=== PATIENT | male | born 1955 | race African-American/Black ===

== ENCOUNTER 2017-04-23 09:47 | Emergency (ER) | payer OTHER ==
[2017-04-23 10:03] VITALS: BP 196/110; PULSE 84; TEMP 98.5; BMI 32.5
[2017-04-23] MEDS ORDERED: IBUPROFEN 600 MG TABLET (FP) PO ONE ×2 (10:27→10:38)
--- NOTE | 2017-04-23 10:34 | PDOC ---
History of Present Illness - General Chief Complaint: Back Pain Stated Complaint: BACK PAIN Time Seen by Provider: 04/23/17 10:16 History Source: Patient, Family Exam Limitations: No Limitations - History of Present Illness Initial Comments: 04/23/17 10:28 He shouldn't came to emergency department for evaluation of acute onset of right -sided mid back and flank pain 2 days. Is uncertain as to cause, denies any changes in exercise or heavy lifting. Denies any fevers cough shortness of breath chest pain or palpitations, denies any problems with bowel or bladder. Takes no medication and has not taken any medication for relief of this pain. Has never had an injury, but feels is possible a muscle spasm as he feels a "clenching" to his right scapular thoracic back muscles. Denies numbness or tingling to hands or feet, Occurred: reports: other (2 days ) Severity: reports: mild, moderate Pain Location: reports: back Modifying Factors: improves with: None Loss of Consciousness: no loss of consciousness Associated Symptoms (Fall): denies symptoms Past History - Travel Traveled outside of the country in the last 30 days: No Close contact w/someone who was outside of country & ill: No - Past Medical History Allergies/Adverse Reactions: Allergies Allergy/AdvReac Type Severity Reaction Status Date / Time FRUITS Allergy Rash Uncoded 04/23/17 09:57 Home Medications: Ambulatory Orders Cyclobenzaprine HCl [Flexeril 10 mg] 10 mg PO BID PRN #14 tablet 04/23/17 HTN: Yes - Surgical History Abdominal Surgery: Yes (HERNIA) - Psycho/Social/Smoking Cessation Hx Anxiety: No Suicidal Ideation: No Smoking History: Never smoked Hx Alcohol Use: Yes (SOCIAL) Drug/Substance Use Hx: No Substance Use Type: None Review of Systems - Review of Systems Able to Perform ROS?: Yes Is the patient limited [place] proficient: Yes Constitutional: Yes: See HPI. No: Symptoms Reported, Fever, Loss of Appetite, Malaise HEENTM: Yes: See HPI. No: Symptoms Reported Respiratory: Yes: See HPI. No: Symptoms reported Musculoskeletal: Yes: Symptoms Reported, See HPI, Back Pain, Muscle Pain. No: Joint Swelling, Joint Stiffness Integumentary: No: Symptoms Reported, Rash Neurological: Yes: See HPI. No: Symptoms reported, Headache, Numbness All Other Systems: Reviewed and Negative *Physical Exam - Vital Signs Last Vital Signs Temp Pulse Resp BP Pulse Ox 98.5 F 84 20 196/110 100 04/23/17 09:49 04/23/17 09:49 04/23/17 09:49 04/23/17 09:49 04/23/17 09:49 - Physical Exam General Appearance: Yes: Nourished, Appropriately Dressed, Apparent Distress, Mild Distress HEENT: positive: KOKO, Normal ENT Inspection, TMs Normal, Pharynx Normal Neck: positive: Supple. negative: Tender Respiratory/Chest: positive: Lungs Clear, Normal Breath Sounds Cardiovascular: positive: Regular Rhythm, Regular Rate Gastrointestinal/Abdominal: positive: Soft. negative: Normal Bowel Sounds, Tender Musculoskeletal: positive: Normal Inspection, Muscle Spasm (patient with mild palpable spasm noted to the paravertebral spinous muscles, mild thoracic.). negative: Decreased Range of Motion, Vertebral Tenderness Extremity: positive: Normal Inspection, Normal Range of Motion. negative: Normal Capillary Refill Integumentary: positive: Normal Color, Dry, Warm, Pale Neurologic: positive: budget engineer II-XII NML intact, Fully Oriented, Alert, Normal Mood/ Affect, Normal Response, Motor Strength 5/5 Progress Note - Progress Note Progress Note: Muscle strain, will treat with NSAIDs and cyclobenzaprine *DC/Admit/Observation/Transfer Diagnosis at time of Disposition: Muscle strain - Discharge Dispostion Disposition: HOME Condition at time of disposition: Stable Admit: No - Prescriptions Prescriptions: Cyclobenzaprine HCl [Flexeril 10 mg] 10 mg PO BID PRN #14 tablet PRN Reason: spasm - Patient Instructions Printed Discharge Instructions: DI for Muscle Strain Additional Instructions: Rest, no heavy lifting or exercise until pain is resolved Hot soaks to neck and low back as often as possible/hot showers or Jacuzzis No massage or therapy until spasm is gone Continue ibuprofen 2-200 mg tablets every 6 hours for the next 3 days then as needed for pain and swelling Cyclobenzaprine 1-10mg every 8 hours as needed for spasm If not significant improvement within 24 hours with medication and rest regime, followup with private physician for change in medications and /or therapy. - Post Discharge Activity Work/School Note: Back to Work
[2017-04-23 10:40] LABS: URINE APPEARANCE CLEAR; URINE BILIRUBIN NEGATIVE (NEGATIVE); URINE BLOOD NEGATIVE (NEGATIVE); URINE COLOR LTYELLOW; URINE GLUCOSE (UA) NEGATIVE (NEGATIVE); URINE KETONE NEGATIVE (NEGATIVE); URINE LEUK ESTERASE NEGATIVE (NEGATIVE); URINE NITRITE NEGATIVE (NEGATIVE); URINE PROTEIN NEGATIVE (NEGATIVE); URINE UROBILINOGEN NEGATIVE mg/dL (0.2-1.0)
== END 2017-04-23 11:39 | disposition home or self-care (01) ==
LOC: JER 09:47 → JERFT 09:47
DX: S29.012A Strain of muscle and tendon of back wall of thorax, initial encounter (principal); I10 Essential (primary) hypertension
CPT/HCPCS: 81003; 99281-25

== ENCOUNTER 2018-01-23 17:01 | Observation (INO) | payer OTHER ==
--- NOTE | 2018-01-23 17:10 | PDOC ---
Rapid Medical Evaluation Time Seen by Provider: 01/23/18 17:06 Medical Evaluation: Allergies Allergy/AdvReac Type Severity Reaction Status Date / Time FRUITS Allergy Rash Uncoded 04/23/17 09:57 I have performed a brief in-person evaluation of this patient. The patient presents with a chief complaint of: ate peanuts 2 hours ago and felt itchy back of throat, then felt itchy and his tongue got swollen. Took benadryl about 2 hours ago, but his tongue is still swollen. Pertinent physical exam findings: patient speaking oddly because of tongue swelling. Can keep tongue in mouth. I have ordered the following: nothing The patient will proceed to the ED for further evaluation. Discharge Disposition - Diagnosis Allergic reaction, Tongue swelling - Referrals - Patient Instructions - Post Discharge Activity
[2018-01-23 17:12] VITALS: BMI 31.1
--- NOTE | 2018-01-23 17:32 | PDOC ---
History of Present Illness - General Chief Complaint: Allergic Reaction Stated Complaint: ALLERGIC REACTION Time Seen by Provider: 01/23/18 17:06 - History of Present Illness Initial Comments: 01/23/18 18:34 The patient is a 62 year old male with a history of HTN who presents for evaluation of an allergic reaction. The patient notes that he ingested peanuts 2 hours prior to presentation in the ED and began experiencing hives, itching, mouth tingling, and tongue swelling prompting his presentation to the ED for further evaluation. He denies a prior allergy to peanuts and notes that he took benadryl prior to his presentation with resolution of his hives and itching. He continues to complain of tongue swelling here in the ED. He otherwise denies fevers, chills, SOB, chest pain, abdominal pain, nausea, vomiting, or changes with urination or bowel movements. Past History - Past Medical History Allergies/Adverse Reactions: Allergies Allergy/AdvReac Type Severity Reaction Status Date / Time No Known Allergies Allergy Verified 01/23/18 18:56 COPD: No HTN: Yes - Surgical History Abdominal Surgery: Yes (HERNIA) - Suicide/Smoking/Psychosocial Hx Smoking History: Never smoked Have you smoked in the past 12 months: No Information on smoking cessation initiated: No Hx Alcohol Use: Yes (SOCIAL) Drug/Substance Use Hx: No Substance Use Type: None Review of Systems - Review of Systems Comments:: 01/23/18 18:36 Constitutional: No fevers, chills, fatigue, malaise HEENT: Tongue Swelling. No Rhinorrhea, nasal congestion, visual changes Cardiovascular: No chest pain, syncope, palpitations, lightheadedness Respiratory: No Cough, SOB, Hemoptysis, Gastrointestinal: No Abdominal pain, Nausea, Vomiting, Constipation, Diarrhea, Melena Genitourinary: No Dysuria, Frequency, Urgency, Hesitancy, Hematuria, Flank pain Musculoskeletal: No Myalgia, arthralgia Skin: Hives, Itching. No bruising, pallor Neurologic: No Headache, Dizziness, Numbness, Weakness, or Tingling Psychiatric: No Hallucinations. No SI or HI *Physical Exam - Vital Signs Last Vital Signs Temp Pulse Resp BP Pulse Ox 99.3 F 53 L 18 178/101 100 01/23/18 17:07 01/23/18 17:07 06/12/18 17:07 01/23/18 17:07 01/23/18 17:07 - Physical Exam Comments: 01/23/18 18:37 General Appearance: Nourished. No Apparent Distress HEENT: EOMI, KOKO. Tongue Edema with Uvula Swelling. Uvula Midline. No Pharyngeal Erythema, Tonsillar Exudate, Tonsillar Erythema Neck: No Cervical Lymphadenopathy Respiratory/Chest: Lungs Clear, Normal Breath Sounds. No Crackles, Rales, Rhonchi, Wheezing Cardiovascular: Regular Rhythm, Regular Rate. No Murmur, Gallops, Rubs Gastrointestinal/Abdominal: Normal Bowel Sounds, Soft. No Guarding, Rebound, Tenderness Musculoskeletal: No CVA Tenderness Extremity: Normal Capillary Refill Integumentary: No Hives noted. Normal Color, Dry, Warm Neurologic: Fully Oriented, Alert, Normal Mood/Affect, Normal Response, ED Treatment Course - LABORATORY CBC & Chemistry Diagram: 01/25/18 07:13 01/25/18 06:00 Medical Decision Making - Medical Decision Making 01/23/18 18:46 The patient is a 62 year old male with a history of HTN who presents for evaluation of an allergic reaction. Given the patient's history and physical exam, it is likely his symptoms are due to an allergic reaction. We will treat with solumedrol, pepcid, benadryl, sq epi here in the ED and continue to closely monitor and reassess. 01/23/18 20:12 The patient continues to experience tongue swelling despite medication and is hypertensive in the ER with Trigemini on the monitor. We believe he requires observation admission for blood pressure management and continued monitoring. We discussed the case with Dr. Granados who accepted the patient for admission. *DC/Admit/Observation/Transfer Diagnosis at time of Disposition: Allergic reaction, Tongue swelling - Discharge Dispostion Condition at time of disposition: Improved - Referrals - Patient Instructions - Post Discharge Activity
[2018-01-23] MEDS ORDERED: methylPREDNISolone NA SUCC 125 MG/2 ML VIAL IVPUSH ONE (17:37)
[2018-01-23] MEDS ORDERED: FAMOTIDINE 20 MG/50 ML IVPB 20 MG/50 ML MG IVPB ONE (17:47)
[2018-01-23] MEDS ORDERED: EPINEPHrine 1:1,000 1 MG/1 ML - 30ML VIAL (INJECTION) SQ STA (17:48)
[2018-01-23] MEDS ORDERED: EPINEPHrine INTRACARD 1:10,000 1 MG/10 ML DISP.SYRIN IVPUSH STA (17:48)
--- NOTE | 2018-01-23 17:50 | PDOC ---
Attending Attestation - HPI HPI: The patient is a 62 year old male, with a significant past medical history of HTN, who presents to the emergency department with, allergic reaction. As per patient, he ate peanuts prior to his arrival at work. He immediately began to experience hives, itching, and tongue swelling. His boss took him to [facility] and gave him 2 of Benadryl which relieved his hives and itching. He denies any lip swelling. He denies any recent fevers, chills, headache or dizziness. He denies any recent nausea, vomit, diarrhea or constipation. He denies any recent chest pain or shortness of breath. He denies any recent dysuria, frequency, urgency or hematuria. Past surgical history: None reported. Social History: Nonsmoker. Denies EtOH use and recreational drug use. - Physicial Exam PE: 01/23/18 19:26 GENERAL: Well-appearing, well-nourished. No apparent distress. +HEENT: Uvula and tongue swollen. No lip swelling. Normocephalic, atraumatic. PERRL, EOM intact. CARDIOVASCULAR: Normal S1, S2. Regular rate and rhythm. PULMONARY: Clear to auscultation bilaterally. ABDOMEN: Soft, non-distended, non-tender. EXTREMITIES: Normal ROM in all four extremities. No gross deformities. SKIN: Warm, dry. No rash NEUROLOGICAL: No focal neurological deficits. <Garry Altamirano - Last Filed: 01/23/18 19:26> - Resident Resident Name: Elan Smileyel - ED Attending Attestation I have performed the following: I have examined & evaluated the patient, The case was reviewed & discussed with the resident, I agree w/resident's findings & plan, Exceptions are as noted - HPI HPI: 01/23/18 17:49 62-year-old male ate peanuts and developed tongue swelling and periorbital tingling -he hasnever had an allergic rxn to peanuts - Medical Decision Making 01/24/18 01:44 imp PEANUT ALLERGY/UNCONTROLLED HTN ADMITTED FOR AIRWAY WATCH <Emili Qiu - Last Filed: 01/24/18 01:44> Attestations - Attestations 01/23/18 19:26 Documentation prepared by Garry Altamirano, acting as medical receptionist medical assistant for Emili Qiu MD. <Garry Altamirano - Last Filed: 01/23/18 19:26>
[2018-01-23] MEDS ORDERED: EPINEPHrine/PF 1 MG/1 ML (1:1,000) AMPULE ONE ×2 (17:55→20:37)
[2018-01-23] MEDS ORDERED: EPINEPHrine INTRACARD 1:10,000 1 MG/10 ML DISP.SYRIN IVPUSH ONE (19:15)
[2018-01-23] MEDS ORDERED: LOSARTAN 50MG/HCTZ 12.5MG 1 TAB (FP) PO ONE (21:30)
[2018-01-23 22:24] LABS: BASO % 0.4 % (0-2.0); EOS % 0.5 % (0-4.5); HEMATOCRIT 42.7 % (35.4-49); LYMPH % 8.7 % (8-40); MCH 27.5 pg (25.7-33.7); MCHC 32.7 g/dl (32.0-35.9); MEAN CELL VOLUME 84.3 fl (80-96); MEAN PLT VOLUME 9.6 fl (7.5-11.1); NEUT % 88.4 % (42.8-82.8); PLATELET COUNT 166 K/MM3 (134-434); RBC 5.07 M/mm3 (4.00-5.60); RDW 15.4 % (11.9-15.9); WHITE BLOOD COUNT 7.6 K/mm3 (4.0-10.0)
[2018-01-24] MEDS: DEXAMETHASONE SOD PHOSPHATE 4 MG/1 ML VIAL IVPUSH SCH ×4 (04:07→21:08)
[2018-01-24 08:51] LABS: BASO % 0.3 % (0-2.0); EOS % 0.1 % (0-4.5); HEMATOCRIT 39.9 % (35.4-49); HEMOGLOBIN 12.9 GM/dL (11.7-16.9); LYMPH % 10.1 % (8-40); MCH 27.4 pg (25.7-33.7); MCHC 32.4 g/dl (32.0-35.9); MEAN CELL VOLUME 84.5 fl (80-96); MEAN PLT VOLUME 10.2 fl (7.5-11.1); MONO % 1.6 % (3.8-10.2); NEUT % 87.9 % (42.8-82.8); PLATELET COUNT 137 K/MM3 (134-434); RBC 4.72 M/mm3 (4.00-5.60); RDW 15.1 % (11.9-15.9); WHITE BLOOD COUNT 7.8 K/mm3 (4.0-10.0)
[2018-01-24] MEDS: PANTOPRAZOLE 40 MG TABLET (FP) PO SCH ×2 (09:14→21:07)
[2018-01-24 09:16] LABS: ANION GAP 11 (8-16); CHLORIDE 104 mmol/L (98-107); CO2 25 mmol/L (21-32); POTASSIUM 4.1 mmol/L (3.5-5.1); SODIUM 140 mmol/L (136-145)
--- NOTE | 2018-01-24 09:16 | HP ---
Admitting History and Physical - Admission Chief Complaint: hives / itching / swelling generalized History of Present Illness: The patient is a 62 year old male, with a significant past medical history of HTN, who presents to the emergency department with, allergic reaction. As per patient, he ate peanuts prior to his arrival at work. He immediately began to experience hives, itching, and tongue swelling. His boss took him to [facility] and gave him 2 of Benadryl which relieved his hives and itching. He denies any lip swelling. He denies any recent fevers, chills, headache or dizziness. He denies any recent nausea, vomit, diarrhea or constipation. He denies any recent chest pain or shortness of breath. He denies any recent dysuria, frequency, urgency or hematuria. although HTN - patient has not been on any meds - last seen in office 06/2017 Last RX given then Diovan HCT 160/25 q day and simvastatin 40 mg q day ( 3 refills ) History Source: Patient, Medical Record Limitations to Obtaining History: No Limitations - Past Medical History Cardiovascular: Yes: HTN, Hyperlipdemia - Smoking History Smoking history: Never smoked Have you smoked in the past 12 months: No - Alcohol/Substance Use Hx Alcohol Use: Yes (SOCIAL) - Social History ADL: Independent History of Recent Travel: No Home Medications - Allergies Allergies/Adverse Reactions: Allergies Allergy/AdvReac Type Severity Reaction Status Date / Time No Known Allergies Allergy Verified 01/23/18 18:56 Review of Systems Findings/Remarks: was in usual state of health prior to ingestion of peanuts - Review of Systems Constitutional: reports: No Symptoms Eyes: reports: No Symptoms HENT: reports: No Symptoms Neck: reports: No Symptoms Cardiovascular: reports: No Symptoms Respiratory: reports: No Symptoms Gastrointestinal: reports: No Symptoms Genitourinary: reports: No Symptoms Breasts: reports: No Symptoms Reported Musculoskeletal: reports: No Symptoms Integumentary: reports: No Symptoms Neurological: reports: No Symptoms Endocrine: reports: No Symptoms Hematology/Lymphatic: reports: No Symptoms Psychiatric: reports: No Symptoms Physical Examination Vital Signs: Vital Signs Temperature 97.5 F L 01/24/18 07:45 Pulse Rate 85 01/24/18 07:45 Respiratory Rate 20 01/24/18 07:45 Blood Pressure 154/108 01/24/18 07:45 O2 Sat by Pulse Oximetry (%) 99 01/24/18 05:42 Constitutional: Yes: Well Nourished, No Distress, Calm Eyes: Yes: Conjunctiva Clear, EOM Intact HENT: Yes: Atraumatic, Normocephalic Neck: Yes: Supple, Trachea Midline, Other (swelling lower jaw) Cardiovascular: Yes: Regular Rate and Rhythm Respiratory: Yes: Regular, CTA Bilaterally Gastrointestinal: Yes: Normal Bowel Sounds, Soft, Abdomen, Obese ...Rectal Exam: Yes: Deferred Renal/: Yes: WNL Breast(s): Yes: WNL Musculoskeletal: Yes: WNL Extremities: Yes: WNL Edema: No Peripheral Pulses WNL: Yes Integumentary: Yes: WNL Neurological: Yes: Alert, Oriented ...Motor Strength: WNL Psychiatric: Yes: Alert, Oriented Labs: CBC, BMP 01/24/18 07:09 Problem List - Problems (1) Angio-edema Code(s): T78.3XXA - ANGIONEUROTIC EDEMA, INITIAL ENCOUNTER (2) Tongue swelling Code(s): R22.0 - LOCALIZED SWELLING, MASS AND LUMP, HEAD (3) Allergic reaction Code(s): T78.40XA - ALLERGY, UNSPECIFIED, INITIAL ENCOUNTER (4) HTN (hypertension) Code(s): I10 - ESSENTIAL (PRIMARY) HYPERTENSION (5) HLD (hyperlipidemia) Code(s): E78.5 - HYPERLIPIDEMIA, UNSPECIFIED Qualifiers: Hyperlipidemia type: pure hypercholesterolemia Qualified Code(s): E78.00 - Pure hypercholesterolemia, unspecified; E78.0 - Pure hypercholesterolemia Assessment/Plan # angioedema 2/2 to peanuts steroids /PPi / benadryl / # HTN resume meds non compliance
[2018-01-24 09:29] LABS: BLOOD UREA NITROGEN 18 mg/dL (7-18); CREATININE 1.3 mg/dL (0.7-1.3); GLUCOSE,RANDOM 182 mg/dL (74-106)
--- NOTE | 2018-01-24 09:43 | EKG ---
Test Reason : Blood Pressure : / mmHG Vent. Rate : 090 BPM Atrial Rate : 090 BPM P-R Int : 214 ms QRS Dur : 096 ms QT Int : 350 ms P-R-T Axes : 060 -33 130 degrees QTc Int : 428 ms SINUS RHYTHM WITH SINUS ARRHYTHMIA WITH 1ST DEGREE A-V BLOCK WITH FREQUENT PREMATURE VENTRICULAR COMPLEXES LEFT ATRIAL ENLARGEMENT LEFT AXIS DEVIATION SEPTAL INFARCT , AGE UNDETERMINED T WAVE ABNORMALITY, CONSIDER LATERAL ISCHEMIA ABNORMAL ECG WHEN COMPARED WITH ECG OF 20-FEB-2009 19:41, [place] INTERVAL HAS INCREASED QRS AXIS SHIFTED LEFT T WAVE INVERSION NO LONGER EVIDENT IN INFERIOR LEADS Confirmed by JUAN JOSE CASAS, JACQUES ([id number]) on 01/24/2018 9:43:14 AM Referred By: Confirmed By:JACQUES INGRAM MD
[2018-01-24] MEDS ORDERED: LOSARTAN 50MG/HCTZ 12.5MG 1 TAB (FP) PO SCH (10:00)
[2018-01-24] MEDS ORDERED: cloNIDine HCL 0.1 MG TABLET PO ONE (14:45)
[2018-01-24] MEDS ORDERED: LOSARTAN 50MG/HCTZ 12.5MG 1 TAB (FP) PO ONE (15:00)
[2018-01-24] MEDS ORDERED: diphenhydrAMINE HCL 25 MG CAPSULE (FP) PO SCH (22:00)
[2018-01-24] MEDS ORDERED: ATORVASTATIN CA 40 MG TABLET (FP) PO SCH (22:00)
[2018-01-25 08:56] LABS: ANION GAP 9 (8-16); BLOOD UREA NITROGEN 26 mg/dL (7-18); CALCIUM 9.6 mg/dL (8.5-10.1); CHLORIDE 102 mmol/L (98-107); CO2 28 mmol/L (21-32); CREATININE 1.3 mg/dL (0.7-1.3); GLUCOSE,RANDOM 146 mg/dL (74-106); POTASSIUM 4.3 mmol/L (3.5-5.1); SODIUM 139 mmol/L (136-145)
[2018-01-25] MEDS: DEXAMETHASONE SOD PHOSPHATE 4 MG/1 ML VIAL IVPUSH SCH ×2 (08:56→10:31)
[2018-01-25 09:03] LABS: BASO % 0.3 % (0-2.0); HEMATOCRIT 39.6 % (35.4-49); HEMOGLOBIN 12.7 GM/dL (11.7-16.9); LYMPH % 6.7 % (8-40); MCH 27.2 pg (25.7-33.7); MCHC 32.1 g/dl (32.0-35.9); MEAN CELL VOLUME 84.8 fl (80-96); MEAN PLT VOLUME 10.1 fl (7.5-11.1); MONO % 3.9 % (3.8-10.2); NEUT % 89.1 % (42.8-82.8); PLATELET COUNT 124 K/MM3 (134-434); RBC 4.68 M/mm3 (4.00-5.60); RDW 15.7 % (11.9-15.9); WHITE BLOOD COUNT 14.7 K/mm3 (4.0-10.0)
[2018-01-25] MEDS: PANTOPRAZOLE 40 MG TABLET (FP) PO SCH (09:11)
[2018-01-25] MEDS ORDERED: LOSARTAN 50MG/HCTZ 12.5MG 1 TAB (FP) PO SCH (10:00)
--- NOTE | 2018-01-25 10:16 | DS ---
Physical Examination Vital Signs: Vital Signs Temperature 98.7 F 01/24/18 21:00 Pulse Rate 83 01/24/18 21:00 Respiratory Rate 20 01/24/18 23:00 Blood Pressure 155/99 01/24/18 21:00 O2 Sat by Pulse Oximetry (%) 99 01/24/18 23:00 Constitutional: Yes: Well Nourished, No Distress, Calm Eyes: Yes: Conjunctiva Clear, EOM Intact HENT: Yes: Atraumatic, Normocephalic Neck: Yes: Supple, Trachea Midline Cardiovascular: Yes: Regular Rate and Rhythm Respiratory: Yes: Regular, CTA Bilaterally Gastrointestinal: Yes: Normal Bowel Sounds, Soft ...Rectal Exam: Yes: Deferred Renal/: Yes: WNL Breast(s): Yes: WNL Musculoskeletal: Yes: WNL Extremities: Yes: WNL Edema: No Peripheral Pulses WNL: Yes Integumentary: Yes: Laceration Neurological: Yes: Alert, Oriented ...Motor Strength: WNL Psychiatric: Yes: Alert, Oriented Labs: CBC, BMP 01/25/18 07:13 01/24/18 07:09 Discharge Summary Reason For Visit: SHORT STAY/ED OBSERVATION Current Active Problems Allergic reaction (Acute) Angio-edema (Acute) HLD (hyperlipidemia) (Acute) HTN (hypertension) (Acute) Tongue swelling (Acute) Condition: Improved - Instructions - Home Medications Comprehensive Discharge Medication List: prednisone 20mg Q day for 3 days resume diovan HCT / 160/25 q day office follow up next week
[2018-01-25 12:03] VITALS: BP 156/91; PULSE 80; TEMP 98.3
== END 2018-01-25 14:45 | disposition home or self-care (01) ==
LOC: JER 17:01 → JERBED 20:20 → J8W 01-24 02:51
PROVIDERS: ADMIT Internal Medicine; ATTEND Family Medicine
PROC: 3E033GC Introduction of Other Therapeutic Substance into Peripheral Vein, Percutaneous Approach (ICD-10-PCS; principal; 2018-01-23)
PROC: 3E0337Z Introduction of Electrolytic and Water Balance Substance into Peripheral Vein, Percutaneous Approach (ICD-10-PCS; 2018-01-23)
PROC: 3E013GC Introduction of Other Therapeutic Substance into Subcutaneous Tissue, Percutaneous Approach (ICD-10-PCS; 2018-01-23)
DX: T78.1XXA Other adverse food reactions, not elsewhere classified, initial encounter (principal); T78.3XXA Angioneurotic edema, initial encounter; K13.29 Other disturbances of oral epithelium, including tongue; I10 Essential (primary) hypertension; X58.XXXA Exposure to other specified factors, initial encounter; Z91.010 Allergy to peanuts; R22.0 Localized swelling, mass and lump, head; E78.5 Hyperlipidemia, unspecified
CPT/HCPCS: 36415; 71045-TC-FY; 80048; 85025; 93005; 93010; 96365; 96372; 96375; 99285-25; G0378; J0735

== ENCOUNTER 2018-11-18 13:31 | Inpatient (IN) | payer OTHER ==
[2018-11-18 13:38] VITALS: BMI 2538.6
--- NOTE | 2018-11-18 15:30 | PDOC ---
Rapid Medical Evaluation Chief Complaint: Blood Pressure Problem Time Seen by Provider: 11/18/18 15:09 Medical Evaluation: Allergies Allergy/AdvReac Type Severity Reaction Status Date / Time No Known Allergies Allergy Verified 11/18/18 13:37 Vital Signs Temp Pulse Resp BP Pulse Ox 98.4 F 83 18 188/95 H 98 11/18/18 13:34 11/18/18 13:34 11/18/18 13:34 11/18/18 13:34 11/18/18 13:34 11/18/18 15:27 63 yo M w/ a h/o HTN, comes in c/o 3 days of blurry vision, worsening, associated with occasional dizziness and headaches. He went to his PMD on Monday and Monday, was prescribed a different medication (does not know any of his meds names) which he has not had a chance to fill yet. His symptoms are worsening, hence the ED visit. Physical exam finding, decreased vision in L eye. Pt needs a full work up, will upgrade to the main ED because he needs higher level of care. Dr. Fernando aware Discharge Disposition - Diagnosis HTN (hypertension) Qualifiers: Hypertension type: unspecified Qualified Code(s): I10 - Essential (primary) hypertension - Referrals Referrals: Linda Granados MD [Primary Care Provider] - - Patient Instructions - Post Discharge Activity
--- NOTE | 2018-11-18 16:14 | PDOC ---
History of Present Illness - General Chief Complaint: Blood Pressure Problem Stated Complaint: HYPERTENSION Time Seen by Provider: 11/18/18 15:09 - History of Present Illness Initial Comments: 11/18/18 16:13 Mr. Palm is a 63 yo male w/ pmh of HTN who presents of evaluation of 2-3 days of blurry vision in his R eye. Patient reports he had presented Monday to PCP and proscribed new medication which he has not filled yet - represented Monday with continued high BP. Presents today as he has as yet been unable to fill his prescriptions and continues to have symptoms. Call to pharmacy revealed med list: losartan 100 daily HCTZ 50 daily labatolol 200 bid (new Rx, unfilled as of yet) The patient denies chest pain, shortness of breath, headache and dizziness. Denies fever, chills, nausea, vomit, diarrhea and constipation. Denies dysuria, frequency, urgency and hematuria. Past History - Past Medical History Allergies/Adverse Reactions: Allergies Allergy/AdvReac Type Severity Reaction Status Date / Time No Known Allergies Allergy Verified 11/18/18 13:37 Home Medications: Ambulatory Orders Labetalol HCl [Normodyne -] 200 mg PO BID 11/18/18 COPD: No HTN: Yes - Surgical History Abdominal Surgery: Yes (HERNIA) - Suicide/Smoking/Psychosocial Hx Smoking History: Never smoked Have you smoked in the past 12 months: No Hx Alcohol Use: Yes (SOCIAL) Drug/Substance Use Hx: No Substance Use Type: None Review of Systems - Review of Systems Comments:: 11/18/18 16:13 GENERAL/CONSTITUTIONAL: No fever or chills. No weakness. HEAD, EYES, EARS, NOSE AND THROAT: +Vision changes as described. No ear pain or discharge. No sore throat. CARDIOVASCULAR: No chest pain or shortness of breath RESPIRATORY: No cough, wheezing, or hemoptysis. GASTROINTESTINAL: No nausea, vomiting, diarrhea or constipation. GENITOURINARY: No dysuria, frequency, or change in urination. MUSCULOSKELETAL: No joint or muscle swelling or pain. No neck or back pain. SKIN: No rash NEUROLOGIC: No headache, vertigo, loss of consciousness, or change in strength/ sensation. ENDOCRINE: No increased thirst. No abnormal weight change HEMATOLOGIC/LYMPHATIC: No anemia, easy bleeding, or history of blood clots. ALLERGIC/IMMUNOLOGIC: No hives or skin allergy. *Physical Exam - Vital Signs Last Vital Signs Temp Pulse Resp BP Pulse Ox 98.4 F 83 18 188/95 H 98 11/18/18 13:34 11/18/18 13:34 11/18/18 13:34 11/18/18 13:34 11/18/18 13:34 - Physical Exam Comments: 11/18/18 16:14 GENERAL: Awake, alert, and fully oriented, in no acute distress HEAD: No signs of trauma, normocephalic, atraumatic EYES: +approx. 20/25 L eye, 20/80 R. PERRLA, EOMI, sclera anicteric, conjunctiva clear ENT: Auricles normal inspection, hearing grossly normal, nares patent, oropharynx clear without exudates. Moist mucosa NECK: Normal ROM, supple, no lymphadenopathy, JVD, or masses LUNGS: No distress, speaks full sentences, clear to auscultation bilaterally HEART: Regular rate and rhythm, normal S1 and S2, no murmurs, rubs or gallops, peripheral pulses normal and equal bilaterally. ABDOMEN: Soft, nontender, normoactive bowel sounds. No guarding, no rebound. No masses EXTREMITIES: Normal inspection, Normal range of motion, no edema. No clubbing or cyanosis. NEUROLOGICAL: Cranial nerves II through XII grossly intact. Normal speech, normal gait, no focal sensorimotor deficits SKIN: Warm, Dry, normal turgor, no rashes or lesions noted. ED Treatment Course - LABORATORY CBC & Chemistry Diagram: 11/18/18 17:00 11/18/18 17:00 Medical Decision Making - Medical Decision Making 11/18/18 18:36 Mr. Palm is a 63 yo male w/ pmh as described who presents for evaluation of symptoms concerning for stroke vs. hypertensive urgency vs. PRES. Patient evaluated with broad workup including Head CT, EKG, CXR. Upon repeat evaluation patient BP improved without intervention. Patient given labetalol IV for further BP treatment. CT negative for acute process. Patient noted to have elevated troponin as below - suspect hypertensive urgency as cause of symptoms. Patient reporting mild improvement of vision at this time. Will admit patient for further cardiology evaluation and observation. Laboratory Results - last 24 hr 11/18/18 11/18/18 11/18/18 17:00 17:00 17:00 WBC 3.6 L RBC 5.15 Hgb 14.6 Hct 44.9 MCV 87.1 MCH 28.4 MCHC 32.6 RDW 14.4 Plt Count 98 L D MPV 9.0 D Absolute Neuts (auto) 1.6 Neutrophils % 44.4 D Lymphocytes % 32.3 D Monocytes % 15.8 H D Eosinophils % 6.4 H D Basophils % 1.1 D Nucleated RBC % 0 Sodium 141 Potassium 3.7 Chloride 104 Carbon Dioxide 32 Anion Gap 5 L BUN 21 H Creatinine 1.3 Creat Clearance w eGFR 55.40 Random Glucose 84 Calcium 9.5 Phosphorus 2.7 Magnesium 1.8 Total Bilirubin 1.0 AST 21 ALT 24 Alkaline Phosphatase 72 Creatine Kinase 232 Creatine Kinase Index 1.1 CK-MB (CK-2) 2.6 Troponin I 0.08 H C-Reactive Protein < 0.3 Total Protein 7.3 Albumin 3.9 *DC/Admit/Observation/Transfer Diagnosis at time of Disposition: HTN (hypertension) Qualifiers: Hypertension type: unspecified Qualified Code(s): I10 - Essential (primary) hypertension - Discharge Dispostion Decision to Admit order: Yes - Referrals Referrals: Linda Granados MD [Primary Care Provider] - - Patient Instructions - Post Discharge Activity
[2018-11-18 17:36] LABS: BASO % 1.1 % (0-2.0); EOS % 6.4 % (0-4.5); HEMATOCRIT 44.9 % (35.4-49); HEMOGLOBIN 14.6 GM/dL (11.7-16.9); LYMPH % 32.3 % (8-40); MCH 28.4 pg (25.7-33.7); MCHC 32.6 g/dl (32.0-35.9); MEAN CELL VOLUME 87.1 fl (80-96); MONO % 15.8 % (3.8-10.2); NEUT % 44.4 % (42.8-82.8); PLATELET COUNT 98 K/MM3 (134-434); RBC 5.15 M/mm3 (4.00-5.60); RDW 14.4 % (11.9-15.9); WHITE BLOOD COUNT 3.6 K/mm3 (4.0-10.0)
[2018-11-18 18:01] LABS: ALBUMIN 3.9 g/dl (3.4-5.0); ALK PHOS 72 U/L (45-117); ANION GAP 5 MMOL/L (8-16); BLOOD UREA NITROGEN 21 mg/dL (7-18); CALCIUM 9.5 mg/dL (8.5-10.1); CHLORIDE 104 mmol/L (98-107); CO2 32 mmol/L (21-32); CREATININE 1.3 mg/dL (0.55-1.3); GLUCOSE,RANDOM 84 mg/dL (74-106); MAGNESIUM 1.8 mg/dL (1.8-2.4); PHOSPHOROUS 2.7 mg/dL (2.5-4.9); POTASSIUM 3.7 mmol/L (3.5-5.1); SGOT/AST 21 U/L (15-37); SGPT/ALT 24 U/L (13-61); SODIUM 141 mmol/L (136-145); TOT PROT 7.3 g/dl (6.4-8.2)
--- NOTE | 2018-11-18 18:06 | PDOC ---
Attending Attestation - Resident Resident Name: Matthew Jeffery - ED Attending Attestation I have performed the following: I have examined & evaluated the patient, The case was reviewed & discussed with the resident, I agree w/resident's findings & plan, Exceptions are as noted - HPI HPI: 11/18/18 18:01 The patient is a 63 YOM with a PMH of HTN who presents with a 3 day history of blurry vision, dizziness, and headaches. Patient was seen by his PCP last week, and was prescribed new anti-HTN (cannot remember the name of it). However, pt has not picked it up. Over the past 3 days, pt notes that his BP has been elevated, and he also reports blurry vision, worse in his R eye. Also endorses headache. Denies any CP/SOB. Denies weakness/numbness in any extremity. The patient denies fever, chills, nausea, vomit, diarrhea and constipation. Denies dysuria, frequency, urgency and hematuria. Allergies: NKA Past surgical history: None reported Social history: No reported alcohol, drug or cigarette use. PCP: Dr. Granados - Physicial Exam PE: 11/18/18 18:07 GENERAL: Awake, alert, and fully oriented, in no acute distress. HEAD: No signs of trauma EYES: PERRLA, EOMI, sclera anicteric, conjunctiva clear ENT: Auricles normal inspection, hearing grossly normal, nares patent, oropharynx clear without exudates. Moist mucosa NECK: Nontender, no stepoffs, Normal ROM, supple, no lymphadenopathy, JVD, or masses LUNGS: Breath sounds equal, clear to auscultation bilaterally. No wheezes, and no crackles HEART: Regular rate and rhythm, normal S1 and S2, no murmurs, rubs or gallops ABDOMEN: Soft, nontender, normoactive bowel sounds. No guarding, no rebound. No masses EXTREMITIES: Normal range of motion, no edema. No clubbing or cyanosis. No cords, erythema, or tenderness NEUROLOGICAL: Cranial nerves II through XII intact. 5/5 strength and sensation in all extremities, Normal speech, normal gait, normal cerebellar function SKIN: Warm, Dry, normal turgor, no rashes or lesions noted. - Medical Decision Making 11/18/18 18:07 63 M with headache, blurred vision, and elevated BP. Will evaluate for hypertensive emergency. Pt with mildly diminished visual acuity in R eye but no other neuro deficits. Will check ESR/CRP to r/o GCA. - Labs, ESR, CRP, trop - CT head - Labetalol PRN 11/18/18 18:21 Labs with + trop 0.08 CT head prelim negative Will admit for trending of trops and BP control IV labetalol given
[2018-11-18] MEDS ORDERED: LABETALOL HCL 5 MG/1 ML (100MG/20 ML VIAL) IVPUSH ONE (18:22)
[2018-11-18] MEDS ORDERED: LABETALOL HCL 5 MG/1 ML (200MG/40ML VIAL) IVPB ONE (18:29)
[2018-11-18] MEDS ORDERED: ASPIRIN 81 MG CHEWABLE TABLETS PO ONE (19:39)
[2018-11-18] MEDS ORDERED: ASPIRIN 81 MG CHEWABLE TABLETS ONE (19:44)
[2018-11-18] MEDS ORDERED: ACETAMINOPHEN 325 MG TABLET (FP) PO PRN (22:42)
[2018-11-18] MEDS ORDERED: LABETALOL HCL 100 MG TABLET (FP) PO ONE (22:57)
[2018-11-18] MEDS ORDERED: LABETALOL HCL 100 MG TABLET (FP) ONE (23:20)
[2018-11-19 00:31] LABS: PH,URINE 5.5 (5.0-8.0); URINE APPEARANCE CLEAR; URINE BILIRUBIN NEGATIVE (NEGATIVE); URINE COLOR YELLOW; URINE GLUCOSE (UA) NEGATIVE (NEGATIVE); URINE KETONE TRACE (NEGATIVE); URINE LEUK ESTERASE NEGATIVE (NEGATIVE); URINE NITRITE NEGATIVE (NEGATIVE); URINE PROTEIN NEGATIVE (NEGATIVE)
[2018-11-19 06:12] LABS: BASO % 0.7 % (0-2.0); EOS % 5.6 % (0-4.5); HEMATOCRIT 42.3 % (35.4-49); HEMOGLOBIN 13.7 GM/dL (11.7-16.9); LYMPH % 23.6 % (8-40); MCH 28.1 pg (25.7-33.7); MCHC 32.4 g/dl (32.0-35.9); MEAN CELL VOLUME 86.7 fl (80-96); MEAN PLT VOLUME 9.1 fl (7.5-11.1); MONO % 13.2 % (3.8-10.2); NEUT % 56.9 % (42.8-82.8); PLATELET COUNT 109 K/MM3 (134-434); RBC 4.87 M/mm3 (4.00-5.60); RDW 14.6 % (11.9-15.9); WHITE BLOOD COUNT 4.9 K/mm3 (4.0-10.0)
[2018-11-19 06:40] VITALS: BP 149/67; PULSE 64; TEMP 98.9
[2018-11-19 06:45] LABS: ANION GAP 5 MMOL/L (8-16); BLOOD UREA NITROGEN 23 mg/dL (7-18); CALCIUM 9.2 mg/dL (8.5-10.1); CHLORIDE 105 mmol/L (98-107); CHOLESTEROL 162 mg/dL (50-200); CO2 30 mmol/L (21-32); CREATININE 1.4 mg/dL (0.55-1.3); GLUCOSE,RANDOM 96 mg/dL (74-106); HDL CHOLESTEROL 24 mg/dL (40-60); MAGNESIUM 1.7 mg/dL (1.8-2.4); POTASSIUM 3.7 mmol/L (3.5-5.1); SODIUM 140 mmol/L (136-145); TRIGLYCERIDES 230 mg/dL (0-150)
--- NOTE | 2018-11-19 09:12 | CON.CARD ---
Consult Consult Specialty:: cardio - History of Present Illness Chief Complaint: blurred vision, SIDDIQUI History of Present Illness: 63 M here with dizziness, SIDDIQUI, blurred vision, high BP. recently saw dr cox with hi bp and sx's. labetalol rx'd--pt did not pick it up. here with same. meds given in ER--bp improved markedly. he feels much better now. no more SIDDIQUI. vision still somewhat off. no new neuro deficits at home or here. denies every presyncope or syncope. denies cp, sob PMH: HTN - Past Medical History Cardio/Vascular: Yes: HTN, Hyperlipdemia - Alcohol/Substance Use Hx Alcohol Use: Yes (SOCIAL) - Smoking History Smoking history: Never smoked Have you smoked in the past 12 months: No - Social History ADL: Independent History of Recent Travel: No Home Medications - Allergies Allergies/Adverse Reactions: Allergies Allergy/AdvReac Type Severity Reaction Status Date / Time No Known Allergies Allergy Verified 11/18/18 13:37 - Home Medications Home Medications: Ambulatory Orders Hctz - 50 mg PO DAILY 11/18/18 Labetalol HCl [Normodyne -] 200 mg PO BID 11/18/18 Losartan Potassium 100 mg PO DAILY 11/18/18 Family Disease History - Family Disease History Family History: Denies (no known cmp) Review of Systems - Review of Systems Constitutional: denies: Chills, Fever Eyes: denies: Double Vision, Eye Pain HENT: denies: Nasal Congestion Neck: denies: Stiffness Cardiovascular: denies: Palpitations Respiratory: denies: Orthopnea, PND Gastrointestinal: denies: Diarrhea, Rectal Bleeding Genitourinary: denies: Burning, Hematuria Musculoskeletal: denies: Muscle Pain Integumentary: denies: Rash Neurological: denies: Numbness, Seizure, Syncope Endocrine: denies: Excessive Sweating Hematology/Lymphatic: denies: Excessive Bleeding Vital Signs: Vital Signs Temperature 98.9 F 11/19/18 06:39 Pulse Rate 64 11/19/18 06:39 Respiratory Rate 11/19/18 07:37 Blood Pressure 149/67 11/19/18 06:39 O2 Sat by Pulse Oximetry (%) 98 11/19/18 07:37 Constitutional: Yes: Well Nourished, No Distress Eyes: No: Sclera Icterus HENT: No: Nasal Congestion Neck: No: Decreased ROM Respiratory: Yes: CTA Bilaterally. No: Accessory Muscle Use, Rales, Wheezes Gastrointestinal: Yes: Normal Bowel Sounds. No: Distention, Hepatomegaly, Palpable Mass, Tenderness Cardiovascular: Yes: Regular Rate and Rhythm JVD: No Carotid Bruit: No PMI: Non-Displaced Heart Sounds: Yes: S1, S2. No: Gallop Murmur: No: Systolic Murmur, Diastolic Murmur Musculoskeletal: Yes: Other (No kyphosis) Extremities: No: Cool, Cyanosis Edema: No Peripheral Pulses: 2+ Left Carotid, 2+ Right Carotid, 2+ Left Doralis Pedis, 2+ Right Dorsalis Pedis Integumentary: No: Jaundice Neurological: Yes: Alert, Oriented (x3) Psychiatric: No: Agitated - Other Data Labs, Other Data: CBC, BMP 11/19/18 05:40 11/19/18 05:40 Troponin, BNP 11/18/18 11/18/18 11/19/18 17:00 19:31 05:40 Troponin I 0.08 H 0.07 H 0.07 H Troponin, BNP 11/18/18 11/18/18 11/19/18 17:00 19:31 05:40 Troponin I 0.08 H 0.07 H 0.07 H Laboratory Tests 11/18/18 11/18/18 11/19/18 17:00 19:31 05:40 WBC 4.9 Hgb 13.7 Plt Count 109 L Sodium Potassium Carbon Dioxide BUN Creatinine Troponin I 0.08 H 0.07 H Triglycerides Cholesterol Total LDL Cholesterol HDL Cholesterol 11/19/18 05:40 WBC Hgb Plt Count Sodium 140 Potassium 3.7 Carbon Dioxide 30 BUN 23 H Creatinine 1.4 H Troponin I 0.07 H Triglycerides 230 H Cholesterol 162 Total LDL Cholesterol 97 HDL Cholesterol 24 L Assessment/Plan ECG 11/18 (16:34): NSR with sinus arrhythmia, 1st deg AVB, LVH/CINTHYA. nonsp ST-Ts lateral leads likely sec to LVH repol abn (no change vs 01/2018) #2: NSR with sinus arrhythmia, APC with blocked AV conduction, no other changes #3: NSR with sinus arrhythmia, no change vs prior HTN urgency: -pt non-adherence to recent med rx at home. here with dizziness, SIDDIQUI, blurred vision -initial bp here 188/95 -pt resumed on correct home regimen, and BP has improved significantly. sx's have improved significantly. -given findings of LVH and CINTHYA on ECG, recommend echo to evaluate for LVH and r/ o LV dilation/hypertensive CMP--in absence of s/sx of chf or angina, this may be done on outpatient basis -continue present bp meds, outpt bp followup. -blurry vision f/u as outpt per dr luis sinus arrhythmia, blocked APC: -APC occurred at timing outside of refractory period, hence should have been conducted. however in setting of sinus arrhythmia this most likely represents physiolgic effect of high vagal tone and not pathologic conduction system dz -no sx's of bradyarrhythmia at home -routine outpt f/u elevated troponin: -troponin indeterminate range, flat trend x 3= not c/w ACS -likely sec to underlying LVH -no sx's of acute ischemia -no inpatient ischemia eval is indicated here CKD: -creat 1.3-1.4 here, GFR 50s -similar to prior values thrombocytopenia: -per PMD no further inpatient cardio workup or mgmt required
[2018-11-19] MEDS ORDERED: LOSARTAN POTASSIUM 100 MG TABLET PO SCH (10:00)
[2018-11-19] MEDS ORDERED: LABETALOL HCL 200 MG TABLET (FP) PO SCH (10:00)
[2018-11-19] MEDS ORDERED: DOCUSATE SODIUM 100 MG CAPSULE (FP) PO SCH (10:00)
[2018-11-19] MEDS ORDERED: ASPIRIN COATED 81 MG TABLET.EC PO SCH (10:00)
--- NOTE | 2018-11-19 10:15 | HP ---
Admitting History and Physical - Admission History of Present Illness: Mr. Palm is a 63 yo male w/ pmh of HTN who presents of evaluation of 2-3 days of blurry vision in his R eye. Patient reports he had presented Monday to office and was given additional Rx for uncontrolled HTN, which he has not filled yet - represented Monday with continued high BP. He reports was still unable to fill his RX and continued with sx. denies Chest pain / SOB He reports walks 2 miles a day no LASSITER. Call to pharmacy revealed med list: losartan 100 daily HCTZ 50 daily labatolol 200 bid (new Rx, unfilled as of yet) History Source: Patient, Medical Record Limitations to Obtaining History: No Limitations - Past Medical History Cardiovascular: Yes: HTN, Hyperlipdemia - Smoking History Smoking history: Never smoked Have you smoked in the past 12 months: No - Alcohol/Substance Use Hx Alcohol Use: Yes (SOCIAL) - Social History ADL: Independent History of Recent Travel: No Home Medications - Allergies Allergies/Adverse Reactions: Allergies Allergy/AdvReac Type Severity Reaction Status Date / Time No Known Allergies Allergy Verified 11/18/18 13:37 - Home Medications Home Medications: Ambulatory Orders Hctz - 50 mg PO DAILY 11/18/18 Labetalol HCl [Normodyne -] 200 mg PO BID 11/18/18 Losartan Potassium 100 mg PO DAILY 11/18/18 Review of Systems - Review of Systems Constitutional: denies: Chills, Diaphoresis, Fever Eyes: reports: Blurred Vision. denies: Double Vision, Recent Change in Vision HENT: reports: No Symptoms Neck: reports: No Symptoms Cardiovascular: denies: Chest Pain, Palpitations, Shortness of Breath Respiratory: denies: Exercise Intolerance, Orthopnea, SOB, SOB on Exertion Gastrointestinal: reports: No Symptoms Genitourinary: reports: No Symptoms Breasts: reports: No Symptoms Reported Musculoskeletal: reports: No Symptoms Integumentary: reports: No Symptoms Neurological: reports: No Symptoms Endocrine: reports: No Symptoms Hematology/Lymphatic: reports: No Symptoms Psychiatric: reports: No Symptoms Physical Examination Vital Signs: Vital Signs Temperature 98.9 F 11/19/18 06:39 Pulse Rate 64 11/19/18 06:39 Respiratory Rate 19 11/19/18 07:37 Blood Pressure 149/67 11/19/18 06:39 O2 Sat by Pulse Oximetry (%) 98 04/08/19 07:37 Constitutional: Yes: Well Nourished, No Distress, Obese Eyes: Yes: Conjunctiva Clear, EOM Intact HENT: Yes: Atraumatic, Normocephalic Neck: Yes: Supple, Trachea Midline Cardiovascular: Yes: Regular Rate and Rhythm, Murmur Respiratory: Yes: Regular, CTA Bilaterally Gastrointestinal: Yes: Normal Bowel Sounds, Soft ...Rectal Exam: Yes: Deferred Renal/: Yes: WNL Breast(s): Yes: WNL Musculoskeletal: Yes: WNL Extremities: Yes: WNL Edema: No Peripheral Pulses WNL: Yes Integumentary: Yes: WNL Neurological: Yes: WNL ...Motor Strength: WNL Psychiatric: Yes: WNL Labs: CBC, BMP 11/19/18 05:40 11/19/18 05:40 Problem List - Problems (1) HTN (hypertension) Assessment/Plan: resume home meds add labetolol monitor Bp Cardiology eval if proper will arrange for out patient work up am lipids ck A1c -- no hx DM ck TSH telemetry Code(s): I10 - ESSENTIAL (PRIMARY) HYPERTENSION Qualifiers: Hypertension type: unspecified Qualified Code(s): I10 - Essential (primary ) hypertension (2) HLD (hyperlipidemia) Assessment/Plan: diet education has declined statins in the past will review diet fasting lipids Code(s): E78.5 - HYPERLIPIDEMIA, UNSPECIFIED Qualifiers: Hyperlipidemia type: pure hypercholesterolemia Qualified Code(s): E78.00 - Pure hypercholesterolemia, unspecified; E78.0 - Pure hypercholesterolemia
--- NOTE | 2018-11-19 10:24 | DS ---
Physical Examination Vital Signs: Vital Signs Temperature 98.9 F 11/19/18 06:39 Pulse Rate 64 11/19/18 06:39 Respiratory Rate 19 11/19/18 07:37 Blood Pressure 149/67 11/19/18 06:39 O2 Sat by Pulse Oximetry (%) 98 11/19/18 07:37 Findings/Remarks: Mr. Palm is a 63 yo male w/ pmh of HTN who presents of evaluation of 2-3 days of blurry vision in his R eye. Patient reports he had presented Monday to office and was given additional Rx for uncontrolled HTN, which he has not filled yet - represented Monday with continued high BP. He reports was still unable to fill his RX and continued with sx. denies Chest pain / SOB He reports walks 2 miles a day no LASSITER. Patient was given PO meds 11/18/18, improved BP today -- sx resolving -- c/o of mild SIDDIQUI denies having had any CO/SOB/LASSITER/diaphoresis/leg edema Case discussed with Dr Healy- who will do out patient follow up EKGs reviewed with Dr Healy- no acute changes compared to previous Constitutional: Yes: Well Nourished, No Distress, Calm Eyes: Yes: WNL HENT: Yes: WNL Neck: Yes: WNL Cardiovascular: Yes: WNL, Murmur Respiratory: Yes: WNL Gastrointestinal: Yes: WNL ...Rectal Exam: Yes: Deferred Renal/: Yes: WNL Breast(s): Yes: WNL Musculoskeletal: Yes: WNL Extremities: Yes: WNL Edema: No Peripheral Pulses WNL: Yes Integumentary: Yes: WNL Neurological: Yes: WNL ...Motor Strength: WNL Psychiatric: Yes: WNL Labs: CBC, BMP 11/19/18 05:40 11/19/18 05:40 Discharge Summary Reason For Visit: HYPERTENSION Current Active Problems HTN (hypertension) (Acute) Condition: Improved - Instructions Disposition: HOME - Home Medications Comprehensive Discharge Medication List: Ambulatory Orders Hctz - 50 mg PO DAILY 11/18/18 Labetalol HCl [Normodyne -] 200 mg PO BID 11/18/18 Losartan Potassium 100 mg PO DAILY 11/18/18
--- NOTE | 2018-11-19 15:31 | EKG ---
Test Reason : Blood Pressure : / mmHG Vent. Rate : 060 BPM Atrial Rate : 060 BPM P-R Int : 222 ms QRS Dur : 104 ms QT Int : 392 ms P-R-T Axes : 063 012 145 degrees QTc Int : 392 ms SINUS RHYTHM WITH MARKED SINUS ARRHYTHMIA WITH 1ST DEGREE A-V BLOCK POSSIBLE LEFT ATRIAL ENLARGEMENT ABNORMAL ECG WHEN COMPARED WITH ECG OF 18-NOV-2018 16:34, NO SIGNIFICANT CHANGE WAS FOUND Confirmed by ROSA CASAS, YEIMI ([id number]) on 11/19/2018 3:30:31 PM Referred By: Confirmed By:YEIMI LEE MD
--- NOTE | 2018-11-19 15:31 | EKG ---
Test Reason : Blood Pressure : / mmHG Vent. Rate : 063 BPM Atrial Rate : 063 BPM P-R Int : 222 ms QRS Dur : 106 ms QT Int : 380 ms P-R-T Axes : 066 026 166 degrees QTc Int : 388 ms SINUS RHYTHM WITH MARKED SINUS ARRHYTHMIA WITH 1ST DEGREE A-V BLOCK LEFT ATRIAL ENLARGEMENT ABNORMAL ECG WHEN COMPARED WITH ECG OF 18-NOV-2018 19:01, NO SIGNIFICANT CHANGE WAS FOUND Confirmed by ROSA CASAS, YEIMI ([id number]) on 11/19/2018 3:30:27 PM Referred By: Confirmed By:YEIMI LEE MD
--- NOTE | 2018-11-19 15:34 | EKG ---
Test Reason : Blood Pressure : / mmHG Vent. Rate : 070 BPM Atrial Rate : 070 BPM P-R Int : 200 ms QRS Dur : 106 ms QT Int : 382 ms P-R-T Axes : 059 016 147 degrees QTc Int : 412 ms NORMAL SINUS RHYTHM WITH SINUS ARRHYTHMIA LEFT ATRIAL ENLARGEMENT ABNORMAL ECG WHEN COMPARED WITH ECG OF 23-JAN-2018 21:12, PREMATURE VENTRICULAR COMPLEXES ARE NO LONGER PRESENT T WAVE VARIATION Confirmed by ROSA CASAS, YEIMI ([id number]) on 11/19/2018 3:34:03 PM Referred By: Confirmed By:YEIMI LEE MD
== END 2018-11-19 11:08 | disposition home or self-care (01) | DRG 305 ==
LOC: JER 13:31 → JERBED 18:40 → OBSVTOIN 22:43
PROVIDERS: ADMIT Family Medicine; ATTEND Family Medicine
DX: I16.1 Hypertensive emergency (principal); H53.8 Other visual disturbances; R51 Headache; E78.5 Hyperlipidemia, unspecified; E66.9 Obesity, unspecified; Z68.25 Body mass index [BMI] 25.0-25.9, adult; D69.6 Thrombocytopenia, unspecified; I12.9 Hypertensive chronic kidney disease with stage 1 through stage 4 chronic kidney disease, or unspecified chronic kidney disease; N18.9 Chronic kidney disease, unspecified; I49.8 Other specified cardiac arrhythmias
CPT/HCPCS: 36415; 70450-TC; 71045-TC-FY; 71046-TC-FY; 80048; 80053; 80061; 81003; 82550; 82553; 83036; 83721; 83735; 84100; 84443; 84484; 85025; 85651; 86140; 93005; 93010; 99285-25; G0378

== ENCOUNTER 2018-12-05 20:29 | Observation (INO) | payer OTHER ==
[2018-12-05 20:35] VITALS: BMI 21.9
--- NOTE | 2018-12-05 20:38 | PDOC ---
Rapid Medical Evaluation Chief Complaint: Blood Pressure Problem Time Seen by Provider: 12/05/18 20:36 Medical Evaluation: Allergies Allergy/AdvReac Type Severity Reaction Status Date / Time No Known Allergies Allergy Verified 12/05/18 20:36 Vital Signs Temp Pulse Resp BP Pulse Ox 98.5 F 67 18 146/55 L 98 12/05/18 20:31 12/05/18 20:31 12/05/18 20:31 12/05/18 20:31 12/05/18 20:31 12/05/18 20:36 I have performed a brief in-person evaluation of this patient. The patient presents with a chief complaint of: dizziness Pertinent physical exam findings: bradycardia-30. No m/r/g. I have ordered the following: cardiac w/u The patient will proceed to the ED for further evaluation. Discharge Disposition - Diagnosis Bradycardia - Referrals - Patient Instructions - Post Discharge Activity
[2018-12-05 21:09] LABS: BASO % 0.7 % (0-2.0); EOS % 7.1 % (0-4.5); HEMATOCRIT 43.8 % (35.4-49); HEMOGLOBIN 14.5 GM/dL (11.7-16.9); LYMPH % 34.4 % (8-40); MCH 28.7 pg (25.7-33.7); MEAN CELL VOLUME 87.1 fl (80-96); MEAN PLT VOLUME 9.5 fl (7.5-11.1); MONO % 7.3 % (3.8-10.2); NEUT % 50.5 % (42.8-82.8); PLATELET COUNT 108 K/MM3 (134-434); RBC 5.03 M/mm3 (4.00-5.60); RDW 14.1 % (11.9-15.9); WHITE BLOOD COUNT 5.6 K/mm3 (4.0-10.0)
[2018-12-05 21:31] LABS: INR 1.02 (0.83-1.09)
[2018-12-05 22:01] LABS: PH,URINE 5.5 (5.0-8.0); URINE APPEARANCE CLEAR; URINE BILIRUBIN NEGATIVE (NEGATIVE); URINE COLOR YELLOW; URINE GLUCOSE (UA) NEGATIVE (NEGATIVE); URINE KETONE NEGATIVE (NEGATIVE); URINE LEUK ESTERASE NEGATIVE (NEGATIVE); URINE NITRITE NEGATIVE (NEGATIVE); URINE PROTEIN NEGATIVE (NEGATIVE); URINE UROBILINOGEN 0.2 mg/dL (0.2-1.0)
--- NOTE | 2018-12-05 22:54 | PDOC ---
History of Present Illness - General Chief Complaint: Blood Pressure Problem Stated Complaint: HIGH BLOOD PRESSURE Time Seen by Provider: 12/05/18 20:36 History Source: Patient Exam Limitations: No Limitations - History of Present Illness Initial Comments: Pt is a 63 yo M, with PMH of HTN, who is presenting with complaints of continued elevated BP, feeling of being "off balance" and "blurry vision" in both eyes since his last admission 2 weeks ago (11/18/2018). Pt states his BP was 180 systolic before he came to the ER, and took an extra dose of his labetolol before presenting to the ER, which did not improve his symptoms. Pt states the episodes of "being off balance" last about 20 minutes, and only occur when he is walking around. He denies any associated chest pain, SOB, n/v/diaphoresis. Pt was seen by his office nurse practitioner after his last discharge, who told the pt "his eyes are fine" per the pt. Pt denies any fevers/chills, headache, syncope, chest pain, palpitations, SOB, nausea/vomiting, abdominal pain, urinary symptoms , diarrhea/constipation, or leg swelling. Social: Pt occasionally smokes cigars. Denies any other cigarette, alcohol, or drug use. Pt denies any recent travel or sick contacts. Surgical: no relevant history. Family: no relevant history. 12/05/18 23:22 Past History - Travel Traveled outside of the country in the last 30 days: No Close contact w/someone who was outside of country & ill: No - Past Medical History Allergies/Adverse Reactions: Allergies Allergy/AdvReac Type Severity Reaction Status Date / Time No Known Allergies Allergy Verified 12/05/18 20:36 Home Medications: Ambulatory Orders Labetalol HCl [Normodyne -] 100 mg PO BID 11/18/18 Losartan Potassium 100 mg PO DAILY 11/18/18 Acetaminophen [Tylenol .Regular Strength -] 650 mg PO Q4H PRN tablet 11/19/18 Hydrochlorothiazide 50 mg PO DAILY 12/05/18 COPD: No HTN: Yes - Surgical History Abdominal Surgery: Yes (HERNIA) - Suicide/Smoking/Psychosocial Hx Smoking History: Never smoked Have you smoked in the past 12 months: No Hx Alcohol Use: Yes (SOCIAL) Drug/Substance Use Hx: No Substance Use Type: None Review of Systems - Review of Systems Able to Perform ROS?: Yes Is the patient limited [place] proficient: No Constitutional: Yes: Weight Stable. No: Chills, Diaphoresis, Fever, Loss of Appetite, Malaise, Weakness HEENTM: Yes: See HPI, Blurred Vision. No: Eye Pain, Recent change in vision, Double Vision, Nose Congestion, Throat Pain Respiratory: No: Cough, Orthopnea, Shortness of Breath Cardiac (ROS): No: Chest Pain, Edema, Irregular Heart Rate, Lightheadedness, Palpitations, Syncope, Chest Tightness ABD/GI: No: Blood Streaked Bowels, Constipated, Diarrhea, Nausea, Poor Appetite , Poor Fluid Intake, Vomiting, Indigestion : No: Burning, Dysuria, Pain, Urgency Musculoskeletal: No: Back Pain, Joint Pain, Muscle Pain, Muscle Weakness Integumentary: No: Rash Neurological: Yes: See HPI, Unsteady Gait. No: Headache, Numbness, Paresthesia , Weakness, Ataxia, Dizziness Psychiatric: No: Sleep Pattern Change, Change in Appetite Endocrine: No: Increased Urine, Change in Weight Hematologic/Lymphatic: No: Anemia, Blood Clots, Easy Bleeding, Easy Bruising All Other Systems: Reviewed and Negative *Physical Exam - Vital Signs Last Vital Signs Temp Pulse Resp BP Pulse Ox 98.5 F 73 16 123/61 95 12/05/18 20:31 12/05/18 22:20 12/05/18 22:20 12/05/18 22:20 12/05/18 22:20 - Physical Exam Comments: HR in 30s on arrival (in 70s on exam), pt afebrile. Pt in NAD, normal body habitus. Pt alert and oriented x3. principal automation engineer generally intact, muscular strength and sensation intact. No midline spinal tenderness, step-offs, or crepitus. Head normocephalic, atraumatic. Eyes PERRLA, EOMI. Oropharynx without erythema or exudates, no LAD b/l. No nasal congestion, hearing intact. Clear heart sounds, S1/S2, no JVD, b/l pedal edema, or heart murmur. Clear lung sounds, no respiratory distress, wheezes, crackles, or accessory muscle use. No abdominal or CVA tenderness to palpation, no rebound, no guarding. Abdomen soft, non-distended, and with normoactive bowel sounds. RLE with ulcerated lesion on anterior palencia (pt states chronic and unchanged). Skin otherwise without jaundice or rash. 12/05/18 22:52 12/06/18 04:06 ED Treatment Course - LABORATORY CBC & Chemistry Diagram: 12/05/18 20:55 12/05/18 22:40 - ADDITIONAL ORDERS Additional order review: Laboratory Results 12/05/18 12/05/18 12/05/18 21:31 20:55 20:55 PT with INR 12.00 INR 1.02 Sodium Cancelled Potassium Cancelled Chloride Cancelled Carbon Dioxide Cancelled Anion Gap Cancelled BUN Cancelled Creatinine Cancelled Creat Clearance w eGFR Cancelled Random Glucose Cancelled Calcium Cancelled Magnesium Cancelled Total Bilirubin Cancelled AST Cancelled ALT Cancelled Alkaline Phosphatase Cancelled Creatine Kinase Cancelled Troponin I Cancelled Total Protein Cancelled Albumin Cancelled Urine Color Yellow Urine Appearance Clear Urine pH 5.5 Ur Specific [place] 1.010 Urine Protein Negative Urine Glucose (UA) Negative Urine Ketones Negative Urine Blood Negative Urine Nitrite Negative Urine Bilirubin Negative Urine Urobilinogen 0.2 Ur Leukocyte Esterase Negative 12/05/18 20:55 RBC 5.03 MCV 87.1 MCHC 33.0 RDW 14.1 MPV 9.5 Neutrophils % 50.5 Lymphocytes % 34.4 D Monocytes % 7.3 Eosinophils % 7.1 H Basophils % 0.7 Medical Decision Making - Medical Decision Making Pt was seen at bedside, also will be seen by attending Dr. Lamas. Pt presenting with complaints of continued elevated BP, feeling of being "off balance" and "blurry vision" in both eyes since his last admission 2 weeks ago ( 11/18/2018). Pt states his BP was 180 systolic before he came to the ER, and took an extra dose of his labetolol before presenting to the ER, which did not improve his symptoms. Pt states the episodes of "being off balance" last about 20 minutes, and only occur when he is walking around. He denies any associated chest pain, SOB, n/v/diaphoresis. Pt was seen by his office nurse practitioner after his last discharge, who told the pt "his eyes are fine" per the pt. Pt denies any fevers/chills, headache, syncope, chest pain, palpitations, SOB, nausea/vomiting , abdominal pain, urinary symptoms, diarrhea/constipation, or leg swelling. Considering hypertensive urgency/emergency vs ACS vs TIA/CVA vs medication noncompliance or side effects from not taking BP meds properly vs electrolyte imbalances vs anxiety/psychosomatic. Ordered work-up including CBC, CMP, BNP, cardiac profile. No acute interventions necessary at this time. HR currently in the 70s. Will continue to reassess pt and monitor for symptomatic improvement. ECG: NSR, intervals WNL. No TWIs or significant ST segment changes. No significant changes from prior ECG. 12/05/18 22:52 12/05/18 23:17 CBC and CMP WNL Mg 1.6 which may explain PVCs -- will replete with 2 g IVPB Trop 0.4, BNP 682 (no prior BNP for comparison, but pt does not appear fluid overloaded clinically, no infiltrates on x-ray, nor orthopnea/PND on history). Second troponin for 1:40am, nursing staff aware. 12/06/18 00:04 12/06/18 01:17 Second troponin .05. Pt continues to have asymptomatic bradycardic periods in HR 40s. Paged Dr. Granados x1 for admission. Placed consult order for Dr. Healy. 12/06/18 03:[address] Granados to tele/obs. She will see the pt in the AM and stated he had PVCs present in the past. Repeat ECG: sinus with 1st degree AV block with frequent PVCs. 12/06/18 03:59 *DC/Admit/Observation/Transfer Diagnosis at time of Disposition: Bradycardia Hypertension Qualifiers: Hypertension type: unspecified Qualified Code(s): I10 - Essential (primary) hypertension - Discharge Dispostion Disposition: HOME Condition at time of disposition: Improved Decision to Admit order: No - Referrals - Patient Instructions - Post Discharge Activity
[2018-12-05 23:36] LABS: ALBUMIN 3.6 g/dl (3.4-5.0); ALK PHOS 65 U/L (45-117); ANION GAP 7 MMOL/L (8-16); BILIRUBIN,TOTAL 0.8 mg/dL (0.2-1); BLOOD UREA NITROGEN 20 mg/dL (7-18); CALCIUM 9.2 mg/dL (8.5-10.1); CHLORIDE 104 mmol/L (98-107); CO2 27 mmol/L (21-32); CREATININE 1.2 mg/dL (0.55-1.3); GLUCOSE,RANDOM 95 mg/dL (74-106); MAGNESIUM 1.6 mg/dL (1.8-2.4); N-TERMINAL BNP 682.2 pg/ml (5-125); POTASSIUM 3.5 mmol/L (3.5-5.1); SGOT/AST 18 U/L (15-37); SGPT/ALT 26 U/L (13-61); SODIUM 139 mmol/L (136-145)
[2018-12-05] MEDS ORDERED: MAGNESIUM SULF 50% (8.12 MEQ/2 ML-1 GM VIAL) IVPB ONE (23:39)
[2018-12-06] MEDS ORDERED: MAGNESIUM SULF 50% (8.12 MEQ/2 ML-1 GM VIAL) ONE (00:16)
--- NOTE | 2018-12-06 02:09 | PDOC ---
Documentation entered by Garry Altamirano SCRIBE, acting as scribe for Ronel Lamas DO. Ronel Lamas DO: This documentation has been prepared by the Evelia mehta Nirvannie, SCRIBE, under my direction and personally reviewed by me in its entirety. I confirm that the documentation accurately reflects all work, treatment, procedures, and medical decision making performed by me. Attending Attestation - Resident Resident Name: JuliaBetty - ED Attending Attestation I have performed the following: I have examined & evaluated the patient, The case was reviewed & discussed with the resident, I agree w/resident's findings & plan - HPI HPI: 12/05/18 23:37 The patient is a 63 year old male, with a significant past medical history of HTN, who presents to the emergency department with, elevated blood pressure, intermittent blurred vision with headache. As per patient, he tested his blood pressure and noticed his systolic to be elevated to 180, prompting him to take his nighttime dosage of Labetalol early and arrive to the ED. He denies any recent fevers or chills. He denies any recent nausea, vomit, diarrhea or constipation. He denies any recent chest pain or shortness of breath. He denies any recent dysuria, frequency, urgency or hematuria. Allergies: NKDA Past surgical history: None reported. Social History: Occasional cigar smoking. Denies EtOH use and recreational drug use. Primary Care Physician: Dr. Granados - Physicial Exam PE: 12/05/18 23:37 Constitutional: Awake, alert, oriented. No acute distress. Head: Normocephalic. Atraumatic Eyes: PERRL. EOMI. Conjunctivae are not pale. ENT: Mucous membranes are moist and intact. Posterior pharynx without exudates or erythema. Uvula midline. Neck: Supple. Full ROM. No lymphadenopathy. Cardiovascular: Regular rate. Regular rhythm. S1, S2 regular. Distal pulses are 2+ and symmetric. Pulmonary/Chest: No evidence of respiratory distress. Clear to auscultation bilaterally No wheezing, rales or rhonchi. Abdominal: Soft and non-distended. There is no tenderness. No rebound, guarding or rigidity. No organomegaly. No palpable masses. Good bowel sounds. Back: No CVA tenderness. Musculoskeletal: No edema. No cyanosis. No clubbing. Full range of motion in all extremities. No calf tenderness. Radial/pedal pulses are intact and 2+ bilaterally Skin: +RLE: Calcified antecubital growth. Skin is warm and dry. No petechiae. No purpura. Neurological: Alert and oriented to person, place, and time. Cranial nerves II -XII are grossly intact. Normal speech. Strength is grossly symmetric. No sensory deficits. Psychiatric: Good eye contact. Normal interaction, affect and behavior. - Medical Decision Making 12/05/18 23:29 I, Dr. Ronel Lamas, DO, attest that this document has been prepared under my direction and personally reviewed by me in its entirety. I further attest, that it accurately reflects all work, treatment, procedures and medical decision -making performed by me. 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
[2018-12-06] MEDS ORDERED: ASPIRIN 81 MG CHEWABLE TABLETS PO ONE (02:30)
[2018-12-06] MEDS ORDERED: ASPIRIN 81 MG CHEWABLE TABLETS ONE (03:56)
[2018-12-06 06:57] VITALS: TEMP 98.1
--- NOTE | 2018-12-06 12:05 | EKG ---
Test Reason : Blood Pressure : / mmHG Vent. Rate : 071 BPM Atrial Rate : 060 BPM P-R Int : 210 ms QRS Dur : 102 ms QT Int : 374 ms P-R-T Axes : 058 -09 131 degrees QTc Int : 406 ms SINUS RHYTHM WITH 1ST DEGREE A-V BLOCK WITH FREQUENT PREMATURE VENTRICULAR COMPLEXES POSSIBLE LEFT ATRIAL ENLARGEMENT ABNORMAL ECG WHEN COMPARED WITH ECG OF 18-NOV-2018 23:07, PREMATURE VENTRICULAR COMPLEXES ARE NOW PRESENT T WAVE INVERSION NO LONGER EVIDENT IN INFERIOR LEADS Confirmed by MUSHTAQ JORDAN MD ([id number]) on 12/06/2018 12:04:55 PM Referred By: Confirmed By:MUSHTAQ JORDAN MD
--- NOTE | 2018-12-06 12:06 | EKG ---
Test Reason : Blood Pressure : / mmHG Vent. Rate : 072 BPM Atrial Rate : 060 BPM P-R Int : 194 ms QRS Dur : 104 ms QT Int : 376 ms P-R-T Axes : 056 004 158 degrees QTc Int : 411 ms SINUS RHYTHM WITH FREQUENT PREMATURE VENTRICULAR COMPLEXES POSSIBLE LEFT ATRIAL ENLARGEMENT ABNORMAL ECG WHEN COMPARED WITH ECG OF 18-NOV-2018 23:07, PREMATURE VENTRICULAR COMPLEXES ARE NOW PRESENT Confirmed by JULIAN CASAS, MUSHTAQ ([id number]) on 12/06/2018 12:06:28 PM Referred By: Confirmed By:MUSHTAQ JORDAN MD
--- NOTE | 2018-12-06 13:27 | DS ---
Physical Examination Vital Signs: Vital Signs Temperature 98.1 F 12/06/18 06:56 Pulse Rate 51 L 12/06/18 08:00 Respiratory Rate 21 H 12/06/18 08:00 Blood Pressure 134/61 12/06/18 08:00 O2 Sat by Pulse Oximetry (%) 100 12/06/18 08:00 Findings/Remarks: Pt is a 63 yo M, with PMH of HTN, who is presenting with complaints of continued elevated BP, feeling of being "off balance" and "blurry vision" in both eyes since his last admission 2 weeks ago (11/18/2018). Pt states his BP was 180 systolic before he came to the ER, and took an extra dose of his labetolol before presenting to the ER, which did not improve his symptoms. Pt states the episodes of "being off balance" last about 20 minutes, and only occur when he is walking around. He denies any associated chest pain, SOB, n/v/diaphoresis. 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 Pt denies any fevers/chills, headache, syncope, chest pain, palpitations, SOB, nausea/vomiting, abdominal pain, urinary symptoms , diarrhea/constipation, or leg swelling. Patient seen in the office several time over last 2 weeks - at times has "forgotten to take him meds, along with poor complinace with diet. He understands compliance with meds essential for Bp control -- He states has all his meds at home instructions given for recommendation for low salt diet Patient instructed to come to office in AM for follow up -- he agrees will d/c from ER Social: Pt occasionally smokes cigars. Denies any other cigarette, alcohol, or drug use. Pt denies any recent travel or sick contacts. Surgical: no relevant history. Constitutional: Yes: Well Nourished, No Distress, Calm Eyes: Yes: Conjunctiva Clear, EOM Intact HENT: Yes: Atraumatic, Normocephalic Neck: Yes: Supple, Trachea Midline Cardiovascular: Yes: Bradycardia, Pulse Irregular, Other (HR 78 with PVC on monitor) Respiratory: Yes: Regular, CTA Bilaterally Gastrointestinal: Yes: Normal Bowel Sounds, Soft, Abdomen, Obese ...Rectal Exam: Yes: Deferred Renal/: Yes: WNL Breast(s): Yes: WNL Musculoskeletal: Yes: WNL Extremities: Yes: WNL Edema: No Peripheral Pulses WNL: Yes Integumentary: Yes: WNL Wound/Incision: Yes: Clean/Dry Neurological: Yes: WNL, Alert, Oriented ...Motor Strength: WNL Psychiatric: Yes: WNL, Alert, Oriented Labs: CBC, BMP 12/05/18 20:55 12/05/18 22:40 Discharge Summary Reason For Visit: BRADYCARDIA,ELEVATED TROPONIN LEVEL Current Active Problems Bradycardia (Acute) HTN (hypertension) (Acute) Condition: Improved - Instructions Diet, Activity, Other Instructions: patient to come to office in am for follow up and BP ck Disposition: HOME - Home Medications Comprehensive Discharge Medication List: Ambulatory Orders Labetalol HCl [Normodyne -] 100 mg PO BID 11/18/18 Losartan Potassium 100 mg PO DAILY 11/18/18 Acetaminophen [Tylenol .Regular Strength -] 650 mg PO Q4H PRN tablet 11/19/18 Hydrochlorothiazide 50 mg PO DAILY 12/05/18
[2018-12-06 14:40] VITALS: BP 132/74; PULSE 54
== END 2018-12-06 14:40 | disposition home or self-care (01) ==
LOC: JER 20:29 → JERBED 12-06 02:57
PROVIDERS: ADMIT Family Medicine; ATTEND Family Medicine
PROC: 3E033GC Introduction of Other Therapeutic Substance into Peripheral Vein, Percutaneous Approach (ICD-10-PCS; principal; 2018-12-06)
DX: R00.1 Bradycardia, unspecified (principal); R77.8 Other specified abnormalities of plasma proteins; I10 Essential (primary) hypertension
CPT/HCPCS: 36415; 71046-TC-FY; 80053; 81003; 82550; 82553; 83735; 83880; 84484; 85025; 85610; 93005; 93010; 96374; 99285-25; G0378

== ENCOUNTER 2019-03-21 21:54 | Inpatient (IN) | payer OTHER ==
[2019-03-21 22:30] VITALS: BMI 27.1
--- NOTE | 2019-03-21 22:38 | PDOC ---
History of Present Illness - General Chief Complaint: Shortness of Breath Stated Complaint: HYPERTENSION Time Seen by Provider: 03/21/19 21:57 History Source: Patient (limited due to trach) - History of Present Illness Initial Comments: 03/21/19 22:32 64M w/ pmh of HTN, ?HF, CVA w/ Right hemiplegia, trach-vent, PEG, BIBA from [facility] for HTN w/ SBP 190s, given metoprolol 25mg. Patient provides information with nodding and shaking head. Has frontal headache and pain in both legs. Denies blurry vision, double vision, CP, palpitations. HPI limited due to trach- vent. Information gathered from EMS, and [facility] paperwork. Was recently discharged from [facility] where he received care for his CVA, was at [facility] for 2d prior to [facility] presentation. Past History - Travel Traveled outside of the country in the last 30 days: No Close contact w/someone who was outside of country & ill: No - Past Medical History Allergies/Adverse Reactions: Allergies Allergy/AdvReac Type Severity Reaction Status Date / Time No Known Allergies Allergy Verified 03/21/19 22:30 Home Medications: Ambulatory Orders Losartan Potassium 100 mg PO DAILY 11/18/18 Acetaminophen [Tylenol .Regular Strength -] 650 mg PO Q4H PRN tablet 11/19/18 Hydrochlorothiazide 50 mg PO DAILY 12/05/18 COPD: No HTN: Yes - Surgical History Abdominal Surgery: Yes (HERNIA, PEG) Other Surgical History: 03/21/19 23:03 - tracheostomy - Family Disease History Comment:: 03/21/19 23:05 diabetes - Suicide/Smoking/Psychosocial Hx Smoking History: Former smoker Have you smoked in the past 12 months: Yes Hx Alcohol Use: Yes (SOCIAL) Drug/Substance Use Hx: No Substance Use Type: None Review of Systems - Review of Systems Able to Perform ROS?: Yes Is the patient limited Guyanese proficient: No Constitutional: No: Chills, Diaphoresis, Fever HEENTM: No: Blurred Vision, Double Vision Respiratory: No: Cough, Shortness of Breath Cardiac (ROS): No: Chest Pain, Palpitations ABD/GI: No: Abdominal Distended, Nausea, Vomiting : Yes: Incontinence. No: Dysuria Neurological: Yes: Headache *Physical Exam - Vital Signs Last Vital Signs Temp Pulse Resp BP Pulse Ox 100 H 22 H 140/79 100 03/21/19 22:26 03/21/19 22:26 03/21/19 22:26 03/21/19 22:26 - Physical Exam General Appearance: No: Apparent Distress HEENT: negative: Scleral Icterus (R), Scleral Icterus (L) Neck: positive: Trachea midline, Other (tracheostomy in place) Respiratory/Chest: positive: Other (b/l lung bases w/ coarse breath sounds). negative: Respiratory Distress, Accessory Muscle Use, Rhonchi, Wheezing Cardiovascular: positive: Regular Rhythm, Regular Rate, S1, S2 Vascular Pulses: Dorsalis-Pedis (R): 2+, Doralis-Pedis (L): 2+ Gastrointestinal/Abdominal: positive: Soft, Other (PEG with external bumper at 4.5cm). negative: Rebound ED Treatment Course - RADIOLOGY Radiology Studies Ordered: Category Date Time Status CHEST X-RAY PORTABLE* [RAD] Stat Radiology 03/21/19 22:27 Ordered Medical Decision Making - Medical Decision Making 03/21/19 23:10 - fu CBC, CMP, UA - fu CXR
--- NOTE | 2019-03-21 22:51 | PDOC ---
Documentation entered by Marbin Silva SCRIBE, acting as scribe for Silvio Victor MD. Silvio Victor MD: This documentation has been prepared by the Shira mehta Elijah, SCRIBE, under my direction and personally reviewed by me in its entirety. I confirm that the documentation accurately reflects all work, treatment, procedures, and medical decision making performed by me. Attending Attestation - Resident Resident Name: Jeff Bernabe - ED Attending Attestation I have performed the following: I have examined & evaluated the patient, The case was reviewed & discussed with the resident, I agree w/resident's findings & plan - HPI HPI: 03/21/19 22:22 Patient is a 64 year old male with a significant past medical history of HTN and recent CVA who presents to the ED from [facility] with an elevated blood pressure. Patient associates a frontal headache and leg pain. History limited secondary to patient's condition. Allergies: NKA PCP: Dr. Granados - Physicial Exam PE: 03/22/19 07:19 Agree with exam as documented by resident - Medical Decision Making 03/22/19 07:20 Vent dependant sent for episode of hypertension. [facility] when giving report stated he had headache but unable to confirm symptoms given clinical condition Pt is difficult to suction/bag, vent shows high pressure alarm. Pt saturation is normal ?early pna, likely proximal mucous plugging likely will need bronch admit
[2019-03-21 23:57] LABS: BASO % 0.4 % (0-2.0); EOS % 2.1 % (0-4.5); HEMATOCRIT 29.5 % (35.4-49); HEMOGLOBIN 9.6 GM/dL (11.7-16.9); LYMPH % 10.9 % (8-40); MCH 27.6 pg (25.7-33.7); MCHC 32.6 g/dl (32.0-35.9); MEAN CELL VOLUME 84.6 fl (80-96); MEAN PLT VOLUME 8.4 fl (7.5-11.1); MONO % 9.2 % (3.8-10.2); NEUT % 77.4 % (42.8-82.8); PLATELET COUNT 313 K/MM3 (134-434); RBC 3.49 M/mm3 (4.00-5.60); RDW 14.5 % (11.9-15.9); WHITE BLOOD COUNT 11.9 K/mm3 (4.0-10.0)
[2019-03-22 00:24] LABS: ALBUMIN 2.1 g/dl (3.4-5.0); BILIRUBIN,TOTAL 0.5 mg/dL (0.2-1); BLOOD UREA NITROGEN 31.8 mg/dL (7-18); CALCIUM 9.3 mg/dL (8.5-10.1); CREATININE 0.9 mg/dL (0.55-1.3); POTASSIUM 4.6 mmol/L (3.5-5.1); TOT PROT 7.7 g/dl (6.4-8.2)
[2019-03-22] MEDS ORDERED: PIPERACILLIN/TAZOB 4.5 GM 4.5 GM in DEXTROSE 5%-WATER 100 ML IVPB ONE (01:30)
[2019-03-22] MEDS ORDERED: VANCOMYCIN HCL 1,500 MG in DEXTROSE 5%-WATER - 500 ML IVPB ONE (01:30)
[2019-03-22] MEDS ORDERED: PIPERACILLIN/TAZOB 4.5 GM 4.5 GM/100 ML BAG IVPB ONE (01:43)
--- NOTE | 2019-03-22 02:14 | HP ---
Admitting History and Physical - Primary Care Physician PCP: Thad Guardado - Admission Chief Complaint: Elevated BP, Headache History of Present Illness: This is a 64 y/o man from [facility] with a PMHx of recent CVA with R Hemiplegia, hemiparesis, Trach/Vent dependent, ASHD, HTN, HLD, CHF, Chronic Respiratory Failure with Hypercapnia. Who presents to the Ed for elevated BP and headache. Patient was recently discharged from [facility] CCU- Acute CVA and was placed in [facility] 03/19/19. Patient unable to provide HPI secondary to his clinical condition. 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 Cardiovascular: Yes: CAD, HTN, Hyperlipdemia Pulmonary: Yes: O2 Dependent (Trach/Vent) - Past Surgical History Additional Past Surgical History: Trach placement - Smoking History Smoking history: Former smoker Have you smoked in the past 12 months: Yes - Alcohol/Substance Use Hx Alcohol Use: Yes (SOCIAL) - Social History Usual Living Arrangement: Yes: Senior Care ADL: Support Services History of Recent Travel: No Home Medications - Allergies Allergies/Adverse Reactions: Allergies Allergy/AdvReac Type Severity Reaction Status Date / Time No Known Allergies Allergy Verified 03/21/19 22:30 - Home Medications Home Medications: Ambulatory Orders Acetaminophen [Tylenol] 650 mg GT Q4H PRN 03/22/19 Aspirin 81 mg GT DAILY 03/22/19 Atorvastatin Ca [Lipitor] 80 mg GT HS 03/22/19 Enoxaparin [Lovenox -] 40 mg SQ DAILY 03/22/19 Hydrochlorothiazide [Hctz -] 25 mg GT DAILY 03/22/19 Losartan Potassium [Cozaar] 100 mg GT DAILY 03/22/19 Metoprolol Tartrate [Lopressor -] 50 mg GT BID 03/22/19 Family Disease History - Family Disease History Family History: Unable to Obtain Review of Systems Unable to obtain ROS, reason: Clinical Condition Physical Examination Vital Signs: Vital Signs Temperature Pulse Rate 112 H 03/22/19 01:12 Respiratory Rate 24 H 03/22/19 01:12 Blood Pressure 133/89 03/22/19 01:12 O2 Sat by Pulse Oximetry (%) 100 03/22/19 01:12 Constitutional: Yes: Anxious, Mild Distress, Obese Eyes: Yes: Conjunctiva Clear HENT: Yes: Atraumatic, Normocephalic, Other (thick white secrections to oral mucousa) Neck: Yes: Supple, Other (Trach) Cardiovascular: Yes: Tachycardia, S1, S2 Respiratory: Yes: Mechanically Ventilated (Trach), Rhonchi, Wheezes Gastrointestinal: Yes: Soft, Other (Peg) ...Rectal Exam: Yes: Sphincter Tone Normal Renal/: Yes: Incontinence Breast(s): Yes: WNL Peripheral Pulses WNL: Yes Wound/Incision: Yes: Other (unstable heel ulcers) Neurological: Yes: Alert, Pre-Existing Deficit Labs: CBC, BMP 03/21/19 23:29 03/21/19 23:29 Imaging - Results Chest X-ray: Report Reviewed, Image Reviewed EKG: Image Reviewed Problem List - Problems (1) Pneumonia Code(s): J18.9 - PNEUMONIA, UNSPECIFIED ORGANISM (2) Chronic respiratory failure Code(s): J96.10 - CHRONIC RESPIRATORY FAILURE, UNSP W HYPOXIA OR HYPERCAPNIA (3) CVA (cerebral vascular accident) Code(s): I63.9 - CEREBRAL INFARCTION, UNSPECIFIED (4) Tracheostomy care Code(s): Z43.0 - ENCOUNTER FOR ATTENTION TO TRACHEOSTOMY (5) ASHD (arteriosclerotic heart disease) Code(s): I25.10 - ATHSCL HEART DISEASE OF [place] CORONARY ARTERY W/O ANG PCTRS (6) Diarrhea Code(s): R19.7 - DIARRHEA, UNSPECIFIED (7) HLD (hyperlipidemia) Code(s): E78.5 - HYPERLIPIDEMIA, UNSPECIFIED Qualifiers: Hyperlipidemia type: pure hypercholesterolemia Qualified Code(s): E78.00 - Pure hypercholesterolemia, unspecified; E78.0 - Pure hypercholesterolemia (8) HTN (hypertension) Code(s): I10 - ESSENTIAL (PRIMARY) HYPERTENSION Qualifiers: Hypertension type: unspecified Qualified Code(s): I10 - Essential (primary ) hypertension Assessment/Plan This is a 64 y/o man with a PMHx of recent CVA R- residual hemiparesis, ASHD, HTN, Trach Vent dependent, HLD, CHF, Chromic Respiratory Failure. Admitted for Pneumonia for further evaluation of their emergent condition. Plan: Admit Vent Floor Vent Settings as per [place] Appreciate Pulm Consult Consider Bronchoscopy secondary to difficult suctioning Chest Xray image ? Infiltrate Blood Cultures-pending Urine and Urine Culture-pending lactic acid-pending stool cultures, c-diff, o&p- diarrhea in ED stool occult-pending Vancomycin and Zosyn given in ED will continue Appreciate ID consult Monitor CBC, BMP Continue home meds with parameters FEN- replete lytes prn, hold tube feedings for now secondary to suctioning difficulty DVT ppx- SCDs, Heparin SQ Code Status: Full Code Dispo: Requires Inpatient Care Visit type - Emergency Visit Emergency Visit: Yes ED Registration Date: 03/21/19 Care time: The patient presented to the Emergency Department on the above date and was hospitalized for further evaluation of their emergent condition. - New Patient This patient is new to me today: Yes Date on this admission: 03/22/19 - Critical Care Critical Care patient: No
[2019-03-22] MEDS ORDERED: MORPHINE SULFATE 2 MG/ML VIAL IVPUSH ONE (04:14)
[2019-03-22] MEDS ORDERED: ACETAMINOPHEN 650 MG/20.3 ML ORAL SOLUTION (CUPS) GT PRN (04:18)
[2019-03-22 06:51] LABS: BLOOD UREA NITROGEN 30.1 mg/dL (7-18); CALCIUM 9.1 mg/dL (8.5-10.1); CREATININE 0.9 mg/dL (0.55-1.3); POTASSIUM 3.7 mmol/L (3.5-5.1)
[2019-03-22 07:20] LABS: BASO % 0.4 % (0-2.0); EOS % 2.1 % (0-4.5); HEMATOCRIT 27.5 % (35.4-49); HEMOGLOBIN 9.1 GM/dL (11.7-16.9); LYMPH % 10.3 % (8-40); MCH 28.2 pg (25.7-33.7); MCHC 33.1 g/dl (32.0-35.9); MEAN CELL VOLUME 85.2 fl (80-96); MEAN PLT VOLUME 8.6 fl (7.5-11.1); MONO % 8.4 % (3.8-10.2); NEUT % 78.8 % (42.8-82.8); PLATELET COUNT 264 K/MM3 (134-434); RBC 3.22 M/mm3 (4.00-5.60); RDW 14.4 % (11.9-15.9); WHITE BLOOD COUNT 11.8 K/mm3 (4.0-10.0)
[2019-03-22] MEDS ORDERED: DEXAMETHASONE SOD PHOSPHATE 10 MG/1 ML VIAL IVPUSH ONE (08:19)
[2019-03-22] MEDS ORDERED: PIPERACILLIN/TAZOBACTAM 4.5 GM VIAL IVPB ONE (08:42)
[2019-03-22] MEDS ORDERED: DEXTROSE 5%-WATER 100 ML IVPB ONE (08:43)
--- NOTE | 2019-03-22 08:43 | PN ---
Progress Note, Physician Chief Complaint: AWAKE ALERT EVENTS AND NOTES REVIEWED MILD DISTRESS WITH TRACHEA POSSIBLY OBSTRUCTED VERSUS A STRICTURE? - Current Medication List Current Medications: Active Medications Acetaminophen (Tylenol Oral Solution -) 650 mg GT Q6H PRN PRN Reason: PAIN OR FEVER Aspirin (Asa -) 81 mg GT DAILY [facility] Atorvastatin Calcium (Lipitor -) 80 mg GT HS [facility] Enoxaparin Sodium (Lovenox -) 40 mg SQ DAILY [facility] Hydrochlorothiazide (Hctz -) 25 mg GT DAILY [facility] Piperacillin Sod/Tazobactam (Sod 4.5 gm/ Dextrose) 100 mls @ 200 mls/hr IVPB Q6H-IV PLACIDO; Protocol Stop: 03/22/19 15:29 Piperacillin Sod/Tazobactam (Sod 4.5 gm/ Dextrose) 100 mls @ 200 mls/hr IVPB Q6H-IV PLACIDO; Protocol Losartan Potassium (Cozaar -) 100 mg GT DAILY [facility] Metoprolol Tartrate (Lopressor -) 50 mg GT BID PLACIDO - Objective Vital Signs: Vital Signs Temperature 99.4 F 03/22/19 06:29 Pulse Rate 94 H 03/22/19 06:29 Respiratory Rate 18 03/22/19 06:29 Blood Pressure 147/82 03/22/19 06:29 O2 Sat by Pulse Oximetry (%) 98 03/22/19 01:32 Constitutional: Yes: Mild Distress HENT: Yes: Other (TRACHEOSTOMY) Cardiovascular: Yes: Regular Rate and Rhythm Respiratory: Yes: Mechanically Ventilated Gastrointestinal: Yes: Soft Genitourinary: Yes: Incontinence Musculoskeletal: Yes: Muscle Weakness Edema: No Neurological: Yes: Pre-Existing Deficit, Weakness ...Motor Strength: LLE, RLE Psychiatric: Yes: Other Labs: CBC, BMP 03/22/19 05:30 03/22/19 05:30 Problem List - Problems (1) History of CVA (cerebrovascular accident) Code(s): Z86.73 - PRSNL HX OF TIA (TIA), AND CEREB INFRC W/O RESID DEFICITS (2) ASHD (arteriosclerotic heart disease) Code(s): I25.10 - ATHSCL HEART DISEASE OF [place] CORONARY ARTERY W/O ANG PCTRS (3) Chronic respiratory failure Code(s): J96.10 - CHRONIC RESPIRATORY FAILURE, UNSP W HYPOXIA OR HYPERCAPNIA (4) Pneumonia Code(s): J18.9 - PNEUMONIA, UNSPECIFIED ORGANISM (5) Tracheostomy care Code(s): Z43.0 - ENCOUNTER FOR ATTENTION TO TRACHEOSTOMY (6) Allergic reaction Code(s): T78.40XA - ALLERGY, UNSPECIFIED, INITIAL ENCOUNTER (7) Angio-edema Code(s): T78.3XXA - ANGIONEUROTIC EDEMA, INITIAL ENCOUNTER (8) HLD (hyperlipidemia) Code(s): E78.5 - HYPERLIPIDEMIA, UNSPECIFIED Qualifiers: Hyperlipidemia type: pure hypercholesterolemia Qualified Code(s): E78.00 - Pure hypercholesterolemia, unspecified; E78.0 - Pure hypercholesterolemia (9) HTN (hypertension) Code(s): I10 - ESSENTIAL (PRIMARY) HYPERTENSION Qualifiers: Hypertension type: unspecified Qualified Code(s): I10 - Essential (primary ) hypertension Assessment/Plan AIRWAY OBSTRUCTION VERSUS STRICTURE CT SCAN NECK/CHEST NOW PULM EVAL POSSIBLE BRONCHOSCOPY MEDROL IV/BENADRYL/PEPCID DVT PROPHYLAXIS
[2019-03-22 08:50] LABS: PH,URINE 7.5 (5.0-8.0); URINE APPEARANCE CLOUDY; URINE BILIRUBIN NEGATIVE (NEGATIVE); URINE COLOR YELLOW; URINE GLUCOSE (UA) NEGATIVE (NEGATIVE); URINE KETONE NEGATIVE (NEGATIVE)
[2019-03-22 08:51] LABS: EPI CELLS 0.2 /HPF (0-5/HPF); HYALINE CASTS 405.25 /lpf (0-8); URINE BACTERIA 3619.8 /hpf (NEGATIVE); URINE LEUK ESTERASE 3+ (NEGATIVE); URINE NITRITE NEGATIVE (NEGATIVE); URINE PROTEIN NEGATIVE (NEGATIVE); URINE RBC 8.9 /hpf (0-4); URINE WBC 131.9 /hpf (0-5)
[2019-03-22] MEDS ORDERED: PIPERACILLIN/TAZOB 4.5 GM 4.5 GM in DEXTROSE 5%-WATER 100 ML IVPB SCH ×2 (09:00→21:00)
--- NOTE | 2019-03-22 11:14 | PN ---
Teaching Attending Note Name of Resident: Eduardo Falcon ATTENDING PHYSICIAN STATEMENT I saw and evaluated the patient. I reviewed the resident's note and discussed the case with the resident. I agree with the resident's findings and plan as documented. SUBJECTIVE: Pt seen and examined in the ICU. Unable to mechanicallly ventilate. CT neck showing trach in false lumen, subsequently decannulated to nasal cannula. OBJECTIVE: Vital Signs Period Temp Pulse Resp BP Sys/Webster Pulse Ox Last 24 Hr 99.4 F-99.5 F 94-118 16-26 133-160/79-95 98-100 Intake & Output 03/19/19 03/20/19 03/21/19 03/22/19 23:59 23:59 23:59 23:59 Intake Total 500 Balance 500 Weight 90.718 kg 90.718 kg Gen: NAD at rest Heart: RRR Lung: decreased breath sounds at the bases Abd: soft, nontender Ext: no edema CBC, BMP 03/22/19 05:30 03/22/19 05:30 Active Medications Acetaminophen (Tylenol Oral Solution -) 650 mg GT Q6H PRN PRN Reason: PAIN OR FEVER Aspirin (Asa -) 81 mg GT DAILY [facility] Atorvastatin Calcium (Lipitor -) 80 mg GT HS [facility] Chlorhexidine Gluconate (Hibiclens For Decolonization -) 1 applic TP HS [facility] Dexamethasone Sodium Phosphate (Decadron Injection -) 10 mg IVPB Q8H-IV [facility] Enoxaparin Sodium (Lovenox -) 40 mg SQ DAILY [facility] Hydrochlorothiazide (Hctz -) 25 mg GT DAILY [facility] Piperacillin Sod/Tazobactam (Sod 4.5 gm/ Dextrose) 100 mls @ 200 mls/hr IVPB Q6H-IV PLACIDO; Protocol Stop: 03/22/19 15:29 Last Admin: 03/22/19 08:46 Dose: 200 mls/hr Piperacillin Sod/Tazobactam (Sod 4.5 gm/ Dextrose) 100 mls @ 200 mls/hr IVPB Q6H-IV PLACIDO; Protocol Famotidine/Sodium Chloride (Pepcid 20 Mg Premixed Ivpb -) 20 mg in 50 mls @ 100 mls/hr IVPB BID [facility] Losartan Potassium (Cozaar -) 100 mg GT DAILY [facility] Metoprolol Tartrate (Lopressor -) 50 mg GT BID [facility] Mupirocin (Bactroban Ointment (For Decolonization) -) 1 applic NS BID [facility] Stop: 03/27/19 09:59 ASSESSMENT AND PLAN: Trach Malfunction s/p decannulation UTI Recent CVA with Right Hemiparesis CAD CHF HTN Hyperlipidemia - pt decannulated - continue antibiotics - f/u cultures - do not suspect pneumonia - d/c decadron - swallow eval - aspiration precautions - DVT prophylaxis - can monitor on floor
--- NOTE | 2019-03-22 11:29 | PN ---
Progress Note (short form) - Note Progress Note: ID CONSULT DICTATED UNCONTROLLED HTN UTI R/O SEPSIS SECONDARY TO UTI AWAIT C/S CEFTRIAXIONE 2GM IVPB Q24H+
--- NOTE | 2019-03-22 11:31 | CONSULT ---
Consultation: UPDATE: CT neck showing tracheostomy tube ending in space anterior to trachea. Considering pt is stable off of ventilator with malpositioning of trach will remove trach and place occlusive dressing over stoma. CONSULT SERVICE: ICU Resident HISTORY OF PRESENT ILLNESS: 64yo M with h/o of recent CVA hospitalized at [facility] (R sided deficits), s/p tracheostomy, HTN, HLD, CHF who presented to the hospital from [facility] due to uncontrolled hypertension and suspected UTI. Upon arrival pt' s ventilator showed excessive PIP and pt was confirmed to have UTI. Pt this morning was noted to have continued elevated peak inspiratory pressures and inability to pass inline suction catheter through tracheostomy. Pt was in mild distress, however SpO2 remained at 98%. Pt's HPI limited however he nods to having pain, however cannot indicate localization. REVIEW OF SYSTEMS: Unable to obtain due to clinical condition PHYSICAL EXAMINATION Vital Signs 03/21/19 03/21/19 03/21/19 22:15 22:26 23:10 Temperature Pulse Rate 100 H Pulse Rate [ Right Radial] Respiratory 18 22 H Rate Blood Pressure 140/79 Blood Pressure [Left Arm] O2 Sat by Pulse 100 100 Oximetry (%) 03/22/19 03/22/19 03/22/19 00:22 01:12 01:20 Temperature Pulse Rate Pulse Rate [ 118 H 112 H Right Radial] Respiratory 26 H 24 H 20 Rate Blood Pressure Blood Pressure 160/95 133/89 [Left Arm] O2 Sat by Pulse 100 100 Oximetry (%) 03/22/19 03/22/19 03/22/19 01:32 04:00 04:06 Temperature 99.5 F Pulse Rate 103 H Pulse Rate [ Right Radial] Respiratory 18 18 Rate Blood Pressure 147/82 Blood Pressure [Left Arm] O2 Sat by Pulse 98 Oximetry (%) 03/22/19 03/22/19 03/22/19 06:13 06:29 08:00 Temperature 99.4 F Pulse Rate 94 H 100 H Pulse Rate [ Right Radial] Respiratory 16 18 24 H Rate Blood Pressure 147/82 155/95 Blood Pressure [Left Arm] O2 Sat by Pulse 98 Oximetry (%) 03/22/19 08:45 Temperature Pulse Rate 101 H Pulse Rate [ Right Radial] Respiratory Rate Blood Pressure Blood Pressure [Left Arm] O2 Sat by Pulse 98 Oximetry (%) GENERAL: Mild distress, awake, alert, responds to commands HEENT: Nc/At, EOMI, RIGOBERTO, MMM NECK: Tracheostomy site without drainage or significant secretions, no stridor even with auscultation, no obvious obstruction seen in stoma LUNGS: CTA bilaterally with air entry with breaths. No wheezes, and no crackles. No accessory muscle use. HEART: Tachycardic with regular rhythm, normal S1 and S2 without murmur ABDOMEN: Soft, NT/ND, normoactive bowel sounds, no guarding EXTREMITIES: 2+ pulses, warm, well-perfused. No calf tenderness. No peripheral edema. NEUROLOGICAL: R-sided notable weakness SKIN: Warm, dry, normal turgor, no rashes or lesions noted. Laboratory Results 03/21/19 03/21/19 03/22/19 23:29 23:29 03:25 WBC 11.9 H RBC 3.49 L Hgb 9.6 L Hct 29.5 L D MCV 84.6 MCH 27.6 MCHC 32.6 RDW 14.5 Plt Count 313 D MPV 8.4 D Absolute Neuts (auto) 9.2 H Neutrophils % 77.4 D Lymphocytes % 10.9 D Monocytes % 9.2 Eosinophils % 2.1 Basophils % 0.4 Nucleated RBC % 0 Sodium 140 Potassium 4.6 Chloride 103 Carbon Dioxide 31 Anion Gap 6 L BUN 31.8 H Creatinine 0.9 Est GFR (CKD-EPI)AfAm 102.79 Est GFR (CKD-EPI)NonAf 88.69 Random Glucose 141 H Lactic Acid Calcium 9.3 Total Bilirubin 0.5 AST 55 H ALT 64 H Alkaline Phosphatase 112 Total Protein 7.7 Albumin 2.1 L Urine Color Yellow Urine Appearance Cloudy Urine pH 7.5 D Ur Specific [place] 1.014 Urine Protein Negative Urine Glucose (UA) Negative Urine Ketones Negative Urine Blood 3+ H Urine Nitrite Negative Urine Bilirubin Negative Urine Urobilinogen 1.0 Ur Leukocyte Esterase 3+ H Urine WBC (Auto) 131.9 Urine RBC (Auto) 8.9 Urine Casts (Auto) 405.25 U Pathogenic Cast Auto None seen U Epithel Cells (Auto) 0.2 Urine Bacteria (Auto) 3619.8 03/22/19 03/22/19 03/22/19 05:30 05:30 08:25 WBC 11.8 H RBC 3.22 L Hgb 9.1 L Hct 27.5 L MCV 85.2 MCH 28.2 MCHC 33.1 RDW 14.4 Plt Count 264 MPV 8.6 Absolute Neuts (auto) 9.3 H Neutrophils % 78.8 Lymphocytes % 10.3 Monocytes % 8.4 Eosinophils % 2.1 Basophils % 0.4 Nucleated RBC % 0 Sodium 136 Potassium 3.7 Chloride 100 Carbon Dioxide 29 Anion Gap 7 L BUN 30.1 H Creatinine 0.9 Est GFR (CKD-EPI)AfAm 102.79 Est GFR (CKD-EPI)NonAf 88.69 Random Glucose 185 H Lactic Acid 0.7 Calcium 9.1 Total Bilirubin AST ALT Alkaline Phosphatase Total Protein Albumin Urine Color Urine Appearance Urine pH Ur Specific [place] Urine Protein Urine Glucose (UA) Urine Ketones Urine Blood Urine Nitrite Urine Bilirubin Urine Urobilinogen Ur Leukocyte Esterase Urine WBC (Auto) Urine RBC (Auto) Urine Casts (Auto) U Pathogenic Cast Auto U Epithel Cells (Auto) Urine Bacteria (Auto) Active Medications Generic Name Dose Route Start Last Admin Trade Name Freq PRN Reason Stop Dose Admin Acetaminophen 650 mg 03/22/19 04:18 Tylenol Oral Solution - GT Q6H PRN PAIN OR FEVER Aspirin 81 mg 03/22/19 10:00 Asa - GT DAILY [facility] Atorvastatin Calcium 80 mg 03/22/19 22:00 Lipitor - GT HS [facility] Chlorhexidine Gluconate 1 applic 03/22/19 22:00 Hibiclens For Decolonization - TP HS [facility] Enoxaparin Sodium 40 mg 03/22/19 10:00 Lovenox - SQ DAILY [facility] Hydrochlorothiazide 25 mg 03/22/19 10:00 Hctz - GT DAILY [facility] Famotidine/Sodium Chloride 20 mg in 50 mls @ 100 mls/hr 03/22/19 10:00 Pepcid 20 Mg Premixed Ivpb - IVPB BID [facility] Ceftriaxone Sodium 2 gm in 50 mls @ 100 mls/hr 03/22/19 11:30 Ceftriaxone 2 Gm-D5w Bag IVPB DAILY [facility] Protocol Losartan Potassium 100 mg 03/22/19 10:00 Cozaar - GT DAILY [facility] Metoprolol Tartrate 50 mg 03/22/19 10:00 Lopressor - GT BID [facility] Mupirocin 1 applic 03/22/19 10:00 Bactroban Ointment (For Decolonization) - NS 03/27/19 09:59 BID PLACIDO ASSESSMENT/PLAN: Tracheostomy dysfunction Complicated UTI H/o CVA with R hemiparesis CAD CHF HTN HLD --ddx of trach malfunction false lumen vs. airway narrowing --Decadron 10mg once IVP given --CT soft tissue/neck ordered --Considering patient is not desaturation will leave vent off and monitor SpO2 in meantime --Continue Rocephin 2gm qdaily for UTI --Continue antihypertensive regiment: Lopressor 50mg GT BID HCTZ 25mg qdaily Cozaar 100mg qdaily --Continue CVA regiment: ASA 81mg qdaily Lipitor daily FEN: Fluids: None Electrolyte abnormalities: None today Nutrition: Tube feeds on hold until airway management resolved PPX: DVT - Lovenox SQ daily GI - Pepcid Dispo: ICU for airway mgmt Case discussed with Dr. Maya and Dr. Malina Falcon, DO - IM PGY-3 Visit type - Emergency Visit Emergency Visit: Yes ED Registration Date: 03/22/19 Care time: The patient presented to the Emergency Department on the above date and was hospitalized for further evaluation of their emergent condition. - New Patient This patient is new to me today: Yes Date on this admission: 03/22/19 - Critical Care Critical Care patient: Yes Total Critical Care Time (in minutes): 35 Critical Care Statement: The care of this patient involved high complexity decision making to prevent further life threatening deterioration of the patient 's condition and/or to evaluate & treat vital organ system(s) failure or risk of failure.
[2019-03-22] MEDS: ASPIRIN 81 MG CHEWABLE TABLETS GT SCH (11:43)
[2019-03-22] MEDS: MUPIROCIN 2% TOPICAL OINTMENT FOR DECOLONIZATION NS SCH ×2 (11:43→21:46)
[2019-03-22] MEDS: LOSARTAN POTASSIUM 50 MG TABLET (FP) GT SCH (11:47)
[2019-03-22] MEDS: ENOXAPARIN NA (PORCINE) 40 MG/0.4 ML DISP.SYRIN SQ SCH (11:47)
[2019-03-22] MEDS: FAMOTIDINE 20 MG/50 ML IVPB 20 MG/50 ML MG IVPB SCH ×2 (11:47→21:47)
[2019-03-22] MEDS: HYDROCHLOROTHIAZIDE 25 MG TABLET (FP) GT SCH (11:48)
[2019-03-22] MEDS: METOPROLOL TARTRATE 50 MG TABLET (FP) GT SCH ×2 (11:48→21:47)
--- NOTE | 2019-03-22 12:02 | CONS ---
DATE OF CONSULTATION: DATE OF DICTATION: 03/22/2019 HISTORY: The patient is a 64-year-old male who is evaluated for possible sepsis. History was obtained from the chart as he cannot give a history. He was recently hospitalized at [facility] and discharged to a assisted facility. He had been at the facility for approximately 2 days when he developed uncontrolled hypertension and headache. He was transferred to the emergency room at [facility]. He was noted to have a displacement of his tracheostomy. His course was complicated by low-grade fever and elevated white blood cell count. He was also noted to have pyuria. He was empirically treated with vancomycin and Zosyn. At the present time, he is awake and alert. He is in no acute distress. His breathing is nonlabored. He is not acutely toxic appearing. PAST MEDICAL HISTORY: Positive for stroke with right hemiparesis, hypertension, hyperlipidemia, respiratory failure status post tracheostomy. PAST SURGICAL HISTORY: Status post feeding gastrostomy. ALLERGIES: No known allergies. MEDICATIONS: Include Tylenol, aspirin, Lipitor, ceftriaxone, dexamethasone, Lovenox, hydrochlorothiazide, losartan, metoprolol, Pepcid, vancomycin, Zosyn. SOCIAL HISTORY: He is in a assisted facility for rehabilitation. Former smoker. Occasional ETOH. SYSTEMS REVIEW: Neurologic: Positive for stroke. Cardiac: Negative chest pain or palpitations. Respiratory: Positive for respiratory failure status post tracheostomy. Gastrointestinal: Status post feeding gastrostomy. Genitourinary: Positive for urinary tract infection. LABORATORY DATA: White count 11.8, neutrophils 78, lymphocytes 10, monocytes 8 eosinophils 2, hematocrit 27.5, platelets 264, creatinine 0.9, total bilirubin 0.5, alkaline phosphatase 112, AST 55, ALT 64. Urinalysis 131 white cells. Blood and urine culture are pending. Chest x-ray: No acute infiltrate. CAT scan of the chest official report is pending. No acute infiltrate is noted. PHYSICAL EXAMINATION: General: The patient is awake. He is responsive in no acute distress. Breathing is nonlabored. Vital Signs: Temperature 99.4, blood pressure 147/92, pulse 94 regular, respirations 18 per minute. HEENT: Sclerae anicteric. Heart: Sounds S1, S2. Lungs: Air entry bilaterally. Neck: Tracheostomy site, no bleeding or discharge. Abdomen: Soft, nontender. Extremities: Negative for edema. IMPRESSION: 1. Uncontrolled hypertension. 2. Urinary tract infection, rule out sepsis secondary to urinary tract infection. 3. Status post displacement of tracheostomy. PLAN: Await culture results. Empiric antibiotic coverage with ceftriaxone 2 g IV piggyback daily for urinary tract infection. Await official reading of CAT scan, although no large infiltrate noted. Case discussed with critical care team. We will follow. Thank you for the kind referral. SALLY ZEPEDA M.D. [id number]
[2019-03-22] MEDS: CEFTRIAXONE 2 GM in DEXTROSE 5%-WATER 100 ML IVPB SCH (12:56)
--- NOTE | 2019-03-22 13:54 | EKG ---
Test Reason : Blood Pressure : / mmHG Vent. Rate : 112 BPM Atrial Rate : 112 BPM P-R Int : 164 ms QRS Dur : 094 ms QT Int : 340 ms P-R-T Axes : 053 017 101 degrees QTc Int : 464 ms SINUS TACHYCARDIA POSSIBLE LEFT ATRIAL ENLARGEMENT ABNORMAL ECG Confirmed by SALLY LUA MD ([id number]) on 03/22/2019 1:54:37 PM Referred By: Confirmed By:SALLY LUA MD
[2019-03-22] MEDS ORDERED: DEXAMETHASONE SOD PHOSPHATE 10 MG/1 ML VIAL IVPB SCH (18:00)
[2019-03-22] MEDS: CHLORHEXIDINE GLUCONATE 4% CLEANSER FOR DECOLONIZATION TP SCH (21:46)
[2019-03-22] MEDS ORDERED: ATORVASTATIN CA 80 MG TABLET (FP) GT SCH (22:00)
[2019-03-23 06:34] LABS: CALCIUM 9.7 mg/dL (8.5-10.1); CREATININE 0.7 mg/dL (0.55-1.3); POTASSIUM 3.8 mmol/L (3.5-5.1)
[2019-03-23 07:25] LABS: BASO % 0.3 % (0-2.0); EOS % 0.5 % (0-4.5); HEMATOCRIT 28.4 % (35.4-49); HEMOGLOBIN 9.3 GM/dL (11.7-16.9); MCH 28.3 pg (25.7-33.7); MCHC 32.9 g/dl (32.0-35.9); MEAN CELL VOLUME 85.8 fl (80-96); MEAN PLT VOLUME 8.6 fl (7.5-11.1); MONO % 7.5 % (3.8-10.2); NEUT % 82.7 % (42.8-82.8); PLATELET COUNT 299 K/MM3 (134-434); RDW 14.6 % (11.9-15.9); WHITE BLOOD COUNT 14.9 K/mm3 (4.0-10.0)
--- NOTE | 2019-03-23 07:41 | PN ---
Progress Note (short form) - Note Progress Note: Pulm/CCM SUBJECTIVE: Pt seen and examined in the ICU. 24Hr: resp status remains ok, no evidence of aspiration stable otherwise, awaiting bed on floor OBJECTIVE: Vital Signs Temp 98.4 F 03/23/19 00:00 Pulse 98 H 03/23/19 06:00 Resp 14 03/23/19 02:06 BP 101/75 03/23/19 06:00 Pulse Ox 98 03/22/19 09:00 Intake & Output 03/22/19 03/22/19 03/23/19 11:59 23:59 11:59 Intake Total 500 150 50 Balance 500 150 50 Weight 90.718 kg Intake: IVPB 500 150 50 Other: Voiding Method Diaper Diaper Incontinent # Unmeasured Voids Void 2 2 Bowel Movement No Yes # Bowel Movements 1 Height 6 ft Body Mass Index (BMI) 27.1 Weight Measurement Method Standing Scale Gen: NAD at rest Heart: RRR Lung: decreased breath sounds at the bases Abd: soft, nontender Ext: no edema CBC, BMP 03/23/19 05:20 Current Medications Acetaminophen (Tylenol Oral Solution -) 650 mg GT Q6H PRN PRN Reason: PAIN OR FEVER Aspirin (Asa -) 81 mg GT DAILY [facility] Last Admin: 03/22/19 11:43 Dose: 81 mg Atorvastatin Calcium (Lipitor -) 80 mg GT HS [facility] Last Admin: 03/22/19 21:47 Dose: 80 mg Chlorhexidine Gluconate (Hibiclens For Decolonization -) 1 applic TP HS [facility] Last Admin: 03/22/19 21:46 Dose: 1 applic Enoxaparin Sodium (Lovenox -) 40 mg SQ DAILY [facility] Last Admin: 03/22/19 11:47 Dose: 40 mg Hydrochlorothiazide (Hctz -) 25 mg GT DAILY [facility] Last Admin: 03/22/19 11:48 Dose: 25 mg Famotidine/Sodium Chloride (Pepcid 20 Mg Premixed Ivpb -) 20 mg in 50 mls @ 100 mls/hr IVPB BID [facility] Last Admin: 03/22/19 21:47 Dose: 100 mls/hr Ceftriaxone Sodium 2 gm/ (Dextrose) 100 mls @ 200 mls/hr IVPB DAILY [facility]; Protocol Last Admin: 03/22/19 12:56 Dose: Not Given Losartan Potassium (Cozaar -) 100 mg GT DAILY [facility] Last Admin: 03/22/19 11:47 Dose: 100 mg Metoprolol Tartrate (Lopressor -) 50 mg GT BID [facility] Last Admin: 03/22/19 21:47 Dose: 50 mg Mupirocin (Bactroban Ointment (For Decolonization) -) 1 applic NS BID [facility] Stop: 03/27/19 09:59 Last Admin: 03/22/19 21:46 Dose: 1 applic ASSESSMENT AND PLAN: Trach Malfunction s/p decannulation UTI Recent CVA with Right Hemiparesis CAD CHF HTN Hyperlipidemia - pt decannulated, fio2 as needed - continue antibiotics - f/u cultures - swallow eval - aspiration precautions - DVT prophylaxis - can monitor on floor, awaiting bed [facility] [id number]
--- NOTE | 2019-03-23 08:58 | PN ---
Progress Note, Physician History of Present Illness: c/o lower abd pain - Current Medication List Current Medications: Active Medications Acetaminophen (Tylenol Oral Solution -) 650 mg GT Q6H PRN PRN Reason: PAIN OR FEVER Aspirin (Asa -) 81 mg GT DAILY [facility] Last Admin: 03/22/19 11:43 Dose: 81 mg Atorvastatin Calcium (Lipitor -) 80 mg GT HS [facility] Last Admin: 03/22/19 21:47 Dose: 80 mg Chlorhexidine Gluconate (Hibiclens For Decolonization -) 1 applic TP HS [facility] Last Admin: 03/22/19 21:46 Dose: 1 applic Enoxaparin Sodium (Lovenox -) 40 mg SQ DAILY [facility] Last Admin: 03/22/19 11:47 Dose: 40 mg Hydrochlorothiazide (Hctz -) 25 mg GT DAILY [facility] Last Admin: 03/22/19 11:48 Dose: 25 mg Famotidine/Sodium Chloride (Pepcid 20 Mg Premixed Ivpb -) 20 mg in 50 mls @ 100 mls/hr IVPB BID [facility] Last Admin: 03/22/19 21:47 Dose: 100 mls/hr Ceftriaxone Sodium 2 gm/ (Dextrose) 100 mls @ 200 mls/hr IVPB DAILY [facility]; Protocol Last Admin: 03/22/19 12:56 Dose: Not Given Losartan Potassium (Cozaar -) 100 mg GT DAILY [facility] Last Admin: 03/22/19 11:47 Dose: 100 mg Metoprolol Tartrate (Lopressor -) 50 mg GT BID [facility] Last Admin: 03/22/19 21:47 Dose: 50 mg Mupirocin (Bactroban Ointment (For Decolonization) -) 1 applic NS BID [facility] Stop: 03/27/19 09:59 Last Admin: 03/22/19 21:46 Dose: 1 applic - Objective Vital Signs: Vital Signs Temperature 98.4 F 03/23/19 00:00 Pulse Rate 98 H 03/23/19 06:00 Respiratory Rate 14 03/23/19 02:06 Blood Pressure 101/75 03/23/19 06:00 O2 Sat by Pulse Oximetry (%) 98 03/22/19 09:00 Cardiovascular: Yes: S1, S2 Respiratory: Yes: Rhonchi, Other (trach) Gastrointestinal: Yes: Normal Bowel Sounds, Soft, Tenderness (suprapubic and lower quadrants) Edema: No Labs: CBC, BMP 03/23/19 05:20 03/23/19 05:20 Problem List - Problems (1) UTI (urinary tract infection) Assessment/Plan: on iv abx id following' Microbiology 03/22/19 03:25 Urine - Urine - Catheterized Urine Culture - Preliminary Lactose Fermenting Neg Bacilli 03/21/19 23:29 Blood - Peripheral Venous Blood Culture - Preliminary NO GROWTH OBTAINED AFTER 24 HOURS, INCUBATION TO CONTINUE FOR 4 DAYS. 03/21/19 23:29 Blood - Peripheral Venous Blood Culture - Preliminary NO GROWTH OBTAINED AFTER 24 HOURS, INCUBATION TO CONTINUE FOR 4 DAYS. Code(s): N39.0 - URINARY TRACT INFECTION, SITE NOT SPECIFIED (2) Pelvic pain in male Assessment/Plan: -Bladder does not feel distended -r/o perforation -wbc 14 -ct scan -sotelo Code(s): R10.2 - PELVIC AND PERINEAL PAIN (3) History of CVA (cerebrovascular accident) Assessment/Plan: on asa monitor Code(s): Z86.73 - PRSNL HX OF TIA (TIA), AND CEREB INFRC W/O RESID DEFICITS (4) Tracheostomy care Assessment/Plan: decanulated per pulm Code(s): Z43.0 - ENCOUNTER FOR ATTENTION TO TRACHEOSTOMY (5) HTN (hypertension) Assessment/Plan: Selected Entries 03/23/19 03/23/19 03/23/19 04:00 06:00 08:00 Blood Pressure 103/89 101/75 126/105 H Monitor [place] elevated maybe due to pain repeat Code(s): I10 - ESSENTIAL (PRIMARY) HYPERTENSION Qualifiers: Hypertension type: unspecified Qualified Code(s): I10 - Essential (primary ) hypertension
[2019-03-23] MEDS ORDERED: DEXTROSE 5%-WATER 100 ML IVPB ONE (10:53)
[2019-03-23] MEDS: ASPIRIN 81 MG CHEWABLE TABLETS GT SCH (10:56)
[2019-03-23] MEDS: METOPROLOL TARTRATE 50 MG TABLET (FP) GT SCH ×2 (10:56→21:40)
[2019-03-23] MEDS: ENOXAPARIN NA (PORCINE) 40 MG/0.4 ML DISP.SYRIN SQ SCH (10:56)
[2019-03-23] MEDS: HYDROCHLOROTHIAZIDE 25 MG TABLET (FP) GT SCH (10:56)
[2019-03-23] MEDS: LOSARTAN POTASSIUM 50 MG TABLET (FP) GT SCH (10:56)
[2019-03-23] MEDS: FAMOTIDINE 20 MG/50 ML IVPB 20 MG/50 ML MG IVPB SCH ×2 (10:57→21:40)
[2019-03-23] MEDS: MUPIROCIN 2% TOPICAL OINTMENT FOR DECOLONIZATION NS SCH ×2 (11:05→21:38)
[2019-03-23] MEDS: CEFTRIAXONE 2 GM in DEXTROSE 5%-WATER 100 ML IVPB SCH (11:10)
--- NOTE | 2019-03-23 11:46 | PN ---
Progress Note, Physician History of Present Illness: AWAKE, RESPONSIVE NO ACUTE DISTRESS AFEBRILE WBC ELEVATED BC (-) URINE C/S LF CT CHEST BASILAR ATELECTASIS ? INFILTRATE - Current Medication List Current Medications: Active Medications Acetaminophen (Tylenol Oral Solution -) 650 mg GT Q6H PRN PRN Reason: PAIN OR FEVER Aspirin (Asa -) 81 mg GT DAILY [facility] Last Admin: 03/23/19 10:56 Dose: 81 mg Atorvastatin Calcium (Lipitor -) 80 mg GT HS [facility] Last Admin: 03/22/19 21:47 Dose: 80 mg Chlorhexidine Gluconate (Hibiclens For Decolonization -) 1 applic TP HS [facility] Last Admin: 03/22/19 21:46 Dose: 1 applic Enoxaparin Sodium (Lovenox -) 40 mg SQ DAILY [facility] Last Admin: 03/23/19 10:56 Dose: 40 mg Hydrochlorothiazide (Hctz -) 25 mg GT DAILY [facility] Last Admin: 03/23/19 10:56 Dose: 25 mg Famotidine/Sodium Chloride (Pepcid 20 Mg Premixed Ivpb -) 20 mg in 50 mls @ 100 mls/hr IVPB BID [facility] Last Admin: 03/23/19 10:57 Dose: 100 mls/hr Ceftriaxone Sodium 2 gm/ (Dextrose) 100 mls @ 200 mls/hr IVPB DAILY [facility]; Protocol Last Admin: 03/23/19 11:10 Dose: 200 mls/hr Losartan Potassium (Cozaar -) 100 mg GT DAILY [facility] Last Admin: 03/23/19 10:56 Dose: 100 mg Metoprolol Tartrate (Lopressor -) 50 mg GT BID [facility] Last Admin: 03/23/19 10:56 Dose: 50 mg Mupirocin (Bactroban Ointment (For Decolonization) -) 1 applic NS BID [facility] Stop: 03/27/19 09:59 Last Admin: 03/23/19 11:05 Dose: 1 applic - Objective Vital Signs: Vital Signs Temperature 98.1 F 03/23/19 08:00 Pulse Rate 92 H 03/23/19 10:00 Respiratory Rate 17 03/23/19 10:00 Blood Pressure 117/73 03/23/19 10:00 O2 Sat by Pulse Oximetry (%) 98 03/22/19 09:00 Constitutional: Yes: No Distress Eyes: Yes: Conjunctiva Clear Cardiovascular: Yes: Regular Rate and Rhythm, S1, S2 Respiratory: Yes: Diminished Gastrointestinal: Yes: Normal Bowel Sounds, Soft. No: Tenderness Edema: No Labs: CBC, BMP 03/23/19 05:20 03/23/19 05:20 Assessment/Plan S/P TRACHEOSTOMY DISPLACEMENT ? PNEUMONIA UTI R/O SEPSIS SECONDARY TO UTI LEUKOCYTOSIS CVA AWAIT C/S CONTINUE CEFTRIAXONE
--- NOTE | 2019-03-23 14:02 | CON.ENT ---
Consult Consult Specialty:: ENT Referred by:: Dr. Radford Reason for Consultation:: tracheotomy problem - History of Present Illness History of Present Illness: 64 yo M hx hypertension, CVA, nonverbal, prolonged hospitalization, had tracheotomy and PEG ([facility]), transferred to [place] [facility] admitted to [facility] by report tracheotomy was not functioning well CT scan showed tip of tracheotomy tube was in soft tissue anterior to the trachea trach tube was removed, pt placed on nasal O2, has been stable since. - Past Medical History [employer]PER[employer]: Yes: CVA Cardio/Vascular: Yes: CAD, HTN, Hyperlipdemia Pulmonary: Yes: O2 Dependent (Trach/Vent) - Alcohol/Substance Use Hx Alcohol Use: Yes (SOCIAL) - Smoking History Smoking history: Former smoker Have you smoked in the past 12 months: Yes - Social History ADL: Support Services History of Recent Travel: No Home Medications - Allergies Allergies/Adverse Reactions: Allergies Allergy/AdvReac Type Severity Reaction Status Date / Time No Known Allergies Allergy Verified 03/21/19 22:30 - Home Medications Home Medications: Ambulatory Orders Acetaminophen [Tylenol] 650 mg GT Q4H PRN 03/22/19 Aspirin 81 mg GT DAILY 03/22/19 Atorvastatin Ca [Lipitor] 80 mg GT HS 03/22/19 Enoxaparin [Lovenox -] 40 mg SQ DAILY 03/22/19 Hydrochlorothiazide [Hctz -] 25 mg GT DAILY 03/22/19 Losartan Potassium [Cozaar] 100 mg GT DAILY 03/22/19 Metoprolol Tartrate [Lopressor -] 50 mg GT BID 03/22/19 Family Disease History - Family Disease History Family History: Unable to Obtain Review of Systems Unable to obtain ROS, reason: nonverbal Physical Exam-ENT Vital Signs: Vital Signs Temperature 98.1 F 03/23/19 08:00 Pulse Rate 79 03/23/19 12:00 Respiratory Rate 19 03/23/19 12:00 Blood Pressure 147/91 03/23/19 12:00 O2 Sat by Pulse Oximetry (%) 96 03/23/19 09:00 Constitutional: Yes: No Distress, Calm Head: Yes: WNL Face: Yes: WNL Eyes: Yes: WNL Nose: Yes: Other (nasal O2, no bleeding, clear mucus, no visible obstruction) Oral/Pharynx: Yes: Other (oral cavity unremarkable) Outer Ear: Yes: WNL Neck: Yes: Other (tracheotomy site dressed with Xeroform and 4x4; dressing retracted for examination, thick mucoid secretions, no bleeding) Respiratory: Yes: Other (no stridor or respiratory distress) Neurological: Yes: Aphasia Psychiatric: Yes: Alert Imaging - Results X-ray: Report Reviewed, Image Reviewed (CXR - tracheotomy tube was not present in November 2018) Cat Scan: Report Reviewed, Image Reviewed (CT neck and chest - larynx unremarkable. tracheotomy tube present, but tracheotomy tube tip in soft tissue anterior to trachea (not in tracheal lumen).) Problem List - Problems (1) Tracheostomy care Assessment/Plan: pt is s/p CVA had tracheotomy tube and PEG at [facility], had [place] [facility] care placed after November 2018 (full records not available) admitted 03-21-19 tracheotomy tube malfunction noted CT scan of chest showed tip of tracheotomy tube was not within tracheal lumen tracheotomy tube has since been removed, pt placed on nasal cannulae stable respiratory status, no stridor or respiratory distress Recommend: continue airway observation continue occlusive dressing for tracheotomy site anterior neck (may be Vaseline gauze with next dressing change, Xeroform not absolutely required) Thank you for consultation, Eduardo Wilkes MD FACS Code(s): Z43.0 - ENCOUNTER FOR ATTENTION TO TRACHEOSTOMY
[2019-03-23] MEDS: CHLORHEXIDINE GLUCONATE 4% CLEANSER FOR DECOLONIZATION TP SCH (21:38)
[2019-03-23] MEDS: ATORVASTATIN CA 80 MG TABLET (FP) GT SCH (21:39)
[2019-03-24 06:37] LABS: BASO % 0.4 % (0-2.0); EOS % 2.7 % (0-4.5); HEMOGLOBIN 10.3 GM/dL (11.7-16.9); LYMPH % 17.6 % (8-40); MCH 28.5 pg (25.7-33.7); MCHC 33.1 g/dl (32.0-35.9); MEAN CELL VOLUME 86.3 fl (80-96); MEAN PLT VOLUME 8.1 fl (7.5-11.1); NEUT % 70.3 % (42.8-82.8); PLATELET COUNT 321 K/MM3 (134-434); RDW 14.6 % (11.9-15.9)
[2019-03-24 08:07] LABS: ALBUMIN 2.3 g/dl (3.4-5.0); BILIRUBIN,TOTAL 0.6 mg/dL (0.2-1); CALCIUM 9.6 mg/dL (8.5-10.1); CREATININE 0.8 mg/dL (0.55-1.3); POTASSIUM 3.9 mmol/L (3.5-5.1); TOT PROT 7.8 g/dl (6.4-8.2)
[2019-03-24] MEDS ORDERED: DEXTROSE 5%-WATER 100 ML IVPB ONE (08:14)
[2019-03-24] MEDS: CEFTRIAXONE 2 GM in DEXTROSE 5%-WATER 100 ML IVPB SCH (09:23)
[2019-03-24] MEDS: ENOXAPARIN NA (PORCINE) 40 MG/0.4 ML DISP.SYRIN SQ SCH (09:24)
[2019-03-24] MEDS: LOSARTAN POTASSIUM 50 MG TABLET (FP) GT SCH (09:24)
[2019-03-24] MEDS: METOPROLOL TARTRATE 50 MG TABLET (FP) GT SCH ×2 (09:25→22:03)
[2019-03-24] MEDS: HYDROCHLOROTHIAZIDE 25 MG TABLET (FP) GT SCH (09:25)
[2019-03-24] MEDS: ASPIRIN 81 MG CHEWABLE TABLETS GT SCH (09:35)
[2019-03-24] MEDS: FAMOTIDINE 20 MG/50 ML IVPB 20 MG/50 ML MG IVPB SCH ×2 (09:35→22:02)
[2019-03-24] MEDS: MUPIROCIN 2% TOPICAL OINTMENT FOR DECOLONIZATION NS SCH ×2 (09:37→22:02)
--- NOTE | 2019-03-24 09:55 | PN ---
Progress Note, Physician History of Present Illness: feels better - Current Medication List Current Medications: Active Medications Acetaminophen (Tylenol Oral Solution -) 650 mg GT Q6H PRN PRN Reason: PAIN OR FEVER Aspirin (Asa -) 81 mg GT DAILY [facility] Last Admin: 03/24/19 09:35 Dose: 81 mg Atorvastatin Calcium (Lipitor -) 80 mg GT HS [facility] Last Admin: 03/23/19 21:39 Dose: 80 mg Chlorhexidine Gluconate (Hibiclens For Decolonization -) 1 applic TP HS [facility] Last Admin: 03/23/19 21:38 Dose: 1 applic Enoxaparin Sodium (Lovenox -) 40 mg SQ DAILY [facility] Last Admin: 03/24/19 09:24 Dose: 40 mg Hydrochlorothiazide (Hctz -) 25 mg GT DAILY [facility] Last Admin: 03/24/19 09:25 Dose: 25 mg Ceftriaxone Sodium 2 gm/ (Dextrose) 100 mls @ 200 mls/hr IVPB DAILY [facility]; Protocol Last Admin: 03/24/19 09:23 Dose: 200 mls/hr Famotidine/Sodium Chloride (Pepcid 20 Mg Premixed Ivpb -) 20 mg in 50 mls @ 100 mls/hr IVPB BID [facility] Last Admin: 03/24/19 09:35 Dose: 100 mls/hr Losartan Potassium (Cozaar -) 100 mg GT DAILY [facility] Last Admin: 03/24/19 09:24 Dose: 100 mg Metoprolol Tartrate (Lopressor -) 50 mg GT BID [facility] Last Admin: 03/24/19 09:25 Dose: 50 mg Mupirocin (Bactroban Ointment (For Decolonization) -) 1 applic NS BID [facility] Stop: 03/27/19 09:59 Last Admin: 03/24/19 09:37 Dose: 1 applic - Objective Vital Signs: Vital Signs Temperature 97.9 F 03/24/19 06:00 Pulse Rate 60 03/24/19 08:00 Respiratory Rate 10 03/24/19 08:00 Blood Pressure 138/83 03/24/19 08:00 O2 Sat by Pulse Oximetry (%) 100 03/23/19 19:46 Cardiovascular: Yes: S1, S2 Respiratory: Yes: Regular, CTA Bilaterally Gastrointestinal: Yes: Normal Bowel Sounds, Soft. No: Tenderness Labs: CBC, BMP 03/24/19 06:00 03/24/19 06:00 Problem List - Problems (1) UTI (urinary tract infection) Assessment/Plan: on iv abx id following' Microbiology 03/22/19 03:25 Urine - Urine - Catheterized Urine Culture - Preliminary Lactose Fermenting Neg Bacilli 03/21/19 23:29 Blood - Peripheral Venous Blood Culture - Preliminary NO GROWTH OBTAINED AFTER 24 HOURS, INCUBATION TO CONTINUE FOR 4 DAYS. 03/21/19 23:29 Blood - Peripheral Venous Blood Culture - Preliminary NO GROWTH OBTAINED AFTER 24 HOURS, INCUBATION TO CONTINUE FOR 4 DAYS. Code(s): N39.0 - URINARY TRACT INFECTION, SITE NOT SPECIFIED (2) Pelvic pain in male Assessment/Plan: -Improved -ct scan nap -monitor Code(s): R10.2 - PELVIC AND PERINEAL PAIN (3) History of CVA (cerebrovascular accident) Assessment/Plan: on asa monitor Code(s): Z86.73 - PRSNL HX OF TIA (TIA), AND CEREB INFRC W/O RESID DEFICITS (4) Tracheostomy care Assessment/Plan: decanulated per pulm Code(s): Z43.0 - ENCOUNTER FOR ATTENTION TO TRACHEOSTOMY (5) HTN (hypertension) Assessment/Plan: Selected Entries 03/23/19 03/23/19 03/23/19 04:00 06:00 08:00 Blood Pressure 103/89 101/75 126/105 H Monitor [place] elevated maybe due to pain repeat Code(s): I10 - ESSENTIAL (PRIMARY) HYPERTENSION Qualifiers: Hypertension type: unspecified Qualified Code(s): I10 - Essential (primary ) hypertension
--- NOTE | 2019-03-24 11:34 | PN ---
Progress Note, Physician History of Present Illness: AWAKE, RESPONSIVE NO ACUTE DISTRESS AFEBRILE WBC WNL BC (-) URINE C/S E COLI CT CHEST BASILAR ATELECTASIS ? INFILTRATE - Current Medication List Current Medications: Active Medications Acetaminophen (Tylenol Oral Solution -) 650 mg GT Q6H PRN PRN Reason: PAIN OR FEVER Aspirin (Asa -) 81 mg GT DAILY [facility] Last Admin: 03/24/19 09:35 Dose: 81 mg Atorvastatin Calcium (Lipitor -) 80 mg GT HS [facility] Last Admin: 03/23/19 21:39 Dose: 80 mg Chlorhexidine Gluconate (Hibiclens For Decolonization -) 1 applic TP HS [facility] Last Admin: 03/23/19 21:38 Dose: 1 applic Enoxaparin Sodium (Lovenox -) 40 mg SQ DAILY [facility] Last Admin: 03/24/19 09:24 Dose: 40 mg Hydrochlorothiazide (Hctz -) 25 mg GT DAILY [facility] Last Admin: 03/24/19 09:25 Dose: 25 mg Ceftriaxone Sodium 2 gm/ (Dextrose) 100 mls @ 200 mls/hr IVPB DAILY [facility]; Protocol Last Admin: 03/24/19 09:23 Dose: 200 mls/hr Famotidine/Sodium Chloride (Pepcid 20 Mg Premixed Ivpb -) 20 mg in 50 mls @ 100 mls/hr IVPB BID [facility] Last Admin: 03/24/19 09:35 Dose: 100 mls/hr Losartan Potassium (Cozaar -) 100 mg GT DAILY [facility] Last Admin: 03/24/19 09:24 Dose: 100 mg Metoprolol Tartrate (Lopressor -) 50 mg GT BID [facility] Last Admin: 03/24/19 09:25 Dose: 50 mg Mupirocin (Bactroban Ointment (For Decolonization) -) 1 applic NS BID [facility] Stop: 03/27/19 09:59 Last Admin: 03/24/19 09:37 Dose: 1 applic - Objective Vital Signs: Vital Signs Temperature 97.9 F 03/24/19 06:00 Pulse Rate 60 03/24/19 08:00 Respiratory Rate 10 03/24/19 08:00 Blood Pressure 138/83 03/24/19 08:00 O2 Sat by Pulse Oximetry (%) 100 03/23/19 19:46 Constitutional: Yes: No Distress Eyes: Yes: Conjunctiva Clear Cardiovascular: Yes: Regular Rate and Rhythm, S1, S2 Respiratory: Yes: Diminished Gastrointestinal: Yes: Normal Bowel Sounds, Soft. No: Tenderness Edema: No Labs: CBC, BMP 03/24/19 06:00 03/24/19 06:00 Assessment/Plan S/P TRACHEOSTOMY DISPLACEMENT ? PNEUMONIA UTI R/O SEPSIS SECONDARY TO UTI LEUKOCYTOSIS RESOLVED CVA CONTINUE CEFTRIAXONE
[2019-03-24] MEDS: CHLORHEXIDINE GLUCONATE 4% CLEANSER FOR DECOLONIZATION TP SCH (22:02)
[2019-03-24] MEDS: ATORVASTATIN CA 80 MG TABLET (FP) GT SCH (22:03)
[2019-03-25 06:31] LABS: HEMATOCRIT 34.9 % (35.4-49); HEMOGLOBIN 11.4 GM/dL (11.7-16.9); MCH 27.9 pg (25.7-33.7); MCHC 32.6 g/dl (32.0-35.9); MEAN CELL VOLUME 85.7 fl (80-96); PLATELET COUNT 343 K/MM3 (134-434); RBC 4.08 M/mm3 (4.00-5.60); RDW 14.4 % (11.9-15.9); WHITE BLOOD COUNT 7.4 K/mm3 (4.0-10.0)
[2019-03-25 06:59] LABS: BLOOD UREA NITROGEN 24.3 mg/dL (7-18); CALCIUM 9.9 mg/dL (8.5-10.1); CREATININE 0.8 mg/dL (0.55-1.3); MAGNESIUM 1.6 mg/dL (1.8-2.4); PHOSPHOROUS 3.2 mg/dL (2.5-4.9); POTASSIUM 3.5 mmol/L (3.5-5.1)
[2019-03-25] MEDS ORDERED: POTASSIUM CHLORIDE ORAL LIQUID 20 MEQ/15 ML GT ONE (07:11)
[2019-03-25] MEDS ORDERED: KCL 10 MEQ IVPB 10 MEQ/100 ML INFUS.BAG IVPB SCH (07:15)
[2019-03-25] MEDS ORDERED: DEXTROSE 5%-WATER 100 ML IVPB ONE (07:29)
--- NOTE | 2019-03-25 07:36 | PN ---
Progress Note, Physician - Current Medication List Current Medications: Active Medications Acetaminophen (Tylenol Oral Solution -) 650 mg GT Q6H PRN PRN Reason: PAIN OR FEVER Aspirin (Asa -) 81 mg GT DAILY [facility] Last Admin: 03/24/19 09:35 Dose: 81 mg Atorvastatin Calcium (Lipitor -) 80 mg GT HS [facility] Last Admin: 03/24/19 22:03 Dose: 80 mg Chlorhexidine Gluconate (Hibiclens For Decolonization -) 1 applic TP HS [facility] Last Admin: 03/24/19 22:02 Dose: 1 applic Enoxaparin Sodium (Lovenox -) 40 mg SQ DAILY [facility] Last Admin: 03/24/19 09:24 Dose: 40 mg Hydrochlorothiazide (Hctz -) 25 mg GT DAILY [facility] Last Admin: 03/24/19 09:25 Dose: 25 mg Ceftriaxone Sodium 2 gm/ (Dextrose) 100 mls @ 200 mls/hr IVPB DAILY [facility]; Protocol Last Admin: 03/24/19 09:23 Dose: 200 mls/hr Famotidine/Sodium Chloride (Pepcid 20 Mg Premixed Ivpb -) 20 mg in 50 mls @ 100 mls/hr IVPB BID [facility] Last Admin: 03/24/19 22:02 Dose: 100 mls/hr Losartan Potassium (Cozaar -) 100 mg GT DAILY [facility] Last Admin: 03/24/19 09:24 Dose: 100 mg Metoprolol Tartrate (Lopressor -) 50 mg GT BID [facility] Last Admin: 03/24/19 22:03 Dose: 50 mg Mupirocin (Bactroban Ointment (For Decolonization) -) 1 applic NS BID [facility] Stop: 03/27/19 09:59 Last Admin: 03/24/19 22:02 Dose: 1 applic - Objective Vital Signs: Vital Signs Temperature 98.8 F 03/25/19 06:00 Pulse Rate 85 03/25/19 06:00 Respiratory Rate 21 H 03/25/19 06:00 Blood Pressure 149/89 03/25/19 06:00 O2 Sat by Pulse Oximetry (%) 100 03/24/19 21:00 Cardiovascular: Yes: S1, S2 Respiratory: Yes: Regular, CTA Bilaterally Gastrointestinal: Yes: Normal Bowel Sounds, Soft Labs: CBC, BMP 03/25/19 06:07 03/25/19 06:07 Problem List - Problems (1) UTI (urinary tract infection) Assessment/Plan: on iv abx id following' Microbiology 03/22/19 03:25 Urine - Urine - Catheterized Urine Culture - Preliminary Lactose Fermenting Neg Bacilli 03/21/19 23:29 Blood - Peripheral Venous Blood Culture - Preliminary NO GROWTH OBTAINED AFTER 24 HOURS, INCUBATION TO CONTINUE FOR 4 DAYS. 03/21/19 23:29 Blood - Peripheral Venous Blood Culture - Preliminary NO GROWTH OBTAINED AFTER 24 HOURS, INCUBATION TO CONTINUE FOR 4 DAYS. Code(s): N39.0 - URINARY TRACT INFECTION, SITE NOT SPECIFIED (2) Pelvic pain in male Assessment/Plan: -Improved -ct scan nap -monitor Code(s): R10.2 - PELVIC AND PERINEAL PAIN (3) History of CVA (cerebrovascular accident) Assessment/Plan: on asa monitor Code(s): Z86.73 - PRSNL HX OF TIA (TIA), AND CEREB INFRC W/O RESID DEFICITS (4) Tracheostomy care Assessment/Plan: dressing applied per pulm Code(s): Z43.0 - ENCOUNTER FOR ATTENTION TO TRACHEOSTOMY (5) HTN (hypertension) Assessment/Plan: Selected Entries 03/23/19 03/23/19 03/23/19 04:00 06:00 08:00 Blood Pressure 103/89 101/75 126/105 H Monitor [place] elevated maybe due to pain repeat Code(s): I10 - ESSENTIAL (PRIMARY) HYPERTENSION Qualifiers: Hypertension type: unspecified Qualified Code(s): I10 - Essential (primary ) hypertension
[2019-03-25] MEDS ORDERED: MAGNESIUM OXIDE 400 MG TABLET (FP) GT ONE (07:45)
[2019-03-25] MEDS: ACETAMINOPHEN 650 MG/20.3 ML ORAL SOLUTION (CUPS) GT PRN ×2 (09:08→18:09)
[2019-03-25] MEDS: CEFTRIAXONE 2 GM in DEXTROSE 5%-WATER 100 ML IVPB SCH (09:08)
[2019-03-25] MEDS: FAMOTIDINE 20 MG/50 ML IVPB 20 MG/50 ML MG IVPB SCH (09:08)
[2019-03-25] MEDS: HYDROCHLOROTHIAZIDE 25 MG TABLET (FP) GT SCH (09:09)
[2019-03-25] MEDS: LOSARTAN POTASSIUM 50 MG TABLET (FP) GT SCH (09:09)
[2019-03-25] MEDS: ENOXAPARIN NA (PORCINE) 40 MG/0.4 ML DISP.SYRIN SQ SCH (09:09)
[2019-03-25] MEDS: METOPROLOL TARTRATE 50 MG TABLET (FP) GT SCH (09:09)
[2019-03-25] MEDS: MUPIROCIN 2% TOPICAL OINTMENT FOR DECOLONIZATION NS SCH (09:10)
[2019-03-25] MEDS: ASPIRIN 81 MG CHEWABLE TABLETS GT SCH (09:10)
--- NOTE | 2019-03-25 09:50 | DS ---
Physical Examination Vital Signs: Vital Signs Temperature 98.8 F 03/25/19 06:00 Pulse Rate 93 H 03/25/19 08:00 Respiratory Rate 17 03/25/19 08:07 Blood Pressure 153/81 03/25/19 08:00 O2 Sat by Pulse Oximetry (%) 98 03/25/19 08:07 Labs: CBC, BMP 03/25/19 06:07 03/25/19 06:07 Discharge Summary Reason For Visit: DYSPNEA,TRACHEOSTOMY DEPENDENT,PNEAUMONIA Current Active Problems ASHD (arteriosclerotic heart disease) (Acute) CVA (cerebral vascular accident) (Acute) Chronic respiratory failure (Acute) Diarrhea (Acute) History of CVA (cerebrovascular accident) (Acute) Pelvic pain in male (Acute) Pneumonia (Acute) Tracheostomy care (Acute) UTI (urinary tract infection) (Acute) Condition: Improved - Instructions Disposition: [facility] - Home Medications Comprehensive Discharge Medication List: Ambulatory Orders Acetaminophen [Tylenol] 650 mg GT Q4H PRN 03/22/19 Aspirin 81 mg GT DAILY 03/22/19 Atorvastatin Ca [Lipitor] 80 mg GT HS 03/22/19 Enoxaparin [Lovenox -] 40 mg SQ DAILY 03/22/19 Hydrochlorothiazide [Hctz -] 25 mg GT DAILY 03/22/19 Losartan Potassium [Cozaar] 100 mg GT DAILY 03/22/19 Metoprolol Tartrate [Lopressor -] 50 mg GT BID 03/22/19 Ceftriaxone [Rocephin -] 2 gm IVPB DAILY vial 03/25/19
--- NOTE | 2019-03-25 12:16 | PN ---
Teaching Attending Note Name of Resident: Eduardo Wallis ATTENDING PHYSICIAN STATEMENT I saw and evaluated the patient. I reviewed the resident's note and discussed the case with the resident. I agree with the resident's findings and plan as documented. SUBJECTIVE: Patient seen and examined in the ICU. Awake and responsive. No acute events overnight. Able to follow some simple commands. Denies CP or SOB. OBJECTIVE: Intake & Output 03/22/19 03/23/19 03/24/19 03/25/19 23:59 23:59 23:59 23:59 Intake Total 583 572 6017 700 Output Total 300 Balance 650 -100 1665 700 Weight 200 lb 200 lb 181 lb 9 oz 177 lb 9.6 oz Last Vital Signs Temp Pulse Resp BP Pulse Ox 97.6 F 80 17 142/86 98 03/25/19 10:00 03/25/19 12:00 03/25/19 12:00 03/25/19 12:00 03/25/19 10:00 Active Medications Acetaminophen (Tylenol Oral Solution -) 650 mg GT Q6H PRN PRN Reason: PAIN OR FEVER Last Admin: 03/25/19 09:08 Dose: 650 mg Aspirin (Asa -) 81 mg GT DAILY [facility] Last Admin: 03/25/19 09:10 Dose: 81 mg Atorvastatin Calcium (Lipitor -) 80 mg GT HS [facility] Last Admin: 03/24/19 22:03 Dose: 80 mg Chlorhexidine Gluconate (Hibiclens For Decolonization -) 1 applic TP HS [facility] Last Admin: 03/24/19 22:02 Dose: 1 applic Enoxaparin Sodium (Lovenox -) 40 mg SQ DAILY [facility] Last Admin: 03/25/19 09:09 Dose: 40 mg Hydrochlorothiazide (Hctz -) 25 mg GT DAILY [facility] Last Admin: 03/25/19 09:09 Dose: 25 mg Ceftriaxone Sodium 2 gm/ (Dextrose) 100 mls @ 200 mls/hr IVPB DAILY [facility]; Protocol Last Admin: 03/25/19 09:08 Dose: 200 mls/hr Famotidine/Sodium Chloride (Pepcid 20 Mg Premixed Ivpb -) 20 mg in 50 mls @ 100 mls/hr IVPB BID [facility] Last Admin: 03/25/19 09:08 Dose: 100 mls/hr Losartan Potassium (Cozaar -) 100 mg GT DAILY [facility] Last Admin: 03/25/19 09:09 Dose: 100 mg Metoprolol Tartrate (Lopressor -) 50 mg GT BID [facility] Last Admin: 03/25/19 09:09 Dose: 50 mg Mupirocin (Bactroban Ointment (For Decolonization) -) 1 applic NS BID [facility] Stop: 03/27/19 09:59 Last Admin: 03/25/19 09:10 Dose: 1 applic Gen: NAD at rest Heart: RRR Lung: decreased breath sounds at the bases Abd: soft, nontender Ext: no edema Laboratory Results - last 24 hr 03/25/19 03/25/19 06:07 06:07 WBC 7.4 RBC 4.08 Hgb 11.4 L Hct 34.9 L MCV 85.7 MCH 27.9 MCHC 32.6 RDW 14.4 Plt Count 343 MPV 8.0 Sodium 138 Potassium 3.5 Chloride 99 Carbon Dioxide 33 H Anion Gap 7 L BUN 24.3 H Creatinine 0.8 Est GFR (CKD-EPI)AfAm 107.89 Est GFR (CKD-EPI)NonAf 93.09 Random Glucose 119 H Calcium 9.9 Phosphorus 3.2 Magnesium 1.6 L ASSESSMENT AND PLAN: Trach Malfunction s/p decannulation UTI Recent CVA with Right Hemiparesis CAD CHF HTN Hyperlipidemia - O2 as needed - ABX per ID - Swallow evaluation - aspiration precautions - DVT prophylaxis - Floor Dr Anton
--- NOTE | 2019-03-25 12:34 | PN ---
Progress Note (short form) - Note Progress Note: doing well nad Vital Signs Period Temp Pulse Resp BP Sys/Webster Pulse Ox Last 24 Hr 97.6 F-98.8 F 75-105 12-21 141-160/75-91 98-100 cor-rrr lungs decreased bs at bases abd soft,nt +GT ext no edema CBC, BMP 03/25/19 06:07 03/25/19 06:07 Microbiology 03/21/19 23:29 Blood - Peripheral Venous Blood Culture - Preliminary NO GROWTH OBTAINED AFTER 72 HOURS, INCUBATION TO CONTINUE FOR 2 DAYS. 03/21/19 23:29 Blood - Peripheral Venous Blood Culture - Preliminary NO GROWTH OBTAINED AFTER 72 HOURS, INCUBATION TO CONTINUE FOR 2 DAYS. 03/22/19 03:25 Urine - Urine - Catheterized Urine Culture - Final Escherichia Coli a/p trach removed ?pneumonia ecoli UTI day #4 antibiotics can switch to po ceftin to finish 7 days
--- NOTE | 2019-03-25 14:10 | PN ---
Physical Exam: SUBJECTIVE: Patient seen and examined at the bedside. Is able to respond to questions with nods and shakes of head, unable to verbalize responses. Alert and oriented. Is able to follow basic commands with the L side of body. Denies any acute chest pain, sob, abd pain, n/v, fever, chills, back pain. OBJECTIVE: Vital Signs Period Temp Pulse Resp BP Sys/Webster Pulse Ox Last 24 Hr 97.6 F-98.8 F 75-105 12-21 141-160/75-91 98-100 GENERAL: The patient is awake, alert, in no acute distress. HEAD: Normal with no signs of trauma. EYES: PERRL, extraocular movements intact, sclera anicteric, conjunctiva clear. NECK: Trachea midline, old tracheostomy scar noted. LUNGS: Breath sounds equal, decreased breath sounds at the bases. No wheezes, no accessory muscle use. HEART: Regular rate and rhythm, S1, S2 without murmur, rub. ABDOMEN: Soft, nontender, nondistended, normoactive bowel sounds, no guarding, no rebound, no masses. EXTREMITIES: 1+ pulses, warm, well-perfused, no edema. NEUROLOGICAL: Flaccid paralysis on the R side of body upper and lower extremities. SKIN: Warm, dry, normal turgor, no rashes or lesions noted Laboratory Results - last 24 hr 03/25/19 03/25/19 06:07 06:07 WBC 7.4 RBC 4.08 Hgb 11.4 L Hct 34.9 L MCV 85.7 MCH 27.9 MCHC 32.6 RDW 14.4 Plt Count 343 MPV 8.0 Sodium 138 Potassium 3.5 Chloride 99 Carbon Dioxide 33 H Anion Gap 7 L BUN 24.3 H Creatinine 0.8 Est GFR (CKD-EPI)AfAm 107.89 Est GFR (CKD-EPI)NonAf 93.09 Random Glucose 119 H Calcium 9.9 Phosphorus 3.2 Magnesium 1.6 L Active Medications Generic Name Dose Route Start Last Admin Trade Name Freq PRN Reason Stop Dose Admin Acetaminophen 650 mg 03/23/19 13:04 03/25/19 09:08 Tylenol Oral Solution - GT 650 mg Q6H PRN Administration PAIN OR FEVER Aspirin 81 mg 03/24/19 10:00 03/25/19 09:10 Asa - GT 81 mg DAILY [facility] Administration Atorvastatin Calcium 80 mg 03/23/19 22:00 03/24/19 22:03 Lipitor - GT 80 mg HS [facility] Administration Cefuroxime Axetil 500 mg 03/25/19 22:00 Ceftin - PO BID [facility] Chlorhexidine Gluconate 1 applic 03/22/19 22:00 03/24/19 22:02 Hibiclens For Decolonization - TP 1 applic HS [facility] Administration Enoxaparin Sodium 40 mg 03/24/19 10:00 03/25/19 09:09 Lovenox - SQ 40 mg DAILY [facility] Administration Hydrochlorothiazide 25 mg 03/24/19 10:00 03/25/19 09:09 Hctz - GT 25 mg DAILY [facility] Administration Famotidine/Sodium Chloride 20 mg in 50 mls @ 100 mls/hr 03/23/19 22:00 09:08 Pepcid 20 Mg Premixed Ivpb - IVPB 100 mls/hr BID [facility] Administration Losartan Potassium 100 mg 03/24/19 10:00 03/25/19 09:09 Cozaar - GT 100 mg DAILY [facility] Administration Metoprolol Tartrate 50 mg 03/23/19 22:00 03/25/19 09:09 Lopressor - GT 50 mg BID [facility] Administration Mupirocin 1 applic 03/22/19 10:00 03/25/19 09:10 Bactroban Ointment (For Decolonization) - NS 03/27/19 09:59 1 applic BID [facility] Administration ASSESSMENT/PLAN: Juan Palm is a 64 year old male with a PMHx of recent CVA hospitalized at [facility] (R sided deficits), s/p tracheostomy, HTN, HLD, CHF who presented to the hospital from [facility] due to uncontrolled hypertension and suspected UTI and found with tracheostomy tube in a false lumen. Tracheostomy dysfunction Complicated UTI H/o CVA with R hemiparesis CAD CHF HTN HLD NEUROLOGIC - R sided hemiparesis - tylenol as needed for pain CARDIOLOGY - continue losartan - continue HCTZ - continue lipitor - continue lopressor - continue aspirin RESPIRATORY - on RA, sating well - on CT noted that tube in false lumen and subsequently decannulated - Dr. Chung andrews, recs appreciated - aspiration precautions RENAL - no acute issues GASTROINTESTINAL - continue pepcid - swallow eval GENITOURINARY - UTI as per ID - UA showing 3+ LE, bacteria, and WBCs INFECTIOUS DISEASE - Dr. Jalloh consulted, recs appreciated - Urine Cxs showing E coli with multiple sensitivities - start cefuroxime PO and complete 7 day course, currently day 4 F/E/N - no standing fluids - continue to monitor electrolytes and replete as necessary, hypokalemia and hypomagnesemia repleted - continue Tube feed Jevity LINES - R wrist 20 gauge inserted 03/22 PROPHYLAXIS - on Lovenox 40mg CODE - full code DISPO - stable for transfer to Med-surg CASE DISCUSSED WITH DR. YOSELYN KNOX DO - PGY-1 INTERNAL MEDICINE Visit type - Emergency Visit Emergency Visit: No - New Patient This patient is new to me today: Yes Date on this admission: 03/25/19 - Critical Care Critical Care patient: No
[2019-03-25 17:14] VITALS: BP 160/82; PULSE 86; TEMP 97.6
[2019-03-25] MEDS ORDERED: CEFUROXIME AXETIL 500 MG TABLET PO SCH (22:00)
== END 2019-03-25 18:28 | DRG 208 ==
LOC: JER 21:54 → JERBED 03-22 01:32 → JICU 03-22 03:23
PROVIDERS: ADMIT Family Medicine; ATTEND Family Medicine
PROC: 5A1935Z Respiratory Ventilation, Less than 24 Consecutive Hours (ICD-10-PCS; principal; 2019-03-21)
DX: J95.03 Malfunction of tracheostomy stoma (principal); J18.9 Pneumonia, unspecified organism; J96.10 Chronic respiratory failure, unspecified whether with hypoxia or hypercapnia; N39.0 Urinary tract infection, site not specified; J98.11 Atelectasis; I69.351 Hemiplegia and hemiparesis following cerebral infarction affecting right dominant side; B96.20 Unspecified Escherichia coli [E. coli] as the cause of diseases classified elsewhere; N18.9 Chronic kidney disease, unspecified; I25.10 Atherosclerotic heart disease of native coronary artery without angina pectoris; I11.0 Hypertensive heart disease with heart failure; E78.5 Hyperlipidemia, unspecified; R10.2 Pelvic and perineal pain; D72.829 Elevated white blood cell count, unspecified; Z99.81 Dependence on supplemental oxygen; Y84.8 Other medical procedures as the cause of abnormal reaction of the patient, or of later complication, without mention of misadventure at the time of the procedure; Z87.891 Personal history of nicotine dependence; Z93.1 Gastrostomy status
CPT/HCPCS: 36415; 70490-TC; 71045-TC-FY; 71250-TC; 74177-TC; 80048; 80053; 81003; 83605; 83735; 84100; 85025; 85027; 87040; 87086; 87186; 93005; 93010; 94002; 99284-25; J1100

== ENCOUNTER 2019-03-29 07:44 | Inpatient (IN) | payer OTHER ==
--- NOTE | 2019-03-29 07:58 | PDOC ---
History of Present Illness - General Chief Complaint: Rectal Bleed Stated Complaint: RECTAL BLEEDING Time Seen by Provider: 03/29/19 07:55 - History of Present Illness Initial Comments: 03/29/19 07:57 64 y/o man from [facility] with a PMHx of recent CVA with R Hemiplegia, hemiparesis, ASHD, HTN, HLD, CHF who presents with bright red blood in the underwear with blood clots. The patient is unable to provide a history beyond answering yes or no questions. He endorses chest pain and RLQ abdominal pain. Limited history. Patient takes [employer] ROS - limited 2/ limited communication PE GENERAL: Awake, alert, in no acute distress HEAD: No signs of trauma, normocephalic, atraumatic EYES: EOMI, sclera anicteric, conjunctiva clear ENT: dry and crusted oral mucosa with dried blood NECK: Normal ROM, supple LUNGS: No distress, speaks full sentences, clear to auscultation anteriorly HEART: tachycardic rate and regular rhythm, normal S1 and S2, no murmurs, rubs or gallops, peripheral pulses normal and equal bilaterally. ABDOMEN: Soft, RLQ tendnerness. No guarding, no rebound. No masses EXTREMITIES : Normal inspection, R hemiplegia, no edema. No clubbing or cyanosis. NEUROLOGICAL: unable to assess RECTAL: bright blood, one hemorrhoid non bleeding or thrombosed MDM 64 y/o man from [facility] with a PMHx of recent CVA with R Hemiplegia, hemiparesis, ASHD, HTN, HLD, CHF who presents with bright red blood in the underwear with blood clots. DDX including but not limited to: LGIB (fissure vs hemorrhoid vs diverticular dz vs Crohns vs UC) vs UGIB (PUD vs gastroesophageal varices vs erosive gastritis/ esophagitis) W/U: - cbc, cmp, coags, type and screen, hemeoccult, trop, ekg, cxr, ctap TX: - ivf, morphine 2 ED Course: Labs wnl pending CTAP CXR Paitent with persistent tachycardia bp soft to 95/76 500cc started fentanyl 50mcg dosed for pain repeat h/h tsh, blood cultures done tsh -wnl h/h - 10.2/31.1 -> 9.9/29/7 over 4 hours liekly 2/2 fluid dilution bloody bowel movement at bedside CTAP: asymmetric thickening of the distal rectum/ anal verge oral contrast present throughout transverse, descending and rectosigmoid colon likely from prior study on 03/23/19 consistent with colitis dose flagyl patient still tachycardic to 130s 500cc started. to complete total of 2L fluid resusc pending GI consult and admission per GI Dr. Leland Saul, PGY2 Emergency Medicine Past History - Past Medical History Allergies/Adverse Reactions: Allergies Allergy/AdvReac Type Severity Reaction Status Date / Time No Known Allergies Allergy Verified 03/29/19 07:48 Home Medications: Ambulatory Orders Acetaminophen [Tylenol] 650 mg GT Q4H PRN 03/22/19 Aspirin 81 mg GT DAILY 03/22/19 Atorvastatin Ca [Lipitor] 80 mg GT HS 03/22/19 Enoxaparin [Lovenox -] 40 mg SQ DAILY 03/22/19 Losartan Potassium [Cozaar] 100 mg GT DAILY 03/22/19 Metoprolol Tartrate [Lopressor -] 50 mg GT BID 03/22/19 Hydrochlorothiazide [Hctz -] 25 mg GT DAILY 03/29/19 Anemia: No Asthma: No Cancer: No Cardiac Disorders: No COPD: No HTN: Yes - Surgical History Abdominal Surgery: Yes (HERNIA, PEG) - Suicide/Smoking/Psychosocial Hx Smoking History: Unknown if ever smoked Have you smoked in the past 12 months: Yes Hx Alcohol Use: No Drug/Substance Use Hx: No Substance Use Type: None *Physical Exam - Vital Signs Last Vital Signs Temp Pulse Resp BP Pulse Ox 98.6 F 127 H 18 112/97 100 03/29/19 07:52 03/29/19 07:52 03/29/19 07:52 03/29/19 07:52 03/29/19 07:52 ED Treatment Course - LABORATORY CBC & Chemistry Diagram: 04/01/19 06:40 04/01/19 06:40 *DC/Admit/Observation/Transfer Diagnosis at time of Disposition: GIB (gastrointestinal bleeding) - Discharge Dispostion Condition at time of disposition: Fair Decision to Admit order: Yes - Referrals - Patient Instructions - Post Discharge Activity
[2019-03-29] MEDS ORDERED: SODIUM CHLORIDE 1,000 ML IV SCH ×3 (08:00→19:00)
--- NOTE | 2019-03-29 08:03 | PDOC ---
Attending Attestation - Resident Resident Name: Anastasia Saulie - ED Attending Attestation I have performed the following: I have examined & evaluated the patient, The case was reviewed & discussed with the resident, I agree w/resident's findings & plan, Exceptions are as noted - HPI HPI: 03/29/19 08:00 64y M hx of htn, recent cva with right sided weakness (FORENSIC NURSE infarcts with basilary sp cerbral angioplasty), ashd, hl, recent admission for trach malfunction presents from [facility] for rectal bleeding. history is limited from pt , but per [place] records, pt had some red blood with clots. history limited from pt as pt is nonverbal. ros: limited due to patient condition Physical Exam:L GENERAL: The patient is awake, alert, a&o limited but pt nods/shakes his head appropriately to his name Nontoxic - in no acute distress. HEAD: Normocephalic, atraumatic. EYES: extraocular movements intact, sclera anicteric, conjunctiva clear. ENT: Normal voice, dry mucous membranes. NECK: Normal range of motion, supple LUNGS: Breath sounds equal, clear to auscultation bilaterally. No wheezes, no rhonchi, no rales. HEART:tachycardic, regular ABDOMEN: Soft, mild lower abd ttp Rectal: maroon/reddish stool wo signs of melena EXTREMITIES: no edema. SKIN: Warm, Dry, normal turgor, no sacaral ulcer will obtain labs inc t&s, pt/inr fluid resusitation to see if tachycardia is fluid responsive ct abd pelvis - Physicial Exam PE: 03/30/19 09:19 see above - Critical Care Time Total Critical Care Time: 45 Critical Care Statement: The care of this patient involved high complexity decision making to prevent further life threatening deterioration of the patient 's condition and/or to evaluate & treat vital organ system(s) failure or risk of failure. - Medical Decision Making 03/29/19 13:55 pts labs reviewed lactic acid normal no leukocytosis bun elevated, possible prerenal tstill persistently tachycardic to 120s repeat temp is 98 will continue to fluid resusitate will continue to monitor HR. 03/29/19 16:55 ct results reviewed, will consult GI repeat hemoglobin stable pt still persistent tachy, but pt has not received his full fluids ordered as his IV ifniltrated a new line was placed using US guidance and fluid restarted. will see if pt is fluid responsive - if not, will consider giving pt his metolprolol. will admit the pt for further management Heart Score/ECG Review - ECG Impressions Comment:: 03/29/19 08:38 Twelve-lead EKG was performed and reviewed by me. There is normal sinus rhythm with rate of 118 sinus tachycarida
[2019-03-29 09:29] LABS: ALBUMIN 2.6 g/dl (3.4-5.0); BILIRUBIN,TOTAL 0.5 mg/dL (0.2-1); BLOOD UREA NITROGEN 49.8 mg/dL (7-18); CALCIUM 9.4 mg/dL (8.5-10.1); CREATININE 0.8 mg/dL (0.55-1.3); POTASSIUM 4.6 mmol/L (3.5-5.1); TOT PROT 7.4 g/dl (6.4-8.2)
[2019-03-29] MEDS ORDERED: morphine CARPU-JECT 2 MG/1 ML DISP.SYRIN IVPUSH ONE ×2 (09:35→12:57)
[2019-03-29] MEDS ORDERED: MORPHINE SULFATE 2 MG/ML VIAL ONE ×2 (09:37→13:00)
[2019-03-29 09:55] LABS: BASO % 0.8 % (0-2.0); EOS % 3.8 % (0-4.5); HEMATOCRIT 31.1 % (35.4-49); HEMOGLOBIN 10.2 GM/dL (11.7-16.9); LYMPH % 18.2 % (8-40); MCH 27.9 pg (25.7-33.7); MCHC 32.8 g/dl (32.0-35.9); MEAN PLT VOLUME 8.5 fl (7.5-11.1); MONO % 9.3 % (3.8-10.2); NEUT % 67.9 % (42.8-82.8); PLATELET COUNT 294 K/MM3 (134-434); RBC 3.65 M/mm3 (4.00-5.60); RDW 14.8 % (11.9-15.9); WHITE BLOOD COUNT 8.5 K/mm3 (4.0-10.0)
[2019-03-29 10:03] LABS: INR 1.08 (0.83-1.09); PROTHROMBIN TIME (PATIENT) 12.8 SEC (9.7-13.0)
[2019-03-29 10:06] LABS: ACTIVATED PTT 30.4 SECONDS (25.2-36.5)
[2019-03-29] MEDS ORDERED: SODIUM CHLORIDE 250 ML IV SCH ×2 (13:15→14:00)
[2019-03-29] MEDS ORDERED: SODIUM CHLORIDE 500 ML IV SCH ×2 (15:15→18:15)
[2019-03-29 15:23] LABS: HEMATOCRIT 29.7 % (35.4-49); HEMOGLOBIN 9.9 GM/dL (11.7-16.9); MCHC 33.3 g/dl (32.0-35.9); MEAN CELL VOLUME 84.1 fl (80-96); MEAN PLT VOLUME 8.5 fl (7.5-11.1); PLATELET COUNT 284 K/MM3 (134-434); RBC 3.53 M/mm3 (4.00-5.60); WHITE BLOOD COUNT 9.2 K/mm3 (4.0-10.0)
[2019-03-29] MEDS ORDERED: ACETAMINOPHEN 1000 MG/100 ML VIAL (NON FORMULARY) IVPB ONE (16:36)
[2019-03-29] MEDS ORDERED: ACETAMINOPHEN INJECTION 100 ML IVPB ONE (16:39)
--- NOTE | 2019-03-29 18:20 | HP ---
Admitting History and Physical - Primary Care Physician PCP: Thomas Raza - Admission Chief Complaint: Rectal bleeding History of Present Illness: 64 y/o man from [facility] with a PMHx of recent CVA with R Hemiplegia, hemiparesis, ASHD, HTN, HLD, CHF who presents with bright red blood in the underwear with blood clots. The patient is unable to provide a history beyond answering yes or no questions. 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 Cardiovascular: Yes: CAD, CHF, HTN, Hyperlipdemia Pulmonary: Yes: O2 Dependent (Trach/Vent), Other (old trach stoma) - Past Surgical History Additional Past Surgical History: Trachestomy - Smoking History Smoking history: Unknown if ever smoked Have you smoked in the past 12 months: No - Alcohol/Substance Use Hx Alcohol Use: No - Social History Usual Living Arrangement: Yes: Long-Term ([facility]) ADL: Support Services History of Recent Travel: No Home Medications - Allergies Allergies/Adverse Reactions: Allergies Allergy/AdvReac Type Severity Reaction Status Date / Time No Known Allergies Allergy Verified 03/29/19 07:48 - Home Medications Home Medications: Ambulatory Orders Acetaminophen [Tylenol] 650 mg GT Q4H PRN 03/22/19 Aspirin 81 mg GT DAILY 03/22/19 Atorvastatin Ca [Lipitor] 80 mg GT HS 03/22/19 Enoxaparin [Lovenox -] 40 mg SQ DAILY 03/22/19 Losartan Potassium [Cozaar] 100 mg GT DAILY 03/22/19 Metoprolol Tartrate [Lopressor -] 50 mg GT BID 03/22/19 Hydrochlorothiazide [Hctz -] 25 mg GT DAILY 03/29/19 Family Disease History - Family Disease History Family History: Unable to Obtain Review of Systems Unable to obtain ROS, reason: due to clincial condition Physical Examination Vital Signs: Vital Signs Temperature 99.6 F 03/29/19 08:00 Pulse Rate 130 H 03/29/19 17:38 Respiratory Rate 24 H 03/29/19 17:38 Blood Pressure 144/87 03/29/19 17:38 O2 Sat by Pulse Oximetry (%) 100 03/29/19 17:38 Constitutional: Yes: Mild Distress, Thin Eyes: Yes: WNL, Conjunctiva Clear, EOM Intact HENT: Yes: WNL, Atraumatic, Normocephalic Neck: Yes: Other (old trach stoma with dark brown secretions) Cardiovascular: Yes: WNL, Tachycardia Respiratory: Yes: WNL, Diminished (at bases) Gastrointestinal: Yes: Normal Bowel Sounds, Soft, Rectal Bleeding ...Rectal Exam: Yes: Hemorrhoids/External, Other (bright red blood) Breast(s): Yes: WNL Musculoskeletal: Yes: Muscle Weakness Extremities: Yes: WNL Edema: No Peripheral Pulses WNL: Yes Integumentary: Yes: Other (abrasion to right skin 1cm x 1 cm) Neurological: Yes: Alert (right hemiparesis) ...Motor Strength: RUE (0/5) Psychiatric: Yes: Alert (can nod Y/N) Labs: CBC, BMP 03/29/19 14:46 03/29/19 08:07 Imaging - Results Chest X-ray: Image Reviewed (no effusion.infiltartes) Cat Scan: Report Reviewed (HCT: nonhemmorhagic BL occipital infarcts ACT: The study is essentially nondiagnostic for the evaluation of intraluminal GI bleeding due to the presence of oral contrast. Asymmetric thickening of the distal rectum/anal verge. Etiology could include infectious, inflammatory or neoplastic processes. Correlate with clinical history and physical exam.) Problem List - Problems (1) Hemiparesis affecting right side as late effect of cerebrovascular accident Assessment/Plan: Right hemiparesis will have PT follow patient while in patient Code(s): I69.351 - HEMIPLGA FOLLOWING CEREBRAL INFRC AFF RIGHT DOMINANT SIDE (2) CHF (congestive heart failure) Assessment/Plan: no recent TTE in records Code(s): I50.9 - HEART FAILURE, UNSPECIFIED (3) GIB (gastrointestinal bleeding) Assessment/Plan: Pt tachycardic on arrival to ED-2L NS bolus given BP soft 95/70 CTAP: asymmetric thickening of the distal rectum/ anal verge oral contrast present throughout transverse, descending and rectosigmoid colon likely from prior study on 03/23/19, consistent with colotis GI-Dr Ha consulted levaquin dosed serial H/H admit to telemetry for monitoring Code(s): K92.2 - GASTROINTESTINAL HEMORRHAGE, UNSPECIFIED (4) CVA (cerebral vascular accident) Assessment/Plan: right hemiperasis PT to see patient Code(s): I63.9 - CEREBRAL INFARCTION, UNSPECIFIED (5) HLD (hyperlipidemia) Assessment/Plan: c/w atorvastatin Code(s): E78.5 - HYPERLIPIDEMIA, UNSPECIFIED Qualifiers: Hyperlipidemia type: pure hypercholesterolemia Qualified Code(s): E78.00 - Pure hypercholesterolemia, unspecified; E78.0 - Pure hypercholesterolemia (6) HTN (hypertension) Assessment/Plan: presently hyoptensive will hold metoprolol & losaartan Code(s): I10 - ESSENTIAL (PRIMARY) HYPERTENSION Qualifiers: Hypertension type: unspecified Qualified Code(s): I10 - Essential (primary ) hypertension (7) History of CVA (cerebrovascular accident) Code(s): Z86.73 - PRSNL HX OF TIA (TIA), AND CEREB INFRC W/O RESID DEFICITS (8) Prophylactic measure Assessment/Plan: FEN NPO IVF nutrition consult in am monitor electrolytes DVT on eliquis at home, will hold assess in morning to start any anticoagulation given GIB Dipso admit to tele full code discharge planning back to [facility] Code(s): Z29.9 - ENCOUNTER FOR PROPHYLACTIC MEASURES, UNSPECIFIED Visit type - Emergency Visit Emergency Visit: Yes Care time: The patient presented to the Emergency Department on the above date and was hospitalized for further evaluation of their emergent condition. - New Patient This patient is new to me today: Yes Date on this admission: 03/29/19 - Critical Care Critical Care patient: No
--- NOTE | 2019-03-30 07:33 | CON.GI ---
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 Cardio/Vascular: Yes: CAD, CHF, HTN, Hyperlipdemia Pulmonary: Yes: O2 Dependent (Trach/Vent), Other (old trach stoma) - Alcohol/Substance Use Hx Alcohol Use: No - Smoking History Smoking history: Unknown if ever smoked Have you smoked in the past 12 months: No - Social History ADL: Support Services History of Recent Travel: No Home Medications - Allergies Allergies/Adverse Reactions: Allergies Allergy/AdvReac Type Severity Reaction Status Date / Time No Known Allergies Allergy Verified 03/29/19 07:48 - Home Medications Home Medications: Ambulatory Orders Acetaminophen [Tylenol] 650 mg GT Q4H PRN 03/22/19 Aspirin 81 mg GT DAILY 03/22/19 Atorvastatin Ca [Lipitor] 80 mg GT HS 03/22/19 Enoxaparin [Lovenox -] 40 mg SQ DAILY 03/22/19 Losartan Potassium [Cozaar] 100 mg GT DAILY 03/22/19 Metoprolol Tartrate [Lopressor -] 50 mg GT BID 03/22/19 Hydrochlorothiazide [Hctz -] 25 mg GT DAILY 03/29/19 Physical Exam-GI Vital Signs: Vital Signs Temperature 98.2 F 03/30/19 05:39 Pulse Rate 118 H 03/30/19 05:39 Respiratory Rate 18 03/30/19 05:39 Blood Pressure 137/89 03/30/19 05:39 O2 Sat by Pulse Oximetry (%) 97 03/29/19 23:53 Labs: CBC, BMP 03/29/19 14:46 03/29/19 08:07 INR, PTT INR 1.08 (0.83-1.09) 03/29/19 08:07
[2019-03-30 08:17] LABS: HEMATOCRIT 25.3 % (35.4-49); HEMOGLOBIN 8.4 GM/dL (11.7-16.9); MCH 28.4 pg (25.7-33.7); MCHC 33.4 g/dl (32.0-35.9); MEAN CELL VOLUME 84.9 fl (80-96); MEAN PLT VOLUME 8.2 fl (7.5-11.1); PLATELET COUNT 231 K/MM3 (134-434); RBC 2.98 M/mm3 (4.00-5.60); RDW 14.6 % (11.9-15.9); WHITE BLOOD COUNT 7.5 K/mm3 (4.0-10.0)
[2019-03-30 08:59] LABS: ALBUMIN 2.5 g/dl (3.4-5.0); BILIRUBIN,TOTAL 0.7 mg/dL (0.2-1); BLOOD UREA NITROGEN 41.7 mg/dL (7-18); CALCIUM 9.4 mg/dL (8.5-10.1); CREATININE 0.9 mg/dL (0.55-1.3); MAGNESIUM 1.8 mg/dL (1.8-2.4); N-TERMINAL BNP 1256.2 pg/ml (5-125); POTASSIUM 4.4 mmol/L (3.5-5.1)
[2019-03-30] MEDS: ACETAMINOPHEN 1000 MG/100 ML VIAL (NON FORMULARY) IVPB PRN (12:06)
[2019-03-30] MEDS: METOPROLOL TARTRATE 5 MG/5 ML VIAL IVPUSH PRN (14:31)
[2019-03-30] MEDS ORDERED: PANTOPRAZOLE SODIUM 40 MG in SODIUM CHLORIDE 100 ML IVPB ONE (14:48)
[2019-03-30] MEDS ORDERED: PANTOPRAZOLE SODIUM 40 MG VIAL IVPUSH SCH (15:00)
[2019-03-30] MEDS ORDERED: PANTOPRAZOLE SODIUM 40 MG VIAL IVPUSH ONE (15:00)
--- NOTE | 2019-03-30 15:18 | CONS ---
DATE OF CONSULTATION: DATE OF DICTATION: 03/30/2019 GASTROENTEROLOGY CONSULTATION Patient is a 64-year-old man from the group home facility. He has a past medical history of recent CVA with right hemiplegia, hemiparesis, ASHD, hypertension, hyperlipidemia, and CHF, who was sent to the hospital for evaluation of complaints of bright red blood in his diaper while at the facility. He is unable to provide any additional history. He is a poor historian, but he does deny abdominal pain, nausea and vomiting. There was no report of melenic stool. Of note, he was on anticoagulation with Eliquis while at the facility. PAST MEDICAL AND SURGICAL HISTORY: As listed in the HPI, with the addition of old tracheostomy in the past. SOCIAL HISTORY: Does not drink, smoke or use drugs. FAMILY HISTORY: Unable to obtain. ALLERGIES: No known drug allergies. HOME MEDICATIONS: Include Tylenol, aspirin, atorvastatin, metoprolol, hydrochlorothiazide and Eliquis. PHYSICAL EXAMINATION: Vital Signs: Temperature 100.3, pulse 130 (on repeat 118), blood pressure 152/60, pulse oximetry 100% on room air, respiratory rate 16. General: In no acute distress. HEENT: Anicteric sclerae. Cardiovascular: S1/S2. Regular rate and rhythm. Lungs: Bilaterally clear to auscultation. Abdomen: Soft and nontender. Extremities: No edema. LABORATORY DATA: White blood cell count 7.5, hemoglobin 8.4, hematocrit 25; on admission were hemoglobin 10 and hematocrit 31; MCV 84, platelet count 231. INR 1. Sodium 139, potassium 4.4, BUN 41, creatinine 0.9, glucose 121. Stool for occult blood was positive. DIAGNOSTIC STUDIES: He had a CTA of the abdomen and pelvis; however, bleeding could not be evaluated secondary to oral contrast. There was asymmetric thickening of the distal rectum and anal verge, questionable infectious or inflammatory neoplastic process. IMPRESSION: Episode of hematochezia, question of some loose bowel movements while at the facility, also febrile. These findings are most consistent with an infectious etiology complicated by hematochezia secondary to the ischemic or the infectious etiology that is underlying. There is no sign of an overt GI bleed at this time. He is hemodynamically stable. His tachycardia is most likely secondary to his fever. RECOMMENDATION: N.p.o., IV fluids. Continue him on Levaquin and Flagyl therapy. If he bleeds again, he should have a CTA. Hold Eliquis. At this time would hold off on any invasive endoscopic procedures considering he has been on Eliquis. We will continue to follow him closely. He would benefit from Protonix 40 mg p.o. daily and serial hemoglobins and hematocrits q.12 to keep his hemoglobin at 10. DO MARTINE NAYAK/[id number]
--- NOTE | 2019-03-30 15:34 | PN ---
Progress Note, Physician Chief Complaint: AWAKE EVENTS REVIEWED DENIES ABDOMINAL OR CHEST PAIN - Current Medication List Current Medications: Active Medications Acetaminophen (Ofirmev Injection -) 1,000 mg IVPB Q6H PRN PRN Reason: PAIN OR FEVER Last Admin: 03/30/19 12:06 Dose: 1,000 mg Levofloxacin (Levaquin 750 Mg Premixed Ivpb -) 750 mg in 150 mls @ 100 mls/hr IVPB DAILY PLACIDO; Protocol Last Admin: 03/30/19 11:03 Dose: 100 mls/hr Sodium Chloride (Normal Saline -) 1,000 mls @ 50 mls/hr IV ASDIR PLACIDO Stop: 03/30/19 18:47 Last Admin: 03/29/19 19:00 Dose: 50 mls/hr Metoprolol Tartrate (Lopressor Injection -) 5 mg IVPUSH Q4H PRN PRN Reason: HYPERTENSION Last Admin: 03/30/19 14:31 Dose: 5 mg - Objective Vital Signs: Vital Signs Temperature 9824 F H 03/30/19 14:00 Pulse Rate 126 H 03/30/19 14:31 Respiratory Rate 20 03/30/19 14:00 Blood Pressure 159/82 03/30/19 14:31 O2 Sat by Pulse Oximetry (%) 100 03/30/19 09:00 Constitutional: Yes: Mild Distress Cardiovascular: Yes: Regular Rate and Rhythm Respiratory: Yes: Diminished, On Nasal O2 Gastrointestinal: Yes: Soft Genitourinary: Yes: Incontinence Musculoskeletal: Yes: Muscle Weakness Edema: Yes Integumentary: Yes: Pressure Ulcer, Rash, Venous Stasis Changes Wound/Incision: Yes: Dressing Dry and Intact Neurological: Yes: Pre-Existing Deficit ...Motor Strength: LLE, RLE Psychiatric: Yes: Other Labs: CBC, BMP 03/30/19 07:47 03/30/19 07:47 INR, PTT INR 1.08 (0.83-1.09) 03/29/19 08:07 Problem List - Problems (1) Colitis Code(s): K52.9 - NONINFECTIVE GASTROENTERITIS AND COLITIS, UNSPECIFIED (2) GIB (gastrointestinal bleeding) Code(s): K92.2 - GASTROINTESTINAL HEMORRHAGE, UNSPECIFIED (3) Hemiparesis affecting right side as late effect of cerebrovascular accident Code(s): I69.351 - HEMIPLGA FOLLOWING CEREBRAL INFRC AFF RIGHT DOMINANT SIDE (4) Prophylactic measure Code(s): Z29.9 - ENCOUNTER FOR PROPHYLACTIC MEASURES, UNSPECIFIED (5) ASHD (arteriosclerotic heart disease) Code(s): I25.10 - ATHSCL HEART DISEASE OF [place] CORONARY ARTERY W/O ANG PCTRS (6) History of CVA (cerebrovascular accident) Code(s): Z86.73 - PRSNL HX OF TIA (TIA), AND CEREB INFRC W/O RESID DEFICITS Assessment/Plan AWAITING GI EVAL ON PPI AND NPO NO ACUTE CHANGES TODAY IV ABX RESP SUPPORT H/O TRACH WOUND CARE ON TELE
[2019-03-30 18:00] LABS: BASO % 0.3 % (0-2.0); HEMATOCRIT 25.9 % (35.4-49); HEMOGLOBIN 8.3 GM/dL (11.7-16.9); MCH 27.7 pg (25.7-33.7); MCHC 31.9 g/dl (32.0-35.9); MEAN CELL VOLUME 86.8 fl (80-96); MEAN PLT VOLUME 8.4 fl (7.5-11.1); MONO % 12.7 % (3.8-10.2); PLATELET COUNT 220 K/MM3 (134-434); RBC 2.98 M/mm3 (4.00-5.60); RDW 14.9 % (11.9-15.9); WHITE BLOOD COUNT 6.8 K/mm3 (4.0-10.0)
--- NOTE | 2019-03-30 20:59 | HOSP ---
Subjective - Review of Symptoms Events since last encounter: Hospitalist Encounter Notified by the RN that the patient's declined permission for patient to receive PRBC's. Per the RN the patient's wanted to speak with the MD regarding this issue. As the covering Hospital DIRECTOR OF ADULT EPILEPSY, call placed at number provided, no answer, no answering machine. Will inform RN to have the covering attending speak with the spouse tomorrow. Addendum Was microblogged by the RN with another # to contact Mrs. Palm. Spoke with Mrs Palm regarding the patient and the indications for the blood transfusion. She wanted to discuss everything with her daughter before she made a decision. Went to see the patient who is alert to name, makes some eye contact, non- verbal at baseline Scant stool with melena noted in diaper. Per RN, patient's called back and agreed to blood transfusions, per GI recommendation. Physical Examination Vital Signs: Vital Signs Temperature 98.2 F 03/30/19 18:10 Pulse Rate 118 H 03/30/19 18:10 Respiratory Rate 118 H 03/30/19 18:10 Blood Pressure 140/88 03/30/19 18:10 O2 Sat by Pulse Oximetry (%) 100 03/30/19 09:00 Constitutional: Yes: No Distress, Calm, Other (non-verbal) Eyes: Yes: Conjunctiva Clear, EOM Intact HENT: Yes: Other (dry mucousa Trach Stoma with dressing intact) Cardiovascular: Yes: Tachycardia, S1, S2 Respiratory: Yes: Diminished, On Nasal O2, Rhonchi Gastrointestinal: Yes: Soft, Hypoactive Bowel Sounds, Rectal Bleeding ...Rectal Exam: Yes: Guaiac Positive Renal/: Yes: Incontinence Neurological: Yes: Alert, Pre-Existing Deficit Psychiatric: Yes: Alert Labs: CBC, BMP 03/30/19 17:39 03/30/19 07:47 Laboratory Results - last 24 hr 03/29/19 03/30/19 03/30/19 15:00 00:16 05:34 WBC RBC Hgb Hct MCV MCH MCHC RDW Plt Count MPV Absolute Neuts (auto) Neutrophils % Lymphocytes % Monocytes % Eosinophils % Basophils % Nucleated RBC % Sodium Potassium Chloride Carbon Dioxide Anion Gap BUN Creatinine Est GFR (CKD-EPI)AfAm Est GFR (CKD-EPI)NonAf POC Glucometer 121 118 Random Glucose Calcium Magnesium Total Bilirubin AST ALT Alkaline Phosphatase B-Natriuretic Peptide Total Protein Albumin Blood Type AB POSITIVE Antibody Screen Negative Crossmatch See Detail 03/30/19 03/30/19 03/30/19 07:47 07:47 17:39 WBC 7.5 6.8 RBC 2.98 L 2.98 L Hgb 8.4 L 8.3 L Hct 25.3 L 25.9 L MCV 84.9 86.8 MCH 28.4 27.7 MCHC 33.4 31.9 L RDW 14.6 14.9 Plt Count 231 220 MPV 8.2 8.4 Absolute Neuts (auto) 4.8 Neutrophils % No Result Required. 70.0 Lymphocytes % No Result Required. 13.0 D Monocytes % 12.7 H Eosinophils % 4.0 Basophils % 0.3 Nucleated RBC % 0 Sodium 139 Potassium 4.4 Chloride 106 Carbon Dioxide 26 Anion Gap 8 BUN 41.7 H Creatinine 0.9 Est GFR (CKD-EPI)AfAm 102.79 Est GFR (CKD-EPI)NonAf 88.69 POC Glucometer Random Glucose 121 H Calcium 9.4 Magnesium 1.8 Total Bilirubin 0.7 AST 53 H ALT 69 H Alkaline Phosphatase 110 B-Natriuretic Peptide 1256.2 H Total Protein 7.0 Albumin 2.5 L Blood Type Antibody Screen Crossmatch 03/30/19 21:48 WBC RBC Hgb Hct MCV MCH MCHC RDW Plt Count MPV Absolute Neuts (auto) Neutrophils % Lymphocytes % Monocytes % Eosinophils % Basophils % Nucleated RBC % Sodium Potassium Chloride Carbon Dioxide Anion Gap BUN Creatinine Est GFR (CKD-EPI)AfAm Est GFR (CKD-EPI)NonAf POC Glucometer 108 Random Glucose Calcium Magnesium Total Bilirubin AST ALT Alkaline Phosphatase B-Natriuretic Peptide Total Protein Albumin Blood Type Antibody Screen Crossmatch Current Medications Generic Name Dose Route Start Last Admin Trade Name Freq PRN Reason Stop Dose Admin Acetaminophen 1,000 mg 03/29/19 18:38 03/30/19 12:06 Ofirmev Injection - IVPB 1,000 mg Q6H PRN Administration PAIN OR FEVER Levofloxacin 750 mg in 150 mls @ 100 mls/hr 03/30/19 10:00 03/30/19 11:03 Levaquin 750 Mg Premixed Ivpb - IVPB 100 mls/hr DAILY PLACIDO Administration Protocol Metoprolol Tartrate 5 mg 03/30/19 13:02 03/30/19 14:31 Lopressor Injection - IVPUSH 5 mg Q4H PRN Administration HYPERTENSION Nystatin 1 applic 03/30/19 22:00 03/30/19 21:55 Mycostatin Cream - TP 1 applic BID PLACIDO Administration Hospitalist Encounter Assessment: 64 y/o man from [facility] with a PMHx of recent CVA with R Hemiplegia, hemiparesis, ASHD, HTN, HLD, CHF who presents with bright red blood in the underwear with blood clots. Admitted for GI Bleed Plan PRBCs x2 Lasix IV between first unit
[2019-03-30] MEDS: NYSTATIN 100,000 UNIT/GM TOPICAL CREAM 15 GM TUBE TP SCH (21:55)
[2019-03-30] MEDS ORDERED: FUROSEMIDE 40 MG/4 ML INJECTABLE VIAL IVPUSH ONE (22:32)
[2019-03-31] MEDS ORDERED: FUROSEMIDE 40 MG/4 ML INJECTABLE VIAL IVPUSH ONE (03:00)
[2019-03-31] MEDS: METOPROLOL TARTRATE 5 MG/5 ML VIAL IVPUSH PRN ×2 (05:01→16:30)
[2019-03-31 06:09] LABS: HEMATOCRIT 27.9 % (35.4-49); HEMOGLOBIN 9.4 GM/dL (11.7-16.9); MCH 28.5 pg (25.7-33.7); MCHC 33.6 g/dl (32.0-35.9); PLATELET COUNT 224 K/MM3 (134-434); RBC 3.28 M/mm3 (4.00-5.60); RDW 14.9 % (11.9-15.9); WHITE BLOOD COUNT 7.6 K/mm3 (4.0-10.0)
[2019-03-31 06:36] LABS: ALBUMIN 2.7 g/dl (3.4-5.0); BILIRUBIN,TOTAL 1.5 mg/dL (0.2-1); BLOOD UREA NITROGEN 31.6 mg/dL (7-18); CALCIUM 9.7 mg/dL (8.5-10.1); CREATININE 0.9 mg/dL (0.55-1.3); POTASSIUM 3.9 mmol/L (3.5-5.1); TOT PROT 7.2 g/dl (6.4-8.2)
--- NOTE | 2019-03-31 08:11 | PN.GI ---
GI Progress Note Subjective: H/H STABLE C/W PPI C/W ABX / GENTLE HYDRATION START FEEDS - Objective Vital Signs: Vital Signs Temperature 98.8 F 03/31/19 06:00 Pulse Rate 114 H 03/31/19 06:00 Respiratory Rate 20 03/31/19 06:00 Blood Pressure 138/84 03/31/19 06:00 O2 Sat by Pulse Oximetry (%) 98 03/30/19 21:00 Labs: CBC, BMP 03/31/19 05:30 03/31/19 05:30 INR, PTT INR 1.08 (0.83-1.09) 03/29/19 08:07
--- NOTE | 2019-03-31 09:56 | PN ---
Progress Note, Physician Chief Complaint: AWAKE AND MORE ALERT NO ACTIVE BLEEDING DENIES CP/SOB - Current Medication List Current Medications: Active Medications Acetaminophen (Ofirmev Injection -) 1,000 mg IVPB Q6H PRN PRN Reason: PAIN OR FEVER Last Admin: 03/30/19 12:06 Dose: 1,000 mg Levofloxacin (Levaquin 750 Mg Premixed Ivpb -) 750 mg in 150 mls @ 100 mls/hr IVPB DAILY PLACIDO; Protocol Last Admin: 03/30/19 11:03 Dose: 100 mls/hr Metoprolol Tartrate (Lopressor Injection -) 5 mg IVPUSH Q4H PRN PRN Reason: HYPERTENSION Last Admin: 03/31/19 05:01 Dose: 5 mg Nystatin (Mycostatin Cream -) 1 applic TP BID PLACIDO Last Admin: 03/30/19 21:55 Dose: 1 applic - Objective Vital Signs: Vital Signs Temperature 98.8 F 03/31/19 06:00 Pulse Rate 114 H 03/31/19 06:00 Respiratory Rate 20 03/31/19 06:00 Blood Pressure 138/84 03/31/19 06:00 O2 Sat by Pulse Oximetry (%) 98 03/30/19 21:00 Constitutional: Yes: Mild Distress Neck: Yes: Other (TRACHEOSOTMY ORIFICE TO NECK) Cardiovascular: Yes: Regular Rate and Rhythm Respiratory: Yes: Diminished, On Nasal O2 Gastrointestinal: Yes: Soft Genitourinary: Yes: Incontinence Musculoskeletal: Yes: Muscle Weakness Edema: No Integumentary: Yes: Skin Tear Wound/Incision: Yes: Dressing Dry and Intact (MULTIPLE SKIN TEARS WITH DRY DRESSINGS TO LEGS AND NECK) Psychiatric: Yes: Other Labs: CBC, BMP 03/31/19 05:30 03/31/19 05:30 INR, PTT INR 1.08 (0.83-1.09) 03/29/19 08:07 Problem List - Problems (1) Colitis Code(s): K52.9 - NONINFECTIVE GASTROENTERITIS AND COLITIS, UNSPECIFIED (2) GIB (gastrointestinal bleeding) Code(s): K92.2 - GASTROINTESTINAL HEMORRHAGE, UNSPECIFIED (3) Hemiparesis affecting right side as late effect of cerebrovascular accident Code(s): I69.351 - HEMIPLGA FOLLOWING CEREBRAL INFRC AFF RIGHT DOMINANT SIDE (4) Prophylactic measure Code(s): Z29.9 - ENCOUNTER FOR PROPHYLACTIC MEASURES, UNSPECIFIED (5) ASHD (arteriosclerotic heart disease) Code(s): I25.10 - ATHSCL HEART DISEASE OF [place] CORONARY ARTERY W/O ANG PCTRS (6) History of CVA (cerebrovascular accident) Code(s): Z86.73 - PRSNL HX OF TIA (TIA), AND CEREB INFRC W/O RESID DEFICITS Assessment/Plan H/H IMPROVED AFTER 1 UNIT OF PRBC WILL HOLD 2ND UNIT, REPEAT CBC IN MORNING WITH NO ACTIVE BLEED AT THIS TIME CAN MONITOR AND RESTART FEEDS AND MEDICATIONS IF CLEARED BY G.I. DVT PROPHYLAXIS SKIN CARE
[2019-03-31] MEDS ORDERED: PT OWN MED DRAWER 7, Y5N ONE ×2 (10:39→15:15)
--- NOTE | 2019-03-31 11:41 | EKG ---
Test Reason : Blood Pressure : / mmHG Vent. Rate : 136 BPM Atrial Rate : 136 BPM P-R Int : 000 ms QRS Dur : 092 ms QT Int : 388 ms P-R-T Axes : 000 030 079 degrees QTc Int : 583 ms ATRIAL FIBRILLATION WITH RAPID VENTRICULAR RESPONSE NONSPECIFIC T WAVE ABNORMALITY ABNORMAL ECG WHEN COMPARED WITH ECG OF 29-MAR-2019 08:04, ATRIAL FIBRILLATION HAS REPLACED SINUS RHYTHM Confirmed by NORM CASAS, KARLY ([id number]) on 03/31/2019 11:40:51 AM Referred By: Confirmed By:KARLY ZHENG MD
--- NOTE | 2019-03-31 11:50 | EKG ---
Test Reason : Blood Pressure : / mmHG Vent. Rate : 118 BPM Atrial Rate : 118 BPM P-R Int : 182 ms QRS Dur : 090 ms QT Int : 310 ms P-R-T Axes : 046 009 115 degrees QTc Int : 434 ms SINUS TACHYCARDIA POSSIBLE LEFT ATRIAL ENLARGEMENT ABNORMAL ECG WHEN COMPARED WITH ECG OF 22-MAR-2019 02:17, NO SIGNIFICANT CHANGE WAS FOUND Confirmed by KARLY ZHENG MD ([id number]) on 03/31/2019 11:50:17 AM Referred By: Confirmed By:KARLY ZHENG MD
[2019-03-31] MEDS: NYSTATIN 100,000 UNIT/GM TOPICAL CREAM 15 GM TUBE TP SCH ×2 (12:24→22:10)
[2019-03-31] MEDS: ACETAMINOPHEN 1000 MG/100 ML VIAL (NON FORMULARY) IVPB PRN (16:29)
[2019-03-31] MEDS: METOPROLOL TARTRATE 50 MG TABLET (FP) GT SCH (22:10)
[2019-03-31] MEDS: ATORVASTATIN CA 80 MG TABLET (FP) GT SCH (22:10)
[2019-04-01 07:34] LABS: MCH 28.8 pg (25.7-33.7); MCHC 33.2 g/dl (32.0-35.9); MEAN CELL VOLUME 86.8 fl (80-96); MEAN PLT VOLUME 8.4 fl (7.5-11.1); PLATELET COUNT 196 K/MM3 (134-434); RBC 3.46 M/mm3 (4.00-5.60); RDW 15.4 % (11.9-15.9); WHITE BLOOD COUNT 6.6 K/mm3 (4.0-10.0)
[2019-04-01 07:50] LABS: BLOOD UREA NITROGEN 23.9 mg/dL (7-18); CALCIUM 9.7 mg/dL (8.5-10.1); CREATININE 0.8 mg/dL (0.55-1.3); POTASSIUM 4.1 mmol/L (3.5-5.1)
[2019-04-01] MEDS: LOSARTAN POTASSIUM 50 MG TABLET (FP) GT SCH (09:47)
[2019-04-01] MEDS: METOPROLOL TARTRATE 50 MG TABLET (FP) GT SCH ×2 (09:47→23:19)
--- NOTE | 2019-04-01 09:53 | CONSULT ---
Admitting History and Physical - Primary Care Physician PCP: [facility] - Admission History of Present Illness: 64 y/o man from [facility] with a PMHx of recent CVA with R Hemiplegia, hemiparesis, ASHD, HTN, HLD, CHF who presents with bright red blood in the underwear with blood clots, admitted for GI Bleed hx hypertension, CVA, nonverbal, prolonged hospitalization, had tracheotomy and PEG ([facility]) This is my first consult with this pt. History Source: Medical Record Limitations to Obtaining History: Clinical Condition (Aphasia) - Past Medical History CIRCUS HAND: Yes: CVA Cardiovascular: Yes: CAD, CHF, HTN, Hyperlipdemia Pulmonary: Yes: O2 Dependent (Trach/Vent), Other (old trach stoma) - Past Surgical History Additional Past Surgical History: Trachestomy - Smoking History Smoking history: Unknown if ever smoked Have you smoked in the past 12 months: No - Alcohol/Substance Use Hx Alcohol Use: No - Social History ADL: Support Services History of Recent Travel: No History - Admission Reason For Visit: GI BLEED - Diagnostics X-ray: Report Reviewed CT Scan: Report Reviewed (Non hem bilateral occipital infarcts.) - General Mental Status: Awake and Alert, Able to Follow Commands Attention: Intact Ability to Follow Directions: Good Head/Neck Control: WFL - Hearing Hearing: Normal Speech Evaluation - Communication Primary Language: TELUGU Communication: Yes: Aphasia (Decannulated. Gauze present.) Oral Expression Ability: Yes: Severe Impairment (Severe expressive), Non-Verbal , Non-Vocal - Speech Production Intelligibility: Yes: Severely Impaired - Language/Auditory Comprehension Follows: Yes: 1 Stage Simple Commands Observation: Able to respond to yes/no queries: Yes, Comprehends Conversational Speech: Yes - Language/Verbal Expression Able to Communicate Wants and Needs: Yes: Severely Impaired - Swallow Evaluation/Bedside Assessment Current Nutritional Intake: NPO, G Tube Oral Secretions: Yes: WFL Dentition: Yes: Adequate Facial Symmetry at Rest: Symmetrical Lingual Movement: Symmetric Rate of Intake: Slow/Holding Bolus Size: Small Labial Seal: Impaired Bilaterally (needs cues to close lips. Oral Apraxia) Oral Prep Time: Increased A-P Transit: Impaired Pocketing: Present Bilaterally Timing of Swallow: Delayed Coughing/Throat Clear: No Change in Voice: No Recommendations - Speech Evaluation, Impression/Plan Impression: Pt is nonverbal/nonvocal with many strategies attempted to elicit vocalizations/verbalizations. He responds appropriately with Y/N headshake and seems to understand. Auditory comprehension was limited as Left hand was restrained. To reassessed further. Severe Oral/verbal Apraxia/expressive Aphasia. Delayed swallow onset but seems quite brisk with no cough/throat clearing. Silent aspiration can not be r/o at bedside, esoecially at risk with recent trach. GI Bleed - Disposition Discharge to: Rehabilitation Center ([facility] with improved function?), [facility] Facility, To be Determined - Dysphagia Impressions/Plan Dysphagia Impressions: Ongoing Evaluation *Silent aspiration: cannot be R/O at bedside Recommendations: Modified Barium Swallow (once GIB cleared) - Recommendations Diet Consistency: NPO Liquids: NPO
[2019-04-01] MEDS: ACETAMINOPHEN 650 MG/20.3 ML ORAL SOLUTION (CUPS) GT PRN (09:56)
[2019-04-01] MEDS: NYSTATIN 100,000 UNIT/GM TOPICAL CREAM 15 GM TUBE TP SCH ×2 (09:59→23:21)
--- NOTE | 2019-04-01 11:51 | ECHO ---
Name: SHLOMO DURBIN Exam:Adult Echocardiogram Study Date: 04/01/2019 08:08 AM Age: 64 yrs Reason For Study: chf hx Height: 71 in Weight: 191 lb BSA: 2.1 m2 Procedure The study was technically difficult with many images being suboptimal in quality. Left Ventricle The left ventricular size, thickness and function are normal. Ejection Fraction = 60-65%. Right Ventricle The right ventricle is normal in size and function. Atria The left atrium is borderline dilated. Right atrial size is normal. Mitral Valve The mitral valve is grossly normal. There is trace mitral regurgitation. Tricuspid Valve The tricuspid valve is not well visualized. Aortic Valve The aortic valve is normal in structure and function. The aortic valve opens well. The aortic valve i s trileaflet. No aortic regurgitation is present. Pulmonic Valve The pulmonic valve is not well visualized. Great Vessels Mild aortic root dilatation. Pericardium/Pleura There is no pericardial effusion. Interpretation Summary There is no comparison study available. The right ventricle is normal in size and function. The left ventricular size, thickness and function are normal There is trace mitral regurgitation. Ejection Fraction = 60-65%. Emanuel Rubin MD 04/01/2019 11:50 AM
--- NOTE | 2019-04-01 12:25 | DS ---
Physical Examination Vital Signs: Vital Signs Temperature 99 F 04/01/19 09:00 Pulse Rate 107 H 04/01/19 09:00 Respiratory Rate 22 H 04/01/19 09:00 Blood Pressure 152/90 04/01/19 09:00 O2 Sat by Pulse Oximetry (%) 100 03/31/19 22:00 Constitutional: Yes: Calm, Thin Neck: Yes: Other (trachesotomy) Cardiovascular: Yes: Regular Rate and Rhythm, S1, S2 Respiratory: Yes: CTA Bilaterally Gastrointestinal: Yes: Normal Bowel Sounds, Soft Extremities: Yes: Other (left palencia wound open wound yellowish drainage) Edema: No Neurological: Yes: Alert, Other (nonverbal) Labs: CBC, BMP 04/01/19 06:40 04/01/19 06:40 Discharge Summary Reason For Visit: GI BLEED Current Active Problems CHF (congestive heart failure) (Acute) Colitis (Acute) GIB (gastrointestinal bleeding) (Acute) Hemiparesis affecting right side as late effect of cerebrovascular accident ( Acute) Prophylactic measure (Acute) Hospital Course: [facility] R[facility] - Admission Chief Complaint: Rectal bleeding History of Present Illness: 64 y/o man from [facility] with a PMHx of recent CVA with R Hemiplegia, hemiparesis, ASHD, HTN, HLD, CHF who presents with bright red blood in the underwear with blood clots. The patient is unable to provide a history beyond answering yes or no questions. Limited history obtained all from medical record admitted to telemetry s/p PRBC seen by GI- PPIi aspirin on hold bacitracin to the leg wound Condition: Fair - Instructions - Home Medications Comprehensive Discharge Medication List: Ambulatory Orders Acetaminophen [Tylenol] 650 mg GT Q4H PRN 03/22/19 Aspirin 81 mg GT DAILY 03/22/19 Atorvastatin Ca [Lipitor] 80 mg GT HS 03/22/19 Enoxaparin [Lovenox -] 40 mg SQ DAILY 03/22/19 Losartan Potassium [Cozaar] 100 mg GT DAILY 03/22/19 Metoprolol Tartrate [Lopressor -] 50 mg GT BID 03/22/19 Hydrochlorothiazide [Hctz -] 25 mg GT DAILY 03/29/19
[2019-04-01] MEDS: BACITRACIN 15 GM TUBE TOPICAL OINTMENT TP SCH (23:19)
[2019-04-01] MEDS: ATORVASTATIN CA 80 MG TABLET (FP) GT SCH (23:19)
--- NOTE | 2019-04-02 10:03 | DS ---
Physical Examination Vital Signs: Vital Signs Temperature 97.4 F L 04/02/19 06:00 Pulse Rate 109 H 04/02/19 06:00 Respiratory Rate 20 04/02/19 06:00 Blood Pressure 155/90 04/02/19 06:00 O2 Sat by Pulse Oximetry (%) 97 04/01/19 21:00 Labs: CBC, BMP 04/01/19 06:40 04/01/19 06:40 Discharge Summary Reason For Visit: GI BLEED Current Active Problems CHF (congestive heart failure) (Acute) Colitis (Acute) GIB (gastrointestinal bleeding) (Acute) Hemiparesis affecting right side as late effect of cerebrovascular accident ( Acute) Prophylactic measure (Acute) Hospital Course: 64 y/o man from [facility] with a PMHx of recent CVA with R Hemiplegia, hemiparesis, ASHD, HTN, HLD, CHF who presents with bright red blood in the underwear with blood clots. The patient is unable to provide a history beyond answering yes or no questions. Limited history obtained all from medical record admitted to telemetry s/p PRBC seen by GI- PPIi aspirin on hold bacitracin to the leg wound - Problems (1) Hemiparesis affecting right side as late effect of cerebrovascular accident Assessment/Plan: Right hemiparesis will have PT follow patient while in patient Code(s): I69.351 - HEMIPLGA FOLLOWING CEREBRAL INFRC AFF RIGHT DOMINANT SIDE (2) CHF (congestive heart failure) Assessment/Plan: no recent TTE in records Code(s): I50.9 - HEART FAILURE, UNSPECIFIED (3) GIB (gastrointestinal bleeding) Assessment/Plan: Pt tachycardic on arrival to ED-2L NS bolus given BP soft 95/70 CTAP: asymmetric thickening of the distal rectum/ anal verge oral contrast present throughout transverse, descending and rectosigmoid colon likely from prior study on 03/23/19, consistent with colotis GI-NOTED Code(s): K92.2 - GASTROINTESTINAL HEMORRHAGE, UNSPECIFIED (4) CVA (cerebral vascular accident) Assessment/Plan: right hemiperasis PT to see patient Code(s): I63.9 - CEREBRAL INFARCTION, UNSPECIFIED (5) HLD (hyperlipidemia) Assessment/Plan: c/w atorvastatin Code(s): E78.5 - HYPERLIPIDEMIA, UNSPECIFIED Qualifiers: Hyperlipidemia type: pure hypercholesterolemia Qualified Code(s): E78.00 - Pure hypercholesterolemia, unspecified; E78.0 - Pure hypercholesterolemia (6) HTN (hypertension) Assessment/Plan: presently hyoptensive will hold metoprolol & losaartan Code(s): I10 - ESSENTIAL (PRIMARY) HYPERTENSION Qualifiers: Hypertension type: unspecified Qualified Code(s): I10 - Essential (primary ) hypertension (7) History of CVA (cerebrovascular accident) Code(s): Z86.73 - PRSNL HX OF TIA (TIA), AND CEREB INFRC W/O RESID DEFICITS (8) DVT Assessment/Plan: on eliquis at home, will hold to start any anticoagulation ONCE CLEARED BY GI Condition: Improved - Instructions Disposition: ASSISTED FACILITY - Home Medications Comprehensive Discharge Medication List: Ambulatory Orders Acetaminophen [Tylenol] 650 mg GT Q4H PRN 03/22/19 Aspirin 81 mg GT DAILY 03/22/19 Atorvastatin Ca [Lipitor] 80 mg GT HS 03/22/19 Enoxaparin [Lovenox -] 40 mg SQ DAILY 03/22/19 Losartan Potassium [Cozaar] 100 mg GT DAILY 03/22/19 Metoprolol Tartrate [Lopressor -] 50 mg GT BID 03/22/19 Hydrochlorothiazide [Hctz -] 25 mg GT DAILY 03/29/19
[2019-04-02] MEDS ORDERED: PT OWN MED DRAWER 7, Y5N ONE ×2 (10:16→11:03)
[2019-04-02] MEDS: NYSTATIN 100,000 UNIT/GM TOPICAL CREAM 15 GM TUBE TP SCH ×2 (11:07→21:52)
[2019-04-02] MEDS: LOSARTAN POTASSIUM 50 MG TABLET (FP) GT SCH (11:07)
[2019-04-02] MEDS: BACITRACIN 15 GM TUBE TOPICAL OINTMENT TP SCH ×2 (11:07→21:53)
[2019-04-02] MEDS: METOPROLOL TARTRATE 50 MG TABLET (FP) GT SCH ×2 (11:07→21:54)
--- NOTE | 2019-04-02 14:40 | PN ---
Progress Note, [employer] - Note Progress Note: Selected Entries 04/02/19 04/02/19 04/02/19 01:18 06:00 11:15 Lunch NPO Temperature 98.4 F 97.4 F L Blood Pressure 146/91 155/90 Laboratory Tests 04/01/19 06:40 WBC 6.6 Pt attended radiology suite, placed in Haustead chair, pending MBS. Pt appeared SOB. Primary nurse and Radiology nurse contacted.Rapid response called. Pt then began breathing rapidly and forcefully and became unresponsive. Became more arousable, shaking head Y/N appropriately. Arousability waivered. Pt taken to CT scan. No changes noted on CT/radiological report. EKG done. Good o2 saturation. Pt sent upstairs with nursing. No PO trials were given. MBS deferred.
--- NOTE | 2019-04-02 14:43 | RAPID ---
Physical Examination Vital Signs: Vital Signs Temperature 97.4 F L 04/02/19 06:00 Pulse Rate 109 H 04/02/19 06:00 Respiratory Rate 20 04/02/19 06:00 Blood Pressure 155/90 04/02/19 06:00 O2 Sat by Pulse Oximetry (%) 97 04/01/19 21:00 Findings/Remarks: We were called at 1:46pm to assess a patient in the radiology department on S1. The rapid response was called for increased lethargy and tachypnea while sitting up prior to his modified barium swallow test. Pt is nonverbal and has flaccid paralysis on the right side of his body at baseline. Unable to perform the NIH stroke scale. Pt responsive to commands but not immediately. VS: 147/123, 100% on RA PE: Pt not currently in any acute distress Cardio- faint pulse appreciated and distant S1,S2 noted, sinus rythym. Pulm- CTA b/l Neuro exam: Pt was able to move his extremities on his left side, able to squeeze my hand and move his toes. Plan: Pt underwent CT head to r/o any signs of stroke. Will follow up the results of the CT. Spoke with the patients primary care doctor (Dr. Raza) and he was made aware. Pt had an EKG which shows some questionable worsening ischemia, requiring cardio eval. Pt is currently stable. Labs: CBC, BMP 04/01/19 06:40 04/01/19 06:40
--- NOTE | 2019-04-02 15:50 | EKG ---
Test Reason : Blood Pressure : / mmHG Vent. Rate : 082 BPM Atrial Rate : 082 BPM P-R Int : 208 ms QRS Dur : 088 ms QT Int : 340 ms P-R-T Axes : 059 019 155 degrees QTc Int : 397 ms SINUS RHYTHM WITH OCCASIONAL PREMATURE VENTRICULAR COMPLEXES POSSIBLE LEFT ATRIAL ENLARGEMENT T WAVE ABNORMALITY, CONSIDER INFEROLATERAL ISCHEMIA ABNORMAL ECG WHEN COMPARED WITH ECG OF 29-MAR-2019 14:50, SINUS RHYTHM HAS REPLACED ATRIAL FIBRILLATION VENT. RATE HAS DECREASED BY 54 BPM T WAVE INVERSION NOW EVIDENT IN INFERIOR LEADS T WAVE INVERSION MORE EVIDENT IN ANTEROLATERAL LEADS Confirmed by MD DOMENICA, NIYA ([id number]) on 04/02/2019 3:50:26 PM Referred By: Confirmed By:NIYA METZGER MD
--- NOTE | 2019-04-02 17:25 | CON.NEURO ---
Consult - History of Present Illness History of Present Illness: Neurology coverage for DR CEDENO 64 y/o man from [facility] with a PMHx of recent CVA with expressive aphasia, R Hemiplegi/hemiparesis, ASHD, HTN, HLD, CHF who presents with bright red blood ; given PRBC and was ready to be discharged then episode of syncope, eyes rolled back; no witnessed SZ activity; eliquis and ASA on hold bc of recent bleed. HD CT : IMPRESSION: No significant interval change. Right occipital nonhemorrhagic infarct extending to the right parietal lobe and a nonhemorrhagic left occipital infarct extending to the left parietal occipital junction are again seen without gross interval change. No acute intracranial hemorrhage is present. 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 Cardio/Vascular: Yes: CAD, CHF, HTN, Hyperlipdemia Pulmonary: Yes: O2 Dependent (Trach/Vent), Other (old trach stoma) - Alcohol/Substance Use Hx Alcohol Use: No - Smoking History Smoking history: Unknown if ever smoked Have you smoked in the past 12 months: Yes - Social History ADL: Support Services History of Recent Travel: No Home Medications - Allergies Allergies/Adverse Reactions: Allergies Allergy/AdvReac Type Severity Reaction Status Date / Time No Known Allergies Allergy Verified 03/29/19 07:48 - Home Medications Home Medications: Ambulatory Orders Acetaminophen [Tylenol] 650 mg GT Q4H PRN 03/22/19 Atorvastatin Ca [Lipitor] 80 mg GT HS 03/22/19 Losartan Potassium [Cozaar] 100 mg GT DAILY 03/22/19 Metoprolol Tartrate [Lopressor -] 50 mg GT BID 03/22/19 Hydrochlorothiazide [Hctz -] 25 mg GT DAILY 03/29/19 Bacitracin - [Bacitracin Topical Ointment -] 1 applic TP BID tube 04/02/19 Nystatin Cream [Mycostatin Cream -] 1 applic TP BID applic 04/02/19 Physical Exam-Neuro Vital Signs: Vital Signs Temperature 98.6 F 04/02/19 13:05 Pulse Rate 85 04/02/19 13:05 Respiratory Rate 18 04/02/19 13:05 Blood Pressure 124/84 04/02/19 13:05 O2 Sat by Pulse Oximetry (%) 97 04/01/19 21:00 Labs: CBC, BMP 04/01/19 06:40 04/01/19 06:40 INR, PTT INR 1.08 (0.83-1.09) 03/29/19 08:07 Problem List - Problems (1) CHF (congestive heart failure) Code(s): I50.9 - HEART FAILURE, UNSPECIFIED (2) Hemiparesis affecting right side as late effect of cerebrovascular accident Code(s): I69.351 - HEMIPLGA FOLLOWING CEREBRAL INFRC AFF RIGHT DOMINANT SIDE Assessment/Plan Neurology coverage for DR Cedeno 64 y/o man from [facility] with a PMHx of recent CVA with expressive aphasia, R Hemiplegi/hemiparesis, ASHD, HTN, HLD, CHF who presents with bright red blood ; given PRBC and was ready to be discharged then episode of syncope, eyes rolled back; no witnessed SZ activity; eliquis and ASA on hold bc of recent bleed. HD CT : IMPRESSION: No significant interval change. Right occipital nonhemorrhagic infarct extending to the right parietal lobe and a nonhemorrhagic left occipital infarct extending to the left parietal occipital junction are again seen without gross interval change. No acute intracranial hemorrhage is present. AP : residual R hemiplegia/aphasia with recent syncope-- ? cardiac vs seizure vs new stroke check MRI BRAIn and routine EEG ; will have to discuss and assess risks and benefits of restarting AC in this scenario--maintain on hold for now DR POOL
[2019-04-02] MEDS: ACETAMINOPHEN 650 MG/20.3 ML ORAL SOLUTION (CUPS) GT PRN (18:25)
[2019-04-02 19:09] LABS: BASO % 0.4 % (0-2.0); EOS % 1.8 % (0-4.5); HEMOGLOBIN 9.8 GM/dL (11.7-16.9); LYMPH % 12.6 % (8-40); MCH 28.8 pg (25.7-33.7); MCHC 32.7 g/dl (32.0-35.9); MEAN CELL VOLUME 88.2 fl (80-96); MEAN PLT VOLUME 8.4 fl (7.5-11.1); MONO % 6.8 % (3.8-10.2); NEUT % 78.4 % (42.8-82.8); PLATELET COUNT 192 K/MM3 (134-434); RDW 16.1 % (11.9-15.9); WHITE BLOOD COUNT 8.2 K/mm3 (4.0-10.0)
[2019-04-02 19:19] LABS: ALBUMIN 2.6 g/dl (3.4-5.0); BILIRUBIN,TOTAL 0.8 mg/dL (0.2-1); BLOOD UREA NITROGEN 39.5 mg/dL (7-18); CALCIUM 9.2 mg/dL (8.5-10.1); CREATININE 1.9 mg/dL (0.55-1.3); MAGNESIUM 1.9 mg/dL (1.8-2.4); TOT PROT 7.3 g/dl (6.4-8.2)
--- NOTE | 2019-04-02 20:06 | PN.GI ---
GI Progress Note Subjective: Mental status change today leading to head CT No rectal bleeding noted Patient denies abdominal pain - Objective Vital Signs: Vital Signs Temperature 97.9 F 04/02/19 18:00 Pulse Rate 89 04/02/19 18:00 Respiratory Rate 18 04/02/19 18:00 Blood Pressure 142/76 04/02/19 18:00 O2 Sat by Pulse Oximetry (%) 97 04/01/19 21:00 Constitutional: Calm Eyes: No: Sclera Icterus Cardiovascular: Yes: Regular Rate and Rhythm Respiratory: Yes: Diminished (at bases bilaterally) Gastrointestinal Inspection: Yes: Other (PEG in LUQ) ...Auscultate: Yes: Normoactive Bowel Sounds ...Palpate: Yes: Soft. No: Hepatomegaly, Splenomegaly, Tenderness ...Percussion: No: Tympanitic ...Rectal Exam: Yes: Other (No external lesions, copious loose brown stool in rectal vault. No blood) Neurological: Yes: Alert Labs: CBC, BMP 04/02/19 18:25 04/02/19 18:25 INR, PTT INR 1.08 (0.83-1.09) 03/29/19 08:07 Problem List - Problems (1) GIB (gastrointestinal bleeding) Assessment/Plan: No further bleeding Resume A/C if medically necessary If persistent rectal bleeding then once cleared from medical standpoint, colonoscopy could be considered MiraLAX 17g daily. ? stercoral ulcer bleed based on CT scan report Code(s): K92.2 - GASTROINTESTINAL HEMORRHAGE, UNSPECIFIED
--- NOTE | 2019-04-02 21:07 | CON.CARD ---
Consult Consult Specialty:: Cardiology Referred by:: Dr. Raza Reason for Consultation:: Episode of unresponsiveness with some ECG changes during the episode. - History of Present Illness Chief Complaint: Unresponsiveness History of Present Illness: 64 year-old man, NHR, with a PMHx of HTN, HLD, ASHD, diastolic CHF, CVA with right hemiplegia, aphasia, s/p trach admitted 03/29/19 with bright red blood per rectum in the underwear with blood clots while on Eliquis. He was seen by GI for rectal bleeding. He had episode of unresponsiveness this afternoon at 1:46 pm in Radiology. He was lethargic, tachypnea and tachycardia with persistent flaccid on the right side. ECG was unremarkable at that time. CT head 04/02/19 revealed mild to moderate volume loss with ventricular dilatation. Bilateral occipital infarcts without hemorrhagic changes. No interval changes from previous study. ECG on 03/29/19: Sinus tachycardia at 136 BPM. But computer interpreted as atrial fibrillation. Lateral T inversion. ECG on 04/02/19: Sinus rhythm at 86 BPM with frequent VPCs. Persistent lateral T inversion and II T inversion. No contiguous inferior leads T wave changes. Echocardiogram 04/01/19 showed normal LV size, wall motion and systolic function. LVEF = 60-65%. Normal RV. Normal LA and RA. No significant valvular abnormalities. 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 Cardio/Vascular: Yes: CAD, CHF, HTN, Hyperlipdemia Pulmonary: Yes: O2 Dependent (Trach/Vent), Other (old trach stoma) - Alcohol/Substance Use Hx Alcohol Use: No - Smoking History Smoking history: Unknown if ever smoked Have you smoked in the past 12 months: Yes - Social History ADL: Support Services History of Recent Travel: No Home Medications - Allergies Allergies/Adverse Reactions: Allergies Allergy/AdvReac Type Severity Reaction Status Date / Time No Known Allergies Allergy Verified 03/29/19 07:48 - Home Medications Home Medications: Ambulatory Orders Acetaminophen [Tylenol] 650 mg GT Q4H PRN 03/22/19 Atorvastatin Ca [Lipitor] 80 mg GT HS 03/22/19 Losartan Potassium [Cozaar] 100 mg GT DAILY 03/22/19 Metoprolol Tartrate [Lopressor -] 50 mg GT BID 03/22/19 Hydrochlorothiazide [Hctz -] 25 mg GT DAILY 03/29/19 Bacitracin - [Bacitracin Topical Ointment -] 1 applic TP BID tube 04/02/19 Nystatin Cream [Mycostatin Cream -] 1 applic TP BID applic 04/02/19 Review of Systems - Review of Systems Constitutional: reports: Weakness Eyes: reports: No Symptoms HENT: reports: Other Neck: reports: Tenderness Respiratory: reports: Other Gastrointestinal: reports: Other Genitourinary: reports: No Symptoms Breasts: reports: No Symptoms Reported Musculoskeletal: reports: Muscle Weakness, Other Integumentary: reports: No Symptoms Neurological: reports: Change in LOC, Change in Speech, Parasthesia, Syncope, Other Endocrine: reports: No Symptoms Hematology/Lymphatic: reports: No Symptoms Psychiatric: reports: No Symptoms Vital Signs: Vital Signs Temperature 97.9 F 04/02/19 18:00 Pulse Rate 89 04/02/19 18:00 Respiratory Rate 18 04/02/19 18:00 Blood Pressure 142/76 04/02/19 18:00 O2 Sat by Pulse Oximetry (%) 97 04/02/19 20:50 General: Well developed. Well nourished. No acute distress. Right hemiplagia and aphasia. Head: Normocephalic. Atraumatic, Eyes: PERRLA, EOMI. Sclerae anicteric. Conjunctivae clear. Neck: Supple. + Trach. . Heart: Normal S1, S2: Regular rhythm and rate. No murmur. No gallop or rub. Lungs: Symmetrical air entry. Clear to auscultation. No crackle. No wheezing or rhonchi. Abdomen: PEG in place. Soft. Bowel sound positive. Non tender. No masses. Extremities: No edema. No clubbing or cyanosis. - Other Data Labs, Other Data: CBC, BMP 04/02/19 18:25 04/02/19 18:25 INR, PTT INR 1.08 (0.83-1.09) 03/29/19 08:07 Troponin, BNP 04/02/19 18:25 Troponin I 0.04 Troponin, BNP 04/02/19 18:25 Troponin I 0.04 Imaging - Results Cat Scan: Report Reviewed (CT head 04/02/19 revealed mild to moderate volume loss with ventricular dilatation. Bilateral occipital infarcts without hemorrhagic changes. No interval changes from previous study.) EKG: Image Reviewed (ECG on 03/29/19: Sinus tachycardia at 136 BPM. But computer interpreted as atrial fibrillation. Lateral T inversion. ECG on 04/02/19: Sinus rhythm at 86 BPM with frequent VPCs. Persistent lateral T inversion and II T inversion. No contiguous inferior leads T wave changes.) Assessment/Plan 64 year-old man, NHR, with a PMHx of HTN, HLD, ASHD, diastolic CHF, CVA with right hemiplegia, aphasia s/p trach and PEG admitted 03/29/19 with bright red blood per rectum in the underwear with blood clots while on Eliquis. The patient had episode of unresponsiveness this afternoon at 1:46 pm in Radiology. He was lethargic, tachypnea and tachycardia with persistent flaccid on the right side. ECG was unremarkable at that time. CT head 04/02/19 revealed mild to moderate volume loss with ventricular dilatation. Bilateral occipital infarcts without hemorrhagic changes. No interval changes from previous study. ECG on 03/29/19: Sinus tachycardia at 136 BPM. But computer interpreted as atrial fibrillation. Lateral T inversion. ECG on 04/02/19: Sinus rhythm at 86 BPM with frequent VPCs. Persistent lateral T inversion and II T inversion. No contiguous inferior leads T wave changes. Echocardiogram 04/01/19 showed normal LV size, wall motion and systolic function. LVEF = 60-65%. Normal RV. Normal LA and RA. No significant valvular abnormalities. 1) Altered mental status with one episode of unresponsiveness: It is likely neurological origin in the setting of recent CVA with right hemiplegia and aphasia. His vitals were stable with elevated BP at that time. Agree neurology evaluation. Continue tele for 24 hours. 2) ECG changes: 2 ECGs on 03/29 and 04/02/19 reviewed and compared carefully: ECG on 03/29/19 showed sinus tachycardia at 136 BPM. But computer interpreted as atrial fibrillation. Lateral T inversion. ECG on 04/02/19 revealed sinus rhythm at 86 BPM with frequent VPCs. Persistent lateral T inversion and II T inversion. No contiguous inferior leads T wave changes. Persistent lateral T inversion. Lead II T inversion is insignificant since there were no contiguous inferior leads T wave changes. First troponin is negative. We will follow the patient with you.
[2019-04-02] MEDS: ATORVASTATIN CA 80 MG TABLET (FP) GT SCH (21:54)
--- NOTE | 2019-04-03 08:54 | PN ---
Progress Note, Physician History of Present Illness: events noted in radiology pt had melena stool last night - Current Medication List Current Medications: Active Medications Acetaminophen (Tylenol Oral Solution -) 650 mg GT Q6H PRN PRN Reason: PAIN OR FEVER Last Admin: 04/02/19 18:25 Dose: 650 mg Atorvastatin Calcium (Lipitor -) 80 mg GT HS [facility] Last Admin: 04/02/19 21:54 Dose: 80 mg Bacitracin (Bacitracin -) 1 applic TP BID [facility] Last Admin: 04/02/19 21:53 Dose: 1 applic Levofloxacin (Levaquin 750 Mg Premixed Ivpb -) 750 mg in 150 mls @ 100 mls/hr IVPB DAILY [facility]; Protocol Last Admin: 04/02/19 11:26 Dose: 100 mls/hr Losartan Potassium (Cozaar -) 100 mg GT DAILY [facility] Last Admin: 04/02/19 11:07 Dose: 100 mg Metoprolol Tartrate (Lopressor Injection -) 5 mg IVPUSH Q4H PRN PRN Reason: HYPERTENSION Last Admin: 03/31/19 16:30 Dose: 5 mg Metoprolol Tartrate (Lopressor -) 50 mg GT BID [facility] Last Admin: 04/02/19 21:54 Dose: 50 mg Nystatin (Mycostatin Cream -) 1 applic TP BID [facility] Last Admin: 04/02/19 21:52 Dose: 1 applic Polyethylene Glycol (Miralax (For Daily Use) -) 17 gm GT DAILY [facility] - Objective Vital Signs: Vital Signs Temperature 98.0 F 04/03/19 06:00 Pulse Rate 94 H 04/03/19 06:00 Respiratory Rate 18 04/03/19 06:00 Blood Pressure 143/77 04/03/19 06:00 O2 Sat by Pulse Oximetry (%) 97 04/02/19 20:50 Cardiovascular: Yes: S1, S2 Respiratory: Yes: Regular, CTA Bilaterally Gastrointestinal: Yes: Normal Bowel Sounds, Soft Neurological: Yes: Alert, Aphasia, Weakness Labs: CBC, BMP 04/02/19 18:25 04/02/19 18:25 INR, PTT INR 1.08 (0.83-1.09) 03/29/19 08:07 Assessment/Plan 64 y/o man from [facility] with a PMHx of recent CVA with R Hemiplegia, hemiparesis, ASHD, HTN, HLD, CHF who presents with bright red blood in the underwear with blood clots. The patient is unable to provide a history beyond answering yes or no questions. Limited history obtained all from medical record admitted to telemetry s/p PRBC seen by GI- PPIi aspirin on hold bacitracin to the leg wound - Problems (1) Hemiparesis affecting right side as late effect of cerebrovascular accident Assessment/Plan: Right hemiparesis will have PT follow patient while in patient Code(s): I69.351 - HEMIPLGA FOLLOWING CEREBRAL INFRC AFF RIGHT DOMINANT SIDE (2) CHF (congestive heart failure) Assessment/Plan: no recent TTE in records Code(s): I50.9 - HEART FAILURE, UNSPECIFIED (3) GIB (gastrointestinal bleeding) Assessment/Plan: Pt tachycardic on arrival to ED-2L NS bolus given BP soft 95/70 CTAP: asymmetric thickening of the distal rectum/ anal verge oral contrast present throughout transverse, descending and rectosigmoid colon likely from prior study on 03/23/19, consistent with colotis GI-NOTED STAT CBC AND GI FOLLOW UP Code(s): K92.2 - GASTROINTESTINAL HEMORRHAGE, UNSPECIFIED (4) CVA (cerebral vascular accident) Assessment/Plan: right hemiperasis PT to see patient Code(s): I63.9 - CEREBRAL INFARCTION, UNSPECIFIED (5) HLD (hyperlipidemia) Assessment/Plan: c/w atorvastatin Code(s): E78.5 - HYPERLIPIDEMIA, UNSPECIFIED Qualifiers: Hyperlipidemia type: pure hypercholesterolemia Qualified Code(s): E78.00 - Pure hypercholesterolemia, unspecified; E78.0 - Pure hypercholesterolemia (6) HTN (hypertension) Assessment/Plan: presently hyoptensive will hold metoprolol & losaartan Code(s): I10 - ESSENTIAL (PRIMARY) HYPERTENSION Qualifiers: Hypertension type: unspecified Qualified Code(s): I10 - Essential (primary ) hypertension (7) SYNCOPE VS SEIZURE Neuro on board Ct head nad (8) DVT Assessment/Plan: on eliquis at home, will hold to start any anticoagulation ONCE CLEARED BY GI Condition: Improved
[2019-04-03] MEDS ORDERED: PT OWN MED DRAWER 7, Y5N ONE (09:18)
[2019-04-03] MEDS: BACITRACIN 15 GM TUBE TOPICAL OINTMENT TP SCH ×2 (09:23→22:42)
[2019-04-03] MEDS: METOPROLOL TARTRATE 50 MG TABLET (FP) GT SCH ×2 (09:24→22:42)
[2019-04-03] MEDS: LOSARTAN POTASSIUM 50 MG TABLET (FP) GT SCH (09:24)
[2019-04-03] MEDS: POLYETHYLENE GLYCOL 3350 119 GM BTL GT SCH (09:25)
[2019-04-03] MEDS: NYSTATIN 100,000 UNIT/GM TOPICAL CREAM 15 GM TUBE TP SCH ×2 (09:25→22:42)
[2019-04-03] MEDS: ACETAMINOPHEN 650 MG/20.3 ML ORAL SOLUTION (CUPS) GT PRN ×3 (09:31→23:02)
--- NOTE | 2019-04-03 10:56 | PN ---
Progress Note, FACILITIES LOCATOR - Note Progress Note: Selected Entries 04/02/19 04/02/19 04/02/19 01:18 06:00 08:45 Supper Temperature 98.4 F 97.4 F L 96.7 F L Respiratory Rate Blood Pressure 04/02/19 04/02/19 04/02/19 13:05 18:00 22:00 Supper NPO Temperature 98.6 F 97.9 F 98.4 F Respiratory Rate Blood Pressure 04/03/19 04/03/19 01:40 06:00 Supper Temperature 98.6 F 98.0 F Respiratory 18 18 Rate Blood Pressure 151/84 143/77 Laboratory Tests 04/02/19 18:25 WBC 8.2 Pt seen bedside. Neurologically similar to initial sp/sw evaluation. Moving left side, non vocal, shaking head y/n fairly appropriately for simple questions but not always consistent functionally. 7 runs of V-tach on monitor per nursing notes. Defer MBS at this time. May be done in future with mediclly stable, as in pt or after d/c as out pt.
[2019-04-03 11:34] LABS: BASO % 0.7 % (0-2.0); EOS % 3.8 % (0-4.5); HEMATOCRIT 26.4 % (35.4-49); HEMOGLOBIN 8.6 GM/dL (11.7-16.9); LYMPH % 18.4 % (8-40); MCH 28.3 pg (25.7-33.7); MCHC 32.5 g/dl (32.0-35.9); MEAN CELL VOLUME 87.3 fl (80-96); MEAN PLT VOLUME 8.4 fl (7.5-11.1); MONO % 10.1 % (3.8-10.2); PLATELET COUNT 191 K/MM3 (134-434); RBC 3.02 M/mm3 (4.00-5.60); RDW 16.1 % (11.9-15.9)
[2019-04-03 12:07] LABS: ALBUMIN 2.4 g/dl (3.4-5.0); BILIRUBIN,TOTAL 0.6 mg/dL (0.2-1); BLOOD UREA NITROGEN 41.4 mg/dL (7-18); CALCIUM 9.1 mg/dL (8.5-10.1); CREATININE 1.9 mg/dL (0.55-1.3); TOT PROT 6.3 g/dl (6.4-8.2)
--- NOTE | 2019-04-03 13:18 | PN.GI ---
GI Progress Note Subjective: Pt seen/examined at bedside, mental status change noted yesterday. Pt awake/ alert today, nonverbal, appears slightly restless, follows simple commands. Tolerating feeds per nurse. Large bm per nursing staff reported as melena. Brown stool on rectal exam this am. - Objective Vital Signs: Vital Signs Temperature 98.3 F 04/03/19 10:00 Pulse Rate 104 H 04/03/19 10:00 Respiratory Rate 18 04/03/19 10:00 Blood Pressure 130/79 04/03/19 10:00 O2 Sat by Pulse Oximetry (%) 96 04/03/19 09:00 Constitutional: Other (slightly restless, follows simple commands) Cardiovascular: Yes: WNL, Regular Rate and Rhythm Respiratory: Yes: WNL, Regular, CTA Bilaterally ...Palpate: Yes: Other (Abd soft, no tenderness elicited, non distended +PEG in place) ...Rectal Exam: Yes: Other (brown stool, no blood) Labs: CBC, BMP 04/03/19 11:05 04/03/19 11:05 INR, PTT INR 1.08 (0.83-1.09) 03/29/19 08:07 Problem List - Problems (1) GIB (gastrointestinal bleeding) Assessment/Plan: Mild decline in Hb, no overt bleeding (brown stool on rectal exam this am). Repeat CT revealing occipital infarct without interval change undergoing neuro and cardio evaluations. -Continue to closely monitor Hb and for evidence of bleeding -In absence of overt bleeding and ongoing neurology and cardiology workup would defer endoscopy at this time as risks likely outweigh potential benefits -Miralax daily -As previously noted, can resume anticoagulation if deemed indicated per primary team/cardio -If to resume a/c would start PPI daily -If overt bleeding or drop in hb with hemodynamic instability please notify GI for possible more urgent intervention Code(s): K92.2 - GASTROINTESTINAL HEMORRHAGE, UNSPECIFIED
[2019-04-03] MEDS: D5-1/2NS+20 MEQ KCL - 20 MEQ/1,000 ML INFUS.BAG IV SCH (14:31)
[2019-04-03] MEDS: PANTOPRAZOLE 40 MG TABLET (FP) PO SCH (17:16)
--- NOTE | 2019-04-03 17:26 | PN ---
Progress Note, Physician Chief Complaint: The patient appears comfortable at the time of exam. No acute distress Telemetry reviewed, sinus rhythm with episodes of sinus tachycardia, up to 120s and bradycardia to 45 bpm. VPCs and 7 beats NSVT noted. No pauses. History of Present Illness: 4 year-old man, NHR, with a PMHx of HTN, HLD, ASHD, diastolic CHF, CVA with right hemiplegia, aphasia s/p trach and PEG admitted 03/29/19 with bright red blood per rectum in the underwear with blood clots while on Eliquis. The patient had episode of unresponsiveness this afternoon at 1:46 pm in Radiology. He was lethargic, tachypnea and tachycardia with persistent flaccid on the right side. ECG was unremarkable at that time. CT head 04/02/19 revealed mild to moderate volume loss with ventricular dilatation. Bilateral occipital infarcts without hemorrhagic changes. No interval changes from previous study. ECG on 03/29/19: Sinus tachycardia at 136 BPM. But computer interpreted as atrial fibrillation. Lateral T inversion. ECG on 04/02/19: Sinus rhythm at 86 BPM with frequent VPCs. Persistent lateral T inversion and II T inversion. No contiguous inferior leads T wave changes. No evidence of NH. Echocardiogram 04/01/19 showed normal LV size, wall motion and systolic function. LVEF = 60-65%. Normal RV. Normal LA and RA. No significant valvular abnormalities. - Current Medication List Current Medications: Active Medications Acetaminophen (Tylenol Oral Solution -) 650 mg GT Q6H PRN PRN Reason: PAIN OR FEVER Last Admin: 04/03/19 16:57 Dose: 650 mg Atorvastatin Calcium (Lipitor -) 80 mg GT HS [facility] Last Admin: 04/02/19 21:54 Dose: 80 mg Bacitracin (Bacitracin -) 1 applic TP BID [facility] Last Admin: 04/03/19 09:23 Dose: 1 applic Levofloxacin (Levaquin 750 Mg Premixed Ivpb -) 750 mg in 150 mls @ 100 mls/hr IVPB DAILY [facility]; Protocol Last Admin: 04/03/19 09:23 Dose: 100 mls/hr Potassium Chloride/Dextrose/Sod Cl (D5-1/2ns+20 Meq Kcl -) 20 meq in 1,000 mls @ 75 mls/hr IV ASDIR [facility] Last Admin: 04/03/19 14:31 Dose: 75 mls/hr Losartan Potassium (Cozaar -) 100 mg GT DAILY [facility] Last Admin: 04/03/19 09:24 Dose: 100 mg Metoprolol Tartrate (Lopressor Injection -) 5 mg IVPUSH Q4H PRN PRN Reason: HYPERTENSION Last Admin: 03/31/19 16:30 Dose: 5 mg Metoprolol Tartrate (Lopressor -) 50 mg GT BID [facility] Last Admin: 04/03/19 09:24 Dose: 50 mg Nystatin (Mycostatin Cream -) 1 applic TP BID [facility] Last Admin: 04/03/19 09:25 Dose: 1 applic Pantoprazole Sodium (Protonix -) 40 mg PO DAILY [facility] Last Admin: 04/03/19 17:16 Dose: 40 mg Polyethylene Glycol (Miralax (For Daily Use) -) 17 gm GT DAILY [facility] Last Admin: 04/03/19 09:25 Dose: 17 gm - Objective Vital Signs: Vital Signs Temperature 98.6 F 04/03/19 13:38 Pulse Rate 83 04/03/19 13:38 Respiratory Rate 18 04/03/19 13:38 Blood Pressure 118/68 04/03/19 13:38 O2 Sat by Pulse Oximetry (%) 96 04/03/19 09:00 General: Well developed. Well nourished. No acute distress. Head: Normocephalic. Atraumatic, Eyes: PERRLA, EOMI. Sclerae anicteric. Conjunctivae clear. Neck: Supple.Trach in place. Heart: Normal S1, S2: Regular rhythm and rate. No murmur. No gallop or rub. Lungs: Symmetrical air entry. Clear to auscultation. No crackles. No wheezing or rhonchi. Abdomen: PEG in place. Soft. Bowel sound positive. Non tender. No masses. Extremities: No edema. No clubbing or cyanosis. Labs: CBC, BMP 04/03/19 11:05 04/03/19 11:05 INR, PTT INR 1.08 (0.83-1.09) 03/29/19 08:07 Assessment/Plan 64 year-old man, NHR, with a PMHx of HTN, HLD, ASHD, diastolic CHF, CVA with right hemiplegia, aphasia s/p trach and PEG admitted 03/29/19 with bright red blood per rectum in the underwear with blood clots while on Eliquis. The patient had episode of unresponsiveness this afternoon at 1:46 pm in Radiology. He was lethargic, tachypnea and tachycardia with persistent flaccid on the right side. ECG was unremarkable at that time. CT head 04/02/19 revealed mild to moderate volume loss with ventricular dilatation. Bilateral occipital infarcts without hemorrhagic changes. No interval changes from previous study. ECG on 03/29/19: Sinus tachycardia at 136 BPM. But computer interpreted as atrial fibrillation. Lateral T inversion. ECG on 04/02/19: Sinus rhythm at 86 BPM with frequent VPCs. Persistent lateral T inversion and II T inversion. No contiguous inferior leads T wave changes. No evidence of NH. Echocardiogram 04/01/19 showed normal LV size, wall motion and systolic function. LVEF = 60-65%. Normal RV. Normal LA and RA. No significant valvular abnormalities. 1) Altered mental status with one episode of unresponsiveness: It is likely neurological origin in the setting of recent CVA with right hemiplegia and aphasia. His vitals were stable with elevated BP at that time. Neurology evaluation appreciated. 2) ECG changes: 2 ECGs on 03/29 and 04/02/19 reviewed and compared carefully: ECG on 03/29/19 showed sinus tachycardia at 136 BPM. But computer interpreted as atrial fibrillation. Lateral T inversion. Persistent lateral T inversion. Lead II T inversion is insignificant since there were no contiguous inferior leads T wave changes. Troponins negative. Telemetry reviewed, sinus rhythm with episodes of sinus tachycardia, up to 120s and bradycardia to 45 bpm. VPCs and 7 beats NSVT noted. No pauses. The patient may have sick sinus syndrome. Would continue oral metoprolol at current dose and avoid IV metoprolol. Outpatient cardiac follow up and monitor. Please do not hesitate to call us for reconsult at any time if any further questions or additional issue arises regarding this patient.
--- NOTE | 2019-04-03 18:42 | PN ---
Progress Note (short form) - Note Progress Note: Neurology coverage for DR CEDENO 64 y/o man from [facility] with a PMHx of recent CVA with expressive aphasia, R Hemiplegi/hemiparesis, ASHD, HTN, HLD, CHF who presents with bright red blood ; given PRBC and was ready to be discharged then episode of syncope, eyes rolled back; no witnessed SZ activity; eliquis and ASA on hold bc of recent bleed. HD CT : IMPRESSION: No significant interval change. Right occipital nonhemorrhagic infarct extending to the right parietal lobe and a nonhemorrhagic left occipital infarct extending to the left parietal occipital junction are again seen without gross interval change. No acute intracranial hemorrhage is present. 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 Cardio/Vascular: Yes: CAD, CHF, HTN, Hyperlipdemia Pulmonary: Yes: O2 Dependent (Trach/Vent), Other (old trach stoma) - Alcohol/Substance Use Hx Alcohol Use: No - Smoking History Smoking history: Unknown if ever smoked Have you smoked in the past 12 months: Yes - Social History ADL: Support Services History of Recent Travel: No Home Medications - Allergies Allergies/Adverse Reactions: Allergies Allergy/AdvReac Type Severity Reaction Status Date / Time No Known Allergies Allergy Verified 03/29/19 07:48 - Home Medications Home Medications: Ambulatory Orders Acetaminophen [Tylenol] 650 mg GT Q4H PRN 03/22/19 Atorvastatin Ca [Lipitor] 80 mg GT HS 03/22/19 Losartan Potassium [Cozaar] 100 mg GT DAILY 03/22/19 Metoprolol Tartrate [Lopressor -] 50 mg GT BID 03/22/19 Hydrochlorothiazide [Hctz -] 25 mg GT DAILY 03/29/19 Bacitracin - [Bacitracin Topical Ointment -] 1 applic TP BID tube 04/02/19 Nystatin Cream [Mycostatin Cream -] 1 applic TP BID applic 04/02/19 Physical Exam-Neuro Vital Signs: Vital Signs Temperature 98.7 F 04/03/19 17:45 Pulse Rate 93 H 04/03/19 17:45 Respiratory Rate 18 04/03/19 17:45 Blood Pressure 139/76 04/03/19 17:45 O2 Sat by Pulse Oximetry (%) 96 04/03/19 09:00 Labs: CBCD WBC 8.0 K/mm3 (4.0-10.0) 04/03/19 11:05 RBC 3.02 M/mm3 (4.00-5.60) L 04/03/19 11:05 Hgb 8.6 GM/dL (11.7-16.9) L 04/03/19 11:05 Hct 26.4 % (35.4-49) L 04/03/19 11:05 MCV 87.3 fl (80-96) 04/03/19 11:05 MCHC 32.5 g/dl (32.0-35.9) 04/03/19 11:05 RDW 16.1 % (11.9-15.9) H 04/03/19 11:05 Plt Count 191 K/MM3 (134-434) 04/03/19 11:05 MPV 8.4 fl (7.5-11.1) 04/03/19 11:05 CMP Sodium 145 mmol/L (136-145) 04/03/19 11:05 Potassium 4.0 mmol/L (3.5-5.1) 04/03/19 11:05 Chloride 108 mmol/L (98-107) H 04/03/19 11:05 Carbon Dioxide 29 mmol/L (21-32) 04/03/19 11:05 Anion Gap 8 MMOL/L (8-16) 04/03/19 11:05 BUN 41.4 mg/dL (7-18) H 04/03/19 11:05 Creatinine 1.9 mg/dL (0.55-1.3) H 04/03/19 11:05 Calcium 9.1 mg/dL (8.5-10.1) 04/03/19 11:05 Total Bilirubin 0.6 mg/dL (0.2-1) 04/03/19 11:05 AST 34 U/L (15-37) 04/03/19 11:05 ALT 47 U/L (13-61) 04/03/19 11:05 Alkaline Phosphatase 99 U/L (45-117) 04/03/19 11:05 Total Protein 6.3 g/dl (6.4-8.2) L 04/03/19 11:05 Albumin 2.4 g/dl (3.4-5.0) L 04/03/19 11:05 Problem List - Problems (1) CHF (congestive heart failure) Code(s): I50.9 - HEART FAILURE, UNSPECIFIED (2) Hemiparesis affecting right side as late effect of cerebrovascular accident Code(s): I69.351 - HEMIPLGA FOLLOWING CEREBRAL INFRC AFF RIGHT DOMINANT SIDE Assessment/Plan Neurology coverage for DR Cedeno 64 y/o man from [facility] with a PMHx of recent CVA with expressive aphasia, R Hemiplegi/hemiparesis, ASHD, HTN, HLD, CHF who presents with bright red blood ; given PRBC and was ready to be discharged then episode of syncope, eyes rolled back; no witnessed SZ activity; eliquis and ASA on hold bc of recent bleed. AP : residual R hemiplegia/aphasia with recent syncope-- ? cardiac vs seizure vs new stroke appears back to baseline, less likely new stroke in that scenario ? of reason for AC prior-- as risks/benefits of restarting will depend on indication, left message with PMD cardiology FU possible sick sinus Syndrome neurologically stable at this juncture DR POOL Problem List - Problems (1) CHF (congestive heart failure) Code(s): I50.9 - HEART FAILURE, UNSPECIFIED (2) Hemiparesis affecting right side as late effect of cerebrovascular accident Code(s): I69.351 - HEMIPLGA FOLLOWING CEREBRAL INFRC AFF RIGHT DOMINANT SIDE
[2019-04-03] MEDS: ATORVASTATIN CA 80 MG TABLET (FP) GT SCH (22:42)
--- NOTE | 2019-04-04 07:18 | PN ---
Progress Note, Physician - Current Medication List Current Medications: Active Medications Acetaminophen (Tylenol Oral Solution -) 650 mg GT Q6H PRN PRN Reason: PAIN OR FEVER Last Admin: 04/03/19 23:02 Dose: 650 mg Atorvastatin Calcium (Lipitor -) 80 mg GT HS [facility] Last Admin: 04/03/19 22:42 Dose: 80 mg Bacitracin (Bacitracin -) 1 applic TP BID [facility] Last Admin: 04/03/19 22:42 Dose: 1 applic Levofloxacin (Levaquin 750 Mg Premixed Ivpb -) 750 mg in 150 mls @ 100 mls/hr IVPB DAILY [facility]; Protocol Last Admin: 04/03/19 09:23 Dose: 100 mls/hr Potassium Chloride/Dextrose/Sod Cl (D5-1/2ns+20 Meq Kcl -) 20 meq in 1,000 mls @ 75 mls/hr IV ASDIR [facility] Last Admin: 04/03/19 14:31 Dose: 75 mls/hr Losartan Potassium (Cozaar -) 100 mg GT DAILY [facility] Last Admin: 04/03/19 09:24 Dose: 100 mg Metoprolol Tartrate (Lopressor Injection -) 5 mg IVPUSH Q4H PRN PRN Reason: HYPERTENSION Last Admin: 03/31/19 16:30 Dose: 5 mg Metoprolol Tartrate (Lopressor -) 50 mg GT BID [facility] Last Admin: 04/03/19 22:42 Dose: 50 mg Nystatin (Mycostatin Cream -) 1 applic TP BID [facility] Last Admin: 04/03/19 22:42 Dose: 1 applic Pantoprazole Sodium (Protonix -) 40 mg PO DAILY [facility] Last Admin: 04/03/19 17:16 Dose: 40 mg Polyethylene Glycol (Miralax (For Daily Use) -) 17 gm GT DAILY [facility] Last Admin: 04/03/19 09:25 Dose: 17 gm - Objective Vital Signs: Vital Signs Temperature 98.1 F 04/04/19 05:49 Pulse Rate 97 H 04/04/19 05:49 Respiratory Rate 16 04/04/19 05:49 Blood Pressure 156/88 04/04/19 05:49 O2 Sat by Pulse Oximetry (%) 96 04/03/19 21:00 Cardiovascular: Yes: S1, S2 Respiratory: Yes: Regular, CTA Bilaterally Gastrointestinal: Yes: Normal Bowel Sounds, Soft Edema: No Peripheral Pulses: Left Doralis Pedis: 0, Right Dorsalis Pedis: 0 Labs: CBC, BMP 04/03/19 11:05 04/03/19 11:05 INR, PTT INR 1.08 (0.83-1.09) 03/29/19 08:07 Assessment/Plan 64 y/o man from [facility] with a PMHx of recent CVA with R Hemiplegia, hemiparesis, ASHD, HTN, HLD, CHF who presents with bright red blood in the underwear with blood clots. The patient is unable to provide a history beyond answering yes or no questions. Limited history obtained all from medical record admitted to telemetry s/p PRBC seen by GI- PPIi aspirin on hold bacitracin to the leg wound - Problems (1) Hemiparesis affecting right side as late effect of cerebrovascular accident Assessment/Plan: Right hemiparesis will have PT follow patient while in patient Code(s): I69.351 - HEMIPLGA FOLLOWING CEREBRAL INFRC AFF RIGHT DOMINANT SIDE (2) CHF (congestive heart failure) Assessment/Plan: no signs of failure Code(s): I50.9 - HEART FAILURE, UNSPECIFIED (3) GIB (gastrointestinal bleeding) Assessment/Plan: Pt tachycardic on arrival to ED-2L NS bolus given BP soft 95/70 CTAP: asymmetric thickening of the distal rectum/ anal verge oral contrast present throughout transverse, descending and rectosigmoid colon likely from prior study on 03/23/19, consistent with colotis GI-NOTED STAT CBC AND GI FOLLOW UP noted hgb dropping await todays Code(s): K92.2 - GASTROINTESTINAL HEMORRHAGE, UNSPECIFIED (4) Femoral Thrombus S/P Thrombectomy Assessment/Plan: vascular consult ac on hold due to gi bleed (5) HLD (hyperlipidemia) Assessment/Plan: c/w atorvastatin Code(s): E78.5 - HYPERLIPIDEMIA, UNSPECIFIED Qualifiers: Hyperlipidemia type: pure hypercholesterolemia Qualified Code(s): E78.00 - Pure hypercholesterolemia, unspecified; E78.0 - Pure hypercholesterolemia (6) HTN (hypertension) Assessment/Plan: presently hyoptensive will hold metoprolol & losaartan Code(s): I10 - ESSENTIAL (PRIMARY) HYPERTENSION Qualifiers: Hypertension type: unspecified Qualified Code(s): I10 - Essential (primary ) hypertension (7) SYNCOPE VS SEIZURE Neuro on board Ct head nad (8) DVT? Assessment/Plan: on eliquis at home, will hold to start any anticoagulation ONCE CLEARED BY GI Obtain records from [facility] (9) Anemia Elevated ferritin hem consult
[2019-04-04 07:56] LABS: HEMATOCRIT 27.6 % (35.4-49); HEMOGLOBIN 9.1 GM/dL (11.7-16.9); MCHC 33.1 g/dl (32.0-35.9); MEAN CELL VOLUME 87.6 fl (80-96); MEAN PLT VOLUME 8.7 fl (7.5-11.1); PLATELET COUNT 206 K/MM3 (134-434); RBC 3.15 M/mm3 (4.00-5.60); RDW 16.2 % (11.9-15.9); WHITE BLOOD COUNT 7.6 K/mm3 (4.0-10.0)
[2019-04-04 08:16] LABS: BLOOD UREA NITROGEN 33.2 mg/dL (7-18); CALCIUM 9.2 mg/dL (8.5-10.1); CREATININE 1.8 mg/dL (0.55-1.3); POTASSIUM 4.1 mmol/L (3.5-5.1)
[2019-04-04] MEDS: PANTOPRAZOLE 40 MG TABLET (FP) PO SCH (11:19)
[2019-04-04] MEDS: D5-1/2NS+20 MEQ KCL - 20 MEQ/1,000 ML INFUS.BAG IV SCH ×2 (11:20→23:17)
[2019-04-04] MEDS: BACITRACIN 15 GM TUBE TOPICAL OINTMENT TP SCH ×2 (11:20→23:16)
[2019-04-04] MEDS: METOPROLOL TARTRATE 50 MG TABLET (FP) GT SCH ×2 (11:20→23:15)
[2019-04-04] MEDS: NYSTATIN 100,000 UNIT/GM TOPICAL CREAM 15 GM TUBE TP SCH ×2 (11:20→23:17)
[2019-04-04] MEDS: POLYETHYLENE GLYCOL 3350 119 GM BTL GT SCH (11:20)
--- NOTE | 2019-04-04 11:35 | PN ---
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 Pt was uncomfortable and unable top focus yesterday. Continued training today. I suspect Limb Apraxia adversly affecting point response. Pt unable to point with arm/hand without direction, unable to point consistently.n Pt repeatedly shaking his head and appearing frustrated. Pt reports feeling better, in less pain per y/n responses to questions. Consistency of response better today. Remains non verbal/non vocal IMP:Severe expressive Aphasia/oral/vocal/limb Apraxia/ Comprehension seems functional on simple level. I suspect pt may tolerate PO intake. Pt will need MBS to initiate PO, when medically stable and appropriate. Continue intensive speech/swallow tx upon d/c at [place] MBS
--- NOTE | 2019-04-04 12:44 | CONSULT ---
Consult Consult Specialty:: Vascular Surgery Referred by:: Dr. Thomas Raza Reason for Consultation:: ? femoral thrombus (unknown side, no imaging to confirm this) - History of Present Illness Chief Complaint: None offered by patient (expressive aphasia secondary to medical condition) History of Present Illness: 64 yo male admitted with on-going multiple medical problems. Currently, GI bleed with unknown source. Being managed by GI/DiGiorno. Had long conversation with Dr. Thomas Raza (patient's PCP) who asked us to see patient for femoral thrombus. After reviewing patient's current medical chart and imaging to date, nothing documented to support a femoral thrombus. Dr. Raza informed me that patient supposedly had a LE angio (unkown which limb) at [facility] (unknown date if did happen). He is trying to ascertain any pertinent medical records from [facility]. Because patient's H/H keeps drifting down was looking for a potential source. 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 Cardio/Vascular: Yes: CAD, CHF, HTN, Hyperlipdemia Pulmonary: Yes: O2 Dependent (Trach/Vent), Other (old trach stoma) - Alcohol/Substance Use Hx Alcohol Use: No - Smoking History Smoking history: Unknown if ever smoked Have you smoked in the past 12 months: Yes - Social History ADL: Support Services History of Recent Travel: No Home Medications - Allergies Allergies/Adverse Reactions: Allergies Allergy/AdvReac Type Severity Reaction Status Date / Time No Known Allergies Allergy Verified 03/29/19 07:48 - Home Medications Home Medications: Ambulatory Orders Acetaminophen [Tylenol] 650 mg GT Q4H PRN 03/22/19 Atorvastatin Ca [Lipitor] 80 mg GT HS 03/22/19 Losartan Potassium [Cozaar] 100 mg GT DAILY 03/22/19 Metoprolol Tartrate [Lopressor -] 50 mg GT BID 03/22/19 Hydrochlorothiazide [Hctz -] 25 mg GT DAILY 03/29/19 Bacitracin - [Bacitracin Topical Ointment -] 1 applic TP BID tube 04/02/19 Nystatin Cream [Mycostatin Cream -] 1 applic TP BID applic 04/02/19 Family Disease History - Family Disease History Family History: Unable to Obtain Review of Systems Unable to obtain ROS, reason: due to patient's clinical Physical Exam Vital Signs: Vital Signs Temperature 98.4 F 04/04/19 11:33 Pulse Rate 103 H 04/04/19 11:33 Respiratory Rate 22 H 04/04/19 11:33 Blood Pressure 143/92 04/04/19 11:33 O2 Sat by Pulse Oximetry (%) 96 04/03/19 21:00 Constitutional: Yes: Well Nourished, No Distress Eyes: Yes: WNL Neck: Yes: WNL Cardiovascular: Yes: WNL Respiratory: Yes: WNL Gastrointestinal: Yes: WNL ...Rectal Exam: Yes: Guaiac Positive (03/29/19) Renal/: Yes: WNL Edema: No Peripheral Pulses WNL: No (femorals bilat. Dopplerable PT bilat. DPs absent) Neurological: Yes: Aphasia, Pre-Existing Deficit, Other (CVA) Labs: CBC, BMP 04/04/19 06:50 04/04/19 06:50 Imaging - Results Chest X-ray: Report Reviewed Cat Scan: Report Reviewed Problem List - Problems (1) GIB (gastrointestinal bleeding) Code(s): K92.2 - GASTROINTESTINAL HEMORRHAGE, UNSPECIFIED (2) Hemiparesis affecting right side as late effect of cerebrovascular accident Code(s): I69.351 - HEMIPLGA FOLLOWING CEREBRAL INFRC AFF RIGHT DOMINANT SIDE (3) Chronic respiratory failure Code(s): J96.10 - CHRONIC RESPIRATORY FAILURE, UNSP W HYPOXIA OR HYPERCAPNIA (4) HLD (hyperlipidemia) Code(s): E78.5 - HYPERLIPIDEMIA, UNSPECIFIED Qualifiers: Hyperlipidemia type: pure hypercholesterolemia Qualified Code(s): E78.00 - Pure hypercholesterolemia, unspecified; E78.0 - Pure hypercholesterolemia (5) HTN (hypertension) Code(s): I10 - ESSENTIAL (PRIMARY) HYPERTENSION Qualifiers: Hypertension type: unspecified Qualified Code(s): I10 - Essential (primary ) hypertension Assessment/Plan 64 yo male with GI bleed currently being medically managed. At this time no vascular intervention warranted. Will await for medical records from [facility] regarding LE Angio before making a plan. Trend H/H Agree with Dr. Platt that patient needs colonoscopy once medically optimized. Vascular Surgery Team to cont following Above plan discussed with Dr. Yu and agrees Visit type - Emergency Visit Emergency Visit: Yes ED Registration Date: 03/29/19 Care time: The patient presented to the Emergency Department on the above date and was hospitalized for further evaluation of their emergent condition. - New Patient This patient is new to me today: Yes Date on this admission: 04/04/19 - Critical Care Critical Care patient: No
[2019-04-04] MEDS: LOSARTAN POTASSIUM 50 MG TABLET (FP) GT SCH (12:58)
[2019-04-04] MEDS: ACETAMINOPHEN 650 MG/20.3 ML ORAL SOLUTION (CUPS) GT PRN ×2 (13:01→18:57)
[2019-04-04] MEDS: ATORVASTATIN CA 80 MG TABLET (FP) GT SCH (23:16)
[2019-04-05] MEDS: LOSARTAN POTASSIUM 50 MG TABLET (FP) GT SCH (10:02)
[2019-04-05] MEDS: METOPROLOL TARTRATE 50 MG TABLET (FP) GT SCH ×2 (10:02→21:24)
[2019-04-05] MEDS: NYSTATIN 100,000 UNIT/GM TOPICAL CREAM 15 GM TUBE TP SCH ×2 (10:03→21:24)
[2019-04-05] MEDS: POLYETHYLENE GLYCOL 3350 119 GM BTL GT SCH (10:03)
[2019-04-05] MEDS: PANTOPRAZOLE 40 MG TABLET (FP) PO SCH (10:03)
[2019-04-05] MEDS: BACITRACIN 15 GM TUBE TOPICAL OINTMENT TP SCH ×2 (10:03→21:24)
[2019-04-05] MEDS: D5-1/2NS+20 MEQ KCL - 20 MEQ/1,000 ML INFUS.BAG IV SCH ×2 (10:04→14:19)
[2019-04-05] MEDS: ACETAMINOPHEN 650 MG/20.3 ML ORAL SOLUTION (CUPS) GT PRN ×2 (10:05→21:24)
--- NOTE | 2019-04-05 10:13 | PN ---
Progress Note, Physician - Current Medication List Current Medications: Active Medications Acetaminophen (Tylenol Oral Solution -) 650 mg GT Q6H PRN PRN Reason: PAIN OR FEVER Last Admin: 04/05/19 10:05 Dose: 650 mg Atorvastatin Calcium (Lipitor -) 80 mg GT HS [facility] Last Admin: 04/04/19 23:16 Dose: 80 mg Bacitracin (Bacitracin -) 1 applic TP BID PLACIDO Last Admin: 04/05/19 10:03 Dose: 1 applic Levofloxacin (Levaquin 750 Mg Premixed Ivpb -) 750 mg in 150 mls @ 100 mls/hr IVPB DAILY PLACIDO; Protocol Last Admin: 04/05/19 10:01 Dose: 100 mls/hr Potassium Chloride/Dextrose/Sod Cl (D5-1/2ns+20 Meq Kcl -) 20 meq in 1,000 mls @ 50 mls/hr IV ASDIR PLACIDO Last Admin: 04/05/19 10:04 Dose: 50 mls/hr Losartan Potassium (Cozaar -) 100 mg GT DAILY [facility] Last Admin: 04/05/19 10:02 Dose: 100 mg Metoprolol Tartrate (Lopressor Injection -) 5 mg IVPUSH Q4H PRN PRN Reason: HYPERTENSION Last Admin: 03/31/19 16:30 Dose: 5 mg Metoprolol Tartrate (Lopressor -) 50 mg GT BID [facility] Last Admin: 04/05/19 10:02 Dose: 50 mg Nystatin (Mycostatin Cream -) 1 applic TP BID [facility] Last Admin: 04/05/19 10:03 Dose: 1 applic Pantoprazole Sodium (Protonix -) 40 mg PO DAILY [facility] Last Admin: 04/05/19 10:03 Dose: 40 mg Polyethylene Glycol (Miralax (For Daily Use) -) 17 gm GT DAILY [facility] Last Admin: 04/05/19 10:03 Dose: 17 gm - Objective Vital Signs: Vital Signs Temperature 100.4 F H 04/05/19 09:03 Pulse Rate 102 H 04/05/19 09:03 Respiratory Rate 18 04/05/19 09:03 Blood Pressure 153/85 04/05/19 09:03 O2 Sat by Pulse Oximetry (%) 96 04/04/19 21:00 Cardiovascular: Yes: S1, S2 Respiratory: Yes: Regular, Rhonchi Gastrointestinal: Yes: Normal Bowel Sounds, Soft Wound/Incision: Yes: Dressing Removed, Draining, Excoriated Labs: CBC, BMP 04/04/19 06:50 04/04/19 06:50 INR, PTT INR 1.08 (0.83-1.09) 03/29/19 08:07 Assessment/Plan 64 y/o man from [facility] with a PMHx of recent CVA with R Hemiplegia, hemiparesis, ASHD, HTN, HLD, CHF who presents with bright red blood in the underwear with blood clots. The patient is unable to provide a history beyond answering yes or no questions. Limited history obtained all from medical record admitted to telemetry s/p PRBC seen by GI- PPIi aspirin on hold bacitracin to the leg wound - Problems (1) Hemiparesis affecting right side as late effect of cerebrovascular accident Assessment/Plan: Right hemiparesis will have PT follow patient while in patient Code(s): I69.351 - HEMIPLGA FOLLOWING CEREBRAL INFRC AFF RIGHT DOMINANT SIDE (2) CHF (congestive heart failure) Assessment/Plan: no signs of failure Code(s): I50.9 - HEART FAILURE, UNSPECIFIED (3) GIB (gastrointestinal bleeding) Assessment/Plan: Pt tachycardic on arrival to ED-2L NS bolus given BP soft 95/70 CTAP: asymmetric thickening of the distal rectum/ anal verge oral contrast present throughout transverse, descending and rectosigmoid colon likely from prior study on 03/23/19, consistent with colotis GI-NOTED CBC GI FOLLOW UP noted Code(s): K92.2 - GASTROINTESTINAL HEMORRHAGE, UNSPECIFIED (4) Femoral Thrombus S/P Thrombectomy Assessment/Plan: vascular consult ac on hold due to gi bleed (5) HLD (hyperlipidemia) Assessment/Plan: c/w atorvastatin Code(s): E78.5 - HYPERLIPIDEMIA, UNSPECIFIED Qualifiers: Hyperlipidemia type: pure hypercholesterolemia Qualified Code(s): E78.00 - Pure hypercholesterolemia, unspecified; E78.0 - Pure hypercholesterolemia (6) HTN (hypertension) Assessment/Plan: presently hyoptensive will hold metoprolol & losaartan Code(s): I10 - ESSENTIAL (PRIMARY) HYPERTENSION Qualifiers: Hypertension type: unspecified Qualified Code(s): I10 - Essential (primary ) hypertension (7) SYNCOPE VS SEIZURE Neuro on board Ct head nad (8) DVT? Assessment/Plan: on eliquis at home, will hold to start any anticoagulation ONCE CLEARED BY GI Obtain records from [facility] (9) Anemia Elevated ferritin hem consult (10) Fever Assessment/Plan: Cultures cxr \id consult start abx (11) Leg wound Assessment/Plan: local care abx
--- NOTE | 2019-04-05 12:02 | PN ---
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 Limited functional use at this time. Remains non verbal/non vocal IMP:Severe expressive Aphasia/oral/vocal/limb Apraxia/ Comprehension seems functional on simple level. I suspect pt may tolerate PO intake. Pt will need [facility]BS to initiate PO, when medically stable and appropriate. Continue intensive speech/swallow tx upon d/c at [facility]
[2019-04-05 12:21] LABS: BASO % 0.6 % (0-2.0); EOS % 3.8 % (0-4.5); HEMATOCRIT 25.5 % (35.4-49); HEMOGLOBIN 8.4 GM/dL (11.7-16.9); LYMPH % 15.6 % (8-40); MCH 28.6 pg (25.7-33.7); MCHC 32.8 g/dl (32.0-35.9); MEAN CELL VOLUME 87.1 fl (80-96); MEAN PLT VOLUME 8.8 fl (7.5-11.1); MONO % 8.1 % (3.8-10.2); NEUT % 71.9 % (42.8-82.8); PLATELET COUNT 185 K/MM3 (134-434); RBC 2.93 M/mm3 (4.00-5.60); RDW 16.3 % (11.9-15.9); WHITE BLOOD COUNT 6.7 K/mm3 (4.0-10.0)
[2019-04-05] MEDS ORDERED: PIPERACILLIN/TAZOB 2.25 GM 2.25 GM in DEXTROSE 5%-WATER - 50 ML IVPB SCH (12:30)
[2019-04-05 12:40] LABS: ALBUMIN 2.4 g/dl (3.4-5.0); BILIRUBIN,TOTAL 0.7 mg/dL (0.2-1); BLOOD UREA NITROGEN 30.6 mg/dL (7-18); CALCIUM 8.9 mg/dL (8.5-10.1); CREATININE 1.6 mg/dL (0.55-1.3); POTASSIUM 4.1 mmol/L (3.5-5.1); TOT PROT 6.3 g/dl (6.4-8.2)
[2019-04-05] MEDS ORDERED: PIPERACILLIN/TAZOBACTAM 2.25 GM VIAL IVPB ONE (13:59)
[2019-04-05] MEDS ORDERED: DEXTROSE 5%-WATER - 50 ML IVPB ONE ×2 (13:59→18:18)
--- NOTE | 2019-04-05 15:23 | PN ---
Progress Note (short form) - Note Progress Note: ID CONSULT DICTATED FEVER PROBABLE ASP PNEUMONIA ? COLITIS S/P RECTAL BLEED S/P CVA AWAIT C/S EMPIRIC ZOSYN
--- NOTE | 2019-04-05 16:16 | CONS ---
DATE OF CONSULTATION: 04/05/2019 CHIEF COMPLAINT: The patient is a 64-year-old male, history of stroke, evaluated for fever. HISTORY OF PRESENT ILLNESS: The patient has had a recent hospital admission at [facility]. He had been hospitalized at ____ [facility] after sustaining a stroke. He ultimately required a tracheostomy and a feeding gastrostomy. [facility] the [facility] where he was there for 2 days before developing high blood pressure which was found to be secondary to a dislodged tracheostomy tube. He was [facility] back to the [facility]. He is now readmitted after he was noted to have bright red blood in his diaper. A CAT scan of the abdomen and pelvis showed a thickened rectum. He was treated with Levaquin and Flagyl for presumed colitis. The patient's hospital course was complicated by a rapid response which was called on April 02, 2019. He was downstairs having a modified barium swallow. Prior to drinking the barium, he became short of breath. There were no reports of loss of consciousness. He had a CAT scan of the head which was negative. He now has developed fever 101.1. At the present time he is awake. He is able to answer simple yes/no questions. He denies any chest pain or dyspnea. He is presently on room air. PAST MEDICAL HISTORY: Positive for a stroke, coronary artery disease, hypertension, hyperlipidemia, congestive heart failure. ALLERGIES: No known allergies. MEDICATIONS: Include Zosyn, Tylenol, Lipitor, Levaquin, Lopressor, Protonix. SOCIAL HISTORY: As per HPI, he is a [facility] resident. He is dependent in activities of daily living. He has a feeding gastrostomy. REVIEW OF SYSTEMS: Neurologic: Positive for stroke. Cardiac: Negative chest pain or palpitations. Respiratory: As per HPI. Gastrointestinal: As per HPI. Genitourinary: Negative for urinary tract infection. LABORATORY DATA: White count 6.7, hematocrit 25.5, platelet count 185, creatinine 1.6. Chest x-ray shows increased markings of the left perihilar area. PHYSICAL EXAMINATION: General: He is awake. He is not acutely toxic appearing. His breathing is nonlabored. Vital Signs: Temperature 99.3, T-max 101.1. Blood pressure 110/62, pulse 80, regular. Respirations 18 per minute. HEENT: Sclerae are anicteric. Cardiovascular: Heart sounds S1, S2. Lungs: Diminished breath sounds bilaterally. Abdomen: Soft. No tenderness elicited. Feeding gastrostomy tube is in place. Extremities: Negative for edema. There is a superficial skin tear present right pretibial area. It does not appear to be infected. IMPRESSION: 1. Probable aspiration pneumonia. 2. Rule out sepsis secondary to pneumonia. 3. Status post cerebrovascular accident. 4. History of respiratory failure status post tracheostomy. 5. Recent Escherichia coli urinary tract infection. PLAN: Await cultures. Will continue Zosyn pending culture results. Aspiration precautions. Will follow. Thank you for the kind referral. SALLY ZEPEDA M.D. [id number]
[2019-04-05] MEDS ORDERED: PIPERACILLIN/TAZOBACTAM 3.375 GM VIAL IVPB ONE (18:17)
[2019-04-05] MEDS: PIPERACILLIN/TAZOB 3.375 GM 3.375 GM in DEXTROSE 5%-WATER - 50 ML IVPB SCH (18:19)
--- NOTE | 2019-04-05 19:13 | CONSULT ---
Consult - text type - Consultation Consultation Note: 64 y/o man from [facility] with a PMHx of recent CVA with R Hemiplegia, hemiparesis, ASHD, HTN, HLD, CHF who presents with bright red blood .The patient is unable to provide a history beyond answering yes or no questions. Limited history obtained all from medical record Per d/c summary [facility] A CT head showed age indeterminate bilateral occipital ischemic infarcts without any signs of hemorrhage. TPA not given as he was outside the window. A CTA escape was notable for a diminutive irregular basilar artery. 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 The following day Mr Palm underwent basilar artery thrombectomy via the right groin. Post-op course was complicated by concern for lower extremity popliteala rtery embolus but follow up vascular studies showed normal distal flow and no evidence of acute or chronic aortic aneurysm.Chronic b/l lower extremity occlusion --was seen by vascular team there Over the subsequent days Mr Palm was noted to have worsening deficits such that he was nearly locked-in. He was intubated on 02/20 for airway protection and completed a course of antibiotics for aspiration pneumonia. He received tracheostomy on 03/08. s/p PEG Course was further complicated by fever on 03/08. Respiratory cultures grew pseudomonas and he completed an additional course of antibiotics for presumed ventilator associated pneumonia. Patient was discharged from [facility] on 03/19 on ASA 81mg and lovenox 40mg SC ? was on plavix during that admission There was ? LUE DVT and was getting warm compresses but duplex 02/26 was neg. ?? superficial thrombosis Herw as discharged to [facility] 03/19 to follow up with Dr. Amado Flowers Patient admitted with bleeding/anemia from [facility]. Was transfused. Had an episode of syncope. Per neuro ASA/eliquis on hold HD CT : IMPRESSION: No significant interval change. Right occipital nonhemorrhagic infarct extending to the right parietal lobe and a nonhemorrhagic left occipital infarct extending to the left parietal occipital junction are again seen without gross interval change. No acute intracranial hemorrhage is present. 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 Cardiovascular: Yes: CAD, CHF, HTN, Hyperlipdemia Pulmonary: Yes: O2 Dependent (Trach/Vent), Other (old trach stoma) - Past Surgical History Trachestomy - Smoking History Smoking history: Unknown if ever smoked - Social History Usual Living Arrangement: Yes: [facility]) ADL: Support Services History of Recent Travel: No - Allergies Allergies/Adverse Reactions: Allergies Allergy/AdvReac Type Severity Reaction Status Date / Time No Known Allergies Allergy Verified 03/29/19 07:48 - Home Medications Home Medications: Ambulatory Orders Acetaminophen [Tylenol] 650 mg GT Q4H PRN 03/22/19 Aspirin 81 mg GT DAILY 03/22/19 Atorvastatin Ca [Lipitor] 80 mg GT HS 03/22/19 Enoxaparin [Lovenox -] 40 mg SQ DAILY 03/22/19 Losartan Potassium [Cozaar] 100 mg GT DAILY 03/22/19 Metoprolol Tartrate [Lopressor -] 50 mg GT BID 03/22/19 Hydrochlorothiazide [Hctz -] 25 mg GT DAILY 03/29/19 Family Disease History - Family Disease History Family History: Unable to Obtain Physical Examination Vital Signs: Last Vital Signs Temp Pulse Resp BP Pulse Ox 99.6 F 94 H 18 135/71 98 04/05/19 18:00 04/05/19 18:00 04/05/19 18:00 04/05/19 18:00 04/05/19 09:00 Cor: RSR, No murmurs, No gallops Lungs: Clear to P&A Abd: Soft, Normal bowel sounds, No organomegaly Ext:No significant edema Labs/meds reviewed Chest X-ray: Image Reviewed (no effusion.infiltartes) Cat Scan: Report Reviewed (HCT: nonhemmorhagic BL occipital infarcts ACT: The study is essentially nondiagnostic for the evaluation of intraluminal GI bleeding due to the presence of oral contrast. Asymmetric thickening of the distal rectum/anal verge. Etiology could include infectious, inflammatory or neoplastic processes. Correlate with clinical history and physical exam.) A/P 64 y/o man from [facility] with a PMHx of recent CVA with R Hemiplegia, hemiparesis, ASHD, HTN, HLD, CHF who presents with bright red blood .The patient is unable to provide a history beyond answering yes or no questions. Limited history obtained all from medical record Per d/c summary [facility] A CT head showed age indeterminate bilateral occipital ischemic infarcts without any signs of hemorrhage. TPA not given as he was outside the window. A CTA escape was notable for a diminutive irregular basilar artery. 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 The following day Mr Palm underwent basilar artery thrombectomy via the right groin. Post-op course was complicated by concern for lower extremity popliteal artery embolus but follow up vascular studies showed normal distal flow and no evidence of acute or chronic aortic aneurysm.Chronic b/l lower extremity occlusion --was seen by vascular team there Over the subsequent days Mr Palm was noted to have worsening deficits such that he was nearly locked-in. He was intubated on 02/20 for airway protection and completed a course of antibiotics for aspiration pneumonia. He received tracheostomy on 03/08. s/p PEG Course was further complicated by fever on 03/08. Respiratory cultures grew pseudomonas and he completed an additional course of antibiotics for presumed ventilator associated pneumonia. Patient was discharged from [facility] on 03/19 on ASA 81mg and lovenox 40mg SC ? was on plavix during that admission There was ? LUE DVT and was getting warm compresses but duplex 02/26 was neg. most llikely ?? superficial thrombosis-- supect lovenox 40mg was for that and may have been switched to eliquis in retirement Herw as discharged to [facility] 03/19 to follow up with Dr. Amado Flowers Patient admitted with bleeding/anemia from [facility]. Was transfused. Had an episode of syncope. Per neuro ASA/eliquis on hold HD CT : IMPRESSION: No significant interval change. Right occipital nonhemorrhagic infarct extending to the right parietal lobe and a nonhemorrhagic left occipital infarct extending to the left parietal occipital junction are again seen without gross interval change. No acute intracranial hemorrhage is present. Was seen by GI team here --placed on protonix for now and to monitor cbc Would request neuro follow up regarding resuming ASA 81mg? // ? plavix If eliquis was for LUE Superficial thromboasis then 1 month course would be enough Will follow
[2019-04-05] MEDS: ATORVASTATIN CA 80 MG TABLET (FP) GT SCH (21:24)
[2019-04-06] MEDS ORDERED: PIPERACILLIN/TAZOBACTAM 3.375 GM VIAL IVPB ONE ×4 (01:51→17:11)
[2019-04-06] MEDS ORDERED: DEXTROSE 5%-WATER - 50 ML IVPB ONE ×3 (01:51→17:11)
[2019-04-06] MEDS: PIPERACILLIN/TAZOB 3.375 GM 3.375 GM in DEXTROSE 5%-WATER - 50 ML IVPB SCH ×3 (02:29→17:27)
[2019-04-06] MEDS: ACETAMINOPHEN 650 MG/20.3 ML ORAL SOLUTION (CUPS) GT PRN ×2 (07:04→10:30)
[2019-04-06 08:07] LABS: BASO % 0.5 % (0-2.0); EOS % 4.8 % (0-4.5); HEMATOCRIT 25.6 % (35.4-49); HEMOGLOBIN 8.5 GM/dL (11.7-16.9); LYMPH % 16.1 % (8-40); MCH 28.8 pg (25.7-33.7); MCHC 33.4 g/dl (32.0-35.9); MEAN CELL VOLUME 86.4 fl (80-96); MEAN PLT VOLUME 7.9 fl (7.5-11.1); MONO % 8.3 % (3.8-10.2); NEUT % 70.3 % (42.8-82.8); PLATELET COUNT 178 K/MM3 (134-434); RBC 2.96 M/mm3 (4.00-5.60); RDW 16.3 % (11.9-15.9); WHITE BLOOD COUNT 5.9 K/mm3 (4.0-10.0)
[2019-04-06 08:18] LABS: ALBUMIN 2.5 g/dl (3.4-5.0); BILIRUBIN,TOTAL 0.8 mg/dL (0.2-1); BLOOD UREA NITROGEN 25.5 mg/dL (7-18); CALCIUM 8.9 mg/dL (8.5-10.1); CREATININE 1.4 mg/dL (0.55-1.3); POTASSIUM 3.7 mmol/L (3.5-5.1); TOT PROT 6.2 g/dl (6.4-8.2)
--- NOTE | 2019-04-06 09:13 | PN ---
Progress Note, Physician History of Present Illness: pt with periods of agitation--unable to communicate Hem consult noted and appreciated details of [facility] course appreciated - Current Medication List Current Medications: Active Medications Atorvastatin Calcium (Lipitor -) 80 mg GT HS [facility] Last Admin: 04/05/19 21:24 Dose: 80 mg Bacitracin (Bacitracin -) 1 applic TP BID [facility] Last Admin: 04/05/19 21:24 Dose: 1 applic Potassium Chloride/Dextrose/Sod Cl (D5-1/2ns+20 Meq Kcl -) 20 meq in 1,000 mls @ 50 mls/hr IV ASDIR [facility] Last Admin: 04/05/19 14:19 Dose: Not Given Piperacillin Sod/Tazobactam (Sod 3.375 gm/ Dextrose) 50 mls @ 100 mls/hr IVPB Q8H-IV [facility]; Protocol Last Admin: 04/06/19 02:29 Dose: 100 mls/hr Losartan Potassium (Cozaar -) 100 mg GT DAILY [facility] Last Admin: 04/05/19 10:02 Dose: 100 mg Metoprolol Tartrate (Lopressor Injection -) 5 mg IVPUSH Q4H PRN PRN Reason: HYPERTENSION Last Admin: 03/31/19 16:30 Dose: 5 mg Metoprolol Tartrate (Lopressor -) 50 mg GT BID [facility] Last Admin: 04/05/19 21:24 Dose: 50 mg Nystatin (Mycostatin Cream -) 1 applic TP BID [facility] Last Admin: 04/05/19 21:24 Dose: 1 applic Pantoprazole Sodium (Protonix -) 40 mg PO DAILY [facility] Last Admin: 04/05/19 10:03 Dose: 40 mg Polyethylene Glycol (Miralax (For Daily Use) -) 17 gm GT DAILY [facility] Last Admin: 04/05/19 10:03 Dose: 17 gm - Objective Vital Signs: Vital Signs Temperature 98.2 F 04/06/19 06:00 Pulse Rate 98 H 04/06/19 06:00 Respiratory Rate 18 04/06/19 06:00 Blood Pressure 168/87 04/06/19 06:00 O2 Sat by Pulse Oximetry (%) 98 04/05/19 21:00 Cardiovascular: Yes: S1, S2 Respiratory: Yes: Regular, CTA Bilaterally Gastrointestinal: Yes: Normal Bowel Sounds, Soft Edema: No Labs: CBC, BMP 04/06/19 07:30 04/06/19 07:30 INR, PTT INR 1.08 (0.83-1.09) 03/29/19 08:07 Assessment/Plan 64 y/o man from [facility] with a PMHx of recent CVA with R Hemiplegia, hemiparesis, ASHD, HTN, HLD, CHF who presents with bright red blood in the underwear with blood clots. The patient is unable to provide a history beyond answering yes or no questions. Limited history obtained all from medical record admitted to telemetry s/p PRBC seen by GI- PPIi aspirin on hold bacitracin to the leg wound . - Problems (1) Hemiparesis affecting right side as late effect of cerebrovascular accident Assessment/Plan: Right hemiparesis will have PT follow patient while in patient at [facility] A CT head showed age indeterminate bilateral occipital ischemic infarcts without any signs of hemorrhage. TPA not given as he was outside the window. A CTA escape was notable for a diminutive irregular basilar artery. 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 The following day Mr Palm underwent basilar artery thrombectomy via the right groin Code(s): I69.351 - HEMIPLGA FOLLOWING CEREBRAL INFRC AFF RIGHT DOMINANT SIDE (2) Respiratory failure Assessment/Plan: at [facility] Mr Palm was noted to have worsening deficits such that he was nearly locked-in. He was intubated on 02/20 for airway protection and completed a course of antibiotics for aspiration pneumonia. He received tracheostomy on 03/08. s/p PEG Course was further complicated by fever on 03/08. Respiratory cultures grew pseudomonas and he completed an additional course of antibiotics for presumed ventilator associated pneumonia. now pt off vent (3) GIB (gastrointestinal bleeding) Assessment/Plan: Pt tachycardic on arrival to ED-2L NS bolus given BP soft 95/70 CTAP: asymmetric thickening of the distal rectum/ anal verge oral contrast present throughout transverse, descending and rectosigmoid colon likely from prior study on 03/23/19, consistent with colotis GI-NOTED CBC GI FOLLOW UP noted Code(s): K92.2 - GASTROINTESTINAL HEMORRHAGE, UNSPECIFIED (4) Thrombus Assessment/Plan: vascular consult [facility] course There was ? LUE DVT and was getting warm compresses but duplex was neg. ?? superficial thrombosis Post-op course was complicated by concern for lower extremity popliteal artery embolus but follow up vascular studies showed normal distal flow and no evidence of acute or chronic aortic aneurysm.Chronic b/l lower extremity occlusion --was seen by vascular team there Patient was discharged from [facility] on 03/19 on ASA 81mg and lovenox 40mg SC ? was on plavix during that admission There was ? LUE DVT and was getting warm compresses but duplex 02/26 was neg. ?? superficial thrombosis asa if ok with gi (5) HLD (hyperlipidemia) Assessment/Plan: c/w atorvastatin Code(s): E78.5 - HYPERLIPIDEMIA, UNSPECIFIED Qualifiers: Hyperlipidemia type: pure hypercholesterolemia Qualified Code(s): E78.00 - Pure hypercholesterolemia, unspecified; E78.0 - Pure hypercholesterolemia (6) HTN (hypertension) Assessment/Plan: presently hyoptensive will hold metoprolol & losaartan Code(s): I10 - ESSENTIAL (PRIMARY) HYPERTENSION Qualifiers: Hypertension type: unspecified Qualified Code(s): I10 - Essential (primary ) hypertension (7) SYNCOPE VS SEIZURE Neuro on board Ct head nad (8) DVT? Assessment/Plan: on eliquis at home, will hold to start any anticoagulation ONCE CLEARED BY GI Obtain records from [facility] (9) Anemia Elevated ferritin hem consult (10) Fever Assessment/Plan: Cultures cxr \id consult start abx (11) Leg wound Assessment/Plan: local care abx
[2019-04-06] MEDS ORDERED: PT OWN MED DRAWER 7, Y5N ONE (10:12)
[2019-04-06] MEDS: LOSARTAN POTASSIUM 50 MG TABLET (FP) GT SCH (10:20)
[2019-04-06] MEDS: DULoxetine HCL 20 MG CAPSULE.DR PO SCH (10:20)
[2019-04-06] MEDS: HEPARIN NA (PORCINE) 5,000 UNITS/ML 1ML VIAL SQ SCH ×2 (10:20→22:15)
[2019-04-06] MEDS: METOPROLOL TARTRATE 50 MG TABLET (FP) GT SCH ×2 (10:20→22:15)
[2019-04-06] MEDS: POLYETHYLENE GLYCOL 3350 119 GM BTL GT SCH (10:21)
[2019-04-06] MEDS: BACITRACIN 15 GM TUBE TOPICAL OINTMENT TP SCH ×2 (10:21→22:15)
[2019-04-06] MEDS: ASPIRIN COATED 81 MG TABLET.EC PO SCH (10:21)
[2019-04-06] MEDS: NYSTATIN 100,000 UNIT/GM TOPICAL CREAM 15 GM TUBE TP SCH ×2 (10:22→22:15)
[2019-04-06] MEDS: PANTOPRAZOLE 40 MG TABLET (FP) PO SCH (10:25)
[2019-04-06 12:25] LABS: URINE APPEARANCE CLEAR; URINE BILIRUBIN NEGATIVE (NEGATIVE); URINE COLOR YELLOW; URINE GLUCOSE (UA) NEGATIVE (NEGATIVE); URINE KETONE NEGATIVE (NEGATIVE); URINE LEUK ESTERASE NEGATIVE (NEGATIVE); URINE NITRITE NEGATIVE (NEGATIVE); URINE PROTEIN NEGATIVE (NEGATIVE); URINE UROBILINOGEN 0.2 mg/dL (0.2-1.0)
[2019-04-06] MEDS ORDERED: PIPERACILLIN/TAZOB 2.25 GM 2.25 GM in DEXTROSE 5%-WATER - 50 ML IVPB SCH (18:00)
[2019-04-06] MEDS: ATORVASTATIN CA 80 MG TABLET (FP) GT SCH (22:15)
[2019-04-07] MEDS ORDERED: PIPERACILLIN/TAZOBACTAM 3.375 GM VIAL IVPB ONE ×3 (01:07→17:32)
[2019-04-07] MEDS ORDERED: DEXTROSE 5%-WATER - 50 ML IVPB ONE ×3 (01:08→17:32)
[2019-04-07] MEDS: PIPERACILLIN/TAZOB 3.375 GM 3.375 GM in DEXTROSE 5%-WATER - 50 ML IVPB SCH ×3 (02:04→18:00)
[2019-04-07 07:04] LABS: BASO % 0.8 % (0-2.0); HEMATOCRIT 25.8 % (35.4-49); HEMOGLOBIN 8.5 GM/dL (11.7-16.9); LYMPH % 20.6 % (8-40); MCH 28.7 pg (25.7-33.7); MEAN CELL VOLUME 86.9 fl (80-96); MEAN PLT VOLUME 8.1 fl (7.5-11.1); MONO % 9.6 % (3.8-10.2); PLATELET COUNT 179 K/MM3 (134-434); RBC 2.97 M/mm3 (4.00-5.60); RDW 16.2 % (11.9-15.9); WHITE BLOOD COUNT 7.5 K/mm3 (4.0-10.0)
[2019-04-07 07:32] LABS: BLOOD UREA NITROGEN 21.1 mg/dL (7-18); CALCIUM 8.6 mg/dL (8.5-10.1); CREATININE 1.3 mg/dL (0.55-1.3); POTASSIUM 3.5 mmol/L (3.5-5.1)
[2019-04-07] MEDS ORDERED: PT OWN MED DRAWER 7, Y5N ONE (10:03)
[2019-04-07] MEDS: ACETAMINOPHEN 650 MG/20.3 ML ORAL SOLUTION (CUPS) GT PRN (10:09)
[2019-04-07] MEDS: METOPROLOL TARTRATE 50 MG TABLET (FP) GT SCH ×2 (10:10→22:46)
[2019-04-07] MEDS: LOSARTAN POTASSIUM 50 MG TABLET (FP) GT SCH (10:10)
[2019-04-07] MEDS: PANTOPRAZOLE 40 MG TABLET (FP) PO SCH (10:10)
[2019-04-07] MEDS: DULoxetine HCL 20 MG CAPSULE.DR PO SCH (10:10)
[2019-04-07] MEDS: HEPARIN NA (PORCINE) 5,000 UNITS/ML 1ML VIAL SQ SCH ×2 (10:10→22:48)
[2019-04-07] MEDS: ASPIRIN COATED 81 MG TABLET.EC PO SCH (10:11)
[2019-04-07] MEDS: POLYETHYLENE GLYCOL 3350 119 GM BTL GT SCH (10:11)
[2019-04-07] MEDS: NYSTATIN 100,000 UNIT/GM TOPICAL CREAM 15 GM TUBE TP SCH ×2 (10:11→22:48)
[2019-04-07] MEDS: BACITRACIN 15 GM TUBE TOPICAL OINTMENT TP SCH ×2 (10:11→22:49)
--- NOTE | 2019-04-07 10:43 | PN ---
Progress Note, Physician - Current Medication List Current Medications: Active Medications Acetaminophen (Tylenol Oral Solution -) 650 mg GT Q4H PRN PRN Reason: PAIN OR FEVER Last Admin: 04/07/19 10:09 Dose: 650 mg Aspirin (Ecotrin -) 81 mg PO DAILY [facility] Last Admin: 04/07/19 10:11 Dose: 81 mg Atorvastatin Calcium (Lipitor -) 80 mg GT HS [facility] Last Admin: 04/06/19 22:15 Dose: 80 mg Bacitracin (Bacitracin -) 1 applic TP BID [facility] Last Admin: 04/07/19 10:11 Dose: 1 applic Duloxetine HCl (Cymbalta -) 20 mg PO DAILY [facility] Last Admin: 04/07/19 10:10 Dose: 20 mg Heparin Sodium (Porcine) (Heparin -) 5,000 unit SQ BID [facility] Last Admin: 04/07/19 10:10 Dose: 5,000 unit Piperacillin Sod/Tazobactam (Sod 3.375 gm/ Dextrose) 50 mls @ 100 mls/hr IVPB Q8H-IV [facility]; Protocol Last Admin: 04/07/19 10:10 Dose: 100 mls/hr Losartan Potassium (Cozaar -) 100 mg GT DAILY [facility] Last Admin: 04/07/19 10:10 Dose: 100 mg Metoprolol Tartrate (Lopressor Injection -) 5 mg IVPUSH Q4H PRN PRN Reason: HYPERTENSION Last Admin: 03/31/19 16:30 Dose: 5 mg Metoprolol Tartrate (Lopressor -) 50 mg GT BID [facility] Last Admin: 04/07/19 10:10 Dose: 50 mg Nystatin (Mycostatin Cream -) 1 applic TP BID [facility] Last Admin: 04/07/19 10:11 Dose: 1 applic Pantoprazole Sodium (Protonix -) 40 mg PO DAILY [facility] Last Admin: 04/07/19 10:10 Dose: 40 mg Polyethylene Glycol (Miralax (For Daily Use) -) 17 gm GT DAILY [facility] Last Admin: 04/07/19 10:11 Dose: Not Given - Objective Vital Signs: Vital Signs Temperature 98.8 F 04/07/19 05:00 Pulse Rate 92 H 04/07/19 05:00 Respiratory Rate 20 04/07/19 05:00 Blood Pressure 151/83 04/07/19 05:00 O2 Sat by Pulse Oximetry (%) 97 04/06/19 20:58 Cardiovascular: Yes: S1, S2 Respiratory: Yes: Regular, CTA Bilaterally Gastrointestinal: Yes: Normal Bowel Sounds, Soft. No: Tenderness Labs: CBC, BMP 04/07/19 06:50 04/07/19 06:50 INR, PTT INR 1.08 (0.83-1.09) 03/29/19 08:07 Assessment/Plan 64 y/o man from [facility] with a PMHx of recent CVA with R Hemiplegia, hemiparesis, ASHD, HTN, HLD, CHF who presents with bright red blood in the underwear with blood clots. The patient is unable to provide a history beyond answering yes or no questions. Limited history obtained all from medical record admitted to telemetry s/p PRBC seen by GI- PPIi aspirin on hold bacitracin to the leg wound . - Problems (1) Hemiparesis affecting right side as late effect of cerebrovascular accident Assessment/Plan: Right hemiparesis will have PT follow patient while in patient at [facility] A CT head showed age indeterminate bilateral occipital ischemic infarcts without any signs of hemorrhage. TPA not given as he was outside the window. A CTA escape was notable for a diminutive irregular basilar artery. 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 The following day Mr Palm underwent basilar artery thrombectomy via the right groin Code(s): I69.351 - HEMIPLGA FOLLOWING CEREBRAL INFRC AFF RIGHT DOMINANT SIDE (2) Respiratory failure Assessment/Plan: at [facility] post cva Mr Palm was noted to have worsening deficits such that he was nearly locked-in. He was intubated on 02/20 for airway protection and completed a course of antibiotics for aspiration pneumonia. He received tracheostomy on 03/08. s/p PEG Course was further complicated by fever on 03/08. Respiratory cultures grew pseudomonas and he completed an additional course of antibiotics for presumed ventilator associated pneumonia. now pt off vent (3) GIB (gastrointestinal bleeding) Assessment/Plan: Pt tachycardic on arrival to ED-2L NS bolus given BP soft 95/70 CTAP: asymmetric thickening of the distal rectum/ anal verge oral contrast present throughout transverse, descending and rectosigmoid colon likely from prior study on 03/23/19, consistent with colotis GI-NOTED CBC GI FOLLOW UP noted Code(s): K92.2 - GASTROINTESTINAL HEMORRHAGE, UNSPECIFIED (4) Thrombus Assessment/Plan: vascular consult [facility] course There was ? LUE DVT and was getting warm compresses but duplex was neg. ?? superficial thrombosis Post-op course was complicated by concern for lower extremity popliteal artery embolus but follow up vascular studies showed normal distal flow and no evidence of acute or chronic aortic aneurysm.Chronic b/l lower extremity occlusion --was seen by vascular team there Patient was discharged from [facility] on 03/19 on ASA 81mg and lovenox 40mg SC ? was on plavix during that admission There was ? LUE DVT and was getting warm compresses but duplex 02/26 was neg. ?? superficial thrombosis asa if ok with gi (5) HLD (hyperlipidemia) Assessment/Plan: c/w atorvastatin Code(s): E78.5 - HYPERLIPIDEMIA, UNSPECIFIED Qualifiers: Hyperlipidemia type: pure hypercholesterolemia Qualified Code(s): E78.00 - Pure hypercholesterolemia, unspecified; E78.0 - Pure hypercholesterolemia (6) HTN (hypertension) Assessment/Plan: presently hyoptensive will hold metoprolol & losaartan Code(s): I10 - ESSENTIAL (PRIMARY) HYPERTENSION Qualifiers: Hypertension type: unspecified Qualified Code(s): I10 - Essential (primary ) hypertension (7) Retention Flomax sotelo (8) DVT? Assessment/Plan: on eliquis at home, will hold to start any anticoagulation ONCE CLEARED BY GI Obtain records from [facility] (9) Anemia Elevated ferritin hem consult (10) Fever Assessment/Plan: Cultures neg cxr \id consult start abx (11) Leg wound Assessment/Plan: local care abx
[2019-04-07] MEDS: ATORVASTATIN CA 80 MG TABLET (FP) GT SCH (22:46)
[2019-04-08] MEDS ORDERED: PIPERACILLIN/TAZOBACTAM 3.375 GM VIAL IVPB ONE ×2 (01:43→10:10)
[2019-04-08] MEDS ORDERED: DEXTROSE 5%-WATER - 50 ML IVPB ONE ×2 (01:43→10:11)
[2019-04-08] MEDS: PIPERACILLIN/TAZOB 3.375 GM 3.375 GM in DEXTROSE 5%-WATER - 50 ML IVPB SCH ×2 (02:12→10:17)
--- NOTE | 2019-04-08 07:50 | DS ---
Physical Examination Vital Signs: Vital Signs Temperature 98.8 F 04/08/19 02:00 Pulse Rate 95 H 04/08/19 02:00 Respiratory Rate 18 04/08/19 02:00 Blood Pressure 150/77 04/08/19 02:00 O2 Sat by Pulse Oximetry (%) 96 04/07/19 22:00 Cardiovascular: Yes: Regular Rate and Rhythm Respiratory: Yes: Regular, CTA Bilaterally Gastrointestinal: Yes: Normal Bowel Sounds, Soft. No: Tenderness Renal/: Yes: Sotelo Present Labs: CBC, BMP 04/07/19 06:50 04/07/19 06:50 Discharge Summary Reason For Visit: GI BLEED Current Active Problems CHF (congestive heart failure) (Acute) Colitis (Acute) GIB (gastrointestinal bleeding) (Acute) Hemiparesis affecting right side as late effect of cerebrovascular accident ( Acute) Prophylactic measure (Acute) Hospital Course: - Problems (1) Hemiparesis affecting right side as late effect of cerebrovascular accident Assessment/Plan: Right hemiparesis will have PT follow patient while in patient at [facility] A CT head showed age indeterminate bilateral occipital ischemic infarcts without any signs of hemorrhage. TPA not given as he was outside the window. A CTA escape was notable for a diminutive irregular basilar artery. 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 The following day Mr Palm underwent basilar artery thrombectomy via the right groin Code(s): I69.351 - HEMIPLGA FOLLOWING CEREBRAL INFRC AFF RIGHT DOMINANT SIDE (2) Respiratory failure Assessment/Plan: at [facility] post cva Mr Palm was noted to have worsening deficits such that he was nearly locked-in. He was intubated on 02/20 for airway protection and completed a course of antibiotics for aspiration pneumonia. He received tracheostomy on 03/08. s/p PEG Course was further complicated by fever on 03/08. Respiratory cultures grew pseudomonas and he completed an additional course of antibiotics for presumed ventilator associated pneumonia. now pt off vent (3) GIB (gastrointestinal bleeding) Assessment/Plan: Pt tachycardic on arrival to ED-2L NS bolus given BP soft 95/70 CTAP: asymmetric thickening of the distal rectum/ anal verge oral contrast present throughout transverse, descending and rectosigmoid colon likely from prior study on 03/23/19, consistent with colotis GI-NOTED CBC GI FOLLOW UP noted Code(s): K92.2 - GASTROINTESTINAL HEMORRHAGE, UNSPECIFIED (4) Thrombus Assessment/Plan: vascular consult [facility] course There was ? LUE DVT and was getting warm compresses but duplex was neg. ?? superficial thrombosis Post-op course was complicated by concern for lower extremity popliteal artery embolus but follow up vascular studies showed normal distal flow and no evidence of acute or chronic aortic aneurysm.Chronic b/l lower extremity occlusion --was seen by vascular team there Patient was discharged from [facility] on 03/19 on ASA 81mg and lovenox 40mg SC ? was on plavix during that admission There was ? LUE DVT and was getting warm compresses but duplex 02/26 was neg. ?? superficial thrombosis asa if ok with gi (5) HLD (hyperlipidemia) Assessment/Plan: c/w atorvastatin Code(s): E78.5 - HYPERLIPIDEMIA, UNSPECIFIED Qualifiers: Hyperlipidemia type: pure hypercholesterolemia Qualified Code(s): E78.00 - Pure hypercholesterolemia, unspecified; E78.0 - Pure hypercholesterolemia (6) HTN (hypertension) Assessment/Plan: presently hyoptensive will hold metoprolol & losaartan Code(s): I10 - ESSENTIAL (PRIMARY) HYPERTENSION Qualifiers: Hypertension type: unspecified Qualified Code(s): I10 - Essential (primary ) hypertension (7) Retention Flomax dc sotelo (8) DVT? Assessment/Plan: on eliquis at home, will hold to start any anticoagulation ONCE CLEARED BY GI Obtain records from [facility] (9) Anemia Elevated ferritin hem consult (10) Fever Assessment/Plan: Resolved Cultures neg cxr improved \id consult iv abx to po (11) Leg wound Assessment/Plan: local care abx DC PLANNING Condition: Improved - Instructions Disposition: CARE HOME FACILITY - Home Medications Comprehensive Discharge Medication List: Ambulatory Orders Acetaminophen [Tylenol] 650 mg GT Q4H PRN 03/22/19 Atorvastatin Ca [Lipitor] 80 mg GT HS 03/22/19 Losartan Potassium [Cozaar] 100 mg GT DAILY 03/22/19 Metoprolol Tartrate [Lopressor -] 50 mg GT BID 03/22/19 Bacitracin - [Bacitracin Topical Ointment -] 1 applic TP BID tube 04/02/19 Nystatin Cream [Mycostatin Cream -] 1 applic TP BID applic 04/02/19 Acetaminophen Oral Solution [Tylenol Oral Solution -] 650 mg GT Q4H PRN soln.oral 04/08/19 Aspirin Coated [Ecotrin -] 81 mg PO DAILY tablet.ec 04/08/19 Cefuroxime Axetil [Ceftin -] 500 mg PO Q12H #10 tablet 04/08/19 Duloxetine HCl [Cymbalta -] 20 mg PO DAILY capsule. 04/08/19 Heparin - 5,000 unit SQ BID vial 04/08/19 Pantoprazole Sodium [Protonix -] 40 mg PO DAILY tablet.ec 04/08/19 Polyethylene Glycol 3350 [Miralax 119 gm Btl -] 17 gm GT DAILY bottle 04/08/19 Tamsulosin HCl [Flomax -] 0.4 mg PO DAILY@0830 cap.er.24h 04/08/19
[2019-04-08] MEDS ORDERED: TAMSULOSIN HCL 0.4 MG CAP PO SCH (08:30)
[2019-04-08] MEDS: ASPIRIN COATED 81 MG TABLET.EC PO SCH (10:14)
[2019-04-08] MEDS: DULoxetine HCL 20 MG CAPSULE.DR PO SCH (10:14)
[2019-04-08] MEDS: PANTOPRAZOLE 40 MG TABLET (FP) PO SCH (10:15)
[2019-04-08] MEDS: NYSTATIN 100,000 UNIT/GM TOPICAL CREAM 15 GM TUBE TP SCH ×2 (10:17→22:50)
[2019-04-08] MEDS: METOPROLOL TARTRATE 50 MG TABLET (FP) GT SCH ×2 (10:17→22:50)
[2019-04-08] MEDS: LOSARTAN POTASSIUM 50 MG TABLET (FP) GT SCH (10:17)
[2019-04-08] MEDS: POLYETHYLENE GLYCOL 3350 119 GM BTL GT SCH (10:18)
[2019-04-08] MEDS: HEPARIN NA (PORCINE) 5,000 UNITS/ML 1ML VIAL SQ SCH ×2 (10:18→22:50)
[2019-04-08] MEDS: BACITRACIN 15 GM TUBE TOPICAL OINTMENT TP SCH ×2 (10:19→22:50)
--- NOTE | 2019-04-08 11:27 | PN ---
Progress Note, FINANCE ADMINISTRATOR - Note Progress Note: Selected Entries 04/07/19 04/07/19 04/07/19 01:00 05:00 09:00 Supper Temperature 99.9 F H 98.8 F 98.5 F 04/07/19 04/07/19 04/07/19 13:10 18:00 22:00 Supper NPO Temperature 98.6 F 97.8 F 98.6 F 04/08/19 04/08/19 02:00 06:00 Supper Temperature 98.8 F 98.3 F Laboratory Tests 04/07/19 06:50 WBC 7.5 MBS ordered. To be performed today.
[2019-04-08] MEDS: ACETAMINOPHEN 650 MG/20.3 ML ORAL SOLUTION (CUPS) GT PRN (12:07)
--- NOTE | 2019-04-08 14:50 | PN ---
Progress Note, Physician History of Present Illness: MORE AWAKE AND ALERT SEATED IN BED ABLE TO NOD TO QUESTIONS BREATHING NON LABORED TEMPS DOWN AFEBRILE WBC WNL REPEAT CXR IMPROVED - Current Medication List Current Medications: Active Medications Acetaminophen (Tylenol Oral Solution -) 650 mg GT Q4H PRN PRN Reason: PAIN OR FEVER Last Admin: 04/08/19 12:07 Dose: 650 mg Aspirin (Ecotrin -) 81 mg PO DAILY [facility] Last Admin: 04/08/19 10:14 Dose: Not Given Atorvastatin Calcium (Lipitor -) 80 mg GT HS [facility] Last Admin: 04/07/19 22:46 Dose: 80 mg Bacitracin (Bacitracin -) 1 applic TP BID [facility] Last Admin: 04/08/19 10:19 Dose: 1 applic Duloxetine HCl (Cymbalta -) 20 mg PO DAILY [facility] Last Admin: 04/08/19 10:14 Dose: Not Given Heparin Sodium (Porcine) (Heparin -) 5,000 unit SQ BID [facility] Last Admin: 04/08/19 10:18 Dose: 5,000 unit Piperacillin Sod/Tazobactam (Sod 3.375 gm/ Dextrose) 50 mls @ 100 mls/hr IVPB Q8H-IV [facility]; Protocol Last Admin: 04/08/19 10:17 Dose: 100 mls/hr Losartan Potassium (Cozaar -) 100 mg GT DAILY [facility] Last Admin: 04/08/19 10:17 Dose: 100 mg Metoprolol Tartrate (Lopressor Injection -) 5 mg IVPUSH Q4H PRN PRN Reason: HYPERTENSION Last Admin: 03/31/19 16:30 Dose: 5 mg Metoprolol Tartrate (Lopressor -) 50 mg GT BID [facility] Last Admin: 04/08/19 10:17 Dose: 50 mg Nystatin (Mycostatin Cream -) 1 applic TP BID [facility] Last Admin: 04/08/19 10:17 Dose: 1 applic Pantoprazole Sodium (Protonix -) 40 mg PO DAILY [facility] Last Admin: 04/08/19 10:15 Dose: Not Given Polyethylene Glycol (Miralax (For Daily Use) -) 17 gm GT DAILY [facility] Last Admin: 04/08/19 10:18 Dose: Not Given Tamsulosin HCl (Flomax -) 0.4 mg PO DAILY@0830 [facility] Last Admin: 08/26/19 10:14 Dose: Not Given - Objective Vital Signs: Vital Signs Temperature 97.4 F L 04/08/19 14:44 Pulse Rate 57 L 04/08/19 14:44 Respiratory Rate 18 04/08/19 14:44 Blood Pressure 166/66 04/08/19 14:44 O2 Sat by Pulse Oximetry (%) 97 04/08/19 09:00 Constitutional: Yes: No Distress Eyes: Yes: Conjunctiva Clear Cardiovascular: Yes: Regular Rate and Rhythm, S1, S2 Respiratory: Yes: Diminished Gastrointestinal: Yes: Normal Bowel Sounds, Soft. No: Tenderness Edema: No Labs: CBC, BMP 04/07/19 06:50 04/07/19 06:50 INR, PTT INR 1.08 (0.83-1.09) 03/29/19 08:07 Assessment/Plan PROBABLE ASP PNEUMONIA CVA FEVER RESOLVED SUBSTITUTE AUGMENTIN VIA GT X 7D
[2019-04-08] MEDS ORDERED: PT OWN MED DRAWER 7, Y5N ONE ×2 (16:53→22:34)
[2019-04-08] MEDS: AMOX TR/POTASSIUM CLAVULANATE 600 MG/5 ML GT SCH (18:01)
[2019-04-08 20:35] LABS: BASO % 0.4 % (0-2.0); EOS % 5.8 % (0-4.5); HEMATOCRIT 27.3 % (35.4-49); HEMOGLOBIN 8.7 GM/dL (11.7-16.9); LYMPH % 21.9 % (8-40); MCH 27.9 pg (25.7-33.7); MCHC 31.9 g/dl (32.0-35.9); MEAN CELL VOLUME 87.5 fl (80-96); MEAN PLT VOLUME 7.8 fl (7.5-11.1); NEUT % 62.9 % (42.8-82.8); PLATELET COUNT 176 K/MM3 (134-434); RBC 3.12 M/mm3 (4.00-5.60); RDW 16.7 % (11.9-15.9); WHITE BLOOD COUNT 5.5 K/mm3 (4.0-10.0)
[2019-04-08 21:06] LABS: ALBUMIN 2.5 g/dl (3.4-5.0); BILIRUBIN,TOTAL 0.8 mg/dL (0.2-1); BLOOD UREA NITROGEN 16.7 mg/dL (7-18); CALCIUM 8.8 mg/dL (8.5-10.1); CREATININE 0.9 mg/dL (0.55-1.3); MAGNESIUM 1.5 mg/dL (1.8-2.4); POTASSIUM 3.2 mmol/L (3.5-5.1); TOT PROT 6.5 g/dl (6.4-8.2)
[2019-04-08] MEDS: ATORVASTATIN CA 80 MG TABLET (FP) GT SCH (22:50)
[2019-04-08] MEDS: DOXAZOSIN MESYLATE 1 MG TABLET GT SCH (23:37)
--- NOTE | 2019-04-09 07:24 | PN ---
Progress Note, Physician History of Present Illness: diarrhea - Current Medication List Current Medications: Active Medications Acetaminophen (Tylenol Oral Solution -) 650 mg GT Q4H PRN PRN Reason: PAIN OR FEVER Last Admin: 04/08/19 12:07 Dose: 650 mg Amoxicillin/Clavulanate Potassium (Augmentin 600 Mg/5 Ml Oral Suspension -) 600 mg GT BID@0800,1730 [facility] Last Admin: 04/08/19 18:01 Dose: 600 mg Aspirin (Asa -) 81 mg GT DAILY [facility] Atorvastatin Calcium (Lipitor -) 80 mg GT HS [facility] Last Admin: 04/08/19 22:50 Dose: 80 mg Bacitracin (Bacitracin -) 1 applic TP BID [facility] Last Admin: 04/08/19 22:50 Dose: 1 applic Doxazosin Mesylate (Cardura -) 1 mg GT HS [facility] Last Admin: 04/08/19 23:37 Dose: 1 mg Escitalopram Oxalate (Lexapro Oral Solution -) 10 mg GT DAILY [facility] Heparin Sodium (Porcine) (Heparin -) 5,000 unit SQ BID [facility] Last Admin: 04/08/19 22:50 Dose: 5,000 unit Losartan Potassium (Cozaar -) 100 mg GT DAILY [facility] Last Admin: 04/08/19 10:17 Dose: 100 mg Metoprolol Tartrate (Lopressor Injection -) 5 mg IVPUSH Q4H PRN PRN Reason: HYPERTENSION Last Admin: 03/31/19 16:30 Dose: 5 mg Metoprolol Tartrate (Lopressor -) 50 mg GT BID [facility] Last Admin: 04/08/19 22:50 Dose: 50 mg Nystatin (Mycostatin Cream -) 1 applic TP BID [facility] Last Admin: 04/08/19 22:50 Dose: 1 applic Polyethylene Glycol (Miralax (For Daily Use) -) 17 gm GT DAILY [facility] Last Admin: 04/08/19 10:18 Dose: Not Given - Objective Vital Signs: Vital Signs Temperature 99.1 F 04/09/19 06:00 Pulse Rate 91 H 04/09/19 06:00 Respiratory Rate 17 04/09/19 06:00 Blood Pressure 142/62 04/09/19 06:00 O2 Sat by Pulse Oximetry (%) 96 04/08/19 21:00 Cardiovascular: Yes: Regular Rate and Rhythm Respiratory: Yes: Regular, CTA Bilaterally Gastrointestinal: Yes: Normal Bowel Sounds, Soft. No: Tenderness Labs: CBC, BMP 04/08/19 20:00 04/08/19 20:00 INR, PTT INR 1.08 (0.83-1.09) 03/29/19 08:07 Assessment/Plan 64 y/o man from [facility] with a PMHx of recent CVA with R Hemiplegia, hemiparesis, ASHD, HTN, HLD, CHF who presents with bright red blood in the underwear with blood clots. The patient is unable to provide a history beyond answering yes or no questions. Limited history obtained all from medical record admitted to telemetry s/p PRBC seen by GI- PPIi aspirin on hold bacitracin to the leg wound . - Problems (1) Hemiparesis affecting right side as late effect of cerebrovascular accident Assessment/Plan: Right hemiparesis will have PT follow patient while in patient at [facility] A CT head showed age indeterminate bilateral occipital ischemic infarcts without any signs of hemorrhage. TPA not given as he was outside the window. A CTA escape was notable for a diminutive irregular basilar artery. 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 The following day Mr Palm underwent basilar artery thrombectomy via the right groin Code(s): I69.351 - HEMIPLGA FOLLOWING CEREBRAL INFRC AFF RIGHT DOMINANT SIDE (2) Respiratory failure Assessment/Plan: at [facility] Mr Palm was noted to have worsening deficits such that he was nearly locked-in. He was intubated on 02/20 for airway protection and completed a course of antibiotics for aspiration pneumonia. He received tracheostomy on 03/08. s/p PEG Course was further complicated by fever on 03/08. Respiratory cultures grew pseudomonas and he completed an additional course of antibiotics for presumed ventilator associated pneumonia. now pt off vent (3) GIB (gastrointestinal bleeding) Assessment/Plan: Pt tachycardic on arrival to ED-2L NS bolus given BP soft 95/70 CTAP: asymmetric thickening of the distal rectum/ anal verge oral contrast present throughout transverse, descending and rectosigmoid colon likely from prior study on 03/23/19, consistent with colotis GI-NOTED CBC GI FOLLOW UP noted Code(s): K92.2 - GASTROINTESTINAL HEMORRHAGE, UNSPECIFIED (4) Thrombus Assessment/Plan: vascular consult [facility] course There was ? LUE DVT and was getting warm compresses but duplex was neg. ?? superficial thrombosis Post-op course was complicated by concern for lower extremity popliteal artery embolus but follow up vascular studies showed normal distal flow and no evidence of acute or chronic aortic aneurysm.Chronic b/l lower extremity occlusion --was seen by vascular team there Patient was discharged from [facility] on 03/19 on ASA 81mg and lovenox 40mg SC ? was on plavix during that admission There was ? LUE DVT and was getting warm compresses but duplex 02/26 was neg. ?? superficial thrombosis asa if ok with gi (5) HLD (hyperlipidemia) Assessment/Plan: c/w atorvastatin Code(s): E78.5 - HYPERLIPIDEMIA, UNSPECIFIED Qualifiers: Hyperlipidemia type: pure hypercholesterolemia Qualified Code(s): E78.00 - Pure hypercholesterolemia, unspecified; E78.0 - Pure hypercholesterolemia (6) HTN (hypertension) Assessment/Plan: presently hyoptensive will hold metoprolol & losaartan Code(s): I10 - ESSENTIAL (PRIMARY) HYPERTENSION Qualifiers: Hypertension type: unspecified Qualified Code(s): I10 - Essential (primary ) hypertension (7) Retention Flomax cardura (8) DVT? Assessment/Plan: on eliquis at home, will hold to start any anticoagulation ONCE CLEARED BY GI Obtain records from [facility] (9) Anemia Elevated ferritin hem consult (10) Fever Assessment/Plan: Cultures neg cxr \id consult start abx (11) Leg wound Assessment/Plan: local care abx (12) Diarrhea Assessment/Plan: [facility] miralax cdif
[2019-04-09] MEDS ORDERED: PT OWN MED DRAWER 7, Y5N ONE ×3 (08:13→21:08)
[2019-04-09] MEDS: AMOX TR/POTASSIUM CLAVULANATE 600 MG/5 ML GT SCH ×2 (08:35→17:56)
--- NOTE | 2019-04-09 10:37 | PN ---
Progress Note, VEHICLE UPHOLSTERER - Note Progress Note: Selected Entries 04/08/19 04/08/19 04/08/19 02:00 06:00 14:44 Supper Temperature 98.8 F 98.3 F 97.4 F L 04/08/19 04/08/19 04/09/19 18:00 22:00 02:00 Supper NPO Temperature 98.0 F 98.6 F 04/09/19 06:00 Supper Temperature 99.1 F Laboratory Tests 04/08/19 20:00 WBC 5.5 MBS reviewed with staff. For intensive communication/swallowing tx at [facility] with introduction of PO trials by Speech Pathology initially.
[2019-04-09] MEDS: ASPIRIN 81 MG CHEWABLE TABLETS GT SCH (10:47)
[2019-04-09] MEDS: LOSARTAN POTASSIUM 50 MG TABLET (FP) GT SCH (10:47)
[2019-04-09] MEDS: HEPARIN NA (PORCINE) 5,000 UNITS/ML 1ML VIAL SQ SCH ×2 (10:47→22:24)
[2019-04-09] MEDS: METOPROLOL TARTRATE 50 MG TABLET (FP) GT SCH ×2 (10:47→22:23)
[2019-04-09] MEDS: ESCITALOPRAM OXALATE 5 MG/5 ML GT SCH (10:48)
[2019-04-09] MEDS: BACITRACIN 15 GM TUBE TOPICAL OINTMENT TP SCH ×2 (10:49→22:32)
[2019-04-09] MEDS: NYSTATIN 100,000 UNIT/GM TOPICAL CREAM 15 GM TUBE TP SCH ×2 (10:49→22:32)
[2019-04-09 16:56] VITALS: BMI 24.8
[2019-04-09] MEDS: KCL 10 MEQ IVPB 10 MEQ/100 ML INFUS.BAG IVPB SCH ×2 (18:46→19:55)
[2019-04-09] MEDS: ATORVASTATIN CA 80 MG TABLET (FP) GT SCH (22:23)
[2019-04-09] MEDS: DOXAZOSIN MESYLATE 1 MG TABLET GT SCH (22:24)
[2019-04-09] MEDS: ACETAMINOPHEN 650 MG/20.3 ML ORAL SOLUTION (CUPS) GT PRN (22:26)
[2019-04-10 07:29] LABS: ALBUMIN 2.3 g/dl (3.4-5.0); BILIRUBIN,TOTAL 0.7 mg/dL (0.2-1); CALCIUM 8.7 mg/dL (8.5-10.1); CREATININE 0.7 mg/dL (0.55-1.3); MAGNESIUM 1.5 mg/dL (1.8-2.4); POTASSIUM 3.7 mmol/L (3.5-5.1); TOT PROT 6.1 g/dl (6.4-8.2)
[2019-04-10 07:35] LABS: BASO % 0.7 % (0-2.0); HEMATOCRIT 25.4 % (35.4-49); HEMOGLOBIN 8.2 GM/dL (11.7-16.9); MCH 28.4 pg (25.7-33.7); MCHC 32.2 g/dl (32.0-35.9); MEAN CELL VOLUME 88.2 fl (80-96); MEAN PLT VOLUME 8.8 fl (7.5-11.1); MONO % 11.4 % (3.8-10.2); NEUT % 54.9 % (42.8-82.8); PLATELET COUNT 158 K/MM3 (134-434); RBC 2.88 M/mm3 (4.00-5.60); RDW 16.7 % (11.9-15.9); WHITE BLOOD COUNT 4.7 K/mm3 (4.0-10.0)
[2019-04-10] MEDS ORDERED: PT OWN MED DRAWER 7, Y5N ONE ×5 (08:21→17:30)
--- NOTE | 2019-04-10 08:21 | DS ---
Physical Examination Vital Signs: Vital Signs Temperature 98.6 F 04/10/19 06:00 Pulse Rate 73 04/10/19 06:00 Respiratory Rate 18 04/10/19 06:00 Blood Pressure 138/92 04/10/19 06:00 O2 Sat by Pulse Oximetry (%) 98 04/09/19 21:00 Cardiovascular: Yes: S1, S2 Respiratory: Yes: Regular, CTA Bilaterally Gastrointestinal: Yes: Normal Bowel Sounds, Soft. No: Tenderness Labs: CBC, BMP 04/10/19 06:25 04/10/19 06:25 Discharge Summary Reason For Visit: GI BLEED Current Active Problems CHF (congestive heart failure) (Acute) Colitis (Acute) GIB (gastrointestinal bleeding) (Acute) Hemiparesis affecting right side as late effect of cerebrovascular accident ( Acute) Prophylactic measure (Acute) Hospital Course: (1) Hemiparesis affecting right side as late effect of cerebrovascular accident Assessment/Plan: Right hemiparesis will have PT follow patient while in patient at [facility] A CT head showed age indeterminate bilateral occipital ischemic infarcts without any signs of hemorrhage. TPA not given as he was outside the window. A CTA escape was notable for a diminutive irregular basilar artery. 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 The following day Mr Palm underwent basilar artery thrombectomy via the right groin Code(s): I69.351 - HEMIPLGA FOLLOWING CEREBRAL INFRC AFF RIGHT DOMINANT SIDE (2) Respiratory failure Assessment/Plan: at [facility] Mr Palm was noted to have worsening deficits such that he was nearly locked-in. He was intubated on 02/20 for airway protection and completed a course of antibiotics for aspiration pneumonia. He received tracheostomy on 03/08. s/p PEG Course was further complicated by fever on 03/08. Respiratory cultures grew pseudomonas and he completed an additional course of antibiotics for presumed ventilator associated pneumonia. now pt off vent (3) GIB (gastrointestinal bleeding) Assessment/Plan: Pt tachycardic on arrival to ED-2L NS bolus given BP soft 95/70 CTAP: asymmetric thickening of the distal rectum/ anal verge oral contrast present throughout transverse, descending and rectosigmoid colon likely from prior study on 03/23/19, consistent with colotis GI-NOTED CBC GI FOLLOW UP noted Code(s): K92.2 - GASTROINTESTINAL HEMORRHAGE, UNSPECIFIED (4) Thrombus Assessment/Plan: vascular consult [facility] course There was ? LUE DVT and was getting warm compresses but duplex was neg. ?? superficial thrombosis Post-op course was complicated by concern for lower extremity popliteal artery embolus but follow up vascular studies showed normal distal flow and no evidence of acute or chronic aortic aneurysm.Chronic b/l lower extremity occlusion --was seen by vascular team there Patient was discharged from [facility] on 03/19 on ASA 81mg and lovenox 40mg SC ? was on plavix during that admission There was ? LUE DVT and was getting warm compresses but duplex 02/26 was neg. ?? superficial thrombosis asa if ok with gi (5) HLD (hyperlipidemia) Assessment/Plan: c/w atorvastatin Code(s): E78.5 - HYPERLIPIDEMIA, UNSPECIFIED Qualifiers: Hyperlipidemia type: pure hypercholesterolemia Qualified Code(s): E78.00 - Pure hypercholesterolemia, unspecified; E78.0 - Pure hypercholesterolemia (6) HTN (hypertension) Assessment/Plan: presently hyoptensive will hold metoprolol & losaartan Code(s): I10 - ESSENTIAL (PRIMARY) HYPERTENSION Qualifiers: Hypertension type: unspecified Qualified Code(s): I10 - Essential (primary ) hypertension (7) Retention Flomax cardura (8) DVT? Assessment/Plan: on eliquis at home, will hold to start any anticoagulation ONCE CLEARED BY GI Obtain records from [facility] (9) Anemia Elevated ferritin hem consult (10) Fever Assessment/Plan: Cultures neg cxr \id consult start abx (1) Hemiparesis affecting right side as late effect of cerebrovascular accident Assessment/Plan: Right hemiparesis will have PT follow patient while in patient at [facility] A CT head showed age indeterminate bilateral occipital ischemic infarcts without any signs of hemorrhage. TPA not given as he was outside the window. A CTA escape was notable for a diminutive irregular basilar artery. 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 The following day Mr Palm underwent basilar artery thrombectomy via the right groin Code(s): I69.351 - HEMIPLGA FOLLOWING CEREBRAL INFRC AFF RIGHT DOMINANT SIDE (2) Respiratory failure Assessment/Plan: at [facility] Mr Palm was noted to have worsening deficits such that he was nearly locked-in. He was intubated on 02/20 for airway protection and completed a course of antibiotics for aspiration pneumonia. He received tracheostomy on 03/08. s/p PEG Course was further complicated by fever on 03/08. Respiratory cultures grew pseudomonas and he completed an additional course of antibiotics for presumed ventilator associated pneumonia. now pt off vent (3) GIB (gastrointestinal bleeding) Assessment/Plan: Pt tachycardic on arrival to ED-2L NS bolus given BP soft 95/70 CTAP: asymmetric thickening of the distal rectum/ anal verge oral contrast present throughout transverse, descending and rectosigmoid colon likely from prior study on 03/23/19, consistent with colotis GI-NOTED CBC GI FOLLOW UP noted Code(s): K92.2 - GASTROINTESTINAL HEMORRHAGE, UNSPECIFIED (4) Thrombus Assessment/Plan: vascular consult [facility] course There was ? LUE DVT and was getting warm compresses but duplex was neg. ?? superficial thrombosis Post-op course was complicated by concern for lower extremity popliteal artery embolus but follow up vascular studies showed normal distal flow and no evidence of acute or chronic aortic aneurysm.Chronic b/l lower extremity occlusion --was seen by vascular team there Patient was discharged from [facility] on 03/19 on ASA 81mg and lovenox 40mg SC ? was on plavix during that admission There was ? LUE DVT and was getting warm compresses but duplex 02/26 was neg. ?? superficial thrombosis asa if ok with gi (5) HLD (hyperlipidemia) Assessment/Plan: c/w atorvastatin Code(s): E78.5 - HYPERLIPIDEMIA, UNSPECIFIED Qualifiers: Hyperlipidemia type: pure hypercholesterolemia Qualified Code(s): E78.00 - Pure hypercholesterolemia, unspecified; E78.0 - Pure hypercholesterolemia (6) HTN (hypertension) Assessment/Plan: presently hyoptensive will hold metoprolol & losaartan Code(s): I10 - ESSENTIAL (PRIMARY) HYPERTENSION Qualifiers: Hypertension type: unspecified Qualified Code(s): I10 - Essential (primary ) hypertension (7) Retention Flomax cardura (8) DVT? Assessment/Plan: on eliquis at home, will hold to start any anticoagulation ONCE CLEARED BY GI Obtain records from [facility] (9) Anemia Elevated ferritin hem consult (10) Fever Assessment/Plan: Cultures neg cxr \id consult start abx (11) Leg wound Assessment/Plan: local care abx (12) Diarrhea Assessment/Plan: dc miralax cdif al care abx (13) Vevtricular arrythmia Assessment/Plan: In setting of low k and mag replace lytes cardio once cleared by cardio then dc to snf Condition: Improved - Instructions Disposition: [facility] - Home Medications Comprehensive Discharge Medication List: Ambulatory Orders Acetaminophen [Tylenol] 650 mg GT Q4H PRN 03/22/19 Atorvastatin Ca [Lipitor] 80 mg GT HS 03/22/19 Losartan Potassium [Cozaar] 100 mg GT DAILY 03/22/19 Metoprolol Tartrate [Lopressor -] 50 mg GT BID 03/22/19 Bacitracin - [Bacitracin Topical Ointment -] 1 applic TP BID tube 04/02/19 Nystatin Cream [Mycostatin Cream -] 1 applic TP BID applic 04/02/19 Acetaminophen Oral Solution [Tylenol Oral Solution -] 650 mg GT Q4H PRN soln.oral 04/08/19 Aspirin Coated [Ecotrin -] 81 mg PO DAILY tablet.ec 04/08/19 Cefuroxime Axetil [Ceftin -] 500 mg PO Q12H #10 tablet 04/08/19 Duloxetine HCl [Cymbalta -] 20 mg PO DAILY capsule. 04/08/19 Heparin - 5,000 unit SQ BID vial 04/08/19 Pantoprazole Sodium [Protonix -] 40 mg PO DAILY tablet.ec 04/08/19 Polyethylene Glycol 3350 [Miralax 119 gm Btl -] 17 gm GT DAILY bottle 04/08/19 Tamsulosin HCl [Flomax -] 0.4 mg PO DAILY@0830 cap.er.24h 04/08/19
[2019-04-10] MEDS: AMOX TR/POTASSIUM CLAVULANATE 600 MG/5 ML GT SCH ×2 (08:30→17:35)
[2019-04-10] MEDS ORDERED: MAGNESIUM SULF 50% (8.12 MEQ/2 ML-1 GM VIAL) IVPB ONE (09:00)
[2019-04-10] MEDS ORDERED: POTASSIUM CHLORIDE ORAL LIQUID 20 MEQ/15 ML PEG ONE (09:00)
[2019-04-10] MEDS: LOSARTAN POTASSIUM 50 MG TABLET (FP) GT SCH (09:10)
[2019-04-10] MEDS: ASPIRIN 81 MG CHEWABLE TABLETS GT SCH (09:10)
[2019-04-10] MEDS: METOPROLOL TARTRATE 50 MG TABLET (FP) GT SCH ×2 (09:10→22:39)
[2019-04-10] MEDS: BACITRACIN 15 GM TUBE TOPICAL OINTMENT TP SCH ×2 (09:11→22:48)
[2019-04-10] MEDS: NYSTATIN 100,000 UNIT/GM TOPICAL CREAM 15 GM TUBE TP SCH ×2 (09:11→22:48)
[2019-04-10] MEDS: HEPARIN NA (PORCINE) 5,000 UNITS/ML 1ML VIAL SQ SCH ×2 (09:11→22:40)
[2019-04-10] MEDS: ESCITALOPRAM OXALATE 5 MG/5 ML GT SCH (10:04)
--- NOTE | 2019-04-10 14:31 | PN ---
Progress Note, Physician Chief Complaint: Asked to see for NSVT. Denies palpitations. No dyspnea. Telem NSR with 8-10 beats NSVT. Occasional irregular SVT. History of Present Illness: NHR, with a PMHx of HTN, HLD, ASHD, diastolic CHF, CVA with right hemiplegia, aphasia s/p trach and PEG admitted 03/29/19 with bright red blood per rectum in the underwear with blood clots while on Eliquis. Hospital course notable for episode of unresponsiveness in Radiology. He was lethargic, tachypnea and tachycardia with persistent flaccid on the right side. ECG was unremarkable at that time. Echocardiogram 04/01/19 showed normal LV size, wall motion and systolic function. LVEF = 60-65%. Normal RV. Normal LA and RA. No significant valvular abnormalities. - Current Medication List Current Medications: Active Medications Acetaminophen (Tylenol Oral Solution -) 650 mg GT Q4H PRN PRN Reason: PAIN OR FEVER Last Admin: 04/09/19 22:26 Dose: 650 mg Amoxicillin/Clavulanate Potassium (Augmentin 600 Mg/5 Ml Oral Suspension -) 600 mg GT BID@0800,1730 [facility] Last Admin: 04/10/19 08:30 Dose: 600 mg Aspirin (Asa -) 81 mg GT DAILY [facility] Last Admin: 04/10/19 09:10 Dose: 81 mg Atorvastatin Calcium (Lipitor -) 80 mg GT HS [facility] Last Admin: 04/09/19 22:23 Dose: 80 mg Bacitracin (Bacitracin -) 1 applic TP BID [facility] Last Admin: 04/10/19 09:11 Dose: 1 applic Doxazosin Mesylate (Cardura -) 1 mg GT HS [facility] Last Admin: 04/09/19 22:24 Dose: 1 mg Escitalopram Oxalate (Lexapro Oral Solution -) 10 mg GT DAILY [facility] Last Admin: 04/10/19 10:04 Dose: 10 mg Heparin Sodium (Porcine) (Heparin -) 5,000 unit SQ BID [facility] Last Admin: 04/10/19 09:11 Dose: 5,000 unit Losartan Potassium (Cozaar -) 100 mg GT DAILY [facility] Last Admin: 04/10/19 09:10 Dose: 100 mg Metoprolol Tartrate (Lopressor Injection -) 5 mg IVPUSH Q4H PRN PRN Reason: HYPERTENSION Last Admin: 03/31/19 16:30 Dose: 5 mg Metoprolol Tartrate (Lopressor -) 50 mg GT BID [facility] Last Admin: 04/10/19 09:10 Dose: 50 mg Nystatin (Mycostatin Cream -) 1 applic TP BID [facility] Last Admin: 04/10/19 09:11 Dose: 1 applic - Objective Vital Signs: Vital Signs Temperature 98.4 F 04/10/19 14:11 Pulse Rate 81 04/10/19 14:11 Respiratory Rate 04/10/19 14:11 Blood Pressure 135/65 04/10/19 14:11 O2 Sat by Pulse Oximetry (%) 100 04/10/19 09:00 Constitutional: Yes: Well Nourished, No Distress Eyes: Yes: Conjunctiva Clear, EOM Intact HENT: Yes: Atraumatic, Normocephalic Neck: Yes: Supple, Trachea Midline Cardiovascular: Yes: Regular Rate and Rhythm, S1, S2. No: Tachycardia, JVD, Murmur Respiratory: Yes: Regular, CTA Bilaterally (poor effort) Gastrointestinal: Yes: Normal Bowel Sounds, Soft Edema: No Labs: CBC, BMP 04/10/19 06:25 04/10/19 06:25 INR, PTT INR 1.08 (0.83-1.09) 03/29/19 08:07 Laboratory Tests 04/10/19 06:25 Magnesium 1.5 L Problem List - Problems (1) NSVT (nonsustained ventricular tachycardia) Code(s): I47.2 - VENTRICULAR TACHYCARDIA Assessment/Plan Pt with ho CVA requiring PEG and trach-now decanulated. Ho ASCVD with normal LV function. No recent ischemia or myocardial injury. Telemetry showing occasional and brief NSVT with occasional SVT. Labs are notabe for intermittent hypokalemia and hypomagnesemia. In this setting, likely eitiology is from CAD and electrolyte disturbence. LV function is normal and there is no recent myocardial insult. The following is advised: Correct low Mg>2 and keep K >4. Check phos level and correct if needed. Continue beta juan therapy. No indication for AICD or additional testing at this time. Will see as needed.
[2019-04-10] MEDS: ACETAMINOPHEN 650 MG/20.3 ML ORAL SOLUTION (CUPS) GT PRN (17:34)
[2019-04-10] MEDS: ATORVASTATIN CA 80 MG TABLET (FP) GT SCH (22:40)
[2019-04-10] MEDS: DOXAZOSIN MESYLATE 1 MG TABLET GT SCH (22:40)
[2019-04-11] MEDS ORDERED: PT OWN MED DRAWER 7, Y5N ONE ×2 (08:17→11:15)
[2019-04-11 08:25] LABS: BLOOD UREA NITROGEN 10.8 mg/dL (7-18); CALCIUM 8.8 mg/dL (8.5-10.1); CREATININE 0.6 mg/dL (0.55-1.3); MAGNESIUM 1.6 mg/dL (1.8-2.4); PHOSPHOROUS 3.2 mg/dL (2.5-4.9); POTASSIUM 4.1 mmol/L (3.5-5.1)
[2019-04-11] MEDS: AMOX TR/POTASSIUM CLAVULANATE 600 MG/5 ML GT SCH ×2 (08:34→17:35)
[2019-04-11] MEDS: ACETAMINOPHEN 650 MG/20.3 ML ORAL SOLUTION (CUPS) GT PRN ×2 (11:29→17:34)
[2019-04-11] MEDS ORDERED: MAGNESIUM SULF 50% (8.12 MEQ/2 ML-1 GM VIAL) IVPB ONE (11:30)
[2019-04-11] MEDS: ESCITALOPRAM OXALATE 5 MG/5 ML GT SCH (11:31)
[2019-04-11] MEDS: BACITRACIN 15 GM TUBE TOPICAL OINTMENT TP SCH ×2 (11:32→21:27)
[2019-04-11] MEDS: ASPIRIN 81 MG CHEWABLE TABLETS GT SCH (11:32)
[2019-04-11] MEDS: METOPROLOL TARTRATE 50 MG TABLET (FP) GT SCH ×2 (11:32→21:24)
[2019-04-11] MEDS: NYSTATIN 100,000 UNIT/GM TOPICAL CREAM 15 GM TUBE TP SCH ×2 (11:32→21:27)
[2019-04-11] MEDS: LOSARTAN POTASSIUM 50 MG TABLET (FP) GT SCH (11:32)
[2019-04-11] MEDS: HEPARIN NA (PORCINE) 5,000 UNITS/ML 1ML VIAL SQ SCH ×2 (11:33→21:25)
--- NOTE | 2019-04-11 12:47 | PN ---
Progress Note, Physician Chief Complaint: patient seen and examined in bed no distress - Current Medication List Current Medications: Active Medications Acetaminophen (Tylenol Oral Solution -) 650 mg GT Q4H PRN PRN Reason: PAIN OR FEVER Last Admin: 04/11/19 11:29 Dose: 650 mg Amoxicillin/Clavulanate Potassium (Augmentin 600 Mg/5 Ml Oral Suspension -) 600 mg GT BID@0800,1730 [facility] Last Admin: 04/11/19 08:34 Dose: 600 mg Aspirin (Asa -) 81 mg GT DAILY [facility] Last Admin: 04/11/19 11:32 Dose: 81 mg Atorvastatin Calcium (Lipitor -) 80 mg GT HS [facility] Last Admin: 04/10/19 22:40 Dose: 80 mg Bacitracin (Bacitracin -) 1 applic TP BID [facility] Last Admin: 04/11/19 11:32 Dose: 1 applic Doxazosin Mesylate (Cardura -) 1 mg GT HS [facility] Last Admin: 04/10/19 22:40 Dose: 1 mg Escitalopram Oxalate (Lexapro Oral Solution -) 10 mg GT DAILY [facility] Last Admin: 04/11/19 11:31 Dose: 10 mg Heparin Sodium (Porcine) (Heparin -) 5,000 unit SQ BID [facility] Last Admin: 04/11/19 11:33 Dose: 5,000 unit Losartan Potassium (Cozaar -) 100 mg GT DAILY [facility] Last Admin: 04/11/19 11:32 Dose: 100 mg Metoprolol Tartrate (Lopressor Injection -) 5 mg IVPUSH Q4H PRN PRN Reason: HYPERTENSION Last Admin: 03/31/19 16:30 Dose: 5 mg Metoprolol Tartrate (Lopressor -) 50 mg GT BID [facility] Last Admin: 04/11/19 11:32 Dose: 50 mg Nystatin (Mycostatin Cream -) 1 applic TP BID [facility] Last Admin: 04/11/19 11:32 Dose: 1 applic - Objective Vital Signs: Vital Signs Temperature 98.5 F 04/11/19 08:33 Pulse Rate 111 H 04/11/19 08:33 Respiratory Rate 19 04/11/19 08:33 Blood Pressure 157/76 04/11/19 08:33 O2 Sat by Pulse Oximetry (%) 100 04/10/19 21:00 Constitutional: Yes: Calm Neck: Yes: Other (trach) Cardiovascular: Yes: Regular Rate and Rhythm, S1, S2 Respiratory: Yes: Diminished, Poor Air Entry Gastrointestinal: Yes: Normal Bowel Sounds, Soft, Other (peg) Labs: CBC, BMP 04/10/19 06:25 04/11/19 06:00 INR, PTT INR 1.08 (0.83-1.09) 03/29/19 08:07 Problem List - Problems (1) Hypomagnesemia Assessment/Plan: repleted will recheck again later today and in [place] if ok then dc to [facility] Code(s): E83.42 - HYPOMAGNESEMIA (2) Hemiparesis affecting right side as late effect of cerebrovascular accident Assessment/Plan: PT Code(s): I69.351 - HEMIPLGA FOLLOWING CEREBRAL INFRC AFF RIGHT DOMINANT SIDE (3) Pneumonia Assessment/Plan: augmentin via g tube Code(s): J18.9 - PNEUMONIA, UNSPECIFIED ORGANISM (4) ASHD (arteriosclerotic heart disease) Assessment/Plan: aspirin lipitor metorprolol Code(s): I25.10 - ATHSCL HEART DISEASE OF [place] CORONARY ARTERY W/O ANG PCTRS
[2019-04-11] MEDS ORDERED: oxyCODONE/APAP 1 EACH - MUST ORDER COMBO PRODUCT NR ONE (20:37)
[2019-04-11] MEDS ORDERED: oxyCODONE/APAP 1 EACH - MUST ORDER COMBO PRODUCT NR STA (20:44)
[2019-04-11] MEDS ORDERED: ACETAMINOPHEN 325 MG TABLET (FP) PO ONE (20:45)
[2019-04-11] MEDS ORDERED: oxyCODONE HCL 5 MG TABLET PO ONE (20:45)
[2019-04-11] MEDS ORDERED: ACETAMINOPHEN 650 MG/20.3 ML ORAL SOLUTION (CUPS) GT ONE (21:00)
[2019-04-11] MEDS ORDERED: ACETAMINOPHEN 325 MG TABLET (FP) NR ONE (21:00)
[2019-04-11] MEDS ORDERED: oxyCODONE HCL 5 MG TABLET GT ONE (21:00)
[2019-04-11] MEDS: ATORVASTATIN CA 80 MG TABLET (FP) GT SCH (21:25)
[2019-04-11] MEDS: DOXAZOSIN MESYLATE 1 MG TABLET GT SCH (21:25)
[2019-04-12 07:35] LABS: BASO % 0.8 % (0-2.0); EOS % 6.4 % (0-4.5); HEMATOCRIT 26.3 % (35.4-49); HEMOGLOBIN 8.5 GM/dL (11.7-16.9); LYMPH % 25.6 % (8-40); MCH 28.9 pg (25.7-33.7); MCHC 32.3 g/dl (32.0-35.9); MEAN CELL VOLUME 89.5 fl (80-96); MEAN PLT VOLUME 8.6 fl (7.5-11.1); MONO % 10.5 % (3.8-10.2); NEUT % 56.7 % (42.8-82.8); PLATELET COUNT 148 K/MM3 (134-434); RBC 2.94 M/mm3 (4.00-5.60); RDW 17.1 % (11.9-15.9); WHITE BLOOD COUNT 4.4 K/mm3 (4.0-10.0)
[2019-04-12 07:56] LABS: ALBUMIN 2.3 g/dl (3.4-5.0); BILIRUBIN,TOTAL 0.6 mg/dL (0.2-1); BLOOD UREA NITROGEN 11.9 mg/dL (7-18); CALCIUM 8.9 mg/dL (8.5-10.1); CREATININE 0.7 mg/dL (0.55-1.3); MAGNESIUM 1.9 mg/dL (1.8-2.4); POTASSIUM 4.6 mmol/L (3.5-5.1); TOT PROT 6.2 g/dl (6.4-8.2)
[2019-04-12] MEDS ORDERED: PT OWN MED DRAWER 7, Y5N ONE (10:25)
[2019-04-12] MEDS: AMOX TR/POTASSIUM CLAVULANATE 600 MG/5 ML GT SCH ×2 (10:31→17:48)
[2019-04-12] MEDS: HEPARIN NA (PORCINE) 5,000 UNITS/ML 1ML VIAL SQ SCH ×2 (10:31→23:02)
[2019-04-12] MEDS: ASPIRIN 81 MG CHEWABLE TABLETS GT SCH (10:31)
[2019-04-12] MEDS: LOSARTAN POTASSIUM 50 MG TABLET (FP) GT SCH (10:31)
[2019-04-12] MEDS: METOPROLOL TARTRATE 50 MG TABLET (FP) GT SCH ×2 (10:31→23:01)
[2019-04-12] MEDS: NYSTATIN 100,000 UNIT/GM TOPICAL CREAM 15 GM TUBE TP SCH ×2 (10:32→23:02)
[2019-04-12] MEDS: BACITRACIN 15 GM TUBE TOPICAL OINTMENT TP SCH ×2 (10:32→23:02)
[2019-04-12] MEDS: ESCITALOPRAM OXALATE 5 MG/5 ML GT SCH (10:32)
--- NOTE | 2019-04-12 12:25 | PN ---
Progress Note, Physician Chief Complaint: in bed no distress - Current Medication List Current Medications: Active Medications Acetaminophen (Tylenol Oral Solution -) 650 mg GT Q4H PRN PRN Reason: PAIN OR FEVER Last Admin: 04/11/19 17:34 Dose: 650 mg Amoxicillin/Clavulanate Potassium (Augmentin 600 Mg/5 Ml Oral Suspension -) 600 mg GT BID@0800,1730 [facility] Last Admin: 04/12/19 10:31 Dose: 600 mg Aspirin (Asa -) 81 mg GT DAILY [facility] Last Admin: 04/12/19 10:31 Dose: 81 mg Atorvastatin Calcium (Lipitor -) 80 mg GT HS [facility] Last Admin: 04/11/19 21:25 Dose: 80 mg Bacitracin (Bacitracin -) 1 applic TP BID [facility] Last Admin: 04/12/19 10:32 Dose: 1 applic Doxazosin Mesylate (Cardura -) 1 mg GT HS [facility] Last Admin: 04/11/19 21:25 Dose: 1 mg Escitalopram Oxalate (Lexapro Oral Solution -) 10 mg GT DAILY [facility] Last Admin: 04/12/19 10:32 Dose: 10 mg Heparin Sodium (Porcine) (Heparin -) 5,000 unit SQ BID [facility] Last Admin: 04/12/19 10:31 Dose: 5,000 unit Losartan Potassium (Cozaar -) 100 mg GT DAILY [facility] Last Admin: 04/12/19 10:31 Dose: 100 mg Metoprolol Tartrate (Lopressor Injection -) 5 mg IVPUSH Q4H PRN PRN Reason: HYPERTENSION Last Admin: 03/31/19 16:30 Dose: 5 mg Metoprolol Tartrate (Lopressor -) 50 mg GT BID [facility] Last Admin: 04/12/19 10:31 Dose: 50 mg Nystatin (Mycostatin Cream -) 1 applic TP BID [facility] Last Admin: 04/12/19 10:32 Dose: 1 applic - Objective Vital Signs: Vital Signs Temperature 99.3 F 04/12/19 10:00 Pulse Rate 83 04/12/19 10:00 Respiratory Rate 19 04/12/19 10:00 Blood Pressure 132/61 04/12/19 10:00 O2 Sat by Pulse Oximetry (%) 99 04/12/19 09:00 Constitutional: Yes: Calm Cardiovascular: Yes: Regular Rate and Rhythm, S1 Respiratory: Yes: CTA Bilaterally Gastrointestinal: Yes: Normal Bowel Sounds, Soft Labs: CBC, BMP 04/12/19 06:50 04/12/19 06:50 INR, PTT INR 1.08 (0.83-1.09) 03/29/19 08:07 Problem List - Problems (1) Hypomagnesemia Assessment/Plan: corrected Code(s): E83.42 - HYPOMAGNESEMIA (2) Hemiparesis affecting right side as late effect of cerebrovascular accident Assessment/Plan: PT Code(s): I69.351 - HEMIPLGA FOLLOWING CEREBRAL INFRC AFF RIGHT [place]IN[place] SIDE (3) Pneumonia Assessment/Plan: augmentin via g tube Code(s): J18.9 - PNEUMONIA, UNSPECIFIED ORGANISM (4) ASHD (arteriosclerotic heart disease) Assessment/Plan: aspirin lipitor metorprolol Code(s): I25.10 - ATHSCL HEART DISEASE OF [place] CORONARY ARTERY W/O ANG PCTRS
--- NOTE | 2019-04-12 13:02 | PN ---
Progress Note (short form) - Note Progress Note: patient found on floor by the bedside tonny cancel discharge order order hip and pelvis xray Problem List - Problems (1) Hypomagnesemia Code(s): E83.42 - HYPOMAGNESEMIA (2) Hemiparesis affecting right side as late effect of cerebrovascular accident Code(s): I69.351 - HEMIPLGA FOLLOWING CEREBRAL INFRC AFF RIGHT DOMINANT SIDE (3) Pneumonia Code(s): J18.9 - PNEUMONIA, UNSPECIFIED ORGANISM (4) ASHD (arteriosclerotic heart disease) Code(s): I25.10 - ATHSCL HEART DISEASE OF [place] CORONARY ARTERY W/O ANG PCTRS
[2019-04-12] MEDS: ACETAMINOPHEN 650 MG/20.3 ML ORAL SOLUTION (CUPS) GT PRN (14:53)
[2019-04-12] MEDS: ATORVASTATIN CA 80 MG TABLET (FP) GT SCH (23:01)
[2019-04-12] MEDS: DOXAZOSIN MESYLATE 1 MG TABLET GT SCH (23:02)
[2019-04-13] MEDS: ACETAMINOPHEN 650 MG/20.3 ML ORAL SOLUTION (CUPS) GT PRN (04:47)
--- NOTE | 2019-04-13 10:52 | DS ---
Physical Examination Vital Signs: Vital Signs Temperature 98.8 F 04/13/19 05:00 Pulse Rate 77 04/13/19 05:00 Respiratory Rate 18 04/13/19 05:00 Blood Pressure 111/65 04/13/19 05:00 O2 Sat by Pulse Oximetry (%) 96 04/12/19 21:00 Cardiovascular: Yes: S1, S2 Respiratory: Yes: Regular, CTA Bilaterally Gastrointestinal: Yes: Normal Bowel Sounds, Soft Labs: CBC, BMP 04/12/19 06:50 04/12/19 06:50 Discharge Summary Reason For Visit: GI BLEED Current Active Problems CHF (congestive heart failure) (Acute) Colitis (Acute) GIB (gastrointestinal bleeding) (Acute) Hemiparesis affecting right side as late effect of cerebrovascular accident ( Acute) Hypomagnesemia (Acute) NSVT (nonsustained ventricular tachycardia) (Acute) Prophylactic measure (Acute) Hospital Course: (1) Hemiparesis affecting right side as late effect of cerebrovascular accident Assessment/Plan: Right hemiparesis will have PT follow patient while in patient at [facility] A CT head showed age indeterminate bilateral occipital ischemic infarcts without any signs of hemorrhage. TPA not given as he was outside the window. A CTA escape was notable for a diminutive irregular basilar artery. 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 The following day Mr Palm underwent basilar artery thrombectomy via the right groin Code(s): I69.351 - HEMIPLGA FOLLOWING CEREBRAL INFRC AFF RIGHT DOMINANT SIDE (2) Respiratory failure Assessment/Plan: at [facility] Mr Palm was noted to have worsening deficits such that he was nearly locked-in. He was intubated on 02/20 for airway protection and completed a course of antibiotics for aspiration pneumonia. He received tracheostomy on 03/08. s/p PEG Course was further complicated by fever on 03/08. Respiratory cultures grew pseudomonas and he completed an additional course of antibiotics for presumed ventilator associated pneumonia. now pt off vent (3) GIB (gastrointestinal bleeding) Assessment/Plan: Pt tachycardic on arrival to ED-2L NS bolus given BP soft 95/70 CTAP: asymmetric thickening of the distal rectum/ anal verge oral contrast present throughout transverse, descending and rectosigmoid colon likely from prior study on 03/23/19, consistent with colotis GI-NOTED CBC GI FOLLOW UP noted Code(s): K92.2 - GASTROINTESTINAL HEMORRHAGE, UNSPECIFIED (4) Thrombus Assessment/Plan: vascular consult [facility] course There was ? LUE DVT and was getting warm compresses but duplex was neg. ?? superficial thrombosis Post-op course was complicated by concern for lower extremity popliteal artery embolus but follow up vascular studies showed normal distal flow and no evidence of acute or chronic aortic aneurysm.Chronic b/l lower extremity occlusion --was seen by vascular team there Patient was discharged from [facility] on 03/19 on ASA 81mg and lovenox 40mg SC ? was on plavix during that admission There was ? LUE DVT and was getting warm compresses but duplex 02/26 was neg. ?? superficial thrombosis asa if ok with gi (5) HLD (hyperlipidemia) Assessment/Plan: c/w atorvastatin Code(s): E78.5 - HYPERLIPIDEMIA, UNSPECIFIED Qualifiers: Hyperlipidemia type: pure hypercholesterolemia Qualified Code(s): E78.00 - Pure hypercholesterolemia, unspecified; E78.0 - Pure hypercholesterolemia (6) HTN (hypertension) Assessment/Plan: presently hyoptensive will hold metoprolol & losaartan Code(s): I10 - ESSENTIAL (PRIMARY) HYPERTENSION Qualifiers: Hypertension type: unspecified Qualified Code(s): I10 - Essential (primary ) hypertension (7) Retention Flomax cardura (8) DVT? Assessment/Plan: on eliquis at home, will hold to start any anticoagulation ONCE CLEARED BY GI Obtain records from [facility] (9) Anemia Elevated ferritin hem consult (10) Fever Assessment/Plan: Cultures neg cxr \id consult start abx (11) Leg wound Assessment/Plan: local care abx (12) Diarrhea Assessment/Plan: dc miralax cdif al care abx (13) Vevtricular arrythmia Assessment/Plan: In setting of low k and mag replace lytes cardio once cleared by cardio then dc to snf Condition: Improved Condition: Improved - Instructions Disposition: [facility] - Home Medications Comprehensive Discharge Medication List: Ambulatory Orders Acetaminophen [Tylenol] 650 mg GT Q4H PRN 03/22/19 Atorvastatin Ca [Lipitor] 80 mg GT HS 03/22/19 Losartan Potassium [Cozaar] 100 mg GT DAILY 03/22/19 Metoprolol Tartrate [Lopressor -] 50 mg GT BID 03/22/19 Bacitracin - [Bacitracin Topical Ointment -] 1 applic TP BID tube 04/02/19 Nystatin Cream [Mycostatin Cream -] 1 applic TP BID applic 04/02/19 Acetaminophen Oral Solution [Tylenol Oral Solution -] 650 mg GT Q4H PRN soln.oral 04/08/19 Aspirin Coated [Ecotrin -] 81 mg PO DAILY tablet.ec 04/08/19 Cefuroxime Axetil [Ceftin -] 500 mg PO Q12H #10 tablet 04/08/19 Duloxetine HCl [Cymbalta -] 20 mg PO DAILY capsule. 04/08/19 Heparin - 5,000 unit SQ BID vial 04/08/19 Pantoprazole Sodium [Protonix -] 40 mg PO DAILY tablet.ec 04/08/19 Polyethylene Glycol 3350 [Miralax 119 gm Btl -] 17 gm GT DAILY bottle 04/08/19 Tamsulosin HCl [Flomax -] 0.4 mg PO DAILY@0830 cap.er.24h 04/08/19
[2019-04-13 12:20] LABS: ALBUMIN 2.4 g/dl (3.4-5.0); BILIRUBIN,TOTAL 0.6 mg/dL (0.2-1); BLOOD UREA NITROGEN 12.9 mg/dL (7-18); CALCIUM 9.2 mg/dL (8.5-10.1); CREATININE 0.6 mg/dL (0.55-1.3); POTASSIUM 4.1 mmol/L (3.5-5.1); TOT PROT 6.3 g/dl (6.4-8.2)
[2019-04-13 12:24] LABS: BASO % 0.7 % (0-2.0); EOS % 3.9 % (0-4.5); HEMATOCRIT 26.9 % (35.4-49); HEMOGLOBIN 8.9 GM/dL (11.7-16.9); LYMPH % 24.3 % (8-40); MCH 29.2 pg (25.7-33.7); MCHC 33.1 g/dl (32.0-35.9); MEAN CELL VOLUME 88.3 fl (80-96); MEAN PLT VOLUME 8.6 fl (7.5-11.1); MONO % 10.6 % (3.8-10.2); NEUT % 60.5 % (42.8-82.8); PLATELET COUNT 149 K/MM3 (134-434); RBC 3.05 M/mm3 (4.00-5.60); RDW 16.8 % (11.9-15.9); WHITE BLOOD COUNT 4.5 K/mm3 (4.0-10.0)
[2019-04-13 14:12] VITALS: BP 157/83; PULSE 93; TEMP 98.7
[2019-04-13] MEDS: BACITRACIN 15 GM TUBE TOPICAL OINTMENT TP SCH (15:46)
[2019-04-13] MEDS: LOSARTAN POTASSIUM 50 MG TABLET (FP) GT SCH (15:46)
[2019-04-13] MEDS: AMOX TR/POTASSIUM CLAVULANATE 600 MG/5 ML GT SCH (15:46)
[2019-04-13] MEDS: NYSTATIN 100,000 UNIT/GM TOPICAL CREAM 15 GM TUBE TP SCH (15:46)
[2019-04-13] MEDS: ESCITALOPRAM OXALATE 5 MG/5 ML GT SCH (15:46)
[2019-04-13] MEDS: ASPIRIN 81 MG CHEWABLE TABLETS GT SCH (15:46)
[2019-04-13] MEDS: METOPROLOL TARTRATE 50 MG TABLET (FP) GT SCH (15:46)
[2019-04-13 18:04] LABS: ANISOCYTOSIS 1+; PLATELET ESTIMATE DECREASED
== END 2019-04-13 19:27 | DRG 377 ==
LOC: JER 07:44 → JERBED 17:55 → J4S 21:25
PROVIDERS: ADMIT Family Medicine; ATTEND Family Medicine
PROC: 3E0G76Z Introduction of Nutritional Substance into Upper GI, Via Natural or Artificial Opening (ICD-10-PCS; principal; 2019-03-29)
DX: K92.2 Gastrointestinal hemorrhage, unspecified (principal); J69.0 Pneumonitis due to inhalation of food and vomit; I50.33 Acute on chronic diastolic (congestive) heart failure; I69.351 Hemiplegia and hemiparesis following cerebral infarction affecting right dominant side; I47.2 Ventricular tachycardia; I25.10 Atherosclerotic heart disease of native coronary artery without angina pectoris; I11.0 Hypertensive heart disease with heart failure; E78.5 Hyperlipidemia, unspecified; Z93.1 Gastrostomy status; Z93.0 Tracheostomy status; I69.320 Aphasia following cerebral infarction; R19.7 Diarrhea, unspecified; I49.9 Cardiac arrhythmia, unspecified; E87.6 Hypokalemia; E83.42 Hypomagnesemia; Z86.718 Personal history of other venous thrombosis and embolism
CPT/HCPCS: 36415; 36430; 36511; 70450-TC; 71045-TC-FY; 72100-TC-FY; 73523-TC-FY; 74174-TC; 74230-TC-FY; 76775-TC; 80048; 80053; 81003; 82150; 82272; 82550; 82607; 82728; 82962; 83540; 83550; 83605; 83690; 83735; 83880; 84100; 84443; 84484; 85025; 85027; 85610; 85730; 86593; 86850; 86900; 86901; 86922; 87040; 87086; 87324; 87449; 92611-GN; 93005; 93010; 93306-TC; 97116-GP; 97161-GP; 99285-25; J0131; J1644; J7030; P9038; P9058

== ENCOUNTER 2019-05-01 09:23 | Emergency (ER) | payer OTHER ==
[2019-05-01 09:57] VITALS: BMI 22.1
--- NOTE | 2019-05-01 11:59 | PDOC ---
Documentation entered by Ruth Ramos SCRIBE, acting as scribe for Deb Nelson MD. Deb Nelson MD: This documentation has been prepared by the Rachel mehta Adrianna, SCRIBE, under my direction and personally reviewed by me in its entirety. I confirm that the documentation accurately reflects all work, treatment, procedures, and medical decision making performed by me. 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 Patient notes he was in bed earlier this morning and his railing was loose, calling him to fall. Patient notes he fell out onto his knees on the tile floor. He denies hitting his head or LOC. Patient was found on the floor shortly after by the [facility] staff. He complains of right knee pain secondary to the fall, but otherwise has no complaints. Denies head pain, neck pain, chest pain, SOB, fever, chills, nausea, vomit, diarrhea, constipation, dysuria, hematuria. Allergies: NKA, NKDA Surgical History: Hernia repair, PEG tube Social History: No toxic habits PCP: Dr. Raza Past History - Past Medical History Allergies/Adverse Reactions: Allergies Allergy/AdvReac Type Severity Reaction Status Date / Time No Known Allergies Allergy Verified 03/29/19 07:48 Home Medications: Ambulatory Orders Acetaminophen [Tylenol] 650 mg GT Q4H PRN 03/22/19 Atorvastatin Ca [Lipitor] 80 mg GT HS 03/22/19 Losartan Potassium [Cozaar] 100 mg GT DAILY 03/22/19 Metoprolol Tartrate [Lopressor -] 50 mg GT BID 03/22/19 Bacitracin - [Bacitracin Topical Ointment -] 1 applic TP BID tube 04/02/19 Nystatin Cream [Mycostatin Cream -] 1 applic TP BID applic 04/02/19 Acetaminophen Oral Solution [Tylenol Oral Solution -] 650 mg GT Q4H PRN soln.oral 04/08/19 Aspirin Coated [Ecotrin -] 81 mg PO DAILY tablet.ec 04/08/19 Cefuroxime Axetil [Ceftin -] 500 mg PO Q12H #10 tablet 04/08/19 Duloxetine HCl [Cymbalta -] 20 mg PO DAILY capsule. 04/08/19 Heparin - 5,000 unit SQ BID vial 04/08/19 Pantoprazole Sodium [Protonix -] 40 mg PO DAILY tablet.ec 04/08/19 Polyethylene Glycol 3350 [Miralax 119 gm Btl -] 17 gm GT DAILY bottle 04/08/19 Tamsulosin HCl [Flomax -] 0.4 mg PO DAILY@0830 cap.er.24h 04/08/19 Anemia: No Asthma: No Cancer: No Cardiac Disorders: No CVA: Yes (RT HEMIPLEGIT) COPD: No CHF: Yes GI Disorders: Yes (GT PLACED) HTN: Yes Hypercholesterolemia: Yes - Surgical History Abdominal Surgery: Yes (HERNIA, PEG) - Suicide/Smoking/Psychosocial Hx Smoking History: Unknown if ever smoked Have you smoked in the past 12 months: Yes Hx Alcohol Use: No Drug/Substance Use Hx: No Substance Use Type: None Review of Systems - Review of Systems Comments:: GENERAL/CONSTITUTIONAL: +S/p unwitnessed fall. No fever or chills. No weakness. HEAD, EYES, EARS, NOSE AND THROAT: No change in vision. No ear pain or discharge. No sore throat. CARDIOVASCULAR: No chest pain or shortness of breath. RESPIRATORY: No cough, wheezing, or hemoptysis. GASTROINTESTINAL: No nausea, vomiting, diarrhea or constipation. GENITOURINARY: No dysuria, frequency, or change in urination. MUSCULOSKELETAL: +Right knee pain. No joint or muscle swelling. No neck or back pain. SKIN: No rash NEUROLOGIC: No headache, vertigo, loss of consciousness, or change in strength/ sensation. ENDOCRINE: No increased thirst. No abnormal weight change. HEMATOLOGIC/LYMPHATIC: No anemia, easy bleeding, or history of blood clots. ALLERGIC/IMMUNOLOGIC: No hives or skin allergy. *Physical Exam - Vital Signs Last Vital Signs Temp Pulse Resp BP Pulse Ox 97.7 F 93 H 18 155/73 97 05/01/19 09:37 05/01/19 09:37 05/01/19 09:37 05/01/19 09:37 05/01/19 09:37 - Physical Exam Comments: GENERAL: +Slurred speech. The patient is awake, alert, and oriented, in no acute distress. HEAD: Normal with no signs of trauma. EYES: PERRLA, EOMI, sclera anicteric, conjunctiva clear. ENT: Ears normal, nares patent, oropharynx clear without exudates. Moist mucous membranes. NECK: Normal range of motion, supple without lymphadenopathy, JVD, or masses. LUNGS: Breath sounds equal, clear to auscultation bilaterally. No wheezes, and no crackles. HEART:+Murmur throughout the precordium 3/6. Regular rate and rhythm, normal S1 and S2 without rub or gallop. ABDOMEN: +G-Tube in place, clean without blood. Soft, nontender, normoactive bowel sounds. No guarding, no rebound. No masses palpable. EXTREMITIES: Normal range of motion, no edema. No clubbing or cyanosis. No erythema, or tenderness. NEUROLOGICAL: Cranial nerves II through XII grossly intact. Normal speech. No focal neurological deficits. MUSCULOSKELETAL: Back nontender to palpation, no CVA tenderness SKIN: Warm, Dry, normal turgor, no rashes or lesions noted. ED Treatment Course - LABORATORY CBC & Chemistry Diagram: 05/01/19 12:15 05/01/19 12:15 - RADIOLOGY Radiology Studies Ordered: Category Date Time Status CERVICAL SPINE CT W/O CONTR [CT] Stat CT Scan 05/01/19 10:[address] WITHOUT CONTRAST [CT] Stat CT Scan 05/01/19 10:33 Ordered HIP & PELVIS-RIGHT [RAD] Stat Radiology 05/01/19 10:33 Ordered KNEE 3 POS-RIGHT [RAD] Stat Radiology 05/01/19 10:33 Ordered Radiograph Interpretation: EXAM#: TYPE/EXAM: RESULT: [id number] RAD/HIP PELVIS-RIGHT Status post fall. The visualized osseous structures appear intact. No acute bony abnormalities are seen. Symmetrical bony trabecular pattern is seen in proximal femur bilaterally. Symmetrical articulation of the hip joints. Normal contour of the femoral heads. No interval change in comparison to April 12, 2019. Clinical correlation. Reported By: Teddy Heath MD 05/01/19 13:48 EXAM#: TYPE/EXAM: RESULT: [id number] RAD/KNEE 3 POS-RIGHT Status post fall. Impression. Extensive osteoarthritis involving the medial tibiofemoral joint compartment, patellofemoral for joint compartment. Small suprapatellar joint effusion. No acute bony abnormalities are seen Reported By: Teddy Heath MD 05/01/19 13:54 EXAM#: TYPE/EXAM: RESULT: [id number] CT/CERVICAL SPINE CT W/O CONTR Status post fall with head trauma IMPRESSION: The alignment is satisfactory. No gross fracture or subluxation is seen. No jumped facets are identified. Multilevel degenerative disc disease with anterior and posterior spur formation at its most prominent at C7-T1 level reaching and probably minimally indenting anterior surface of the cervical cord with uncovertebral hypertrophy moderately narrowing the foramina, right more the left likely impinging right C8 nerve root. Correlate clinically. There is also moderate narrowing of the right foramen at C6-C7 level. Reported By: Maryjane Tovar MD 05/01/19 14:00 EXAM#: TYPE/EXAM: RESULT: [id number] CT/HEAD CT WITHOUT CONTRAST Status post fall with head trauma IMPRESSION: No significant interval change or acute intracranial pathology is identified. No intracranial hemorrhage is seen Reported By: Maryjane Tovar MD 05/01/19 14:00 Medical Decision Making - Medical Decision Making 05/01/19 10:37 Mr. Palm is a 64 yo man with a PMHx of HTN, HLD, CAD, diastolic CHF, CVA with right hemiplegia, with sotelo and PEG Pt tells me that he had a fall from the bed because the bed railing was loose No head trauma He states he struck his knees He complains only of right knee pain Will do CT head, CT c spine, xrays Basic labs Re Assess Pt medication list does not reflect Anticoagulants 05/01/19 11:58 EKG: ST rate of 108 bpm, axis nml, intervals nml, no st elevation or depression, t wave inversion v6, I, aVL (pt has lateral t wave inversions) 05/01/19 12:00 05/01/19 14:58 Laboratory Tests 05/01/19 05/01/19 05/01/19 12:15 12:15 12:15 WBC 4.5 Hgb 12.3 Hct 32.9 L D Plt Count 204 D INR BUN 31.0 H Creatinine 0.9 Calcium 10.2 H Creatine Kinase 122 Troponin I 0.03 05/01/19 12:15 WBC Hgb Hct Plt Count INR 1.10 H BUN Creatinine Calcium Creatine Kinase Troponin I Pt appears dehydrated Calcium slightly elevated Corrected calcium is 10.8 Will give gentle hydration while patient waiting for [facility] *DC/Admit/Observation/Transfer Diagnosis at time of Disposition: Fall from bed Qualifiers: Encounter type: initial encounter Qualified Code(s): W06.XXXA - Fall from bed, initial encounter - Discharge Dispostion Disposition: [facility] Condition at time of disposition: Stable Decision to Admit order: No - Referrals Referrals: Thomas Raza MD [Primary Care Provider] - - Patient Instructions Printed Discharge Instructions: How to Prevent Falls Additional Instructions: Thank you for sending Néstor to the ER His imaging did not show any acute changes Please monitor for any changes Mr. Palm seems to be dehydrated, please consider increasing his hydration His labs should be repeated within a few days - specifically his Calcium, BUN and Creatinine If you notice anything concerning, please return him to the ER - Post Discharge Activity
[2019-05-01 12:39] LABS: BASO % 0.7 % (0-2.0); EOS % 4.3 % (0-4.5); HEMATOCRIT 32.9 % (35.4-49); HEMOGLOBIN 12.3 GM/dL (11.7-16.9); LYMPH % 24.8 % (8-40); MCH 36.7 pg (25.7-33.7); MCHC 37.4 g/dl (32.0-35.9); MEAN CELL VOLUME 98.3 fl (80-96); MEAN PLT VOLUME 8.8 fl (7.5-11.1); MONO % 7.1 % (3.8-10.2); NEUT % 63.1 % (42.8-82.8); PLATELET COUNT 204 K/MM3 (134-434); RBC 3.34 M/mm3 (4.00-5.60); RDW 15.7 % (11.9-15.9); WHITE BLOOD COUNT 4.5 K/mm3 (4.0-10.0)
[2019-05-01 12:57] LABS: INR 1.1 (0.83-1.09)
[2019-05-01 13:00] LABS: ALBUMIN 3.2 g/dl (3.4-5.0); BILIRUBIN,TOTAL 1.1 mg/dL (0.2-1); CALCIUM 10.2 mg/dL (8.5-10.1); CREATININE 0.9 mg/dL (0.55-1.3); TOT PROT 8.3 g/dl (6.4-8.2)
[2019-05-01] MEDS ORDERED: SODIUM CHLORIDE 250 ML IV STA (15:00)
--- NOTE | 2019-05-01 15:07 | EKG ---
Test Reason : Blood Pressure : / mmHG Vent. Rate : 108 BPM Atrial Rate : 108 BPM P-R Int : 178 ms QRS Dur : 088 ms QT Int : 326 ms P-R-T Axes : 036 018 101 degrees QTc Int : 436 ms SINUS TACHYCARDIA WITH OCCASIONAL PREMATURE VENTRICULAR COMPLEXES POSSIBLE LEFT ATRIAL ENLARGEMENT T WAVE ABNORMALITY, CONSIDER LATERAL ISCHEMIA ABNORMAL ECG WHEN COMPARED WITH ECG OF 02-APR-2019 14:11, NONSPECIFIC T WAVE ABNORMALITY HAS REPLACED INVERTED T WAVES IN INFERIOR LEADS T WAVE INVERSION NO LONGER EVIDENT IN ANTERIOR LEADS Confirmed by JUAN JOSE CASAS, JACQUES ([id number]) on 05/01/2019 3:07:20 PM Referred By: Confirmed By:JACQUES INGRAM MD
[2019-05-01 16:43] VITALS: BP 126/78; PULSE 68; TEMP 98.5
== END 2019-05-01 18:18 ==
LOC: JER 09:23
DX: M25.561 Pain in right knee (principal); W06.XXXA Fall from bed, initial encounter; Y93.89 Activity, other specified; Y92.122 Bedroom in nursing home as the place of occurrence of the external cause; Y99.8 Other external cause status; I25.10 Atherosclerotic heart disease of native coronary artery without angina pectoris; I11.0 Hypertensive heart disease with heart failure; I50.9 Heart failure, unspecified; E78.5 Hyperlipidemia, unspecified; I69.851 Hemiplegia and hemiparesis following other cerebrovascular disease affecting right dominant side; E78.00 Pure hypercholesterolemia, unspecified; Z93.1 Gastrostomy status
CPT/HCPCS: 36415; 70450-TC; 72125-TC; 73523-TC-FY; 73562-TC-RT-FY; 80053; 82550; 84484; 85025; 85610; 86850; 86900; 86901; 93005; 93010; 99284-25

== ENCOUNTER 2022-07-17 16:44 | Observation (INO) | payer BC, OTHER ==
[2022-07-17 20:07] LABS: HEMATOCRIT 44.5 % (35.4-49); HEMOGLOBIN 14.4 GM/dL (11.7-16.9); MCH 27.6 pg (25.7-33.7); MCHC 32.3 g/dl (32.0-35.9); MEAN CELL VOLUME 85.6 fl (80-96); MEAN PLT VOLUME 10.6 fl (7.5-11.1); PLATELET COUNT 194 10^3/uL (134-434); RDW 13.9 % (11.9-15.9)
[2022-07-17 20:14] LABS: ALBUMIN 3.6 g/dl (3.4-5.0); BLOOD UREA NITROGEN 21.6 mg/dL (7-18); CALCIUM 9.5 mg/dL (8.5-10.1)
[2022-07-17 20:17] LABS: CREATININE 1.5 mg/dL (0.55-1.3)
[2022-07-17 20:19] LABS: BILIRUBIN,TOTAL 0.7 mg/dL (0.2-1); TOT PROT 7.2 g/dl (6.4-8.2)
[2022-07-17 20:22] LABS: N-TERMINAL BNP 464.4 pg/ml (5-125)
[2022-07-17 21:02] LABS: ANISOCYTOSIS 0; MACROCYTOSIS 0; PLATELET ESTIMATE NORMAL
[2022-07-18] MEDS ORDERED: ARTIFICIAL TEARS (POLYVINYL ALCOHOL) OPTH DROPS OU PRN (06:15)
[2022-07-18 08:56] LABS: BASO % 0.8 % (0-2.0); EOS % 12.5 % (0-4.5); HEMATOCRIT 42.1 % (35.4-49); HEMOGLOBIN 13.5 GM/dL (11.7-16.9); LYMPH % 44.3 % (8-40); MCH 27.1 pg (25.7-33.7); MEAN CELL VOLUME 84.7 fl (80-96); MEAN PLT VOLUME 9.3 fl (7.5-11.1); MONO % 6.9 % (3.8-10.2); NEUT % 35.5 % (42.8-82.8); PLATELET COUNT 123 10^3/uL (134-434); RBC 4.97 M/mm3 (4.00-5.60); RDW 13.8 % (11.9-15.9); WHITE BLOOD COUNT 4.7 K/mm3 (4.0-10.0)
[2022-07-18 09:18] LABS: ALBUMIN 3.7 g/dl (3.4-5.0); BLOOD UREA NITROGEN 18.2 mg/dL (7-18); CALCIUM 9.5 mg/dL (8.5-10.1); MAGNESIUM 1.9 mg/dL (1.8-2.4)
[2022-07-18 09:19] LABS: TOT PROT 7.4 g/dl (6.4-8.2)
[2022-07-18 09:20] LABS: BILIRUBIN,TOTAL 1.4 mg/dL (0.2-1)
[2022-07-18 09:21] LABS: CREATININE 1.3 mg/dL (0.55-1.3)
[2022-07-18] MEDS ORDERED: methylPREDNISolone NA SUCC 40 MG/1 ML VIAL IVPUSH SCH (10:00)
[2022-07-18] MEDS: hydrALAZINE HCL 25 MG TABLET (FP) PO SCH ×2 (12:58→21:20)
[2022-07-18] MEDS: ASCORBIC ACID 500 MG TABLET (FP) PO SCH ×2 (13:01→21:20)
[2022-07-18] MEDS: CHOLECALCIFEROL (VIT D3) 1,000 UNIT (25 MCG) TABLET PO SCH (13:01)
[2022-07-18] MEDS: METOPROLOL TARTRATE 50 MG TABLET (FP) PO SCH ×2 (13:01→21:23)
[2022-07-18] MEDS: ASPIRIN 81 MG CHEWABLE TABLETS PO SCH (13:01)
[2022-07-18] MEDS: amLODIPine BESYLATE 5 MG TABLET (FP) PO SCH (13:01)
[2022-07-18 14:52] LABS: EPI CELLS 3 /uL (0-25.1); HYALINE CASTS 0 /uL (0-3.1); PH,URINE 5.5 (5.0-8.0); URINE APPEARANCE CLEAR; URINE BACTERIA 511 /uL (0-1359); URINE BILIRUBIN NEGATIVE (NEGATIVE); URINE COLOR YELLOW; URINE GLUCOSE (UA) NEGATIVE (NEGATIVE); URINE KETONE NEGATIVE (NEGATIVE); URINE LEUK ESTERASE 1+ (NEGATIVE); URINE NITRITE NEGATIVE (NEGATIVE); URINE PROTEIN NEGATIVE (NEGATIVE); URINE RBC 9 /uL (0-23.9); URINE UROBILINOGEN 0.2 mg/dL (0.2-1.0); URINE WBC 12 /uL (0-25.8)
[2022-07-18] MEDS: FUROSEMIDE 20 MG TABLET (FP) PO SCH (15:15)
[2022-07-18] MEDS: ALBUTEROL SO4 2.5/IPRATROPIUM 0.5 INH SOL 3 ML VIAL.NEB. NEB SCH ×3 (15:18→19:30)
[2022-07-18] MEDS: ATORVASTATIN CA 20 MG TABLET (FP) PO SCH (21:20)
[2022-07-18] MEDS: LATANOPROST 0.005% OPHTH SOLN 2.5ML BOTTLE OU SCH (22:23)
[2022-07-18] MEDS: traZODone HCL 50 MG TABLET (FP) PO SCH (22:23)
[2022-07-19] MEDS: ALBUTEROL SO4 2.5/IPRATROPIUM 0.5 INH SOL 3 ML VIAL.NEB. NEB SCH ×4 (08:30→21:48)
[2022-07-19] MEDS: ASPIRIN 81 MG CHEWABLE TABLETS PO SCH (10:14)
[2022-07-19] MEDS: hydrALAZINE HCL 25 MG TABLET (FP) PO SCH ×2 (10:14→21:23)
[2022-07-19] MEDS: CHOLECALCIFEROL (VIT D3) 1,000 UNIT (25 MCG) TABLET PO SCH (10:15)
[2022-07-19] MEDS: ASCORBIC ACID 500 MG TABLET (FP) PO SCH ×2 (10:15→21:23)
[2022-07-19] MEDS: METOPROLOL TARTRATE 50 MG TABLET (FP) PO SCH ×2 (10:15→21:23)
[2022-07-19] MEDS: amLODIPine BESYLATE 5 MG TABLET (FP) PO SCH (10:15)
[2022-07-19] MEDS: FUROSEMIDE 20 MG TABLET (FP) PO SCH (11:28)
[2022-07-19 16:19] LABS: CALCIUM 9.3 mg/dL (8.5-10.1)
[2022-07-19 16:20] LABS: ALBUMIN 3.5 g/dl (3.4-5.0); BLOOD UREA NITROGEN 22.4 mg/dL (7-18)
[2022-07-19 16:23] LABS: CREATININE 1.6 mg/dL (0.55-1.3)
[2022-07-19 16:24] LABS: BILIRUBIN,TOTAL 0.8 mg/dL (0.2-1)
[2022-07-19 19:22] LABS: CALCIUM 9.8 mg/dL (8.5-10.1)
[2022-07-19 19:23] LABS: ALBUMIN 3.9 g/dl (3.4-5.0); MAGNESIUM 2.1 mg/dL (1.8-2.4)
[2022-07-19 19:25] LABS: PHOSPHOROUS 3.2 mg/dL (2.5-4.9)
[2022-07-19 19:26] LABS: CREATININE 1.6 mg/dL (0.55-1.3)
[2022-07-19 19:27] LABS: BILIRUBIN,TOTAL 0.8 mg/dL (0.2-1); TOT PROT 7.8 g/dl (6.4-8.2)
[2022-07-19] MEDS: traZODone HCL 50 MG TABLET (FP) PO SCH (21:23)
[2022-07-19] MEDS: ATORVASTATIN CA 20 MG TABLET (FP) PO SCH (21:23)
[2022-07-19] MEDS: LATANOPROST 0.005% OPHTH SOLN 2.5ML BOTTLE OU SCH (21:23)
[2022-07-20] MEDS: ALBUTEROL SO4 2.5/IPRATROPIUM 0.5 INH SOL 3 ML VIAL.NEB. NEB SCH ×4 (08:50→20:34)
[2022-07-20] MEDS: ASCORBIC ACID 500 MG TABLET (FP) PO SCH ×2 (10:36→21:32)
[2022-07-20] MEDS: FUROSEMIDE 20 MG TABLET (FP) PO SCH (10:36)
[2022-07-20] MEDS: amLODIPine BESYLATE 5 MG TABLET (FP) PO SCH (10:36)
[2022-07-20] MEDS: CHOLECALCIFEROL (VIT D3) 1,000 UNIT (25 MCG) TABLET PO SCH (10:36)
[2022-07-20] MEDS: hydrALAZINE HCL 25 MG TABLET (FP) PO SCH ×2 (10:36→21:32)
[2022-07-20] MEDS: ASPIRIN 81 MG CHEWABLE TABLETS PO SCH (10:36)
[2022-07-20] MEDS: METOPROLOL TARTRATE 50 MG TABLET (FP) PO SCH ×2 (10:36→21:32)
[2022-07-20 14:08] VITALS: BMI 39.4
[2022-07-20 18:06] VITALS: RESP 18
[2022-07-20] MEDS ORDERED: SENNOSIDES 8.6MG TABLET (FP) PO PRN (20:56)
[2022-07-20] MEDS: traZODone HCL 50 MG TABLET (FP) PO SCH (21:32)
[2022-07-20] MEDS: ATORVASTATIN CA 20 MG TABLET (FP) PO SCH (21:32)
[2022-07-20] MEDS: LATANOPROST 0.005% OPHTH SOLN 2.5ML BOTTLE OU SCH (21:33)
[2022-07-21] MEDS: ALBUTEROL SO4 2.5/IPRATROPIUM 0.5 INH SOL 3 ML VIAL.NEB. NEB SCH ×2 (09:00→13:27)
[2022-07-21 09:29] LABS: ALBUMIN 3.8 g/dl (3.4-5.0); BLOOD UREA NITROGEN 22.6 mg/dL (7-18); CALCIUM 9.8 mg/dL (8.5-10.1)
[2022-07-21 09:31] LABS: CREATININE 1.4 mg/dL (0.55-1.3)
[2022-07-21] MEDS: CHOLECALCIFEROL (VIT D3) 1,000 UNIT (25 MCG) TABLET PO SCH (09:32)
[2022-07-21] MEDS: hydrALAZINE HCL 25 MG TABLET (FP) PO SCH (09:32)
[2022-07-21] MEDS: FUROSEMIDE 20 MG TABLET (FP) PO SCH (09:32)
[2022-07-21] MEDS: amLODIPine BESYLATE 5 MG TABLET (FP) PO SCH (09:32)
[2022-07-21] MEDS: METOPROLOL TARTRATE 50 MG TABLET (FP) PO SCH (09:32)
[2022-07-21] MEDS: ASPIRIN 81 MG CHEWABLE TABLETS PO SCH (09:32)
[2022-07-21] MEDS: ASCORBIC ACID 500 MG TABLET (FP) PO SCH (09:33)
[2022-07-21 09:34] LABS: BILIRUBIN,TOTAL 1.3 mg/dL (0.2-1); TOT PROT 7.7 g/dl (6.4-8.2)
[2022-07-21] MEDS ORDERED: POLYETHYLENE GLYCOL (HEALTHYLAX) 3350 17 GM PACKET PO SCH (10:00)
[2022-07-21 14:09] VITALS: BP 128/70; PULSE 80; TEMP 98.4
== END 2022-07-21 14:51 ==
LOC: JER 16:44 → JERBED 22:11 → J6W 07-18 11:37
PROVIDERS: ADMIT Internal Medicine; ATTEND Family Medicine
PROC: 3E0337Z Introduction of Electrolytic and Water Balance Substance into Peripheral Vein, Percutaneous Approach (ICD-10-PCS; principal; 2022-07-17)
DX: J18.9 Pneumonia, unspecified organism (principal); I11.0 Hypertensive heart disease with heart failure; I25.10 Atherosclerotic heart disease of native coronary artery without angina pectoris; I50.30 Unspecified diastolic (congestive) heart failure; R94.31 Abnormal electrocardiogram [ECG] [EKG]; J44.9 Chronic obstructive pulmonary disease, unspecified; R07.9 Chest pain, unspecified; I69.351 Hemiplegia and hemiparesis following cerebral infarction affecting right dominant side; E66.8 Other obesity; Z68.39 Body mass index [BMI] 39.0-39.9, adult; E78.5 Hyperlipidemia, unspecified; Z99.81 Dependence on supplemental oxygen; Z20.822 Contact with and (suspected) exposure to COVID-19
CPT/HCPCS: 0241U-QW; 36415; 71045-TC-FY; 71250-TC; 76775-TC; 80053; 80061; 81003; 83735; 83880; 84100; 84443; 84484; 85025; 93005; 93010; 94640; 96374; 99285-25; G0378

== ENCOUNTER 2023-01-24 21:45 | Observation (INO) | payer BC, OTHER ==
[2023-01-24 21:57] VITALS: BMI 34.9
[2023-01-24] MEDS ORDERED: ACETAMINOPHEN 1000 MG/100 ML BAG IVPB ONE (22:10)
[2023-01-24] MEDS ORDERED: ACETAMINOPHEN INJECTION 100 ML IVPB ONE (22:14)
[2023-01-24 22:26] LABS: BASO % 1.1 % (0-2.0); EOS % 12.2 % (0-4.5); HEMATOCRIT 40.6 % (35.4-49); HEMOGLOBIN 12.8 GM/dL (11.7-16.9); LYMPH % 33.8 % (8-40); MCH 26.7 pg (25.7-33.7); MCHC 31.5 g/dl (32.0-35.9); MEAN CELL VOLUME 84.7 fl (80-96); MEAN PLT VOLUME 8.7 fl (7.5-11.1); MONO % 9.1 % (3.8-10.2); NEUT % 43.8 % (42.8-82.8); PLATELET COUNT 159 10^3/uL (134-434); RBC 4.79 M/mm3 (4.00-5.60); WHITE BLOOD COUNT 6.2 K/mm3 (4.0-10.0)
[2023-01-24 22:33] LABS: INR 1.06 (0.83-1.09); PROTHROMBIN TIME (PATIENT) 12.3 SEC (9.7-13.0)
[2023-01-24 22:35] LABS: ACTIVATED PTT 31.2 SECONDS (25.2-36.5)
[2023-01-24 22:51] LABS: CALCIUM 8.8 mg/dL (8.5-10.1)
[2023-01-24 22:52] LABS: ALBUMIN 3.3 g/dl (3.4-5.0); BLOOD UREA NITROGEN 19.4 mg/dL (7-18); MAGNESIUM 1.8 mg/dL (1.8-2.4)
[2023-01-24 22:54] LABS: PHOSPHOROUS 3.2 mg/dL (2.5-4.9)
[2023-01-24 22:55] LABS: CREATININE 1.5 mg/dL (0.55-1.3)
[2023-01-24 22:56] LABS: BILIRUBIN,TOTAL 0.8 mg/dL (0.2-1); TOT PROT 7.2 g/dl (6.4-8.2)
[2023-01-24 23:00] LABS: N-TERMINAL BNP 292.9 pg/ml (5-125)
[2023-01-24] MEDS ORDERED: ASPIRIN 81 MG CHEWABLE TABLETS PO ONE (23:19)
[2023-01-24] MEDS ORDERED: FUROSEMIDE 40 MG/4 ML INJECTABLE VIAL IVPUSH ONE (23:19)
[2023-01-24] MEDS ORDERED: FUROSEMIDE 40 MG/4 ML INJECTABLE VIAL ONE (23:25)
[2023-01-24] MEDS ORDERED: ASPIRIN 81 MG CHEWABLE TABLETS ONE (23:25)
[2023-01-25] MEDS ORDERED: ACETAMINOPHEN 650 MG/20.3 ML ORAL SOLUTION (CUPS) PO PRN (00:17)
[2023-01-25] MEDS ORDERED: MAG HYDROX/AL HYDROX/SIMETH 30 ML UNIT-DOSE CUP PO ONE (02:38)
[2023-01-25] MEDS ORDERED: FAMOTIDINE 10 MG TABLET PO ONE (02:39)
[2023-01-25] MEDS ORDERED: SIMETHICONE 80 MG TAB.CHEW (FP) PO ONE (02:39)
[2023-01-25] MEDS: HEPARIN NA (PORCINE) 5,000 UNITS/ML 1ML VIAL SQ SCH ×3 (06:10→21:38)
[2023-01-25] MEDS: ALBUTEROL SO4 2.5/IPRATROPIUM 0.5 INH SOL 3 ML VIAL.NEB. NEB SCH ×4 (08:00→20:42)
[2023-01-25 08:18] LABS: HEMATOCRIT 42.8 % (35.4-49); HEMOGLOBIN 13.5 GM/dL (11.7-16.9); MCH 26.9 pg (25.7-33.7); MCHC 31.6 g/dl (32.0-35.9); MEAN CELL VOLUME 85.1 fl (80-96); MEAN PLT VOLUME 8.4 fl (7.5-11.1); PLATELET COUNT 147 10^3/uL (134-434); RBC 5.03 M/mm3 (4.00-5.60); RDW 14.6 % (11.9-15.9); WHITE BLOOD COUNT 5.3 K/mm3 (4.0-10.0)
[2023-01-25] MEDS: TAMSULOSIN HCL 0.4 MG CAP PO SCH (08:21)
[2023-01-25 08:35] LABS: POTASSIUM 4.1 mmol/L (3.5-5.1)
[2023-01-25 08:48] LABS: ALBUMIN 3.4 g/dl (3.4-5.0)
[2023-01-25 08:49] LABS: BILIRUBIN,TOTAL 1.1 mg/dL (0.2-1); TOT PROT 7.4 g/dl (6.4-8.2)
[2023-01-25 08:51] LABS: CREATININE 1.5 mg/dL (0.55-1.3)
[2023-01-25] MEDS ORDERED: amLODIPine BESYLATE 5 MG TABLET (FP) PO SCH (10:00)
[2023-01-25] MEDS ORDERED: METOPROLOL TARTRATE 50 MG TABLET (FP) PO SCH (10:00)
[2023-01-25] MEDS ORDERED: FUROSEMIDE 40 MG TABLET (FP) PO SCH (10:00)
[2023-01-25] MEDS: POLYETHYLENE GLYCOL (HEALTHYLAX) 3350 17 GM PACKET PO SCH ×2 (11:00→21:38)
[2023-01-25] MEDS: PANTOPRAZOLE 40 MG TABLET PO SCH (11:00)
[2023-01-25] MEDS: ASPIRIN COATED 81 MG TABLET.EC PO SCH (11:00)
[2023-01-25] MEDS: LIDOCAINE 5% TOPICAL PATCH TP SCH (13:03)
[2023-01-25] MEDS: METOPROLOL TARTRATE 50 MG TABLET (FP) PO SCH (21:36)
[2023-01-25] MEDS: amLODIPine BESYLATE 5 MG TABLET (FP) PO SCH (21:37)
[2023-01-25] MEDS ORDERED: INSULIN (NOVOLOG) ASPART 100 UNITS/ML 10ML VIAL ONE (21:50)
[2023-01-25] MEDS ORDERED: ATORVASTATIN CA 20 MG TABLET (FP) PO SCH (22:00)
[2023-01-25] MEDS ORDERED: LIDOCAINE PATCH REMOVAL MC SCH (22:00)
[2023-01-26] MEDS: HEPARIN NA (PORCINE) 5,000 UNITS/ML 1ML VIAL SQ SCH ×2 (05:48→13:27)
[2023-01-26] MEDS: ALBUTEROL SO4 2.5/IPRATROPIUM 0.5 INH SOL 3 ML VIAL.NEB. NEB SCH ×2 (07:11→11:31)
[2023-01-26 09:06] VITALS: RESP 19
[2023-01-26] MEDS: POLYETHYLENE GLYCOL (HEALTHYLAX) 3350 17 GM PACKET PO SCH (09:06)
[2023-01-26] MEDS: amLODIPine BESYLATE 5 MG TABLET (FP) PO SCH (09:07)
[2023-01-26] MEDS: METOPROLOL TARTRATE 50 MG TABLET (FP) PO SCH (09:07)
[2023-01-26] MEDS: PANTOPRAZOLE 40 MG TABLET PO SCH (09:07)
[2023-01-26] MEDS: ASPIRIN COATED 81 MG TABLET.EC PO SCH (09:07)
[2023-01-26] MEDS: TAMSULOSIN HCL 0.4 MG CAP PO SCH (09:07)
[2023-01-26] MEDS: LIDOCAINE 5% TOPICAL PATCH TP SCH (09:14)
[2023-01-26] MEDS ORDERED: hydrALAZINE HCL 25 MG TABLET (FP) PO SCH (10:00)
[2023-01-26] MEDS ORDERED: FUROSEMIDE 40 MG/4 ML INJECTABLE VIAL IVPUSH SCH (10:00)
[2023-01-26 14:17] VITALS: BP 125/72; PULSE 68; TEMP 97.8
== END 2023-01-26 14:48 ==
LOC: JER 21:45 → UNDOADMOB 22:26 → JERBED 22:26 → OBSVTOIN 01-25 00:15 → INTOOBSV 01-25 00:15 → JERBED 01-25 00:35 → J4W 01-25 00:35 → JERBED 01-25 13:36
PROVIDERS: ADMIT Internal Medicine; ATTEND Internal Medicine
PROC: 3E033NZ Introduction of Analgesics, Hypnotics, Sedatives into Peripheral Vein, Percutaneous Approach (ICD-10-PCS; principal; 2023-01-25)
PROC: 3E0F7GC Introduction of Other Therapeutic Substance into Respiratory Tract, Via Natural or Artificial Opening (ICD-10-PCS; 2023-01-25)
PROC: 3E033GC Introduction of Other Therapeutic Substance into Peripheral Vein, Percutaneous Approach (ICD-10-PCS; 2023-01-25)
PROC: 3E0337Z Introduction of Electrolytic and Water Balance Substance into Peripheral Vein, Percutaneous Approach (ICD-10-PCS; 2023-01-25)
PROC: 3E023GC Introduction of Other Therapeutic Substance into Muscle, Percutaneous Approach (ICD-10-PCS; 2023-01-25)
DX: I50.30 Unspecified diastolic (congestive) heart failure (principal); I11.0 Hypertensive heart disease with heart failure; J44.9 Chronic obstructive pulmonary disease, unspecified; I69.851 Hemiplegia and hemiparesis following other cerebrovascular disease affecting right dominant side; E78.5 Hyperlipidemia, unspecified; N17.9 Acute kidney failure, unspecified; N40.0 Benign prostatic hyperplasia without lower urinary tract symptoms; Z29.9 Encounter for prophylactic measures, unspecified
CPT/HCPCS: 0241U-QW; 36415; 71045-TC-FY; 71275-TC; 80053; 83690; 83735; 83880; 84100; 84484; 85025; 85027; 85610; 85730; 93005; 93010; 93306-TC; 94010; 94640; 96361; 96372; 96374; 96375; 97116-GP; 97162-GP; 99285-25; G0378; J1644; Q9967

== ENCOUNTER 2023-10-12 12:39 | Inpatient (IN) | payer BC, OTHER ==
[2023-10-12 14:13] LABS: BASO % 0.7 % (0-2.0); EOS % 14.1 % (0-4.5); HEMATOCRIT 38.2 % (35.4-49); HEMOGLOBIN 12.6 GM/dL (11.7-16.9); LYMPH % 28.9 % (8-40); MCH 28.3 pg (25.7-33.7); MCHC 32.9 g/dl (32.0-35.9); MEAN CELL VOLUME 86.1 fl (80-96); MEAN PLT VOLUME 8.7 fl (7.5-11.1); MONO % 11.4 % (3.8-10.2); NEUT % 44.9 % (42.8-82.8); PLATELET COUNT 178 10^3/uL (134-434); RBC 4.44 M/mm3 (4.00-5.60); RDW 15.1 % (11.9-15.9); WHITE BLOOD COUNT 6.2 K/mm3 (4.0-10.0)
[2023-10-12] MEDS ORDERED: ACETAMINOPHEN INJECTION 100 ML IVPB ONE (14:20)
[2023-10-12] MEDS ORDERED: FAMOTIDINE 20 MG/50 ML IVPB 20 MG/50 ML MG IVPB ONE (14:20)
[2023-10-12 14:21] LABS: INR 1.1 (0.83-1.09); PROTHROMBIN TIME (PATIENT) 12.8 SEC (9.7-13.0)
[2023-10-12 14:24] LABS: ACTIVATED PTT 30.4 SECONDS (25.2-36.5)
[2023-10-12 14:33] LABS: POTASSIUM 4.4 mmol/L (3.5-5.1)
[2023-10-12 14:36] LABS: ALBUMIN 3.3 g/dl (3.4-5.0); BLOOD UREA NITROGEN 13.7 mg/dL (7-18); CALCIUM 8.9 mg/dL (8.5-10.1); MAGNESIUM 1.5 mg/dL (1.8-2.4)
[2023-10-12 14:39] LABS: CREATININE 1.2 mg/dL (0.55-1.3)
[2023-10-12 14:40] LABS: BILIRUBIN,TOTAL 0.8 mg/dL (0.2-1); TOT PROT 7.5 g/dl (6.4-8.2)
[2023-10-12] MEDS: CEFTRIAXONE 1 GM in DEXTROSE 5%-WATER - 50 ML IVPB SCH (15:10)
[2023-10-12] MEDS ORDERED: MAGNESIUM 1GM/D5W - 1 GM/100 ML IVPB IVPB ONE (16:03)
[2023-10-12] MEDS: FAMOTIDINE 20 MG/50 ML IVPB 20 MG/50 ML MG IVPB ONE (18:01)
[2023-10-12] MEDS: ACETAMINOPHEN 1000 MG/100 ML BAG IVPB ONE (18:01)
[2023-10-12] MEDS: MAGNESIUM SULF 50% (8.12 MEQ/2 ML-1 GM VIAL) IVPB ONE (18:32)
[2023-10-12] MEDS ORDERED: ACETAMINOPHEN 1000 MG/100 ML BAG IVPB PRN (19:00)
[2023-10-12] MEDS ORDERED: ATORVASTATIN CA 20 MG TABLET (FP) ONE (21:12)
[2023-10-12] MEDS ORDERED: amLODIPine BESYLATE 5 MG TABLET (FP) ONE (21:12)
[2023-10-12] MEDS ORDERED: hydrALAZINE HCL 50 MG TABLET (FP) ONE (21:12)
[2023-10-12] MEDS ORDERED: METOPROLOL TARTRATE 25 MG TABLET (FP) ONE (21:12)
[2023-10-12] MEDS ORDERED: hydrALAZINE HCL 25 MG TABLET (FP) ONE (21:12)
[2023-10-12] MEDS ORDERED: METOPROLOL TARTRATE 50 MG TABLET (FP) ONE (21:12)
[2023-10-12] MEDS ORDERED: TAMSULOSIN HCL 0.4 MG CAP ONE (21:13)
[2023-10-12] MEDS ORDERED: traZODone HCL 50 MG TABLET (FP) ONE (21:13)
[2023-10-12] MEDS: amLODIPine BESYLATE 5 MG TABLET (FP) PO SCH (21:20)
[2023-10-12] MEDS: METOPROLOL TARTRATE 50 MG TABLET (FP) PO SCH (21:20)
[2023-10-12] MEDS: hydrALAZINE HCL 25 MG TABLET (FP) PO SCH (21:20)
[2023-10-12] MEDS: TAMSULOSIN HCL 0.4 MG CAP PO SCH (21:27)
[2023-10-12] MEDS: ATORVASTATIN CA 20 MG TABLET (FP) PO SCH (21:27)
[2023-10-12] MEDS: traZODone HCL 50 MG TABLET (FP) PO SCH (21:27)
[2023-10-12] MEDS: INSULIN ASPART SLIDING SCALE (NOVOLOG) 1 VIAL SQ SCH (21:28)
[2023-10-13 08:40] LABS: HEMATOCRIT 41.8 % (35.4-49); HEMOGLOBIN 13.5 GM/dL (11.7-16.9); MCH 28.4 pg (25.7-33.7); MCHC 32.3 g/dl (32.0-35.9); MEAN PLT VOLUME 9.3 fl (7.5-11.1); PLATELET COUNT 182 10^3/uL (134-434); RBC 4.75 M/mm3 (4.00-5.60); RDW 15.7 % (11.9-15.9); WHITE BLOOD COUNT 6.2 K/mm3 (4.0-10.0)
[2023-10-13 08:44] LABS: INR 2.57 (0.83-1.09); PROTHROMBIN TIME (PATIENT) 29.5 SEC (9.7-13.0)
[2023-10-13 09:49] LABS: POTASSIUM 4.6 mmol/L (3.5-5.1)
[2023-10-13 09:51] LABS: CALCIUM 8.8 mg/dL (8.5-10.1)
[2023-10-13 09:52] LABS: ALBUMIN 3.2 g/dl (3.4-5.0); MAGNESIUM 1.9 mg/dL (1.8-2.4)
[2023-10-13 09:55] LABS: CREATININE 1.5 mg/dL (0.55-1.3); PHOSPHOROUS 3.1 mg/dL (2.5-4.9)
[2023-10-13 09:56] LABS: BILIRUBIN,TOTAL 0.8 mg/dL (0.2-1); TOT PROT 7.6 g/dl (6.4-8.2)
[2023-10-13] MEDS ORDERED: FUROSEMIDE 20 MG TABLET (FP) PO SCH (10:00)
[2023-10-13] MEDS ORDERED: METOPROLOL TARTRATE 25 MG TABLET (FP) ONE (10:22)
[2023-10-13] MEDS: ENOXAPARIN NA (PORCINE) 40 MG/0.4 ML DISP.SYRIN SQ SCH (10:35)
[2023-10-13] MEDS: ASPIRIN COATED 81 MG TABLET.EC PO SCH (10:35)
[2023-10-13] MEDS: FUROSEMIDE 40 MG TABLET (FP) PO SCH (10:35)
[2023-10-13] MEDS: DULoxetine HCL 20 MG CAPSULE.DR PO SCH (10:35)
[2023-10-14] MEDS: METOPROLOL TARTRATE 25 MG TABLET (FP) PO SCH (22:46)
[2023-10-15 10:21] LABS: POTASSIUM 4.3 mmol/L (3.5-5.1)
[2023-10-15 10:24] LABS: CALCIUM 9.1 mg/dL (8.5-10.1)
[2023-10-15 10:25] LABS: ALBUMIN 3.2 g/dl (3.4-5.0)
[2023-10-15 10:28] LABS: CREATININE 1.2 mg/dL (0.55-1.3)
[2023-10-15 10:29] LABS: BILIRUBIN,TOTAL 1.3 mg/dL (0.2-1)
[2023-10-15 10:30] LABS: TOT PROT 7.7 g/dl (6.4-8.2)
[2023-10-15] MEDS: MINERAL OIL/PET HY-PHL TOPICAL OINTMENT 454 GM JAR TP SCH (10:34)
[2023-10-16 09:21] LABS: POTASSIUM 4.8 mmol/L (3.5-5.1)
[2023-10-16 09:28] LABS: CALCIUM 8.9 mg/dL (8.5-10.1)
[2023-10-16 09:29] LABS: BASO % 0.6 % (0-2.0); BLOOD UREA NITROGEN 17.4 mg/dL (7-18); EOS % 5.9 % (0-4.5); HEMATOCRIT 39.9 % (35.4-49); HEMOGLOBIN 12.8 GM/dL (11.7-16.9); LYMPH % 20.7 % (8-40); MCH 28.1 pg (25.7-33.7); MCHC 32.1 g/dl (32.0-35.9); MEAN CELL VOLUME 87.7 fl (80-96); MONO % 7.5 % (3.8-10.2); NEUT % 65.3 % (42.8-82.8); PLATELET COUNT 165 10^3/uL (134-434); RBC 4.55 M/mm3 (4.00-5.60); RDW 15.4 % (11.9-15.9); WHITE BLOOD COUNT 10.2 K/mm3 (4.0-10.0)
[2023-10-16 09:31] LABS: CREATININE 1.3 mg/dL (0.55-1.3)
[2023-10-16 09:33] LABS: BILIRUBIN,TOTAL 1.4 mg/dL (0.2-1); TOT PROT 7.4 g/dl (6.4-8.2)
[2023-10-16 13:56] VITALS: BMI 33.6
[2023-10-17] MEDS: POLYETHYLENE GLYCOL (HEALTHYLAX) 3350 17 GM PACKET PO ONE (09:38)
[2023-10-17 09:46] VITALS: RESP 18
[2023-10-17 15:39] VITALS: BP 124/71; PULSE 72; TEMP 98.4
[2023-10-17] MEDS: SACUBITRIL/VALSARTAN 24 MG-26 MG TABLET PO SCH (15:42)
== END 2023-10-17 16:35 | DRG 313 ==
LOC: JER 12:39 → JERBED 15:35 → OBSVTOIN 10-13 09:41 → J4W 10-13 18:33
PROVIDERS: ADMIT Internal Medicine; ATTEND Internal Medicine
DX: R07.89 Other chest pain (principal); I50.32 Chronic diastolic (congestive) heart failure; I69.351 Hemiplegia and hemiparesis following cerebral infarction affecting right dominant side; I13.0 Hypertensive heart and chronic kidney disease with heart failure and stage 1 through stage 4 chronic kidney disease, or unspecified chronic kidney disease; R47.01 Aphasia; N18.9 Chronic kidney disease, unspecified; E78.00 Pure hypercholesterolemia, unspecified; J44.9 Chronic obstructive pulmonary disease, unspecified; I69.391 Dysphagia following cerebral infarction; E66.9 Obesity, unspecified; M79.10 Myalgia, unspecified site; G47.33 Obstructive sleep apnea (adult) (pediatric); E83.42 Hypomagnesemia; Z68.33 Body mass index [BMI] 33.0-33.9, adult; I44.0 Atrioventricular block, first degree; N40.0 Benign prostatic hyperplasia without lower urinary tract symptoms; Z99.81 Dependence on supplemental oxygen
CPT/HCPCS: 36415; 71275-TC; 80053; 80061; 82550; 82962; 83036; 83735; 83880; 84100; 84443; 84484; 85025; 85027; 85610; 85730; 87635; 93005; 93010; 93225; 93226; 93306-TC; 93971-TC; 97116-GP; 97162-GP; 99285-25; G0378; J0131